=== PATIENT | female | born 1940 | race African-American/Black ===

== ENCOUNTER 2016-04-24 06:14 | Emergency (ER) | payer MEDICARE ==
[2016-04-24 07:17] LABS: Hematocrit 39 % (35-47); Hemoglobin 12.7 g/dl (12.0-16.0); Mean Corpuscular HGB Conc 33 g/dl (31-36); Mean Corpuscular Hemoglobin 27 pg (27-31); Mean Corpuscular Volume 81 fL (80-97); Mean Platelet Volume 8 um3 (7.4-10.4); Red Blood Count 4.79 10^6/ul (4.0-5.4); Red Cell Distribution Width 15 % (10.5-15); White Blood Count 9.5 10^3/ul (3.5-10.8)
[2016-04-24] MEDS ORDERED: NS 0.9% 1000 ML* 1,000 ML IV ONE (07:20)
[2016-04-24] MEDS ORDERED: Ondansetron ODT TAB* 4 MG PO ONE (07:20)
[2016-04-24 07:26] LABS: Albumin 3.5 g/dL (3.2-5.2); BUN/Creatinine Ratio 19.5 (8-20); C Reactive Protein 5.04 mg/L (< 5.00); Calcium 8.9 mg/dL (8.6-10.3); EGFR African American 81.9 (>60); EGFR Non-African American 63.6 (>60); Globulin 3.7 g/dL (2-4); Potassium 3.9 mmol/L (3.5-5.0); Total Bilirubin 0.7 mg/dL (0.2-1.0); Total Protein 7.2 g/dL (6.4-8.9)
--- NOTE | 2016-04-24 07:27 | ED ---
Abdominal Pain/Female - HPI Summary HPI Summary: Patient presents with LUQ and LLQ pain since 0100 when she was awoken with abdominal cramping. She went to the bathroom and had severe diarrhea. She took some Pepto-Bismal and went back to bed. She was able to get back to sleep but awoke several hours later, having had diarrhea in bed with continued abdominal pain. She noticed that her tongue was black, so with the combination of the pain and her tongue, she decided to come in for evaluation. Yesterday she felt perfectly normal and consumed her normal diet. She denies fever, chills, back pain, vomiting or having eaten any new or raw foods. - History of Current Complaint Chief Complaint: EDAbdPain Stated Complaint: ABD PAIN Time Seen by Provider: 04/24/16 06:56 Hx Obtained From: Patient ?: No Onset/Duration: Sudden Onset Timing: Constant Severity Initially: Severe Severity Currently: Severe Pain Intensity: 9 Location: Discrete At: LUQ, Discrete At: LLQ Radiates: No Character: Sharp, Cramping Aggravating Factor(s): Nothing Alleviating Factor(s): Nothing Associated Signs and Symptoms: Positive: Nausea, Diarrhea Allergies/Adverse Reactions: Allergies Allergy/AdvReac Type Severity Reaction Status Date / Time Codeine Allergy Intermediate Vomiting Verified 12/01/15 08:07 Morphine Allergy Intermediate Vomiting Verified 12/01/15 08:07 Tramadol Allergy Intermediate Vomiting Verified 12/01/15 08:07 Penicillins [PCN] Allergy Unknown Unknown Verified 12/01/15 08:07 Reaction Details Sulfa Drugs Allergy Unknown Unknown Verified 12/01/15 08:07 Reaction Details PMH/Surg Hx/FS Hx/Imm Hx Cardiovascular History: Reports: Hx Hypertension Respiratory History: Reports: Hx Asthma, Hx Chronic Bronchitis GI History: Reports: Hx Gall Bladder Disease - Cholecystectomy, Hx Hiatal Hernia - repaired, Hx Ulcer, Other GI Disorders - pancreatitis History: Reports: Hx Kidney Stones Musculoskeletal History: Reports: Hx Arthritis - knee, Hx Orthopedic Injury Sensory History: Reports: Hx Contacts or Glasses, Hx Eye Injury, Hx Vision Problem Opthamlomology History: Reports: Hx Contacts or Glasses, Hx Eye Injury, Hx Vision Problem Neurological History: 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) Psychiatric History: Reports: Hx Anxiety - Surgical History Surgery Procedure, Year, and Place: Hysterectomy, Tubal ligation, Cholecystectomy, RIGHT LEG REPAIR, left knee arthroscopy, tonsillectomy and adenoidectomy Hx Anesthesia Reactions: No - Immunization History Date of Tetanus Vaccine: Unknown Date of Influenza Vaccine: Unknown Infectious Disease History: No Infectious Disease History: Reports: Hx Shingles Denies: Traveled Outside the [place] in Last 30 Days - Family History Known Family History: Positive: Unknown - Social History Occupation: Unemployed Lives: Alone Alcohol Use: Rare Hx Substance Use: No Substance Use Type: Reports: None Hx Tobacco Use: No Smoking Status (MU): Never Smoked Tobacco Review of Systems Negative: Fever, Chills Negative: Chest Pain Negative: Shortness Of Breath Positive: Abdominal Pain, Diarrhea, Nausea. Negative: Vomiting Positive: no symptoms reported Negative: Headache All Other Systems Reviewed And Are Negative: Yes Physical Exam Triage Information Reviewed: Yes Vital Signs On Initial Exam: Initial Vitals Temp Pulse Resp BP Pulse Ox 98.0 F 98 22 107/64 98 04/24/16 06:16 04/24/16 06:16 04/24/16 06:16 04/24/16 06:16 04/24/16 06:16 Vital Signs Reviewed: Yes Appearance: Positive: Well-Appearing, Well-Nourished, Pain Distress Skin: Positive: Warm, Skin Color Reflects Adequate Perfusion, Dry, Soft Head/Face: Positive: Normal Head/Face Inspection Eyes: Positive: EOMI, TREY, Conjunctiva Clear ENT: Positive: Hearing grossly normal, Pharynx normal, Other - tongue has black film Neck: Positive: Supple, Nontender, No Lymphadenopathy Respiratory/Lung Sounds: Positive: Clear to Auscultation, Breath Sounds Present Cardiovascular: Positive: RRR Abdomen Description: Positive: Soft, Distended. Negative: Nontender - TTP LUQ, LLQ, periumbilical, CVA Tenderness (R), CVA Tenderness (L), McBurney's Point Tenderness, Pulsatile Mass Bowel Sounds: Positive: Present Musculoskeletal: Negative: Edema Left, Edema Right Neurological: Positive: Sensory/Motor Intact, Alert, Oriented to Person Place, Time Psychiatric: Positive: Affect/Mood Appropriate AVPU Assessment: Alert Diagnostics - Vital Signs Vital Signs Temp Pulse Resp BP Pulse Ox 04/24/16 06:30 98 27 104/51 99 04/24/16 06:25 102 30 123/87 99 04/24/16 06:16 98.0 F 98 22 107/64 98 - Laboratory Lab Results: Lab Results 04/24/16 Range/Units 06:30 WBC 9.5 (3.5-10.8) 10^3/ul RBC 4.79 (4.0-5.4) 10^6/ul Hgb 12.7 (12.0-16.0) g/dl Hct 39 (35-47) % MCV 81 (80-97) fL MCH 27 (27-31) pg MCHC 33 (31-36) g/dl RDW 15 (10.5-15) % Plt Count 175 (150-450) 10^3/ul MPV 8 (7.4-10.4) um3 Neut % (Auto) 61.7 (38-83) % Lymph % (Auto) 29.5 (25-47) % [place] % (Auto) 6.3 (1-9) % Eos % (Auto) 2.1 (0-6) % Baso % (Auto) 0.4 (0-2) % Absolute Neuts (auto) 5.9 (1.5-7.7) 10^3/ul Absolute Lymphs (auto) 2.8 (1.0-4.8) 10^3/ul Absolute Monos (auto) 0.6 (0-0.8) 10^3/ul Absolute Eos (auto) 0.2 (0-0.6) 10^3/ul Absolute Basos (auto) 0 (0-0.2) 10^3/ul Absolute Nucleated RBC 0.01 10^3/ul Nucleated RBC % 0.1 Result Diagrams: 04/24/16 06:30 04/24/16 06:30 Lab Statement: Any lab studies that have been ordered have been reviewed, and results considered in the medical decision making process. - Radiology No standard instances Xray Interpretation: Positive (See Comments) Radiology Interpretation Completed By: Radiologist - Air fluid levels - CT No standard instances CT Interpretation: Positive (See Comments) CT Interpretation Completed By: Radiologist - Diverticulosis Re-Evaluation - Re-Evaluation First Eval Re-Evaluation Time: 09:30 Change: Worse - pain increasing Second Eval Re-Evaluation Time: 11:00 Change: Improved - pain improved with morphine Third Eval Re-Evaluation Time: 11:50 Change: Worse - pain returned Fourth Eval Re-Evaluation Time: 12:35 Change: Improved - Pain is reduced Abdominal Pain Fem Course/Dx - Diagnoses Differential Diagnosis: Positive: Abdominal Aortic Aneurysm, ACS, Bowel Obstruction, Constipation, Pneumonia, Renal Colic Provider Diagnoses: Diverticulosis Discharge - Discharge Plan Condition: Stable Disposition: HOME Prescriptions: Ciprofloxacin TAB* [Cipro Tab*] 500 mg PO BID #20 tab Metronidazole [Flagyl 500 MG TAB] 500 mg PO TID #30 tab Patient Education Materials: Diverticulosis (ED), Diverticulosis Diet (ED) Referrals: Matti Romero MD [Primary Care Provider] - Additional Instructions: Please follow-up with your primary care provider in 1-2 days. Take the medication provided as prescribed and follow the divertoculosis diet to decrease your discomfort. Return to the emergency department if your symptoms worsen.
--- NOTE | 2016-04-24 08:09 | RAD ---
INDICATION: Diarrhea COMPARISON: None TECHNIQUE: 2 views the abdomen were obtained. FINDINGS: There are no acute bony or soft tissue abnormalities. Scattered air-fluid levels are noted in the jose ascending and transverse colon. Otherwise the bowel gas pattern is normal. There is a moderate amount of stool overlying the renal shadows. There are no obvious coarse calcifications overlying the expected location of the bilateral collecting systems or ureters. IMPRESSION: SCATTERED AIR-FLUID LEVELS IN THE COLON IN THIS OTHERWISE NORMAL KUB.
[2016-04-24] MEDS ORDERED: Morphine INJ* 4 MG/ML 1 ML CARPUJECT IV ONE ×3 (08:22→11:47)
[2016-04-24] MEDS ORDERED: Ondansetron INJ* 2 MG/ML VIAL IV ONE (08:31)
[2016-04-24] MEDS ORDERED: Iohexol 300* (CONTRAST) 10 ML SDV IV ONE (09:08)
[2016-04-24 09:27] LABS: Urine Bilirubin Negative (Negative); Urine Glucose Negative (Negative); Urine Nitrite Negative (Negative)
--- NOTE | 2016-04-24 11:55 | RAD ---
INDICATION: Abdominal pain and nausea. Diarrhea which is chronic. Spitting up black stuff. Post hysterectomy, cholecystectomy. COMPARISON: October 06, 2015 CT. TECHNIQUE: Multidetector CT images were obtained from the lung bases to the ischial tuberosities with 103 mm Omnipaque 300 IV and oral contrast. Multiplanar reformation. REPORT: Mild bibasilar subsegmental atelectasis. Minimal intra and extrahepatic biliary dilatation without visualized obstructing lesion or stone is mildly increased over the prior exam. Low suspicion 5 mm hypodense lesion at the caudal margin of the RIGHT posterior hepatic segment is unchanged. No suspicious hepatic lesions evident. Minimal prominence of the pancreatic duct is increased over the prior exam. No focal pancreatic lesion or peripancreatic inflammatory change evident. Unremarkable spleen. Negative for CT abnormality of the upper GI, small bowel, or appendix visualized overlying the RIGHT pelvic sidewall. Moderate colonic diverticulosis without findings of acute diverticulitis. Trace free pelvic fluid. Negative for free air. Negative for significant hernias. Normal adrenal glands. Unremarkable kidneys with symmetric nephrograms and pyelograms. Unremarkable ureters and urinary bladder. Post hysterectomy. Unremarkable adnexal regions. 1.4 cm transverse by 2.9 cm length soft tissue density conglomerate of lymph nodes at the LEFT external iliac level is compared with the recent prior exam and a CT from September 22, 2011 without concern. Normal size range bilateral inguinal lymph nodes without change. No new adenopathy evident. Atherosclerotic plaque of normal diameter abdominal aorta and common iliac arteries. Physiologic distention of the IVC. Negative for suspicious osseous lesions. Polyarticular degenerative arthropathy. IMPRESSION: 1. New very mild biliary and pancreatic duct dilatation without definitive obstructing lesion or visualized distal common bile duct stone. While this may be physiologic given previous cholecystectomy does appear increased over the recent prior exam. Correlate with clinical data and consider ultrasound or MRCP for further assessment. 2. Normal appendix documented. 3. Moderate colonic diverticulosis without findings of acute diverticulitis. 4. Trace free pelvic fluid is new compared with the prior exam.
[2016-04-24 12:34] VITALS: BP 89/54
[2016-04-24] MEDS ORDERED: metroNIDAZOLE IV 500 MG/100ML* 500 MG/100 ML BAG IVPB ONE (13:08)
[2016-04-24] MEDS ORDERED: Clindamycin 600 MG IVPREMIX(* 600 MG/50 ML SDV IV ONE (13:08)
== END 2016-04-24 15:34 | disposition home or self-care (01) ==
LOC: ED 06:14
DX: K57.90 Diverticulosis of intestine, part unspecified, without perforation or abscess without bleeding (principal); R10.84 Generalized abdominal pain; R19.7 Diarrhea, unspecified; R11.0 Nausea
CPT/HCPCS: 36415; 74000; 74177; 80053; 81003; 83690; 85025; 85610; 85730; 86140; 96374; 96375; 99283; A9270-GY; J2270; J2405; J3490; Q9967

== ENCOUNTER 2016-04-25 07:51 | Emergency (ER) | payer MEDICARE ==
[2016-04-25] MEDS ORDERED: NS 0.9% 1000 ML* 1,000 ML IV ONE (08:39)
[2016-04-25] MEDS ORDERED: Ondansetron INJ* 2 MG/ML VIAL IV ONE (08:39)
[2016-04-25] MEDS ORDERED: HYDROmorphone INJ* 1 MG/ML CARPUJECT SYRINGE IV ONE (08:39)
[2016-04-25 09:31] LABS: Hematocrit 36 % (35-47); Hemoglobin 12.2 g/dl (12.0-16.0); Mean Corpuscular HGB Conc 34 g/dl (31-36); Mean Corpuscular Hemoglobin 27 pg (27-31); Mean Corpuscular Volume 78 fL (80-97); Mean Platelet Volume 8 um3 (7.4-10.4); Red Blood Count 4.58 10^6/ul (4.0-5.4); Red Cell Distribution Width 15 % (10.5-15); White Blood Count 7.2 10^3/ul (3.5-10.8)
[2016-04-25 09:43] LABS: Albumin 3.5 g/dL (3.2-5.2); BUN/Creatinine Ratio 16.7 (8-20); C Reactive Protein 27.99 mg/L (< 5.00); Calcium 8.6 mg/dL (8.6-10.3); EGFR African American 73.1 (>60); EGFR Non-African American 56.8 (>60); Globulin 3.9 g/dL (2-4); Potassium 3.5 mmol/L (3.5-5.0); Total Bilirubin 1.1 mg/dL (0.2-1.0); Total Protein 7.4 g/dL (6.4-8.9)
--- NOTE | 2016-04-25 09:58 | RAD ---
INDICATION: ] Right upper quadrant pain COMPARISON: CT April 24, 2016 TECHNIQUE: Longitudinal and transverse scans of the right upper quadrant were obtained. Doppler interrogation of the hepatic and portal venous system was performed. FINDINGS: Liver: The liver is normal in size without focal mass. There is mild heterogeneity in echotexture suggesting mild hepatic parenchymal disease. The liver measures 15 cm in cephalocaudal dimension. Vessels: There is normal hepatic and portal venous flow. Bile ducts: There is no evidence of intrahepatic or extrahepatic ductal dilatation. The common duct measures 0.[address], however, suggested mild intra and extra hepatic ductal dilatation which can be seen with postcholecystectomy state. Gallbladder: Cholecystectomy. Pancreas: The visualized pancreas appears normal Right kidney: The right kidney is normal in size and echogenicity. There are no masses or calculi. There is no evidence of hydronephrosis. The right kidney measures 9.9 x 4.3 x 4.3 cm. IVC and aorta: The aorta and superior vena cava appear normal. Fluid: There is no ascites. Other: None. IMPRESSION: MILDLY HETEROGENEOUS LIVER. SUGGEST CORRELATION WITH LIVER ENZYMES. CHOLECYSTECTOMY. NO ADDITIONAL SIGNIFICANT SONOGRAPHIC FINDINGS
[2016-04-25 11:12] LABS: Urine Bacteria Absent (Absent); Urine Bilirubin Negative (Negative); Urine Glucose Negative (Negative); Urine Nitrite Negative (Negative)
[2016-04-25] MEDS ORDERED: LORazepam INJ* 2 MG/ML 1 ML VIAL IV ONE ×2 (14:11→15:31)
--- NOTE | 2016-04-25 14:20 | ED ---
Alexis Mcwilliams Adam, scribed for Alexei Olivera MD on 04/25/16 at 0831 . Abdominal Pain/Female - HPI Summary HPI Summary: Pt is a 75 year old female presenting with upper abdominal pain that set on suddenly yesterday. The pain resolved after she came to the ED yesterday and she was able to sleep well last night. When she woke up this morning, though, the pain had returned so she came back to the ED. She also reports dizziness, nausea, and 1 episode of vomiting this morning, none of which occurred yesterday. She urinated this morning and reports some burning sensation. PMHx of pancreatitis, hiatal hernia, cholecystectomy, and HTN. - History of Current Complaint Chief Complaint: EDAbdPain Stated Complaint: ABD PAIN Time Seen by Provider: 04/25/16 08:28 Hx Obtained From: Patient Onset/Duration: Sudden Onset, Lasting Days, Still Present Timing: Intermittent Episode Lasting - Resolved yesterday, returned this morning Severity Initially: Moderate Severity Currently: Moderate Pain Intensity: 10 Pain Scale Used: 0-10 Numeric Location: Discrete At: RUQ, Discrete At: LUQ, Epigastric Aggravating Factor(s): Deep Breaths Alleviating Factor(s): Nothing Associated Signs and Symptoms: Positive: Dizzy, Urinary Symptoms - Burning, Nausea, Vomiting Allergies/Adverse Reactions: Allergies Allergy/AdvReac Type Severity Reaction Status Date / Time Codeine Allergy Intermediate Vomiting Verified 12/01/15 08:07 Morphine Allergy Intermediate Vomiting Verified 12/01/15 08:07 Tramadol Allergy Intermediate Vomiting Verified 12/01/15 08:07 Penicillins [PCN] Allergy Unknown Unknown Verified 12/01/15 08:07 Reaction Details Sulfa Drugs Allergy Unknown Unknown Verified 12/01/15 08:07 Reaction Details PMH/Surg Hx/FS Hx/Imm Hx Cardiovascular History: Reports: Hx Hypertension Respiratory History: Reports: Hx Asthma, Hx Chronic Bronchitis GI History: Reports: Hx Gall Bladder Disease - Cholecystectomy, Hx Hiatal Hernia - repaired, Hx Ulcer, Other GI Disorders - pancreatitis History: Reports: Hx Kidney Stones Musculoskeletal History: Reports: Hx Arthritis - knee, Hx Orthopedic Injury Sensory History: Reports: Hx Contacts or Glasses, Hx Eye Injury, Hx Vision Problem Opthamlomology History: Reports: Hx Contacts or Glasses, Hx Eye Injury, Hx Vision Problem Neurological History: 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) Psychiatric History: Reports: Hx Anxiety - Surgical History Surgery Procedure, Year, and Place: Hysterectomy, Tubal ligation, Cholecystectomy, RIGHT LEG REPAIR, left knee arthroscopy, tonsillectomy and adenoidectomy Hx Anesthesia Reactions: No - Immunization History Date of Tetanus Vaccine: Unknown Date of Influenza Vaccine: Unknown Infectious Disease History: No Infectious Disease History: Reports: Hx Shingles Denies: Traveled Outside the [place] in Last 30 Days - Family History Known Family History: Positive: Unknown - Social History Occupation: Disabled Lives: Alone Alcohol Use: Rare Hx Substance Use: No Substance Use Type: Reports: None Hx Tobacco Use: No Smoking Status (MU): Never Smoked Tobacco Review of Systems Constitutional: Negative Negative: Fever Positive: Abdominal Pain, Vomiting, Nausea Positive: burning Neurological: Other - Dizziness All Other Systems Reviewed And Are Negative: Yes Physical Exam Triage Information Reviewed: Yes Vital Signs On Initial Exam: Initial Vitals Temp Pulse Resp BP Pulse Ox 98.4 F 85 26 116/89 92 04/25/16 08:02 04/25/16 08:02 04/25/16 08:02 04/25/16 08:02 04/25/16 08:02 Vital Signs Reviewed: Yes Appearance: Positive: Pain Distress - Moderate Skin: Positive: Warm, Skin Color Reflects Adequate Perfusion, Dry Head/Face: Positive: Normal Head/Face Inspection Eyes: Positive: Normal ENT: Positive: Normal ENT inspection Neck: Positive: Supple, Nontender Respiratory/Lung Sounds: Positive: Clear to Auscultation, Breath Sounds Present Cardiovascular: Positive: RRR Abdomen Description: Positive: Soft, Other: - Tenderness in the epigastrium and both upper quadrants Bowel Sounds: Positive: Present Musculoskeletal: Positive: Normal Neurological: Positive: Normal Psychiatric: Positive: Normal, Affect/Mood Appropriate Diagnostics - Vital Signs Vital Signs Temp Pulse Resp BP Pulse Ox 04/25/16 08:02 98.4 F 85 26 116/89 92 - Laboratory Lab Results: Lab Results 04/25/16 04/25/16 04/25/16 Range/Units 09:15 09:15 09:15 WBC 7.2 (3.5-10.8) 10^3/ul RBC 4.58 (4.0-5.4) 10^6/ul Hgb 12.2 (12.0-16.0) g/dl Hct 36 (35-47) % MCV 78 L (80-97) fL MCH 27 (27-31) pg MCHC 34 (31-36) g/dl RDW 15 (10.5-15) % Plt Count 203 (150-450) 10^3/ul MPV 8 (7.4-10.4) um3 Neut % (Auto) 71.0 (38-83) % Lymph % (Auto) 22.0 L (25-47) % [place] % (Auto) 5.6 (1-9) % Eos % (Auto) 0.9 (0-6) % Baso % (Auto) 0.5 (0-2) % Absolute Neuts (auto) 5.1 (1.5-7.7) 10^3/ul Absolute Lymphs (auto) 1.6 (1.0-4.8) 10^3/ul Absolute Monos (auto) 0.4 (0-0.8) 10^3/ul Absolute Eos (auto) 0.1 (0-0.6) 10^3/ul Absolute Basos (auto) 0 (0-0.2) 10^3/ul Absolute Nucleated RBC 0 10^3/ul Nucleated RBC % 0 Sodium 136 (133-145) mmol/L Potassium 3.5 (3.5-5.0) mmol/L Chloride 103 (101-111) mmol/L Carbon Dioxide 25 (22-32) mmol/L Anion Gap 8 (2-11) mmol/L BUN 16 (6-24) mg/dL Creatinine 0.96 H (0.51-0.95) mg/dL Est GFR ( Amer) 73.1 (>60) Est GFR (Non-Af Amer) 56.8 (>60) BUN/Creatinine Ratio 16.7 (8-20) Glucose 106 H (70-100) mg/dL Lactic Acid 1.6 (0.5-2.0) mmol/L Calcium 8.6 (8.6-10.3) mg/dL Total Bilirubin 1.10 H (0.2-1.0) mg/dL AST 56 H (13-39) U/L ALT 73 H (7-52) U/L Alkaline Phosphatase 84 (34-104) U/L C-Reactive Protein 27.99 H (< 5.00) mg/L Total Protein 7.4 (6.4-8.9) g/dL Albumin 3.5 (3.2-5.2) g/dL Globulin 3.9 (2-4) g/dL Albumin/Globulin Ratio 0.9 L (1-3) Lipase 124 H (11.0-82.0) U/L Urine Color Urine Appearance Urine pH (5-9) Ur Specific [place] (1.010-1.030) Urine Protein (Negative) Urine Ketones (Negative) Urine Blood (Negative) Urine Nitrate (Negative) Urine Bilirubin (Negative) Urine Urobilinogen (Negative) Ur Leukocyte Esterase (Negative) Urine WBC (Auto) (Absent) Urine RBC (Auto) (Absent) Ur Squamous Epith Cells (Absent) Urine Bacteria (Absent) Urine Glucose (Negative) 04/25/16 Range/Units 10:48 WBC (3.5-10.8) 10^3/ul RBC (4.0-5.4) 10^6/ul Hgb (12.0-16.0) g/dl Hct (35-47) % MCV (80-97) fL MCH (27-31) pg MCHC (31-36) g/dl RDW (10.5-15) % Plt Count (150-450) 10^3/ul MPV (7.4-10.4) um3 Neut % (Auto) (38-83) % Lymph % (Auto) (25-47) % [place] % (Auto) (1-9) % Eos % (Auto) (0-6) % Baso % (Auto) (0-2) % Absolute Neuts (auto) (1.5-7.7) 10^3/ul Absolute Lymphs (auto) (1.0-4.8) 10^3/ul Absolute Monos (auto) (0-0.8) 10^3/ul Absolute Eos (auto) (0-0.6) 10^3/ul Absolute Basos (auto) (0-0.2) 10^3/ul Absolute Nucleated RBC 10^3/ul Nucleated RBC % Sodium (133-145) mmol/L Potassium (3.5-5.0) mmol/L Chloride (101-111) mmol/L Carbon Dioxide (22-32) mmol/L Anion Gap (2-11) mmol/L BUN (6-24) mg/dL Creatinine (0.51-0.95) mg/dL Est GFR ( Amer) (>60) Est GFR (Non-Af Amer) (>60) BUN/Creatinine Ratio (8-20) Glucose (70-100) mg/dL Lactic Acid (0.5-2.0) mmol/L Calcium (8.6-10.3) mg/dL Total Bilirubin (0.2-1.0) mg/dL AST (13-39) U/L ALT (7-52) U/L Alkaline Phosphatase (34-104) U/L C-Reactive Protein (< 5.00) mg/L Total Protein (6.4-8.9) g/dL Albumin (3.2-5.2) g/dL Globulin (2-4) g/dL Albumin/Globulin Ratio (1-3) Lipase (11.0-82.0) U/L Urine Color Yellow Urine Appearance Clear Urine pH 7.0 (5-9) Ur Specific [place] 1.014 (1.010-1.030) Urine Protein Negative (Negative) Urine Ketones 1+ H (Negative) Urine Blood Negative (Negative) Urine Nitrate Negative (Negative) Urine Bilirubin Negative (Negative) Urine Urobilinogen Negative (Negative) Ur Leukocyte Esterase Trace H (Negative) Urine WBC (Auto) Trace(0-5/hpf) (Absent) Urine RBC (Auto) Trace(0-2/hpf) (Absent) Ur Squamous Epith Cells Present H (Absent) Urine Bacteria Absent (Absent) Urine Glucose Negative (Negative) Result Diagrams: 04/25/16 09:15 04/25/16 09:15 Lab Statement: Any lab studies that have been ordered have been reviewed, and results considered in the medical decision making process. - EKG 08:20 Cardiac Rate: NL - 78 BPM EKG Rhythm: Sinus Rhythm EKG Interpretation: Prolonged QT interval - Additional Comments Diagnostic Additional Comments: Abdomen Ultrasound - IMPRESSION: MILDLY HETEROGENEOUS LIVER. SUGGEST CORRELATION WITH LIVER ENZYMES. CHOLECYSTECTOMY. NO ADDITIONAL SIGNIFICANT SONOGRAPHIC FINDINGS Abdominal Pain Fem Course/Dx - Course Course Of Treatment: Ms. Koch has presented twice in as many days with upper abdominal pain that came on while she was eating. Her transaminases, lipase and bilirubin are all a little elevated today compared to yesterday. U/S is neg today and CT was yesterday so I have ordered an MRCP. - Diagnoses Provider Diagnoses: Abdominal pain - Provider Notifications Discussed Care Of Patient With: Dr. Hill Time Discussed With Above Provider: 15:00 - Change of shift Discharge - Discharge Plan Condition: Stable Disposition: ADMITTED TO [facility] The documentation as recorded by the Alexis begum Adam accurately reflects the service I personally performed and the decisions made by me, Alexei Olivera MD.
--- NOTE | 2016-04-25 16:57 | RAD ---
Indication: Epigastric pain and transaminase elevations. Nausea and vomiting. Post cholecystectomy. Comparison: April 24, 2016 CT and April 25, 2016 RIGHT upper quadrant ultrasound. Technique: I AND [employer] 1.5 [place] [id number] with GEM suite. Noncontrast magnetic resonance cholangiopancreatography. Report: Post cholecystectomy. Top normal diameter of the common bile duct. Minimal intrahepatic biliary dilatation. Top normal pancreatic duct diameter. No filling defects evident in the common bile duct to indicate stones. No intrinsic or extrinsic lesion at the ampulla evident. IMPRESSION: No choledocholithiasis or obstructing lesion evident. Top normal common bile duct and minimal intrahepatic biliary dilatation which may be normal post cholecystectomy.
[2016-04-25 18:18] VITALS: BP 127/76
--- NOTE | 2016-04-25 19:36 | CONS ---
GASTROENTEROLOGY CONSULT: DATE: 04/25/16 REASON FOR CONSULTATION: Abdominal pain with elevated LFTs. CONSULTING PHYSICIAN: Matti Rowe HISTORY: This 75-year-old woman who had a cholecystectomy in 2005 or 2006 in [facility] comes in with abdominal pain. She was seen yesterday with pain and workup including labs and a CT scan was largely unremarkable, although she had slight dilation of the bile ducts noted on the CT scan. Her LFTs were normal; however, and she became comfortable and was sent home. She was given a prescription for antibiotics, but did not fill them. At home, she said she was still drowsy from the pain medicine in the ER and went to sleep without eating. She slept well through the night. This morning, there was some further pain and she came back to the emergency room. She appeared well in no overt distress and her vitals were normal. Temperature 98.4 , pulse 85, and blood pressure 116/89. Her labs; however, this time showed a mild elevation in liver functions with bilirubin 1.1, ALT 73 (compared to 28), and lipase now 124. Her CRP was up at 28. Ultrasound was done at 8:40 a.m. and it showed a mildly heterogenous liver and a common duct of 7 mm, which is felt to be consistent with a postcholecystectomy state. She did not appear in distress per report. I was contacted and suggested MRCP. It was noted that she had been hospitalized in November 2014 with upper abdominal pain and at that time, her ALT had reached a height of 171. Her lipase had also been up around The MRCP was delayed initially due to a question about a metal hip appliance. PAST MEDICAL HISTORY: 1. Right femoral fracture, status post surgery. 2. Cholecystectomy - estimated 2005. 3. Hysterectomy - details unclear. 4. Hypertension. 5. Asthma - frequent emergency room visits. 6. History of TIA - history cloudy. MEDICATIONS: At home, all listed as questionable per the medication reconciliation, potentially including Aspirin 81, Baclofen, Amlodipine 10, Oxycodone. Allergies to PENICILLIN, SULFA, TRAMADOL, MORPHINE and CODEINE -all opiate reactions stated to be vomiting. SOCIAL HISTORY: She lived in [facility] until she was influenced by family members to move up here. Initially, it was a nephew at the start. She now lives near her daughter and her son lives in [facility]. She lists her location as [facility] near the hospital. REVIEW OF SYSTEMS: It is notable that her medical encounters with the hospital have been exclusively in the ER or via admissions aside from visits to Dr Joaquin Diez regarding right knee pain resulting in 2 visits out of approximately 30 her listed primary, Dr Romero. There is no history of syncope, palpitations, MS, cardiac stents, TB, hemoptysis , hepatitis, or rectal bleeding. She has had loose stools ever since her cholecystectomy. EXAM: She is a moderately overweight older black female in no overt distress and indeed, as I enter the room, she says "They want me to have a test, but I'm feeling fine and I want to go home. I'm hungry and I want to go home." She is anicteric. She does appear in no distress. She has no adenopathy. Her lungs are clear and heart sounds are normal. Breasts and Pelvic Exams: Deferred. The abdomen is symmetric with no tenderness elicited. Extremities show no edema. Neurologic is nonfocal with normal cranial nerves and mentation. She moves all 4 extremities clearly. Gait was not tested. IMPRESSION: This 75-year-old woman who had a cholecystectomy 9 or 10 years ago , now presents with upper abdominal pain and a second episode where transaminases and lipase went off in a low-grade fashion. Most likely, she is passing biliary sludge. An MRCP would be helpful. It is still being awaited. If MRCP is negative, she can be discharged to follow up with Dr Romero. This relationship should be fostered as opposed to ER primary care. [id number]/[facility] #: [id number] [facility]
--- NOTE | 2016-07-10 00:57 | ED ---
Karissa Mcwilliams Erika, scribed for Aki Hill MD on 04/25/16 at 1729 . Progress - Progress Note Progress Note: Patient signed out from Dr. Olivera. MRI CHOLANGIOGRAM read by radiologist - IMPRESSION: No choledocholithiasis or obstructing lesion evident. Top normal common bile duct and minimal intrahepatic biliary dilatation which may be normal post cholecystectomy. Discussed patient care with Dr. Boggs (GI) at 17:50 - discussed MRCP results Course/Dx - Diagnoses Provider Diagnoses: Abdominal pain The documentation as recorded by the Karissa begum Erika accurately reflects the service I personally performed and the decisions made by , Aki Hill MD.
== END 2016-04-25 18:17 | disposition home or self-care (01) ==
LOC: ED 07:51
DX: R10.9 Unspecified abdominal pain (principal)
CPT/HCPCS: 36415; 74181; 76376; 76705; 80053; 81003; 81015; 83605; 83690; 85025; 86140; 87086; 93005; 96374; 96375; 99283; J1170; J2060; J2405

== ENCOUNTER 2016-05-15 09:53 | Emergency (ER) | payer MEDICARE ==
[2016-05-15] MEDS ORDERED: Ketorolac INJ* 60 MG/2 ML VIAL IM ONE (12:48)
[2016-05-15] MEDS ORDERED: Cyclobenzaprine TAB* 10 MG PO ONE (12:48)
--- NOTE | 2016-05-15 12:54 | ED ---
Neck Pain - HPI Summary HPI Summary: Pt here w/ acute onset Rt sided neck pain. Started last night w/o known cause. Denies recent injury or over activity but states she's always active. Pain is worse w/ head and some arm movements. Denies GRANADOS, numbness, tingling, weakness. Hurts to touch. Tried heat and ice as well as excederin w/o relief. Lt sided frozen shoulder yesterday. No skin changes. - History of Current Complaint Chief Complaint: EDNeckComplaint Stated Complaint: BACK PAIN Time Seen by Provider: 05/15/16 12:28 Hx Obtained From: Patient Pain Intensity: 10 - Allergies/Home Medications Allergies/Adverse Reactions: Allergies Allergy/AdvReac Type Severity Reaction Status Date / Time Codeine Allergy Intermediate Vomiting Verified 05/15/16 09:58 Morphine Allergy Intermediate Vomiting Verified 05/15/16 09:58 Tramadol Allergy Intermediate Vomiting Verified 05/15/16 09:58 Penicillins [PCN] Allergy Unknown Unknown Verified 05/15/16 09:58 Reaction Details Sulfa Drugs Allergy Unknown Unknown Verified 05/15/16 09:58 Reaction Details PMH/Surg Hx/FS Hx/Imm Hx Previously Healthy: Yes Endocrine/Hematology History: Denies: Hx Anticoagulant Therapy, Hx Blood Disorders Cardiovascular History: Reports: Hx Hypertension Denies: Hx Pacemaker/ICD Respiratory History: Reports: Hx Asthma, Hx Chronic Bronchitis GI History: Reports: Hx Gall Bladder Disease - Cholecystectomy, Hx Hiatal Hernia - repaired, Hx Ulcer, Other GI Disorders - pancreatitis History: Reports: Hx Kidney Stones Musculoskeletal History: Reports: Hx Arthritis - knee, Hx Orthopedic Injury, Other Musculoskeletal History - "frozen shoulder" Lt side Sensory History: Reports: Hx Contacts or Glasses, Hx Eye Injury, Hx Vision Problem Denies: Hx Hearing Aid Opthamlomology History: Reports: Hx Contacts or Glasses, Hx Eye Injury, Hx Vision Problem Neurological History: 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) Psychiatric History: Reports: Hx Anxiety Denies: Hx Panic Disorder - Surgical History Surgery Procedure, Year, and Place: Hysterectomy, Tubal ligation, Cholecystectomy, RIGHT LEG ORIF, left knee arthroscopy, tonsillectomy and adenoidectomy Hx Anesthesia Reactions: No - Immunization History Date of Tetanus Vaccine: Unknown Date of Influenza Vaccine: Unknown Infectious Disease History: Yes Infectious Disease History: Reports: Hx Shingles Denies: Traveled Outside the [place] in Last 30 Days - Family History Known Family History: Positive: Unknown - Social History Occupation: Retired Alcohol Use: Rare Hx Substance Use: No Substance Use Type: Reports: None Hx Tobacco Use: No Smoking Status (MU): Never Smoked Tobacco Review of Systems Negative: Fever, Chills Eyes: Negative ENT: Negative Negative: Chest Pain Negative: Shortness Of Breath Gastrointestinal: Negative Positive: no symptoms reported Musculoskeletal: Other - see HPI Negative: Rash, Bruising Neurological: Negative Positive: Anxious All Other Systems Reviewed And Are Negative: Yes Physical Exam Triage Information Reviewed: Yes Vital Signs On Initial Exam: Initial Vitals Temp Pulse Resp BP Pulse Ox 99.4 F 102 20 105/70 100 05/15/16 09:58 05/15/16 09:58 05/15/16 09:58 05/15/16 09:58 05/15/16 09:58 Vital Signs Reviewed: Yes Appearance: Positive: Well-Appearing, Well-Nourished, Pain Distress Skin: Positive: Warm, Dry - no erythema, no lesoins over affected area of Rt side of neck Head/Face: Positive: Normal Head/Face Inspection - NTTP Eyes: Positive: Normal, EOMI, Conjunctiva Clear ENT: Positive: Hearing grossly normal, Pharynx normal. Negative: Nasal congestion, Nasal drainage Neck: Positive: Tenderness @ - Rt side trap m from cervical spine to shoulder visibly hypertonic - chord-like, TTP Respiratory/Lung Sounds: Positive: Clear to Auscultation, Breath Sounds Present Cardiovascular: Positive: Normal, Pulses are Symmetrical in both Upper and Lower Extremities Abdomen Description: Positive: Nontender, Soft Musculoskeletal: Positive: Limited @ - cervical spine w/ limited ROM d/t pain; can pull w/ UE full strength; hurts neck to push w/ Rt UE, Pain @ - Rt side of neck is TTP; shoulder, humerus, elbow, wrist and hand are NTTP Neurological: Positive: Normal, Sensory/Motor Intact, Alert, Oriented to Person Place, Time, CN Intact II-III Psychiatric: Positive: Anxious Diagnostics - Vital Signs Vital Signs Temp Pulse Resp BP Pulse Ox 05/15/16 10:48 99.3 F 94 20 116/80 05/15/16 09:58 99.4 F 102 20 105/70 100 - Laboratory Lab Statement: Any lab studies that have been ordered have been reviewed, and results considered in the medical decision making process. Re-Evaluation - Re-Evaluation First Eval Change: Improved Neck Course/Dx - Diagnoses Provider Diagnoses: Trapezius strain Discharge - Discharge Plan Condition: Stable Disposition: HOME Patient Education Materials: Cervical Strain (ED), Arthritis (ED) Referrals: Matti Romero MD [Primary Care Provider] - Additional Instructions: You appear to have an acute cervical strain. This may be treated with alternating ibuprofen 400-600mg (take with food) and acetaminophen 650mg. You may also continue heat and ice with gentle stretches. Follow-up with PCP next week. Call today to schedule an appointment.
--- NOTE | 2016-05-15 13:42 | RAD ---
Indication: Right-sided neck pain. 5 views of the cervical spine demonstrates disc space narrowing at C3-C4, C4-C5 and C5-C6. Dorsal and ventral osteophyte formation is noted. The intervertebral foramen appear patent. IMPRESSION: Degenerative disc disease at C3-C4, C4-C5 and C5-C6.
[2016-05-15 14:54] VITALS: BP 111/72
== END 2016-05-15 14:51 | disposition home or self-care (01) ==
LOC: ED 09:53
DX: S46.812A Strain of other muscles, fascia and tendons at shoulder and upper arm level, left arm, initial encounter (principal); M54.2 Cervicalgia; F41.9 Anxiety disorder, unspecified; X58.XXXA Exposure to other specified factors, initial encounter
CPT/HCPCS: 72050; 96372; 99281; A9270-GY; J1885

== ENCOUNTER 2016-07-26 04:53 | Emergency (ER) | payer MEDICARE ==
--- NOTE | 2016-07-26 05:50 | ED ---
Eric Mcwilliams Aidan, scribed for Garrison Curry MD on 07/26/16 at 0526 . Throat Pain/Nasal Congestion - HPI Summary HPI Summary: 76 y/o female presents to the ED via EMS with a complaint of an acute, constant , moderate sore throat that is aggravated by swallowing, talking, and turning her head. No other associated symptoms or factors. - History of Current Complaint Chief Complaint: EDThroatPain Time Seen by Provider: 07/26/16 05:00 Hx Obtained From: Patient Onset/Duration: Sudden Onset, Lasting Hours, Still Present Severity: Moderate Associated Signs And Symptoms: Positive: Negative Cough: None - Allergies/Home Medications Allergies/Adverse Reactions: Allergies Allergy/AdvReac Type Severity Reaction Status Date / Time Codeine Allergy Intermediate Vomiting Verified 07/26/16 04:59 Morphine Allergy Intermediate Vomiting Verified 07/26/16 04:59 Tramadol Allergy Intermediate Vomiting Verified 07/26/16 04:59 Penicillins [PCN] Allergy Unknown Unknown Verified 07/26/16 04:59 Reaction Details Sulfa Drugs Allergy Unknown Unknown Verified 07/26/16 04:59 Reaction Details PMH/Surg Hx/FS Hx/Imm Hx Endocrine/Hematology History: Denies: Hx Anticoagulant Therapy, Hx Blood Disorders Cardiovascular History: Reports: Hx Hypertension Denies: Hx Pacemaker/ICD Respiratory History: Reports: Hx Asthma, Hx Chronic Bronchitis GI History: Reports: Hx Gall Bladder Disease - Cholecystectomy, Hx Hiatal Hernia - repaired, Hx Ulcer, Other GI Disorders - pancreatitis History: Reports: Hx Kidney Stones Musculoskeletal History: Reports: Hx Arthritis - knee, Hx Orthopedic Injury, Other Musculoskeletal History - "frozen shoulder" Lt side Sensory History: Reports: Hx Contacts or Glasses, Hx Eye Injury, Hx Vision Problem Denies: Hx Hearing Aid Opthamlomology History: Reports: Hx Contacts or Glasses, Hx Eye Injury, Hx Vision Problem Neurological History: 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) Psychiatric History: Reports: Hx Anxiety Denies: Hx Panic Disorder - Surgical History Surgery Procedure, Year, and Place: Hysterectomy, Tubal ligation, Cholecystectomy, RIGHT LEG ORIF, left knee arthroscopy, tonsillectomy and adenoidectomy Hx Anesthesia Reactions: No - Immunization History Date of Tetanus Vaccine: Unknown Date of Influenza Vaccine: Unknown Infectious Disease History: No Infectious Disease History: Reports: Hx Shingles Denies: Traveled Outside the [place] in Last 30 Days - Family History Known Family History: Positive: Hypertension - Social History Occupation: Disabled Lives: Alone Alcohol Use: Rare Hx Substance Use: No Substance Use Type: Reports: None Hx Tobacco Use: No Smoking Status (MU): Never Smoked Tobacco Review of Systems Constitutional: Negative Eyes: Negative Positive: Sore Throat. Negative: Epistaxis, Dental Pain, Ear Ache, Nasal Discharge Cardiovascular: Negative Respiratory: Negative Gastrointestinal: Negative Genitourinary: Negative Musculoskeletal: Negative Skin: Negative Neurological: Negative Psychological: Normal All Other Systems Reviewed And Are Negative: Yes Physical Exam Triage Information Reviewed: Yes Vital Signs On Initial Exam: Initial Vitals Temp Pulse Resp BP Pulse Ox 99.0 F 102 17 152/135 98 07/26/16 04:54 07/26/16 04:54 07/26/16 04:54 07/26/16 04:54 07/26/16 04:54 Vital Signs Reviewed: Yes Appearance: Positive: Well-Appearing, No Pain Distress Skin: Positive: Warm Head/Face: Positive: Normal Head/Face Inspection Eyes: Positive: TREY ENT: Positive: Pharyngeal erythema. Negative: Tonsillar swelling, Tonsillar exudate Neck: Positive: Supple, Nontender, No Lymphadenopathy Respiratory/Lung Sounds: Positive: Breath Sounds Present Cardiovascular: Positive: RRR Abdomen Description: Positive: Nontender, Soft Bowel Sounds: Positive: Present Musculoskeletal: Positive: Strength/ROM Intact Neurological: Positive: Alert, Oriented to Person Place, Time Psychiatric: Positive: Affect/Mood Appropriate - Shailesh Coma Scale Coma Scale Total: 15 Diagnostics - Vital Signs Vital Signs Temp Pulse Resp BP Pulse Ox 07/26/16 04:55 98.1 F 100 18 108/67 100 07/26/16 04:54 99.0 F 102 17 152/135 98 - Laboratory Lab Results: Lab Results 07/26/16 Range/Units 05:26 Group A Strep Rapid Negative (Negative) Lab Statement: Any lab studies that have been ordered have been reviewed, and results considered in the medical decision making process. EENT Course/Dx - Course Course Of Treatment: 76 y/o female presents to the ED via EMS with a complaint of an acute, constant, moderate sore throat that is aggravated by swallowing, talking, and turning her head. Lab results indicate URI. - Diagnoses Provider Diagnoses: URI (upper respiratory infection) Discharge - Discharge Plan Condition: Stable Disposition: HOME Discharge Disposition Comment: Please follow up with your primary care physician within 2 days. Patient Education Materials: Upper Respiratory Infection (ED) Referrals: Matti Romero MD [Primary Care Provider] - The documentation as recorded by the Eric begum Aidan accurately reflects the service I personally performed and the decisions made by me, Garrison Curry MD.
[2016-07-26 06:22] VITALS: BP 114/73
== END 2016-07-26 06:21 | disposition home or self-care (01) ==
LOC: ED 04:53
DX: J06.9 Acute upper respiratory infection, unspecified (principal); J02.9 Acute pharyngitis, unspecified
CPT/HCPCS: 87651; 99282

== ENCOUNTER 2016-08-05 11:53 | Emergency (ER) | payer MEDICARE ==
[2016-08-05 12:12] VITALS: BP 112/79
== END 2016-08-05 14:21 | disposition left against medical advice (07) ==
LOC: ED 11:53
DX: F41.9 Anxiety disorder, unspecified (principal); Z53.21 Procedure and treatment not carried out due to patient leaving prior to being seen by health care provider
CPT/HCPCS: 93005; 99281

== ENCOUNTER 2016-11-02 06:07 | Emergency (ER) | payer MEDICARE ==
[2016-11-02] MEDS ORDERED: ALPRAZolam TAB* 0.5 MG PO ONE (07:24)
[2016-11-02 08:30] VITALS: BP 158/92
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
== END 2016-11-02 08:20 | disposition home or self-care (01) ==
LOC: ED 06:07
DX: F41.9 Anxiety disorder, unspecified (principal); I10 Essential (primary) hypertension; J42 Unspecified chronic bronchitis; J45.909 Unspecified asthma, uncomplicated; Z86.73 Personal history of transient ischemic attack (TIA), and cerebral infarction without residual deficits; Z88.5 Allergy status to narcotic agent; Z88.0 Allergy status to penicillin; Z88.2 Allergy status to sulfonamides
CPT/HCPCS: 99282; A9270-GY

== ENCOUNTER → 2016-11-06 04:21 | Emergency (ER) | payer MEDICARE ==
[~2016-11-06 04:21] MED LIST: LORazepam TAB(*) 1 MG PO ONE; NS 0.9% 1000 ML* 1,000 ML IV ONE
[2016-11-06 04:29] VITALS: BP 99/71
[2016-11-06 05:13] LABS: Hematocrit 37 % (35-47); Hemoglobin 12.5 g/dl (12.0-16.0); Mean Corpuscular HGB Conc 34 g/dl (31-36); Mean Corpuscular Hemoglobin 27 pg (27-31); Mean Corpuscular Volume 80 fL (80-97); Mean Platelet Volume 8 um3 (7.4-10.4); Red Blood Count 4.68 10^6/ul (4.0-5.4); Red Cell Distribution Width 15 % (10.5-15); White Blood Count 4.9 10^3/ul (3.5-10.8)
[2016-11-06 05:24] LABS: Albumin 3.8 g/dL (3.2-5.2); C Reactive Protein 1.45 mg/L (< 5.00); Calcium 9.3 mg/dL (8.6-10.3); EGFR African American 69.5 (>60); EGFR Non-African American 54.1 (>60); Globulin 4.1 g/dL (2-4); Potassium 3.8 mmol/L (3.5-5.0); Total Bilirubin 0.7 mg/dL (0.2-1.0); Total Protein 7.9 g/dL (6.4-8.9)
--- NOTE | 2016-11-06 06:38 | ED ---
Gabino Mcwilliams Alok, scribed for Jan Hernández MD on 11/06/16 at 0558 . Shortness of Breath - HPI Summary HPI Summary: 76F presents to the ED with a sudden onset of SOB waking her up at 0330 this evening. Pt also notes a non-productive cough and CP related to cough. Pt denies fever, chills, or edema. PMHx includes asthma, bronchitis, HTN, and anxiety. Pt drinks ETOH rarely. - History of Current Complaint Chief Complaint: EDChestPainROMI Time Seen by Provider: 11/06/16 04:39 Hx Obtained From: Patient Onset/Duration: Sudden Onset, Lasting Hours, Still Present Timing: Constant Current Severity: Moderate Dyspnea At: Rest Aggrevating Factors: Nothing Alleviating Factors: Nothing Associated Signs & Symptoms: Cough (Nonproductive), Chest Pain w/Cough - Allergy/Home Medications Allergies/Adverse Reactions: Allergies Allergy/AdvReac Type Severity Reaction Status Date / Time Codeine Allergy Intermediate Vomiting Verified 07/26/16 04:59 Morphine Allergy Intermediate Vomiting Verified 07/26/16 04:59 Tramadol Allergy Intermediate Vomiting Verified 07/26/16 04:59 Penicillins [PCN] Allergy Unknown Unknown Verified 07/26/16 04:59 Reaction Details Sulfa Drugs Allergy Unknown Unknown Verified 07/26/16 04:59 Reaction Details PMH/Surg Hx/FS Hx/Imm Hx Endocrine/Hematology History: Denies: Hx Anticoagulant Therapy, Hx Blood Disorders Cardiovascular History: Reports: Hx Hypertension Denies: Hx Pacemaker/ICD Respiratory History: Reports: Hx Asthma, Hx Chronic Bronchitis GI History: Reports: Hx Gall Bladder Disease - Cholecystectomy, Hx Hiatal Hernia - repaired, Hx Ulcer, Other GI Disorders - pancreatitis History: Reports: Hx Kidney Stones Musculoskeletal History: Reports: Hx Arthritis - knee, Hx Orthopedic Injury, Other Musculoskeletal History - "frozen shoulder" Lt side Sensory History: Reports: Hx Contacts or Glasses, Hx Eye Injury, Hx Vision Problem Denies: Hx Hearing Aid Opthamlomology History: Reports: Hx Contacts or Glasses, Hx Eye Injury, Hx Vision Problem Neurological History: 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) Psychiatric History: Reports: Hx Anxiety Denies: Hx Panic Disorder - Surgical History Surgery Procedure, Year, and Place: Hysterectomy, Tubal ligation, Cholecystectomy, RIGHT LEG ORIF, left knee arthroscopy, tonsillectomy and adenoidectomy Hx Anesthesia Reactions: No - Immunization History Date of Tetanus Vaccine: Unknown Date of Influenza Vaccine: Unknown Infectious Disease History: No Infectious Disease History: Reports: Hx Shingles Denies: Traveled Outside the [place] in Last 30 Days - Family History Known Family History: Positive: Hypertension - Social History Occupation: Disabled Alcohol Use: Rare Hx Substance Use: No Substance Use Type: Reports: None Hx Tobacco Use: No Smoking Status (MU): Never Smoked Tobacco Review of Systems Negative: Fever, Chills Positive: Shortness Of Breath, Cough Negative: Edema All Other Systems Reviewed And Are Negative: Yes Physical Exam - Summary Physical Exam Summary: The patient is well-nourished in no acute distress and in no acute pain. The skin is warm and dry and skin color reflects adequate perfusion. No cyanosis. HEENT: The head is normocephalic and atraumatic. The pupils are equal and reactive. The conjunctivae are clear and without drainage. Nares are patent and without drainage. Mouth reveals moist mucous membranes and the throat is without erythema and exudate. The external ears are intact. The ear canals are patent and without drainage. The tympanic membranes are intact. Neck is supple with full range of motion and non-tender. There are no carotid bruits. There is no neck vein distension. Respiratory: Chest is non-tender. Lungs are clear to auscultation and breath sounds are symmetrical and equal. No rales, rhonchi, or wheezes. Cardiovascular: Heart is regular rate and rhythm. There is no murmur or rub auscultated. There is no peripheral edema and pulses are symmetrical and equal. Abdomen: The abdomen is soft and non-tender. There are normal bowel sounds heard in all four quadrants and there is no organomegaly palpated. Musculoskeletal: There is no back pain noted. Extremities are non-tender with full range of motion. There is a 2 second capillary refill. There is no peripheral edema or calf tenderness elicited. Neurological: Patient is alert and oriented to person, place and time. The patient has symmetrical motor strength in all four extremities. Cranial nerves are grossly intact. Deep tendon reflexes are symmetrical and equal in all four extremities. Psychiatric: The patient has an appropriate affect and does not exhibit any anxiety or depression. Triage Information Reviewed: Yes Vital Signs On Initial Exam: Initial Vitals Temp Pulse Resp BP Pulse Ox 97.9 F 62 17 99/71 97 07/27/17 04:23 11/06/16 04:23 11/06/16 04:23 11/06/16 04:23 11/06/16 04:23 Vital Signs Reviewed: Yes Diagnostics - Vital Signs Vital Signs Temp Pulse Resp BP Pulse Ox 11/06/16 04:58 16 11/06/16 04:23 97.9 F 62 17 99/71 97 - Laboratory Lab Results: Lab Results 11/06/16 11/06/16 11/06/16 Range/Units 05:00 05:00 05:00 WBC 4.9 (3.5-10.8) 10^3/ul RBC 4.68 (4.0-5.4) 10^6/ul Hgb 12.5 (12.0-16.0) g/dl Hct 37 (35-47) % MCV 80 (80-97) fL MCH 27 (27-31) pg MCHC 34 (31-36) g/dl RDW 15 (10.5-15) % Plt Count 223 (150-450) 10^3/ul MPV 8 (7.4-10.4) um3 Neut % (Auto) 31.9 L (38-83) % Lymph % (Auto) 56.7 H (25-47) % [place] % (Auto) 6.9 (1-9) % Eos % (Auto) 3.7 (0-6) % Baso % (Auto) 0.8 (0-2) % Absolute Neuts (auto) 1.6 (1.5-7.7) 10^3/ul Absolute Lymphs (auto) 2.8 (1.0-4.8) 10^3/ul Absolute Monos (auto) 0.3 (0-0.8) 10^3/ul Absolute Eos (auto) 0.2 (0-0.6) 10^3/ul Absolute Basos (auto) 0 (0-0.2) 10^3/ul Absolute Nucleated RBC 0.01 10^3/ul Nucleated RBC % 0.2 Sodium 135 (133-145) mmol/L Potassium 3.8 (3.5-5.0) mmol/L Chloride 108 (101-111) mmol/L Carbon Dioxide 19 L (22-32) mmol/L Anion Gap 8 (2-11) mmol/L BUN 20 (6-24) mg/dL Creatinine 1.00 H (0.51-0.95) mg/dL Est GFR ( Amer) 69.5 (>60) Est GFR (Non-Af Amer) 54.1 (>60) BUN/Creatinine Ratio 20.0 (8-20) Glucose 104 H (70-100) mg/dL Lactic Acid 1.0 (0.5-2.0) mmol/L Calcium 9.3 (8.6-10.3) mg/dL Total Bilirubin 0.70 (0.2-1.0) mg/dL AST 18 (13-39) U/L ALT 9 (7-52) U/L Alkaline Phosphatase 60 (34-104) U/L Troponin I 0.00 (<0.04) ng/mL C-Reactive Protein 1.45 (< 5.00) mg/L B-Natriuretic Peptide ( - 100) pg/mL Total Protein 7.9 (6.4-8.9) g/dL Albumin 3.8 (3.2-5.2) g/dL Globulin 4.1 H (2-4) g/dL Albumin/Globulin Ratio 0.9 L (1-3) 11/06/16 Range/Units 05:00 WBC (3.5-10.8) 10^3/ul RBC (4.0-5.4) 10^6/ul Hgb (12.0-16.0) g/dl Hct (35-47) % MCV (80-97) fL MCH (27-31) pg MCHC (31-36) g/dl RDW (10.5-15) % Plt Count (150-450) 10^3/ul MPV (7.4-10.4) um3 Neut % (Auto) (38-83) % Lymph % (Auto) (25-47) % [place] % (Auto) (1-9) % Eos % (Auto) (0-6) % Baso % (Auto) (0-2) % Absolute Neuts (auto) (1.5-7.7) 10^3/ul Absolute Lymphs (auto) (1.0-4.8) 10^3/ul Absolute Monos (auto) (0-0.8) 10^3/ul Absolute Eos (auto) (0-0.6) 10^3/ul Absolute Basos (auto) (0-0.2) 10^3/ul Absolute Nucleated RBC 10^3/ul Nucleated RBC % Sodium (133-145) mmol/L Potassium (3.5-5.0) mmol/L Chloride (101-111) mmol/L Carbon Dioxide (22-32) mmol/L Anion Gap (2-11) mmol/L BUN (6-24) mg/dL Creatinine (0.51-0.95) mg/dL Est GFR ( Amer) (>60) Est GFR (Non-Af Amer) (>60) BUN/Creatinine Ratio (8-20) Glucose (70-100) mg/dL Lactic Acid (0.5-2.0) mmol/L Calcium (8.6-10.3) mg/dL Total Bilirubin (0.2-1.0) mg/dL AST (13-39) U/L ALT (7-52) U/L Alkaline Phosphatase (34-104) U/L Troponin I (<0.04) ng/mL C-Reactive Protein (< 5.00) mg/L B-Natriuretic Peptide 17 ( - 100) pg/mL Total Protein (6.4-8.9) g/dL Albumin (3.2-5.2) g/dL Globulin (2-4) g/dL Albumin/Globulin Ratio (1-3) Result Diagrams: 11/06/16 05:00 11/06/16 05:00 Lab Statement: Any lab studies that have been ordered have been reviewed, and results considered in the medical decision making process. - Radiology CXR Xray Interpretation: No Acute Changes Radiology Interpretation Completed By: ED Physician - Dr. Hernández - EKG 0430 Cardiac Rate: NL - 60 bpm EKG Rhythm: Sinus Rhythm EKG Interpretation: Normal [place]. No ST elevations. Re-Evaluation - Re-Evaluation First Eval Re-Evaluation Time: 06:36 Change: Improved Comment: Patient SOB has improved Course/Dx - Course Course Of Treatment: 76 y/o female presents with sudden onset of SOB. IV fluids and blood work ordered. Administered ativan for anxiety as well as oxygen therapy. CXR and EKG done, both normal. Will discharge home with instructions to FU with PCP. - Diagnoses Provider Diagnoses: SOB (shortness of breath), Anxiety Discharge - Discharge Plan Condition: Stable Disposition: HOME Patient Education Materials: Dyspnea (ED) Referrals: Matti Romero MD [Primary Care Provider] - Additional Instructions: Please follow up with your primary care provider The documentation as recorded by the Gabino begum Alok accurately reflects the service I personally performed and the decisions made by me, Jan Hernández MD.
--- NOTE | 2016-11-06 07:56 | RAD ---
HISTORY: Shortness of breath, cough COMPARISONS: May 13, 2015 VIEWS: 4: Frontal dual-energy and lateral views of the chest. FINDINGS: CARDIOMEDIASTINAL SILHOUETTE: The aorta is tortuous. The cardiomediastinal silhouette is otherwise unremarkable. LIBERTAD: The libertad are normal. PLEURA: The costophrenic angles are sharp. No pleural abnormalities are noted. LUNG PARENCHYMA: There is hyperinflation with flattening of the diaphragm and expansion of the AP diameter of the chest. ABDOMEN: The upper abdomen is clear. There is no subphrenic gas. BONES AND SOFT TISSUES: Degenerative changes are noted along the spine. OTHER: None. IMPRESSION: HYPERINFLATION, CONSISTENT WITH COPD. NO ACTIVE CARDIOPULMONARY DISEASE.
== END | disposition home or self-care (01) ==
LOC: ED 04:21
DX: R06.02 Shortness of breath (principal); F41.9 Anxiety disorder, unspecified; R07.9 Chest pain, unspecified; R05 Cough
CPT/HCPCS: 36415; 71020; 80053; 83605; 83880; 84484; 85025; 86140; 93005; 99282; A9270-GY

== ENCOUNTER 2016-11-11 20:24 | Emergency (ER) | payer MEDICARE ==
[2016-11-11] MEDS ORDERED: LORazepam INJ* 2 MG/ML 1 ML VIAL IV ONE (20:45)
[2016-11-11] MEDS ORDERED: LORazepam INJ* 2 MG/ML 1 ML VIAL IM ONE (21:28)
[2016-11-11 21:37] LABS: Hematocrit 37 % (35-47); Hemoglobin 12.4 g/dl (12.0-16.0); Mean Corpuscular HGB Conc 34 g/dl (31-36); Mean Corpuscular Hemoglobin 27 pg (27-31); Mean Corpuscular Volume 79 fL (80-97); Mean Platelet Volume 8 um3 (7.4-10.4); Red Cell Distribution Width 16 % (10.5-15); White Blood Count 6.4 10^3/ul (3.5-10.8)
[2016-11-11 21:51] LABS: ALT 7 U/L (7-52); Albumin 3.9 g/dL (3.2-5.2); Alkaline Phosphatase 63 U/L (34-104); BUN/Creatinine Ratio 23.9 (8-20); Blood Urea Nitrogen 26 mg/dL (6-24); CO2 Carbon Dioxide 26 mmol/L (22-32); Calcium 9.2 mg/dL (8.6-10.3); Chloride 102 mmol/L (101-111); EGFR African American 62.9 (>60); EGFR Non-African American 48.9 (>60); Globulin 3.9 g/dL (2-4); Glucose 96 mg/dL (70-100); Sodium 135 mmol/L (133-145); Total Protein 7.8 g/dL (6.4-8.9)
[2016-11-11 21:57] LABS: Anion Gap 7 mmol/L (2-11)
[2016-11-11 23:14] VITALS: BP 100/45
--- NOTE | 2016-11-13 14:58 | ED ---
I, Johnny,Sogregoria, scribed for Alexei Olivera MD on 11/11/16 at 2048 . Shortness of Breath - HPI Summary HPI Summary: This 76 y/o female presents to ED for acute on chronic SOB since 1830 PM today. PMHx includes chronic bronchitis, seasonal allergies, and asthma that is controlled with inhaler. Pt was previously seen 4 days ago for similar complaint. Upright position makes her feel better. Oxygen improves SOB. Pt does not have any oxygen at home. - History of Current Complaint Chief Complaint: EDShortnessOfBreath Time Seen by Provider: 11/11/16 20:37 Hx Obtained From: Patient, Medical Records Dyspnea At: Rest Associated Signs & Symptoms: Negative - Allergy/Home Medications Allergies/Adverse Reactions: Allergies Allergy/AdvReac Type Severity Reaction Status Date / Time Codeine Allergy Intermediate Vomiting Verified 07/26/16 04:59 Morphine Allergy Intermediate Vomiting Verified 07/26/16 04:59 Tramadol Allergy Intermediate Vomiting Verified 07/26/16 04:59 Penicillins [PCN] Allergy Unknown Unknown Verified 07/26/16 04:59 Reaction Details Sulfa Drugs Allergy Unknown Unknown Verified 07/26/16 04:59 Reaction Details PMH/Surg Hx/FS Hx/Imm Hx Endocrine/Hematology History: Denies: Hx Anticoagulant Therapy, Hx Blood Disorders Cardiovascular History: Reports: Hx Hypertension Denies: Hx Pacemaker/ICD Respiratory History: Reports: Hx Asthma, Hx Chronic Bronchitis GI History: Reports: Hx Gall Bladder Disease - Cholecystectomy, Hx Hiatal Hernia - repaired, Hx Ulcer, Other GI Disorders - pancreatitis History: Reports: Hx Kidney Stones Musculoskeletal History: Reports: Hx Arthritis - knee, Hx Orthopedic Injury, Other Musculoskeletal History - "frozen shoulder" Lt side Sensory History: Reports: Hx Contacts or Glasses, Hx Eye Injury, Hx Vision Problem Denies: Hx Hearing Aid Opthamlomology History: Reports: Hx Contacts or Glasses, Hx Eye Injury, Hx Vision Problem Neurological History: 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) Psychiatric History: Reports: Hx Anxiety Denies: Hx Panic Disorder - Surgical History Surgery Procedure, Year, and Place: Hysterectomy, Tubal ligation, Cholecystectomy, RIGHT LEG ORIF, left knee arthroscopy, tonsillectomy and adenoidectomy Hx Anesthesia Reactions: No - Immunization History Date of Tetanus Vaccine: Unknown Date of Influenza Vaccine: Unknown Infectious Disease History: No Infectious Disease History: Reports: Hx Shingles Denies: Traveled Outside the [place] in Last 30 Days - Family History Known Family History: Positive: Hypertension - Social History Alcohol Use: Rare Hx Substance Use: No Substance Use Type: Reports: None Hx Tobacco Use: No Smoking Status (MU): Never Smoked Tobacco Review of Systems Negative: Fever Negative: Chest Pain Positive: Shortness Of Breath All Other Systems Reviewed And Are Negative: Yes Physical Exam Triage Information Reviewed: Yes Vital Signs On Initial Exam: Initial Vitals Temp Pulse Resp BP Pulse Ox 97.4 F 74 19 109/65 96 11/11/16 20:31 11/11/16 20:31 11/11/16 20:31 11/11/16 20:31 11/11/16 20:31 Vital Signs Reviewed: Yes Appearance: Positive: Well-Appearing, No Pain Distress Skin: Positive: Warm, Skin Color Reflects Adequate Perfusion, Dry Head/Face: Positive: Normal Head/Face Inspection Eyes: Positive: Normal ENT: Positive: Normal ENT inspection Neck: Positive: Supple, Nontender Respiratory/Lung Sounds: Positive: Clear to Auscultation, Breath Sounds Present Cardiovascular: Positive: RRR, Pulses are Symmetrical in both Upper and Lower Extremities Abdomen Description: Positive: Nontender, Soft Musculoskeletal: Positive: Normal Neurological: Positive: Normal Psychiatric: Positive: Anxious AVPU Assessment: Alert - Shailesh Coma Scale Coma Scale Total: 15 Diagnostics - Vital Signs Vital Signs Temp Pulse Resp BP Pulse Ox 11/11/16 20:32 139 30 109/65 95 11/11/16 20:31 97.4 F 114 21 109/65 93 - Laboratory Lab Results: Lab Results 11/11/16 11/11/16 11/11/16 Range/Units 21:24 21:24 21:24 WBC 6.4 (3.5-10.8) 10^3/ul RBC 4.60 (4.0-5.4) 10^6/ul Hgb 12.4 (12.0-16.0) g/dl Hct 37 (35-47) % MCV 79 L (80-97) fL MCH 27 (27-31) pg MCHC 34 (31-36) g/dl RDW 16 H (10.5-15) % Plt Count 195 (150-450) 10^3/ul MPV 8 (7.4-10.4) um3 Neut % (Auto) 34.0 L (38-83) % Lymph % (Auto) 53.3 H (25-47) % [place] % (Auto) 8.4 (1-9) % Eos % (Auto) 2.7 (0-6) % Baso % (Auto) 1.6 (0-2) % Absolute Neuts (auto) 2.2 (1.5-7.7) 10^3/ul Absolute Lymphs (auto) 3.4 (1.0-4.8) 10^3/ul Absolute Monos (auto) 0.5 (0-0.8) 10^3/ul Absolute Eos (auto) 0.2 (0-0.6) 10^3/ul Absolute Basos (auto) 0.1 (0-0.2) 10^3/ul Absolute Nucleated RBC 0.01 10^3/ul Nucleated RBC % 0.2 D-Dimer, Quantitative 474 H (Less Than 230) ng/mL Sodium 135 (133-145) mmol/L Potassium TNP Chloride 102 (101-111) mmol/L Carbon Dioxide 26 (22-32) mmol/L Anion Gap 7 (2-11) mmol/L BUN 26 H (6-24) mg/dL Creatinine 1.09 H (0.51-0.95) mg/dL Est GFR ( Amer) 62.9 (>60) Est GFR (Non-Af Amer) 48.9 (>60) BUN/Creatinine Ratio 23.9 H (8-20) Glucose 96 (70-100) mg/dL Calcium 9.2 (8.6-10.3) mg/dL Total Bilirubin 0.50 (0.2-1.0) mg/dL AST TNP ALT 7 (7-52) U/L Alkaline Phosphatase 63 (34-104) U/L Total Protein 7.8 (6.4-8.9) g/dL Albumin 3.9 (3.2-5.2) g/dL Globulin 3.9 (2-4) g/dL Albumin/Globulin Ratio 1.0 (1-3) Result Diagrams: 11/11/16 21:24 11/11/16 21:24 Lab Statement: Any lab studies that have been ordered have been reviewed, and results considered in the medical decision making process. - EKG 2040 Cardiac Rate: NL - 66 bpm EKG Rhythm: Sinus Rhythm Course/Dx - Course Course Of Treatment: Ms. Koch presented feeling SOB. She looked comfortable and her lungs were clear. She was given some IM Ativan and felt completely improved and requested D/C. - Diagnoses Provider Diagnoses: Anxiety about health Discharge - Discharge Plan Condition: Stable Disposition: HOME Patient Education Materials: Dyspnea (ED), Anxiety (ED) Referrals: Matti Romero MD [Primary Care Provider] - 2 Days The documentation as recorded by the Johnny begum Soohyun accurately reflects the service I personally performed and the decisions made by me, Alexei Olivera MD.
== END 2016-11-11 23:14 | disposition home or self-care (01) ==
LOC: ED 20:24
DX: F41.9 Anxiety disorder, unspecified (principal); R06.02 Shortness of breath
CPT/HCPCS: 36415; 80053; 85025; 85379; 93005; 96372; 96374; 99282; J2060

== ENCOUNTER 2016-12-30 22:07 | Emergency (ER) | payer MEDICARE ==
[2016-12-30 23:21] LABS: Hematocrit 37 % (35-47); Hemoglobin 12.5 g/dl (12.0-16.0); Mean Corpuscular HGB Conc 34 g/dl (31-36); Mean Corpuscular Hemoglobin 27 pg (27-31); Mean Corpuscular Volume 78 fL (80-97); Mean Platelet Volume 8 um3 (7.4-10.4); Red Blood Count 4.68 10^6/ul (4.0-5.4); Red Cell Distribution Width 16 % (10.5-15); White Blood Count 7.4 10^3/ul (3.5-10.8)
[2016-12-30 23:45] LABS: CO2 Carbon Dioxide 23 mmol/L (22-32); Chloride 106 mmol/L (101-111); EGFR African American 58.6 (>60); EGFR Non-African American 45.5 (>60); Sodium 139 mmol/L (133-145); Total Protein 7.9 g/dL (6.4-8.9)
[2016-12-30 23:52] LABS: Anion Gap 10 mmol/L (2-11); TSH (Thyroid Stimulating Horm) 2.67 mcIU/mL (0.34-5.60)
[2016-12-31 00:06] LABS: ALT 11 U/L (7-52); BUN/Creatinine Ratio 21.6 (8-20); Blood Urea Nitrogen 25 mg/dL (6-24); Calcium 9.7 mg/dL (8.6-10.3)
[2016-12-31 00:49] LABS: Albumin 3.9 g/dL (3.2-5.2); Alkaline Phosphatase 70 U/L (34-104); Glucose 108 mg/dL (70-100); Magnesium 1.7 mg/dL (1.9-2.7)
[2016-12-31] MEDS ORDERED: Acetaminophen TAB* 325 MG PO ONE (01:52)
[2016-12-31 02:12] VITALS: BP 112/72
--- NOTE | 2016-12-31 02:13 | ED ---
Eamon Mcwilliams Nikita, scribed for Aki Hill MD on 12/30/16 at 2354 . Headache - HPI Summary HPI Summary: This patient is a 76 year old F BIBA to ED with a chief complaint of GRANADOS since 4 days ago. The CC is described as sudden and constant GRANADOS since neighbors moved in. The patient rates the pain 10/10 in severity. Symptoms aggravated by noise from neighbor. Symptoms alleviated by nothing. 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 Patient denies weakness, numbness, and palpitations. Pt denies being on blood thinners. PMHx of GRANADOS. - History Of Current Complaint Chief Complaint: EDSyncope Stated Complaint: HEADACHE Time Seen by Provider: 12/30/16 23:41 Hx Obtained From: Patient Onset/Duration: Sudden Onset - since noisy neighbors moved in, Started days ago - 4 days ago, Still Present Initially Headache Was: "Worst Headache Ever", Initial Pain Scale(0-10)= - 10/10 , Severe Currently Pain Is: Current Pain Scale(0-10)= - 10/10, Severe Timing: Constant Location of Headache: Other: - top of head Aggravating Factor: Other - noise from neighbors Allevating Factors: Nothing Associated Signs And Symptoms: Other (Noted In Comments) - Patient reports fever , dehydration, 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 Patient denies weakness, numbness, and palpitations. - Allergies/Home Medications Allergies/Adverse Reactions: Allergies Allergy/AdvReac Type Severity Reaction Status Date / Time Codeine Allergy Intermediate Vomiting Verified 07/26/16 04:59 Morphine Allergy Intermediate Vomiting Verified 07/26/16 04:59 Tramadol Allergy Intermediate Vomiting Verified 07/26/16 04:59 Penicillins [PCN] Allergy Unknown Unknown Verified 07/26/16 04:59 Reaction Details Sulfa Drugs Allergy Unknown Unknown Verified 07/26/16 04:59 Reaction Details PMH/Surg Hx/FS Hx/Imm Hx Endocrine/Hematology History: Denies: Hx Anticoagulant Therapy, Hx Blood Disorders Cardiovascular History: Reports: Hx Hypertension Denies: Hx Pacemaker/ICD Respiratory History: Reports: Hx Asthma, Hx Chronic Bronchitis GI History: Reports: Hx Gall Bladder Disease - Cholecystectomy, Hx Hiatal Hernia - repaired, Hx Ulcer, Other GI Disorders - pancreatitis History: Reports: Hx Kidney Stones Musculoskeletal History: Reports: Hx Arthritis - knee, Hx Orthopedic Injury, Other Musculoskeletal History - "frozen shoulder" Lt side Sensory History: Reports: Hx Contacts or Glasses, Hx Eye Injury, Hx Vision Problem Denies: Hx Hearing Aid Opthamlomology History: Reports: Hx Contacts or Glasses, Hx Eye Injury, Hx Vision Problem Neurological History: 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) Psychiatric History: Reports: Hx Anxiety Denies: Hx Panic Disorder - Surgical History Surgery Procedure, Year, and Place: Hysterectomy, Tubal ligation, Cholecystectomy, RIGHT LEG ORIF, left knee arthroscopy, tonsillectomy and adenoidectomy Hx Anesthesia Reactions: No - Immunization History Date of Tetanus Vaccine: Unknown Date of Influenza Vaccine: Unknown Infectious Disease History: No Infectious Disease History: Reports: Hx Shingles Denies: Traveled Outside the [place] in Last 30 Days - Family History Known Family History: Positive: Hypertension - Social History Alcohol Use: Rare Hx Substance Use: No Substance Use Type: Reports: None Hx Tobacco Use: No Smoking Status (MU): Never Smoked Tobacco Review of Systems Positive: Fever Positive: Other - dehydration Negative: Palpitations Neurological: Other - 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; Negative: weakness, numbness Positive: Headache - top of head Positive: Other - anxiety attack All Other Systems Reviewed And Are Negative: Yes Physical Exam Triage Information Reviewed: Yes Vital Signs On Initial Exam: Initial Vitals Temp Pulse Resp BP Pulse Ox 98 F 88 20 110/86 100 12/30/16 22:11 12/30/16 22:11 12/30/16 22:11 12/30/16 22:11 12/30/16 22:11 Vital Signs Reviewed: Yes Appearance: Positive: Well-Appearing, Pain Distress - mild Skin: Positive: Warm, Skin Color Reflects Adequate Perfusion, Dry Head/Face: Positive: Normal Head/Face Inspection Eyes: Positive: EOMI, TREY ENT: Positive: Normal ENT inspection Neck: Positive: Supple, Nontender Respiratory/Lung Sounds: Positive: Clear to Auscultation, Breath Sounds Present Cardiovascular: Positive: RRR Abdomen Description: Positive: Nontender, Soft Bowel Sounds: Positive: Present Musculoskeletal: Positive: Normal, Strength/ROM Intact Neurological: Positive: Normal, Sensory/Motor Intact, Alert, Oriented to Person Place, Time Psychiatric: Positive: Affect/Mood Appropriate - [place] Coma Scale Gl[place]ow Coma Scale Comments: 15 Diagnostics - Vital Signs Vital Signs Temp Pulse Resp BP Pulse Ox 12/30/16 22:11 98 F 88 20 110/86 100 - Laboratory Lab Results: Lab Results 12/30/16 12/30/16 12/30/16 Range/Units 23:09 23:09 23:09 WBC 7.4 (3.5-10.8) 10^3/ul RBC 4.68 (4.0-5.4) 10^6/ul Hgb 12.5 (12.0-16.0) g/dl Hct 37 (35-47) % MCV 78 L (80-97) fL MCH 27 (27-31) pg MCHC 34 (31-36) g/dl RDW 16 H (10.5-15) % Plt Count 208 (150-450) 10^3/ul MPV 8 (7.4-10.4) um3 Neut % (Auto) 54.0 (38-83) % Lymph % (Auto) 37.4 (25-47) % [place] % (Auto) 5.5 (1-9) % Eos % (Auto) 2.3 (0-6) % Baso % (Auto) 0.8 (0-2) % Absolute Neuts (auto) 4.0 (1.5-7.7) 10^3/ul Absolute Lymphs (auto) 2.8 (1.0-4.8) 10^3/ul Absolute Monos (auto) 0.4 (0-0.8) 10^3/ul Absolute Eos (auto) 0.2 (0-0.6) 10^3/ul Absolute Basos (auto) 0.1 (0-0.2) 10^3/ul Absolute Nucleated RBC 0 10^3/ul Nucleated RBC % 0 Sodium 139 (133-145) mmol/L Potassium Pending Chloride 106 (101-111) mmol/L Carbon Dioxide 23 (22-32) mmol/L Anion Gap Pending BUN Pending Creatinine 1.16 H (0.51-0.95) mg/dL Est GFR ( Amer) 58.6 (>60) Est GFR (Non-Af Amer) 45.5 (>60) BUN/Creatinine Ratio Pending Glucose Pending Lactic Acid 1.4 (0.5-2.0) mmol/L Calcium Pending Magnesium Pending Total Bilirubin 0.60 (0.2-1.0) mg/dL AST Pending ALT Pending Alkaline Phosphatase Pending Troponin I 0.00 (<0.04) ng/mL Total Protein 7.9 (6.4-8.9) g/dL Albumin Pending Globulin Pending Albumin/Globulin Ratio Pending TSH Pending Result Diagrams: 12/30/16 23:09 12/31/16 00:05 Lab Statement: Any lab studies that have been ordered have been reviewed, and results considered in the medical decision making process. - CT Brain CT Interpretation Completed By: Radiologist - No acute intracranial hemorrhage mass effect or midline shift. The ventricles sulci and basilar cisterns are mildly prominent consistent with mild central volume loss. Mild nonspecific periventricular predominant low density throughout the deep white matter is most likely due to mild small vessel ischemic white matter disease. Calcified arteriosclerosis of the vacernous carotids noted. Ear wax in the external auditory canals. ED physician has reviewed this radiology report and agrees. - EKG 2246 Cardiac Rate: NL - 82 bpm EKG Rhythm: Sinus Rhythm ST Segment: Normal Ectopy: None EKG Interpretation: Borderline T abnormalities, inferior leads Headache Course/Dx - Course Assessment/Plan: This patient is a 76 year old F BIBA to ED with a chief complaint of GRANADOS since 4 days ago. The CC is described as sudden and constant GRANADOS since neighbors moved in. The patient rates the pain 10/10 in severity. Symptoms aggravated by noise from neighbor. Symptoms alleviated by nothing. 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 Patient denies weakness, numbness, and palpitations. CT Brain reveals no acute intracranial hemorrhage mass effect or midline shift. The ventricles sulci and basilar cisterns are mildly prominent consistent with mild central volume loss. Mild nonspecific periventricular predominant low density throughout the deep white matter is most likely due to mild small vessel ischemic white matter disease. Calcified arteriosclerosis of the vacernous carotids noted. Ear wax in the external auditory canals. ED physician has reviewed this radiology report and agrees. EKG reveals NSR, Normal ST, No ectopy, and borderline T abnormalities, inferior leads. Medications reviewed. Pt will be discharged. Pt is agreeable with this plan. DISCUSSED RESULTS WITH PATIENT. SHE REPORTS GRANADOS IMPROVED IN ED AND WISHES TO GO HOME. DECLINES CXR OR FURTHER EVALUATION. NO NEUROLOGIC DEFICIT. NO CRITICAL CARE TIME. - Diagnoses Provider Diagnoses: Headache, Syncope Discharge - Discharge Plan Condition: Stable Disposition: HOME Patient Education Materials: Acute Headache (ED), Syncope (ED) Referrals: Matti Romero MD [Primary Care Provider] - Additional Instructions: FOLLOW UP WITH YOUR DOCTOR. RETURN TO THE EMERGENCY DEPARTMENT FOR ANY WORSENING OF YOUR CONDITION; PAIN, WEAKNESS, NUMBNESS, YOU FEEL LIKE PASSING OUT, CHEST PAIN, SHORTNESS OF BREATH OR QUESTIONS OR CONCERNS. The documentation as recorded by the Eamon begum Nikita accurately reflects the service I personally performed and the decisions made by me, Aki Hill MD.
--- NOTE | 2016-12-31 07:52 | RAD ---
INDICATION: Headaches COMPARISON: CT brain November 06, 2012 TECHNIQUE: Noncontrast axial source images were acquired from the skull base to the vertex. FINDINGS: Ventricles/sulci: There is cortical atrophy with compensatory dilatation of the CSF spaces. Brain parenchyma: There is periventricular and subcortical white matter change compatible with chronic ischemia. Intracranial hemorrhage:None. Extra-axial spaces: There are no abnormal extra axial fluid collections or evidence of extra-axial mass. Calvarium: There is no calvarial fracture or other calvarial abnormality. Scalp: There is no evidence of scalp or extracalvarial soft tissue abnormality. Paranasal sinuses/mastoid: The paranasal sinuses and mastoid air cells are clear. Other: None. IMPRESSION: CORTICAL ATROPHY WITH CHRONIC MICROVASCULAR ISCHEMIC CHANGES. NO ACUTE FINDINGS.
== END 2016-12-31 02:14 | disposition home or self-care (01) ==
LOC: ED 22:07
DX: R55 Syncope and collapse (principal); R51 Headache; R50.9 Fever, unspecified; E86.0 Dehydration
CPT/HCPCS: 36415; 70450; 80053; 83605; 83735; 84443; 84484; 85025; 93005; 99282; A9270-GY

== ENCOUNTER 2017-03-19 00:44 | Emergency (ER) | payer MEDICARE ==
[2017-03-19] MEDS ORDERED: NS 0.9% 1000 ML* 2,000 ML IV ONE (01:41)
[2017-03-19] MEDS ORDERED: Ondansetron INJ* 2 MG/ML VIAL IV ONE (01:42)
[2017-03-19 04:06] LABS: Hematocrit 34 % (35-47); Hemoglobin 11.6 g/dl (12.0-16.0); Mean Corpuscular HGB Conc 34 g/dl (31-36); Mean Corpuscular Hemoglobin 26 pg (27-31); Mean Corpuscular Volume 78 fL (80-97); Red Cell Distribution Width 15 % (10.5-15); White Blood Count 10.8 10^3/ul (3.5-10.8)
[2017-03-19 04:17] LABS: Add Diff/Slide Review? Slide Review Added; Comments Flag Yes
[2017-03-19 04:25] LABS: ALT 10 U/L (7-52); Albumin 3.8 g/dL (3.2-5.2); Alkaline Phosphatase 81 U/L (34-104); Blood Urea Nitrogen 10 mg/dL (6-24); C Reactive Protein 7.22 mg/L (< 5.00); CO2 Carbon Dioxide 24 mmol/L (22-32); Calcium 8.8 mg/dL (8.6-10.3); Chloride 108 mmol/L (101-111); EGFR African American 86.2 (>60); Globulin 3.9 g/dL (2-4); Glucose 101 mg/dL (70-100); Lipase 61 U/L (11.0-82.0); Sodium 139 mmol/L (133-145); Total Protein 7.7 g/dL (6.4-8.9)
[2017-03-19 04:26] LABS: Anion Gap 7 mmol/L (2-11)
[2017-03-19 04:42] LABS: Mean Platelet Volume 8 um3 (7.4-10.4)
[2017-03-19 05:28] LABS: Magnesium 1.4 mg/dL (1.9-2.7)
[2017-03-19 05:35] VITALS: BP 118/69
--- NOTE | 2017-03-19 08:55 | RAD ---
INDICATION: Diarrhea for one day. Post cholecystectomy and hysterectomy. Unequal radial pulses noted. COMPARISON: November 06, 2016 chest radiograph and April 24, 2016 CT abdomen pelvis. TECHNIQUE: Multidetector CT images were obtained from the lung apices to the ischial tuberosities without contrast. Assessment of the viscera limited without contrast. CHEST REPORT: Minimal basilar atelectasis. Negative for pleural effusions. Negative for thoracic lymphadenopathy, cardiomegaly, or cardiomegaly effusion. Normal diameter thoracic aorta with only minimal calcific plaque. No mediastinal hematoma evident. No thoracic fractures or suspicious focal thoracic osseous lesions evident. Diffuse thoracic degenerative spondylosis. CHEST IMPRESSION: 1. Minimal basilar atelectasis. 2. Negative for aneurysm of the thoracic aorta. Absence of IV contrast essentially precludes assessment for aortic dissection. No mediastinal hematoma evident. ABDOMEN PELVIS REPORT: 0.5 cm hypodense lesion at the caudal aspect of the RIGHT hepatic lobe without gross change compared with the prior exam is low suspicion most likely representing a benign cyst. Post cholecystectomy. Negative for biliary dilatation. Unremarkable pancreas and spleen. Negative for CT abnormality of the upper GI, small bowel, or appendix visualized along the RIGHT pelvic sidewall. Severe colonic diverticulosis primarily at the sigmoid colon without findings of acute diverticulitis. Negative for ascites, free air, or significant hernias. Normal adrenal glands. Negative for nephrolithiasis or hydronephrosis. No focal renal lesions evident. Unremarkable nondilated ureters and urinary bladder. Post hysterectomy. Unremarkable adnexal regions. Negative for lymphadenopathy. Moderate calcific plaque of normal diameter abdominal aorta and iliac arteries. Physiologic partial distention of the IVC. Negative for retroperitoneal hematoma. Mild anterior compression deformity of the L2 vertebral body is chronic. Diffuse degenerative spondylosis and facet joint osteoarthritis. No suspicious focal osseous lesions evident. ABDOMEN PELVIS IMPRESSION: 1. Post cholecystectomy. Negative for biliary dilatation. 2. Colonic diverticulosis without findings of acute diverticulitis. 3. Normal appendix documented. 4. Negative for obstructive uropathy. 5. Negative for lymphadenopathy. 6. Negative for aortic aneurysm.
--- NOTE | 2017-03-25 17:22 | ED ---
Kushal Mcwilliams Alfonso, scribed for Olman Caputo MD on 03/19/17 at 0148 . Abdominal Pain/Female - HPI Summary HPI Summary: This patient is a 76 year old F BIBA to [facility] with a chief complaint of diffuse abdominal pain since s/p a cholecystectomy years ago, worse since 1999 yesterday. The patient rates the pain 10/10 in severity. Symptoms aggravated by eating food. Symptoms alleviated by nothing. Patient reports diarrhea (runny) , sore throat, and mild intermittent left hand numbness. Patient denies fever, cough, blood in the stool, and urinary symptoms. Patient denies recent sick contacts or change in diet. - History of Current Complaint Chief Complaint: EDAbdPain Stated Complaint: ABD PAIN Hx Obtained From: Patient Onset/Duration: Gradual Onset, Still Present, Worse Since - 1999 yesterday, Other - Since years ago Timing: Constant Severity Currently: Severe Pain Intensity: 10 Pain Scale Used: 0-10 Numeric Location: Diffuse Aggravating Factor(s): Food Alleviating Factor(s): Nothing Associated Signs and Symptoms: Positive: Other: - diarrhea (runny), sore throat, and mild intermittent left hand numbness. Patient denies fever, cough, blood in the stool, and urinary symptoms. Allergies/Adverse Reactions: Allergies Allergy/AdvReac Type Severity Reaction Status Date / Time Codeine Allergy Intermediate Vomiting Verified 07/26/16 04:59 Morphine Allergy Intermediate Vomiting Verified 07/26/16 04:59 Tramadol Allergy Intermediate Vomiting Verified 07/26/16 04:59 Penicillins [PCN] Allergy Unknown Unknown Verified 07/26/16 04:59 Reaction Details Sulfa Drugs Allergy Unknown Unknown Verified 07/26/16 04:59 Reaction Details PMH/Surg Hx/FS Hx/Imm Hx Endocrine/Hematology History: Denies: Hx Anticoagulant Therapy, Hx Blood Disorders Cardiovascular History: Reports: Hx Hypertension Denies: Hx Pacemaker/ICD Respiratory History: Reports: Hx Asthma, Hx Chronic Bronchitis GI History: Reports: Hx Gall Bladder Disease - Cholecystectomy, Hx Hiatal Hernia - repaired, Hx Ulcer, Other GI Disorders - pancreatitis History: Reports: Hx Kidney Stones Musculoskeletal History: Reports: Hx Arthritis - knee, Hx Orthopedic Injury, Other Musculoskeletal History - "frozen shoulder" Lt side Sensory History: Reports: Hx Contacts or Glasses, Hx Eye Injury, Hx Vision Problem Denies: Hx Hearing Aid Opthamlomology History: Reports: Hx Contacts or Glasses, Hx Eye Injury, Hx Vision Problem EENT History: Denies: Hx Deafness Neurological History: 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) Psychiatric History: Reports: Hx Anxiety Denies: Hx Panic Disorder - Surgical History Surgery Procedure, Year, and Place: Hysterectomy, Tubal ligation, Cholecystectomy, RIGHT LEG ORIF, left knee arthroscopy, tonsillectomy and adenoidectomy Hx Anesthesia Reactions: No - Immunization History Date of Tetanus Vaccine: Unknown Date of Influenza Vaccine: Unknown Infectious Disease History: Yes Infectious Disease History: Reports: Hx Shingles Denies: Traveled Outside the [place] in Last 30 Days - Family History Known Family History: Positive: Hypertension - Social History Alcohol Use: Rare Hx Substance Use: No Substance Use Type: Reports: None Hx Tobacco Use: No Smoking Status (MU): Never Smoked Tobacco Review of Systems Negative: Fever Positive: Sore Throat Negative: Cough Positive: Abdominal Pain, Diarrhea, Other - Negative blood in the stool Positive: no symptoms reported Neurological: Other - mild intermittent left hand numbness All Other Systems Reviewed And Are Negative: Yes Physical Exam - Summary Physical Exam Summary: Appearance: Well-appearing, Well-nourished Skin: Warm Eyes: Normal ENT: Normal Neck: Supple, nontender Respiratory: Clear to auscultation Cardiovascular: Normal Abdomen: Soft, nontender, Large RUQ scar, consistent with cholecystectomy history Bowel: Present, Normal Musculoskeletal: Normal, Strength/ROM Intact Neurological: Normal, A&Ox3 Psychiatric: Normal Triage Information Reviewed: Yes Vital Signs On Initial Exam: Initial Vitals Temp Pulse Resp BP Pulse Ox 98.1 F 93 16 100/75 98 03/19/17 01:03 03/19/17 01:03 03/19/17 01:03 03/19/17 01:03 03/19/17 01:03 Vital Signs Reviewed: Yes - [place] Coma Scale Coma Scale Total: 15 Diagnostics - Vital Signs Vital Signs Temp Pulse Resp BP Pulse Ox 03/19/17 01:03 98.1 F 93 16 100/75 98 - Laboratory Lab Results: Lab Results 03/19/17 03/19/17 03/19/17 Range/Units 03:15 03:15 04:55 WBC 10.8 (3.5-10.8) 10^3/ul RBC 4.40 (4.0-5.4) 10^6/ul Hgb 11.6 L (12.0-16.0) g/dl Hct 34 L (35-47) % MCV 78 L (80-97) fL MCH 26 L (27-31) pg MCHC 34 (31-36) g/dl RDW 15 (10.5-15) % Plt Count 236 (150-450) 10^3/ul MPV 8 (7.4-10.4) um3 Neut % (Auto) 64.6 (38-83) % Lymph % (Auto) 28.9 (25-47) % [place] % (Auto) 3.5 (1-9) % Eos % (Auto) 2.1 (0-6) % Baso % (Auto) 0.9 (0-2) % Absolute Neuts (auto) 7.0 (1.5-7.7) 10^3/ul Absolute Lymphs (auto) 3.1 (1.0-4.8) 10^3/ul Absolute Monos (auto) 0.4 (0-0.8) 10^3/ul Absolute Eos (auto) 0.2 (0-0.6) 10^3/ul Absolute Basos (auto) 0.1 (0-0.2) 10^3/ul Absolute Nucleated RBC 0.01 10^3/ul Nucleated RBC % 0.1 Sodium 139 (133-145) mmol/L Potassium TNP 3.3 L Chloride 108 (101-111) mmol/L Carbon Dioxide 24 (22-32) mmol/L Anion Gap 7 (2-11) mmol/L BUN 10 (6-24) mg/dL Creatinine 0.83 (0.51-0.95) mg/dL Est GFR ( Amer) 86.2 (>60) Est GFR (Non-Af Amer) 67.0 (>60) BUN/Creatinine Ratio 12.0 (8-20) Glucose 101 H (70-100) mg/dL Calcium 8.8 (8.6-10.3) mg/dL Magnesium Cancelled 1.4 L Total Bilirubin 0.40 (0.2-1.0) mg/dL AST TNP 13 ALT 10 (7-52) U/L Alkaline Phosphatase 81 (34-104) U/L C-Reactive Protein 7.22 H (< 5.00) mg/L Total Protein 7.7 (6.4-8.9) g/dL Albumin 3.8 (3.2-5.2) g/dL Globulin 3.9 (2-4) g/dL Albumin/Globulin Ratio 1.0 (1-3) Lipase 61 (11.0-82.0) U/L Result Diagrams: 03/19/17 03:15 03/19/17 04:55 Lab Statement: Any lab studies that have been ordered have been reviewed, and results considered in the medical decision making process. - CT CTA Chest/Abd/Pel CT Interpretation Completed By: Radiologist - no localizing signs for acute pathology in the chest, abdomen or pelvic. ED physician has reviewed this radiology report and agrees. Abdominal Pain Fem Course/Dx - Diagnoses Provider Diagnoses: Abdominal pain - Provider Notifications Discussed Care Of Patient With: Wilner Meneses Instructed by Provider To: Other - Consulted Dr. Meneses (hospitalist) who recommends discharge. Discharge - Discharge Plan Condition: Improved Disposition: HOME Prescriptions: Ondansetron ODT TAB* [Zofran 4 MG Odt TAB*] 4 mg PO Q6H PRN #6 tab.odt PRN Reason: Nausea/Vomiting Patient Education Materials: Acute Diarrhea (ED) Referrals: Matti Romero MD [Primary Care Provider] - Additional Instructions: PLEASE RETURN TO THE EMERGENCY ROOM IF YOU HAVE ANY WORSENING OR CONCERNING SYMPTOMS PLEASE MAKE AN APPOINTMENT FIRST THING IN THE MORNING TO BE SEEN BY YOUR PRIMARY CARE DOCTOR WITHIN 1 WEEK The documentation as recorded by the Kushal begum Alfonso accurately reflects the service I personally performed and the decisions made by me, Olman Caputo MD.
== END 2017-03-19 05:58 | disposition home or self-care (01) ==
LOC: ED 00:44
DX: R10.9 Unspecified abdominal pain (principal); R19.7 Diarrhea, unspecified; J02.9 Acute pharyngitis, unspecified
CPT/HCPCS: 36415; 71250; 74176; 80053; 83690; 83735; 85025; 86140; 96374; 96375; 99282; J2405

== ENCOUNTER 2017-03-25 18:01 | Observation (INO) | payer MEDICARE ==
[2017-03-25] MEDS ORDERED: Ketorolac INJ* 30 MG/ML 1 ML VIAL IV PUSH ONE (18:54)
[2017-03-25] MEDS ORDERED: Albuterol/Ipratropium NEB.SOL* Albuterol 2.5 MG/Ipratropium 0.5 MG 3 ML INH ONE ×3 (18:54→22:17)
[2017-03-25] MEDS ORDERED: methylPREDNISolone 125 MG* 2 ML VIAL IV ONE (18:54)
[2017-03-25] MEDS ORDERED: HYDROcodone/ACETAMIN 5-325 MG* 1 TAB PO ONE (18:57)
[2017-03-25] MEDS ORDERED: predniSONE TAB* 20 MG PO ONE (18:57)
[2017-03-25] MEDS ORDERED: DOXYcycline CAP(*) 100 MG PO ONE (18:59)
[2017-03-25 19:03] LABS: Hematocrit 36 % (35-47); Hemoglobin 12.4 g/dl (12.0-16.0); Mean Corpuscular HGB Conc 34 g/dl (31-36); Mean Corpuscular Hemoglobin 26 pg (27-31); Mean Corpuscular Volume 78 fL (80-97); Mean Platelet Volume 8 um3 (7.4-10.4); Red Blood Count 4.69 10^6/ul (4.0-5.4); Red Cell Distribution Width 15 % (10.5-15); White Blood Count 8.4 10^3/ul (3.5-10.8)
[2017-03-25 19:18] LABS: Albumin 3.9 g/dL (3.2-5.2); BUN/Creatinine Ratio 16.8 (8-20); EGFR African American 60.4 (>60); EGFR Non-African American 46.9 (>60); Globulin 4.3 g/dL (2-4); Potassium 2.8 mmol/L (3.5-5.0); Total Bilirubin 0.5 mg/dL (0.2-1.0); Total Protein 8.2 g/dL (6.4-8.9)
--- NOTE | 2017-03-25 19:28 | RAD ---
HISTORY: Chest pain COMPARISONS: November 06, 2016 VIEWS: 1: frontal portable view of the chest at 6:55 PM FINDINGS: LINES AND TUBES: None. CARDIOMEDIASTINAL SILHOUETTE: The cardiomediastinal silhouette is stable. PLEURA: The costophrenic angles are sharp. No pleural abnormalities are noted. LUNG PARENCHYMA: The lungs are clear. ABDOMEN: The upper abdomen is clear. There is no subphrenic gas. BONES AND SOFT TISSUES: No bone or soft tissue abnormalities are noted. IMPRESSION: NO ACTIVE CARDIOPULMONARY DISEASE.
[2017-03-25] MEDS ORDERED: Potassium Chloride LIQUID* 20 MEQ PACKET PO ONE (20:56)
[2017-03-25] MEDS ORDERED: Sodium Chloride(INHALANT)0.9%* 5 ML NEB.SOLN INH ONE (20:56)
[2017-03-25] MEDS ORDERED: Al Hydrox/Mg Hydrox/Simet LIQ* 30 ML UDC PO PRN (23:01)
[2017-03-25] MEDS ORDERED: Acetaminophen TAB* 325 MG PO PRN (23:01)
[2017-03-25] MEDS ORDERED: Magnesium Hydroxide LIQ* 30 ML UDC PO PRN (23:01)
[2017-03-25] MEDS ORDERED: oxyCODONE/Acetamin 5/325 MG* TAB PO PRN (23:04)
[2017-03-25] MEDS ORDERED: Albuterol/Ipratropium NEB.SOL* Albuterol 2.5 MG/Ipratropium 0.5 MG 3 ML INH PRN (23:05)
[2017-03-25] MEDS ORDERED: Potassium Chlor TAB* 20 MEQ TAB.ER PO ONE (23:08)
[2017-03-25] MEDS ORDERED: NS 0.9% 1000 ML* 1,000 ML IV SCH (23:15)
[2017-03-26] MEDS: methylPREDNISolone SOD 40 MG* 1 ML VIAL IV SCH ×2 (00:32→06:00)
[2017-03-26] MEDS ORDERED: Albuterol HFA INHALER* 8 gm MDI INH PRN (00:52)
--- NOTE | 2017-03-26 03:17 | HP ---
CC: Dr. Romero * HISTORY AND PHYSICAL: DATE OF ADMISSION: 03/25/17 PRIMARY CARE PROVIDER: Dr. Romero. CHIEF COMPLAINT: Shortness of breath and dizziness. HISTORY OF PRESENT ILLNESS: Mrs. Koch is a 76-year-old female with history of asthma, who complains of "asthma acting up again." The patient stated that for the past 5 days, she has been having wheezing and coughing and she has problems with "coughing up." The patient is a very poor historian and I am not really sure how reliable historian she is. Apparently at patient's admission to the emergency department, the patient stated that she had nausea, vomiting and diarrhea which right now she denies. She also complained of some chest pain to one of the nurses, but today during my evaluation she stated that that was not true and she does not have chest pain. She walked to the bathroom to evaluate ambulation and she was noted to be very dyspneic and "dizzy." When I asked the patient if her appetite had been good, she stated yes, but then when I asked if she could be dehydrated, she also told me yes because her appetite was poor. Nevertheless, the patient appears to be in mild asthma exacerbation. She is going to be placed on overnight observation with a diagnosis of asthma exacerbation and dehydration. PAST MEDICAL HISTORY: 1. Hypertension. 2. Anxiety. 3. Asthma. 4. History of TIA. 5. History of ORIF of the right femur. 6. Status post cholecystectomy. 7. History of hysterectomy. MEDICATIONS AT HOME: Include: 1. Aspirin 81 mg daily. 2. Albuterol inhaler on a p.r.n. basis. 3. Amlodipine 10 mg daily. 4. Singulair 10 mg daily. 5. Advair 250/50 one inhalation b.i.d. 6. Oxycodone/acetaminophen 5/325 mg 1 tablet every 6 hours p.r.n. ALLERGIES: Multiple and include CODEINE, MORPHINE and TRAMADOL causes vomiting. PENICILLINS and SULFA causes unknown reaction. The patient also noted that the patient had been allergic to CODEINE. She has no problems tolerating oxycodone that she had been on at home. FAMILY HISTORY: Positive for mother with CHF and father with lung cancer. SOCIAL HISTORY: The patient's surrogate decision maker is her daughter, Lea. She stated that she never really smoked tobacco and she quit when her father told her to when she was 17 years old. She denies any alcohol or drug use. She lives alone and she is a . She uses a walker to ambulate. REVIEW OF SYSTEMS: Please see history of present illness. In addition to the above mentioned, all the remaining 12 systems were reviewed with the patient and were otherwise negative. Please also note that the patient is not a reliable historian and had been giving contradicting information during my interview. PHYSICAL EXAMINATION GENERAL: The patient is a pleasant 76-year-old female who is in no acute distress. The patient is alert, awake and oriented x3. VITAL SIGNS: Blood pressure of 128/81, heart rate of 94 and regular, respiratory rate 21, oxygen saturation 96% on room air, temperature of 97.9. HEENT: Head: Atraumatic, normocephalic. Eyes: Pupils are equal, reactive to light and accommodation. Oropharynx clear. Mucosa moist. NECK: Supple. No JVD. No bruits bilaterally. RESPIRATORY: Scant wheezes at bilateral bases, otherwise clear. CARDIOVASCULAR: Regular rate and rhythm. No murmur. ABDOMEN: Soft, nontender. Bowel sounds present in all 4 quadrants. EXTREMITIES: There is no edema. Pulses +2 bilaterally. No clubbing or cyanosis. NEURO EVALUATION: Speech clear. Cranial nerves II through XII grossly intact. Motor strength is 5/5 bilaterally. DIAGNOSTIC STUDIES/LAB DATA: Showed white blood cell count of 8.4, hemoglobin 12.4, hematocrit of 36, and platelets of 219. Sodium is 137, potassium 2.8, chloride 103, carbon dioxide 23, BUN 19, creatinine 1.13. Liver function tests were unremarkable and troponin of 0. The patient's portable chest x-ray was read by the radiologist as "no active cardiopulmonary disease." The patient's EKG showed normal sinus rhythm with heart rate of 82 beats per minute with left axis deviation. ASSESSMENT AND PLAN: 1. The patient appears to be in mild asthma exacerbation. She is going to be placed on parenteral steroids, doxycycline that was started already in the emergency department as antibiotics due to the patient's multiple allergies. Nebulizers are going to be ordered as needed. Advair is going to be substituted with Dulera, which is on the hospital's formulary. 2. The patient appears mildly dehydrated and she is also hypokalemic. Her potassium was already replaced partially in the emergency department and the patient is going to be ordered another dose of potassium chloride orally. I will obtain basic metabolic panel in the morning. I will also place the patient on gentle intravenous hydration for a total of 1 L. 3. The patient's mildly elevated creatinine may be due to mild dehydration, although also the patient has had mildly elevated creatinine in the past and maybe her baseline. We check basic metabolic panel in the morning. 4. For hypertension, her amlodipine is going to be continued. 5. The patient's code status is full. 6. For DVT prophylaxis, the patient is going to be placed on heparin subcutaneously. TIME SPENT: Approximately 60 minutes was spent on admission of this patient. More than half of that time was spent [id number] with the patient during the interview and physical exam. [id number]/[facility] #: [id number] DIMITRI
[2017-03-26] MEDS ORDERED: Heparin VIAL(*) 5000 UNITS/ML VIAL (FIVE THOUSAND) SUBCUT SCH (06:00)
[2017-03-26 07:34] LABS: BUN/Creatinine Ratio 19.8 (8-20); EGFR African American 72.9 (>60); EGFR Non-African American 56.7 (>60); Potassium 4.1 mmol/L (3.5-5.0)
[2017-03-26 08:09] VITALS: BP 116/71
[2017-03-26] MEDS ORDERED: Montelukast Sodium TAB* 10 MG PO SCH (09:00)
[2017-03-26] MEDS ORDERED: Mometasone/Formoter 200/5 MDI INH SCH (09:00)
[2017-03-26] MEDS ORDERED: Aspirin EC Low Dose* 81 MG TAB.EC PO SCH (09:00)
[2017-03-26] MEDS ORDERED: amLODIPine TAB* 5 MG PO SCH (09:00)
[2017-03-26] MEDS ORDERED: Docusate CAP* 100 MG PO SCH (09:00)
[2017-03-26] MEDS ORDERED: DOXYcycline CAP(*) 100 MG PO SCH (09:00)
--- NOTE | 2017-03-26 11:12 | DS ---
CC: Dr. Romero * DATE OF ADMISSION: 03/25/2017. DATE OF DISCHARGE: 03/26/2017. HISTORY OF PRESENT ILLNESS: This 76-year-old woman presented with shortness of breath and dizziness. Her history was a little vague and changed according to who she spoke to. She was started on Doxycycline and Methylprednisolone in the hospital for an asthma attack. There were scant wheezes at the bases when Dr. Ernst examined her, but there may have been more wheezing before she was treated in the emergency room. The patient said she cannot afford the co-pays on her medications. She said she has no medications at all at home and cannot get any until she gets her check on April 15. According to the records, the only medications she has picked up over the last three months are Amlodipine and Alprazolam. She said she does not have any type of inhaler at home. She does not have an Advair or Albuterol inhaler. She does not take Singulair. She said she took her stress pill and her heart pill which I believe corresponds to the Alprazolam and the Amlodipine. She received Methylprednisolone and Doxycycline in the hospital. She did very well. Her lungs were completely clear. She was breathing easily and was certainly at her baseline state. The director of social work will try to help her with her home medications. As the patient states she has not had Advair for at least a year or Singulair, I have discontinued those from her list. She will get a six day taper of Prednisone, tapering from 60 mg to 0 over six days and a five day course of Doxycycline 10 mg b.i.d. I phone in prescriptions for Amlodipine. The patient said she had no refills, but I will leave that up to Dr. Romero to control her Alprazolam prescription. FINAL DIAGNOSES: 1. Asthma exacerbation. 2. Anxiety. 3. Hypertension. DISCHARGE MEDICATIONS: 1. Doxycycline 100 mg b.i.d. for 5 days. 2. Prednisone 10 mg taper from 6 to 0 over 6 days. 3. Aspirin 81 mg daily. 4. Albuterol 2 puffs every 4 hours prn. 5. Oxycodone/acetaminophen 5/325 one every 6 hours prn. 6. Amlodipine 10 mg daily. Prescriptions were transmitted for Doxycycline, Prednisone, and Amlodipine only. [id number]/[facility] #: [id number] [facility]
[2017-03-28] MEDS ORDERED: predniSONE TAB* 20 MG PO SCH (09:00)
== END 2017-03-26 13:40 | disposition home or self-care (01) ==
LOC: ED 18:01 → MED 23:01
PROVIDERS: ADMIT Internal Medicine; ATTEND Internal Medicine
DX: J45.901 Unspecified asthma with (acute) exacerbation (principal); F41.9 Anxiety disorder, unspecified; I10 Essential (primary) hypertension; Z79.82 Long term (current) use of aspirin; Z79.51 Long term (current) use of inhaled steroids; Z79.899 Other long term (current) drug therapy; Z88.1 Allergy status to other antibiotic agents; Z88.5 Allergy status to narcotic agent; Z88.0 Allergy status to penicillin; Z88.2 Allergy status to sulfonamides; Z91.09 Other allergy status, other than to drugs and biological substances
CPT/HCPCS: 36415; 71010; 80048; 80053; 83880; 84484; 85025; 87040; 93005; 94640; 96361; 96374; 96375; 99285; A9270-GY; G0378; J1644; J2920; J7512

== ENCOUNTER 2017-04-22 15:44 | Emergency (ER) | payer MEDICARE ==
[2017-04-22 16:15] VITALS: BP 103/76
[2017-04-22] MEDS ORDERED: Albuterol HFA INHALER* 8 gm MDI INH ONE (16:29)
--- NOTE | 2017-04-22 20:51 | ED ---
Psychiatric Complaint - HPI Summary HPI Summary: Patient states she had an anxiety attack. Pt states her granddaughter and great granddaughter are both living with her and "driving me up the wall". She has been seen before for her anxiety. She takes a benzo at bedtime and only as needed during the day. She states ever since her family began to live with her she does not feel appreciated which makes her have anxiety symptoms, and sometimes an "attack" which she describes as hyperventilating, crying and becoming SOB which lasts 3-5 minutes. She remains tearful on exam, but states she is no longer currently anxious, just saddened by her family situation. Denies fevers, sweats or chills. She denies SI/HI. Denies self harm. Denies any previous attempts at suicide. She states she would like a refill on her albuterol as this helps when she has an anxiety attack. She is otherwise feeling well, states she would not like to be admitted and is requesting to go home. - History Of Current Complaint Chief Complaint: EDPsychosocial Time Seen by Provider: 04/22/17 15:48 Hx Obtained From: Patient ?: No Onset/Duration: Sudden Onset Timing: Constant Severity Initially: Moderate Severity Currently: Moderate Character: Anxious Aggravating Factor(s): Recent Stress Associated Signs And Symptoms: Positive: Negative Related History: Positive For: Prior Psychiatric Issues - Risk Factor(s) Completed Suicide Risk Factors: Negative - Allergies/Home Medications Allergies/Adverse Reactions: Allergies Allergy/AdvReac Type Severity Reaction Status Date / Time Codeine Allergy Intermediate Vomiting Verified 07/26/16 04:59 Morphine Allergy Intermediate Vomiting Verified 07/26/16 04:59 Tramadol Allergy Intermediate Vomiting Verified 07/26/16 04:59 Penicillins [PCN] Allergy Unknown Unknown Verified 07/26/16 04:59 Reaction Details Sulfa Drugs Allergy Unknown Unknown Verified 07/26/16 04:59 Reaction Details PMH/Surg Hx/FS Hx/Imm Hx Previously Healthy: Yes Endocrine/Hematology History: Denies: Hx Anticoagulant Therapy, Hx Blood Disorders Cardiovascular History: Reports: Hx Hypertension Denies: Hx Pacemaker/ICD Respiratory History: Reports: Hx Asthma, Hx Chronic Bronchitis Denies: Hx Chronic Obstructive Pulmonary Disease (COPD) GI History: Reports: Hx Gall Bladder Disease - Cholecystectomy, Hx Hiatal Hernia - repaired, Hx Ulcer, Other GI Disorders - pancreatitis History: Reports: Hx Kidney Stones Musculoskeletal History: Reports: Hx Arthritis - knee, Hx Orthopedic Injury, Other Musculoskeletal History - "frozen shoulder" Lt side Sensory History: Reports: Hx Contacts or Glasses, Hx Eye Injury, Hx Vision Problem Denies: Hx Deafness, Hx Hearing Aid Opthamlomology History: Reports: Hx Contacts or Glasses, Hx Eye Injury, Hx Vision Problem Neurological History: 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) Psychiatric History: Reports: Hx Anxiety Denies: Hx Panic Disorder - Surgical History Surgery Procedure, Year, and Place: Hysterectomy, Tubal ligation, Cholecystectomy, RIGHT LEG ORIF, left knee arthroscopy, tonsillectomy and adenoidectomy Hx Anesthesia Reactions: No - Immunization History Date of Tetanus Vaccine: Unknown Date of Influenza Vaccine: Unknown Hx Pertussis Vaccination: No Immunizations Up to Date: Unable to Obtain/Confirm Infectious Disease History: No Infectious Disease History: Reports: Hx Shingles Denies: Traveled Outside the [place] in Last 30 Days - Family History Known Family History: Positive: Unknown, Hypertension - Social History Occupation: Unemployed Lives: With Family Alcohol Use: None Hx Substance Use: No Substance Use Type: Reports: None Hx Tobacco Use: No Smoking Status (MU): Never Smoked Tobacco Review of Systems Constitutional: Negative Negative: Fever, Chills, Fatigue Eyes: Negative Cardiovascular: Negative Gastrointestinal: Negative Genitourinary: Negative Positive: no symptoms reported, see HPI Musculoskeletal: Negative Skin: Negative Positive: Anxious All Other Systems Reviewed And Are Negative: Yes Physical Exam Triage Information Reviewed: Yes Vital Signs On Initial Exam: Initial Vitals Temp Pulse Resp BP Pulse Ox 98.9 F 96 30 105/79 98 04/22/17 15:51 04/22/17 15:51 04/22/17 15:51 04/22/17 15:51 04/22/17 15:51 Vital Signs Reviewed: Yes Appearance: Positive: Well-Appearing, Well-Nourished Skin: Positive: Warm, Skin Color Reflects Adequate Perfusion Head/Face: Positive: Normal Head/Face Inspection Eyes: Positive: EOMI, RTEY, Conjunctiva Clear Neck: Positive: Supple, Nontender, No Lymphadenopathy Respiratory/Lung Sounds: Positive: Clear to Auscultation, Breath Sounds Present Musculoskeletal: Positive: Normal, Strength/ROM Intact Neurological: Positive: Speech Normal Psychiatric: Positive: Anxious - tearful on exam AVPU Assessment: Alert - Shailesh Coma Scale Best Eye Response: 4 - Spontaneous Best Motor Response: 6 - Obeys Commands Best Verbal Response: 5 - Oriented Diagnostics - Vital Signs Vital Signs Temp Pulse Resp BP Pulse Ox 04/22/17 16:00 101 33 103/76 97 04/22/17 15:54 96 31 105/79 98 04/22/17 15:53 93 28 95 04/22/17 15:51 98.9 F 96 30 105/79 98 - Laboratory Lab Statement: Any lab studies that have been ordered have been reviewed, and results considered in the medical decision making process. Course/Dx - Course Course Of Treatment: During the course of treatment, patient is given albuterol inhaler. She is requesting discharge. She has her anxiety medications at home. - Differential Dx/Clinical Impression Differential Diagnosis/HQI/PQRI: Positive: Anxiety Provider Diagnosis: Anxiety Discharge - Discharge Plan Condition: Stable Disposition: HOME Patient Education Materials: Anxiety (ED) Referrals: Matti Romero MD [Primary Care Provider] - Additional Instructions: Please follow up with your PCP I advise you work on your social situation at home to avoid anxiety attacks Continue with your medications as prescribed Albuterol inhaler only as needed for cough and shortness of breath
== END 2017-04-22 16:41 | disposition home or self-care (01) ==
LOC: ED 15:44
DX: F41.9 Anxiety disorder, unspecified (principal)
CPT/HCPCS: 99282; A9270-GY

== ENCOUNTER 2017-05-30 08:32 | Emergency (ER) | payer MEDICARE ==
[2017-05-30] MEDS ORDERED: Ketorolac INJ* 15 MG/ML 1 ML VIAL IV ONE (10:14)
[2017-05-30] MEDS ORDERED: Ondansetron INJ* 2 MG/ML VIAL IV ONE ×2 (10:14→13:56)
[2017-05-30] MEDS ORDERED: NS 0.9% 1000 ML* 1,000 ML IV ONE (10:14)
[2017-05-30 10:42] LABS: ABS Basophils 0.1 10^3/ul (0-0.2); ABS Eosinophils 0.1 10^3/ul (0-0.6); ABS Lymphocytes 2.3 10^3/ul (1.0-4.8); ABS Monocytes 0.5 10^3/ul (0-0.8); ABS Nucleated RBC 0 10^3/ul; Eosinophil % 1.7 % (0-6); Hematocrit 37 % (35-47); Hemoglobin 12.8 g/dl (12.0-16.0); Lymphocyte % 32.7 % (25-47); Mean Corpuscular HGB Conc 34 g/dl (31-36); Mean Corpuscular Hemoglobin 26 pg (27-31); Mean Corpuscular Volume 77 fL (80-97); Mean Platelet Volume 8 um3 (7.4-10.4); Nucleated Red Blood Cells % 0.2; Platelet Count 231 10^3/ul (150-450); Red Blood Count 4.88 10^6/ul (4.0-5.4); Red Cell Distribution Width 15 % (10.5-15)
--- NOTE | 2017-05-30 10:42 | RAD ---
HISTORY: Abdominal pain COMPARISONS: March 25, 2017, CT of the chest dated March 19, 2017 VIEWS: 1: frontal portable view of the chest at 10:30 AM FINDINGS: LINES AND TUBES: None. CARDIOMEDIASTINAL SILHOUETTE: The aorta is tortuous. The cardiomediastinal silhouette is stable from previous examinations.. PLEURA: The costophrenic angles are sharp. No pleural abnormalities are noted. LUNG PARENCHYMA: The lungs are clear. ABDOMEN: The upper abdomen is clear. There is no subphrenic gas. BONES AND SOFT TISSUES: No bone or soft tissue abnormalities are noted. IMPRESSION: NO ACTIVE CARDIOPULMONARY DISEASE.
[2017-05-30 10:53] LABS: INR 1.01 (0.77-1.02)
[2017-05-30 11:01] LABS: EGFR Non-African American 44.2 (>60)
[2017-05-30 11:41] LABS: Urine Appearance Cloudy; Urine Blood Negative (Negative); Urine Color Yellow; Urine Ketones Negative (Negative); Urine Protein Negative (Negative); Urine Specific Gravity 1.018 (1.010-1.030); Urine Urobilinogen Negative (Negative)
[2017-05-30] MEDS ORDERED: Meperidine SYRINGE* 50 MG/ML IV ONE (13:55)
--- NOTE | 2017-05-30 14:17 | RAD ---
CLINICAL HISTORY: Right flank pain, history of kidney stones COMPARISON: March 19, 2017 TECHNIQUE: Multiple contiguous axial CT scans were obtained of the abdomen and pelvis, without intravenous contrast enhancement. Coronal and sagittal multiplanar reformations are submitted for review. Oral contrast was not administered. FINDINGS: The study is limited by the lack of intravenous contrast. This limits evaluation of the solid organs and vasculature. LUNG BASES: The lung bases are clear. LIVER: The liver is normal in shape, size, contour, and attenuation. BILE DUCTS: There is no intrahepatic or extrahepatic biliary dilatation. GALLBLADDER: The gallbladder is not visualized. Surgical clips are noted in the gallbladder fossa. PANCREAS: The pancreas is normal, without mass or ductal dilatation. SPLEEN: Normal in size and appearance. UPPER GI TRACT: Evaluation of the gastrointestinal tract is limited by incomplete gastric distention. The upper GI tract is unremarkable. SMALL BOWEL AND MESENTERY: The small bowel is normal in contour, course, and caliber. There is no obstruction or dilatation. COLON: There are multiple diverticula of the sigmoid colon. There is no pericolonic inflammatory change. ADRENALS: Normal bilaterally. KIDNEYS: The kidneys are normal in shape, size, contour, and axis. There is no hydronephrosis or nephrolithiasis. BLADDER: The bladder is smooth in contour. PELVIC ORGANS: The prostate gland is normal. The seminal vesicles are symmetric. AORTA: There is calcific atherosclerotic disease of the abdominal aorta and its branches, without aneurysmal dilatation IVC: Unremarkable LYMPH NODES: There are bilateral inguinal lymph nodes measuring up to 1 cm short axis. ABDOMINAL WALL: There is no evidence for abdominal wall hernia. BONES AND SOFT TISSUES: Mild degenerative changes are noted OTHER: None IMPRESSION: 1. NO HYDRONEPHROSIS OR NEPHROLITHIASIS. 2. DIVERTICULOSIS. 3. BORDERLINE ENLARGED INGUINAL LYMPH NODES. 4. ATHEROSCLEROSIS
[2017-05-30] MEDS ORDERED: Magnesium Sulfate 1 GM IV* 1 GM/100 ML BAG IV ONE (16:51)
[2017-05-30 18:07] VITALS: BP 110/61
--- NOTE | 2017-05-31 20:35 | ED ---
Pérez Mcwilliams Natalie, scribed for Paty Espinoza MD on 05/30/17 at 1238 . Abdominal Pain/Female - HPI Summary HPI Summary: The patient is a 76 y/o F presenting to the ED c/o right flank pain, back pain, and black tongue starting suddenly last night, possible kidney stones. The pain starts in her back and moves to side. The pain is rated 9/10. She is nauseous and has had yellow, pure water diarrhea without blood. She is currently hungry. She has mild CP and hematuria. She denies a fever and SOB. She has hx of asthma and bronchitis. She had her gallbladder removed. FHx grandson with kidney stones. Dr. Romero is her PCP. - History of Current Complaint Chief Complaint: EDAbdPain Stated Complaint: ABD PAIN Time Seen by Provider: 05/30/17 09:30 Hx Obtained From: Patient Onset/Duration: Sudden Onset, Lasting Hours - starting last night Timing: Constant Severity Initially: Severe Severity Currently: Severe Pain Intensity: 9 Pain Scale Used: 0-10 Numeric Location: Flank - right Radiates: Yes Radiates to: Back Aggravating Factor(s): Nothing Alleviating Factor(s): Nothing Associated Signs and Symptoms: Positive: Chest Pain, Back Pain, Urinary Symptoms - hematuria, Nausea, Diarrhea. Negative: Fever, Decreased Appetite, Other: - SOB Allergies/Adverse Reactions: Allergies Allergy/AdvReac Type Severity Reaction Status Date / Time codeine Allergy Nausea And Verified 05/30/17 08:57 Vomiting morphine Allergy Nausea And Verified 05/30/17 08:57 Vomiting Penicillins Allergy Nausea Verified 05/30/17 08:57 Sulfa (Sulfonamide Allergy Nausea Verified 05/30/17 08:57 Antibiotics) tramadol Allergy Nausea And Verified 05/30/17 08:57 Vomiting PMH/Surg Hx/FS Hx/Imm Hx Previously Healthy: No Endocrine/Hematology History: Denies: Hx Anticoagulant Therapy, Hx Blood Disorders Cardiovascular History: Reports: Hx Hypertension Denies: Hx Pacemaker/ICD Respiratory History: Reports: Hx Asthma, Hx Chronic Bronchitis Denies: Hx Chronic Obstructive Pulmonary Disease (COPD) GI History: Reports: Hx Gall Bladder Disease - Cholecystectomy, Hx Hiatal Hernia - repaired, Hx Ulcer, Other GI Disorders - pancreatitis History: Reports: Hx Kidney Stones Musculoskeletal History: Reports: Hx Arthritis - knee, Hx Orthopedic Injury, Other Musculoskeletal History - "frozen shoulder" Lt side Sensory History: Reports: Hx Contacts or Glasses, Hx Eye Injury, Hx Vision Problem Denies: Hx Deafness, Hx Hearing Aid Opthamlomology History: Reports: Hx Contacts or Glasses, Hx Eye Injury, Hx Vision Problem Neurological History: 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) Psychiatric History: Reports: Hx Anxiety Denies: Hx Panic Disorder - Surgical History Surgery Procedure, Year, and Place: Hysterectomy, Tubal ligation, Cholecystectomy, RIGHT LEG ORIF, left knee arthroscopy, tonsillectomy and adenoidectomy Hx Anesthesia Reactions: No - Immunization History Date of Tetanus Vaccine: Unknown Date of Influenza Vaccine: Unknown Infectious Disease History: No Infectious Disease History: Reports: Hx Shingles Denies: Traveled Outside the [place] in Last 30 Days - Family History Known Family History: Positive: Hypertension, Other - kidney stones (grandson) - Social History Alcohol Use: None Hx Substance Use: No Substance Use Type: Reports: None Hx Tobacco Use: No Smoking Status (MU): Never Smoked Tobacco Review of Systems Negative: Fever Positive: Other - black tongue Positive: Chest Pain Negative: Shortness Of Breath Positive: Abdominal Pain, Diarrhea, Nausea Positive: hematuria All Other Systems Reviewed And Are Negative: Yes Physical Exam Triage Information Reviewed: Yes Vital Signs On Initial Exam: Initial Vitals Temp Pulse Resp BP Pulse Ox 98.8 F 88 22 106/60 98 05/30/17 08:37 05/30/17 08:37 05/30/17 08:37 05/30/17 08:37 05/30/17 08:37 Vital Signs Reviewed: Yes Appearance: Positive: Well-Nourished, Ill-Appearing, Pain Distress Skin: Positive: Warm, Skin Color Reflects Adequate Perfusion Head/Face: Positive: Normal Head/Face Inspection Eyes: Positive: Conjunctiva Clear ENT: Positive: Normal ENT inspection Neck: Positive: Supple Respiratory/Lung Sounds: Positive: Other - Lungs clear, Normal breath sounds, no respiratory distress Cardiovascular: Positive: Other - RRR, No murmur, pulses normal, brisk capillary refill Abdomen Description: Positive: Soft, Other: - Tenderness in right flank Diagnostics - Vital Signs Vital Signs Temp Pulse Resp BP Pulse Ox 05/30/17 12:00 72 97/59 97 05/30/17 11:30 74 106/83 98 05/30/17 11:23 115/74 05/30/17 11:00 71 99 05/30/17 10:00 81 106/41 99 05/30/17 09:56 90 97 05/30/17 09:30 83 98 05/30/17 09:00 89 99/65 98 05/30/17 08:55 91 97 05/30/17 08:54 100/63 05/30/17 08:37 98.8 F 88 22 106/60 98 - Laboratory Lab Results: Lab Results 05/30/17 05/30/17 05/30/17 Range/Units 10:30 10:30 10:30 WBC 7.0 (3.5-10.8) 10^3/ul RBC 4.88 (4.0-5.4) 10^6/ul Hgb 12.8 (12.0-16.0) g/dl Hct 37 (35-47) % MCV 77 L (80-97) fL MCH 26 L (27-31) pg MCHC 34 (31-36) g/dl RDW 15 (10.5-15) % Plt Count 231 (150-450) 10^3/ul MPV 8 (7.4-10.4) um3 Neut % (Auto) 57.3 (38-83) % Lymph % (Auto) 32.7 (25-47) % [place] % (Auto) 7.2 (1-9) % Eos % (Auto) 1.7 (0-6) % Baso % (Auto) 1.1 (0-2) % Absolute Neuts (auto) 4.0 (1.5-7.7) 10^3/ul Absolute Lymphs (auto) 2.3 (1.0-4.8) 10^3/ul Absolute Monos (auto) 0.5 (0-0.8) 10^3/ul Absolute Eos (auto) 0.1 (0-0.6) 10^3/ul Absolute Basos (auto) 0.1 (0-0.2) 10^3/ul Absolute Nucleated RBC 0 10^3/ul Nucleated RBC % 0.2 INR (Anticoag Therapy) 1.01 (0.77-1.02) Sodium 137 (133-145) mmol/L Potassium 3.7 (3.5-5.0) mmol/L Chloride 103 (101-111) mmol/L Carbon Dioxide 27 (22-32) mmol/L Anion Gap 7 (2-11) mmol/L BUN 18 (6-24) mg/dL Creatinine 1.19 H (0.51-0.95) mg/dL Est GFR ( Amer) 56.9 (>60) Est GFR (Non-Af Amer) 44.2 (>60) BUN/Creatinine Ratio 15.1 (8-20) Glucose 95 (70-100) mg/dL Lactic Acid (0.5-2.0) mmol/L Calcium 9.3 (8.6-10.3) mg/dL Magnesium 1.5 L (1.9-2.7) mg/dL Total Bilirubin 0.60 (0.2-1.0) mg/dL AST 14 (13-39) U/L ALT 11 (7-52) U/L Alkaline Phosphatase 80 (34-104) U/L Total Creatine Kinase 83 (10-223) U/L Troponin I 0.00 (<0.04) ng/mL C-Reactive Protein 7.61 H (< 5.00) mg/L Total Protein 7.9 (6.4-8.9) g/dL Albumin 3.8 (3.2-5.2) g/dL Globulin 4.1 H (2-4) g/dL Albumin/Globulin Ratio 0.9 L (1-3) Amylase 87 (29-103) U/L Lipase 31 (11.0-82.0) U/L Urine Color Urine Appearance Urine pH (5-9) Ur Specific [place] (1.010-1.030) Urine Protein (Negative) Urine Ketones (Negative) Urine Blood (Negative) Urine Nitrate (Negative) Urine Bilirubin (Negative) Urine Urobilinogen (Negative) Ur Leukocyte Esterase (Negative) Urine WBC (Auto) (Absent) Urine RBC (Auto) (Absent) Ur Squamous Epith Cells (Absent) Urine Bacteria (Absent) Urine Glucose (Negative) 05/30/17 05/30/17 Range/Units 10:30 11:10 WBC (3.5-10.8) 10^3/ul RBC (4.0-5.4) 10^6/ul Hgb (12.0-16.0) g/dl Hct (35-47) % MCV (80-97) fL MCH (27-31) pg MCHC (31-36) g/dl RDW (10.5-15) % Plt Count (150-450) 10^3/ul MPV (7.4-10.4) um3 Neut % (Auto) (38-83) % Lymph % (Auto) (25-47) % [place] % (Auto) (1-9) % Eos % (Auto) (0-6) % Baso % (Auto) (0-2) % Absolute Neuts (auto) (1.5-7.7) 10^3/ul Absolute Lymphs (auto) (1.0-4.8) 10^3/ul Absolute Monos (auto) (0-0.8) 10^3/ul Absolute Eos (auto) (0-0.6) 10^3/ul Absolute Basos (auto) (0-0.2) 10^3/ul Absolute Nucleated RBC 10^3/ul Nucleated RBC % INR (Anticoag Therapy) (0.77-1.02) Sodium (133-145) mmol/L Potassium (3.5-5.0) mmol/L Chloride (101-111) mmol/L Carbon Dioxide (22-32) mmol/L Anion Gap (2-11) mmol/L BUN (6-24) mg/dL Creatinine (0.51-0.95) mg/dL Est GFR ( Amer) (>60) Est GFR (Non-Af Amer) (>60) BUN/Creatinine Ratio (8-20) Glucose (70-100) mg/dL Lactic Acid 1.7 (0.5-2.0) mmol/L Calcium (8.6-10.3) mg/dL Magnesium (1.9-2.7) mg/dL Total Bilirubin (0.2-1.0) mg/dL AST (13-39) U/L ALT (7-52) U/L Alkaline Phosphatase (34-104) U/L Total Creatine Kinase (10-223) U/L Troponin I (<0.04) ng/mL C-Reactive Protein (< 5.00) mg/L Total Protein (6.4-8.9) g/dL Albumin (3.2-5.2) g/dL Globulin (2-4) g/dL Albumin/Globulin Ratio (1-3) Amylase (29-103) U/L Lipase (11.0-82.0) U/L Urine Color Yellow Urine Appearance Cloudy Urine pH 5.0 (5-9) Ur Specific [place] 1.018 (1.010-1.030) Urine Protein Negative (Negative) Urine Ketones Negative (Negative) Urine Blood Negative (Negative) Urine Nitrate Negative (Negative) Urine Bilirubin Negative (Negative) Urine Urobilinogen Negative (Negative) Ur Leukocyte Esterase Trace H (Negative) Urine WBC (Auto) Trace(0-5/hpf) (Absent) Urine RBC (Auto) 1+(3-5/hpf) H (Absent) Ur Squamous Epith Cells Present H (Absent) Urine Bacteria 1+ H (Absent) Urine Glucose Negative (Negative) Result Diagrams: 05/30/17 10:30 05/30/17 10:30 Lab Statement: Any lab studies that have been ordered have been reviewed, and results considered in the medical decision making process. - Radiology CXR Xray Interpretation: No Acute Changes - No active cardiopulmonary disease. ED physician has reviewed this report. Radiology Interpretation Completed By: Radiologist - CT Abd/Pel CT Interpretation: Positive (See Comments) - 1. No hydronephrosis or nephrolithiasis. 2. Diverticulosis. 3. Borderline enlarged inguinal lymph nodes. 4. Atherosclerosis. ED physician has reviewed this report. CT Interpretation Completed By: Radiologist - EKG 10:38 Cardiac Rate: Bradycardia EKG Rhythm: Sinus Bradycardia ST Segment: Non-Specific Ectopy: None EKG Interpretation: Nml AVIVCT. Nml QTc. Negative axis -1. EKG Comparison: No Significant Change - slower rate than EKG from 03/29/17 Re-Evaluation - Re-Evaluation First Eval Re-Evaluation Time: 17:32 - The patient's pain is 0/10. She will be discharged home. The patient is agreeable. Change: Improved Abdominal Pain Fem Course/Dx - Course Course Of Treatment: Allergies noted. Pt medications reviewed during this visit. She was evaluated for possible kidney stones with CT, CXR, and labs, which showed nothing remarkable. The patient was treated with Toradol 15mg IV, Demeral 75 mg, and 1g magnesium IV to treat her pain. She is diagnosed with abdominal pain and hypomagnesemia.The patient will be discharged home. She is agreeable with this plan. - Diagnoses Provider Diagnoses: Abdominal pain, Hypomagnesemia Discharge - Discharge Plan Condition: Stable Disposition: HOME Patient Education Materials: Abdominal Pain (ED), Hypomagnesemia (ED) Referrals: Matti Romero MD [Primary Care Provider] - 2 Days The documentation as recorded by the Pérez begum Natalie accurately reflects the service I personally performed and the decisions made by me, Paty Espinoza MD.
== END 2017-05-30 18:06 | disposition home or self-care (01) ==
LOC: ED 08:32
DX: R10.9 Unspecified abdominal pain (principal); E83.42 Hypomagnesemia; Z88.5 Allergy status to narcotic agent; Z88.0 Allergy status to penicillin; Z88.2 Allergy status to sulfonamides; Z88.8 Allergy status to other drugs, medicaments and biological substances
CPT/HCPCS: 36415; 71045; 74176; 80053; 81003; 81015; 82150; 82550; 83605; 83690; 83735; 84484; 85025; 85610; 86140; 87086; 93005; 96374; 96375; 99283; J1885; J2175; J2405; J3475

== ENCOUNTER 2017-06-24 14:38 | Emergency (ER) | payer MEDICARE ==
[2017-06-24] MEDS ORDERED: NS 0.9% 1000 ML* 1,000 ML IV ONE (14:39)
--- NOTE | 2017-06-24 15:01 | RAD ---
Indication: Neurologic changes, left-sided weakness. CT of the brain was performed without IV contrast. Ventricular structures are midline. No midline shift is noted. The extra-axial spaces are unremarkable. There is no evidence of intracranial mass or hemorrhage. No other high or low density lesions are identified. Mastoid air cells and paranasal sinuses are unremarkable. IMPRESSION: No intracranial mass or hemorrhage is noted.
[2017-06-24] MEDS ORDERED: ALPRAZolam TAB* 0.25 MG PO ONE (15:02)
[2017-06-24] MEDS ORDERED: Aspirin TAB* 325 MG PO ONE (15:02)
--- NOTE | 2017-06-24 16:17 | RAD ---
INDICATION: Code cantu COMPARISON: Chest x-ray May 30, 2017; CT chest March 19, 2017 TECHNIQUE: An AP portable view obtained at 1544 hours is submitted. FINDINGS: Bones/Soft Tissues: There are no acute bony findings. Cardiomediastinal: The cardiomediastinal silhouette is unchanged with uncoiling and ectasia of the thoracic aorta. Lungs: There are no infiltrates. Pleura: There are no pleural effusions. Other: None IMPRESSION: NO ACTIVE DISEASE
[2017-06-24 16:28] LABS: ABS Basophils 0.1 10^3/ul (0-0.2); ABS Eosinophils 0.1 10^3/ul (0-0.6); ABS Lymphocytes 2.6 10^3/ul (1.0-4.8); ABS Monocytes 0.7 10^3/ul (0-0.8); ABS Neutrophils 2.7 10^3/ul (1.5-7.7); ABS Nucleated RBC 0 10^3/ul; Eosinophil % 1.8 % (0-6); Hematocrit 36 % (35-47); Hemoglobin 12.2 g/dl (12.0-16.0); Lymphocyte % 41.8 % (25-47); Mean Corpuscular HGB Conc 34 g/dl (31-36); Mean Corpuscular Hemoglobin 26 pg (27-31); Mean Corpuscular Volume 77 fL (80-97); Mean Platelet Volume 8 um3 (7.4-10.4); Nucleated Red Blood Cells % 0.1; Platelet Count 188 10^3/ul (150-450); Red Blood Count 4.65 10^6/ul (4.0-5.4); Red Cell Distribution Width 16 % (10.5-15); White Blood Count 6.1 10^3/ul (3.5-10.8)
[2017-06-24 16:47] LABS: EGFR Non-African American 47.8 (>60)
[2017-06-24 17:20] VITALS: BP 116/81
--- NOTE | 2017-06-24 20:48 | CONS ---
NEUROLOGY CONSULTATION: DATE OF CONSULT: 06/24/17 LOCATION: She is in the emergency room. REFERRING PHYSICIAN: Dr. Hill. PRIMARY CARE PROVIDER: Dr. Romero. CHIEF COMPLAINT: Left-sided numbness and weakness. HISTORY OF PRESENT ILLNESS: Brandi Koch is a 77-year-old right-handed woman who was brought in to the emergency room by ambulance shortly ago because of left-sided numbness and weakness. She was with her family member according to her and EMT who brought her in. She developed weakness and numbness of the left arm. She was able to walk without difficulty to a gurney and was brought into the emergency room. In the emergency room, she is crying and very anxious. She states that her left hand feels funny. She denies any numbness of her face or legs. She does not have any headache. She is not on any anticoagulants. There is no prior history of stroke. She has been under a lot of stress she states because of one of her daughters is losing her home and apparently she has to take care of a grandchild. She has a history of hypertension for which she takes some medication but do not the name of it as of yet, but she was on amlodipine, aspirin, Singulair, oxycodone when she was last here with shortness of breath and dizziness in March. PAST MEDICAL HISTORY: Notable for anxiety, hypertension, right femur fracture, cholecystectomy. MEDICATIONS: As listed above. ALLERGIES: She is allergic to MORPHINE, and TRAMADOL which caused vomiting. REVIEW OF SYSTEMS: Notable for occasional headaches. No nausea or vomiting today. No recent falls or injuries. PHYSICAL EXAMINATION: She is well nourished and well hydrated. Blood pressure is 140/80 on the monitor, heart rate 90 and seems regular, respirations about 22. Heart is in a regular rhythm without murmurs. Neurologic Exam: Pupils are equal. Eye movements are full and visual mcfarland are full to confrontation. Facial musculature is symmetric and speech is clear. She reports decreased light touch and also vibration on the left side of the face with splitting of vibration on the forehead and also on the sternum. She reports absent light touch in the left leg and left arm and normal on the right. She has normal strength in the right arm and right leg. When asked to raise the left leg up, she states "I can't" and does not move it. When I attempt to lift it passively, her leg is stiff and rigid and she exhibits excellent strength and contraction of the leg. The left arm she moves randomly at times, but when asked to move it formally, she states "I can't." She has normal reflexes in biceps and she has plantar extensor signs in her feet. Language is fluent. She is alert and able to give a good history with intact memory and fluent language. IMAGING: CT of the brain was reviewed and it showed some evidence of hypodensity in the deep white matter consistent with chronic ischemic changes, but no hemorrhages or evidence of acute infarction. LABORATORY DATA: Her laboratory studies are otherwise pending. IMPRESSION AND PLAN: Impression is that of psychogenic hemiparesis. She is able to contract the muscles of the leg quite well and use her left arm quite well except when asked to formally generate movement. Plantar response is flexor on the left and she has splitting of vibration in the sternum and forehead all consistent with psychogenic sensory or motor deficits. I do not recommend tPA at this point in time. I am recommending giving her a small dose of benzodiazepine and wait for a laboratory studies to come back. I think that her weakness and numbness will resolve and that she asked it could be from anxiety and I replied that it could be. I will continue to follow her until resolution of her symptoms. [id number]/[facility] #: [id number] Addendum: In follow up in the ED she had completely recovered and was steady on her feet. DIMITRI
--- NOTE | 2017-06-24 23:15 | ED ---
Bruce Mcwilliams Gabriel, scribed for Aki Hill MD on 06/24/17 at 1443 . Neurological HPI - HPI Summary HPI Summary: This patient is a 77 year old F BIBA to [facility] accompanied by her family with a possible CVA at 1415, she was watching TV on onset. Patient reports GRANADOS, slight facial numbness, increased stress, and LUE weakness. Patient denies LE numbness. EMS reports that the patient could ambulate on their arrival, had no slurred speech, or facial drop. Pt states she has had similar symptoms in the past that resolved spontaneously. - History of Current Complaint Stated Complaint: STROKE LIKE ACTIVITY Time Seen by Provider: 06/24/17 14:39 Hx Obtained From: Patient Onset/Duration: Still Present Timing: Constant Onset Severity: Mild Current Severity: Mild Neurological Deficit Location: LUE Pain Intensity: 0 Pain Scale Used: 0-10 Numeric Syncope Context: Loss of Consciousness: No Associated Signs and Symptoms: Positive: Headache - Additional Pertinent History Primary Care Physician: DIO - Allergy/Home Medications Allergies/Adverse Reactions: Allergies Allergy/AdvReac Type Severity Reaction Status Date / Time codeine Allergy Nausea And Verified 05/30/17 08:57 Vomiting morphine Allergy Nausea And Verified 05/30/17 08:57 Vomiting Penicillins Allergy Nausea Verified 05/30/17 08:57 Sulfa (Sulfonamide Allergy Nausea Verified 05/30/17 08:57 Antibiotics) tramadol Allergy Nausea And Verified 05/30/17 08:57 Vomiting Home Medications: Home Medications ALPRAZolam TAB* [Xanax TAB*] 1 mg PO BID 06/24/17 [History Confirmed 06/24/17] Albuterol 2.5MG/3ML (0.083%)* [Ventolin 2.5 MG/3 ML NEB.JERMAN*] 2.5 mg INH QID PRN 06/24/17 [History Confirmed 06/24/17] Albuterol inh POWDER (NF) [Proair Respiclick] 2 puff INH Q4HR PRN 06/24/17 [ History Confirmed 06/24/17] Fluticasone-Salmeterol 250-50* [Advair Diskus 250-50*] 1 puff INH BID 06/24/17 [ History Confirmed 06/24/17] Hydrochlorothiazide TAB* [Hydrodiuril TAB*] 12.5 mg PO DAILY 06/24/17 [History Confirmed 06/24/17] Ibuprofen TAB* [Motrin TAB* 600 MG] 600 mg PO TID WITH MEALS 06/24/17 [History Confirmed 06/24/17] Menthol/Camphor [Icy Hot Advanced Relief 16-11 %] 1 cre TOPICAL BID PRN [History Confirmed 06/24/17] Montelukast Sodium TAB* [Singulair TAB*] 10 mg PO DAILY 06/24/17 [History Confirmed 06/24/17] Ondansetron TAB* [Zofran 4 MG Tab*] 4 - 8 mg PO Q6H PRN 06/24/17 [History Confirmed 06/24/17] PMH/Surg Hx/FS Hx/Imm Hx Endocrine/Hematology History: Denies: Hx Anticoagulant Therapy, Hx Blood Disorders Cardiovascular History: Reports: Hx Hypertension Denies: Hx Pacemaker/ICD Respiratory History: Reports: Hx Asthma, Hx Chronic Bronchitis Denies: Hx Chronic Obstructive Pulmonary Disease (COPD) GI History: Reports: Hx Gall Bladder Disease - Cholecystectomy, Hx Hiatal Hernia - repaired, Hx Ulcer, Other GI Disorders - pancreatitis History: Reports: Hx Kidney Stones Musculoskeletal History: Reports: Hx Arthritis - knee, Hx Orthopedic Injury, Other Musculoskeletal History - "frozen shoulder" Lt side Sensory History: Reports: Hx Contacts or Glasses, Hx Eye Injury, Hx Vision Problem Denies: Hx Deafness, Hx Hearing Aid Opthamlomology History: Reports: Hx Contacts or Glasses, Hx Eye Injury, Hx Vision Problem Neurological History: 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) Psychiatric History: Reports: Hx Anxiety Denies: Hx Panic Disorder - Surgical History Surgery Procedure, Year, and Place: Hysterectomy, Tubal ligation, Cholecystectomy, RIGHT LEG ORIF, left knee arthroscopy, tonsillectomy and adenoidectomy Hx Anesthesia Reactions: No - Immunization History Date of Tetanus Vaccine: Unknown Date of Influenza Vaccine: Unknown Infectious Disease History: Reports: Hx Shingles - Family History Known Family History: Positive: Hypertension, Other - kidney stones (grandson) - Social History Alcohol Use: None Hx Substance Use: No Substance Use Type: Reports: None Hx Tobacco Use: No Smoking Status (MU): Never Smoked Tobacco Review of Systems Positive: Other - increased stress Positive: Other - facial numbness Genitourinary: Negative Neurological: Negative - LE numbness Positive: Headache, Weakness - LUE, Numbness - LUE. Negative: Slurred Speech All Other Systems Reviewed And Are Negative: Yes Physical Exam - Summary Physical Exam Summary: General: well-appearing, no pain distress Skin: warm, color reflects adequate perfusion, dry Head: normal Eyes: EOMI, TREY ENT: normal Neck: supple, nontender Respiratory: CTA, breath sounds present Cardiovascular: RRR Abdomen: soft, nontender Bowel: present Musculoskeletal: normal, strength/ROM intact Psychological: affect/mood appropriate GCS:15 Triage Information Reviewed: Yes Vital Signs On Initial Exam: Initial Vitals Temp Pulse Resp BP Pulse Ox 97.5 F 87 22 145/101 97 06/24/17 14:49 06/24/17 14:49 06/24/17 14:49 06/24/17 14:49 06/24/17 14:49 Vital Signs Reviewed: Yes Diagnostics - Vital Signs Vital Signs Temp Pulse Resp BP Pulse Ox 06/24/17 17:19 98.3 F 70 18 116/81 99 06/24/17 14:49 97.5 F 87 22 145/101 97 - Laboratory Lab Results: Lab Results 06/24/17 06/24/17 06/24/17 Range/Units 16:17 16:17 16:17 WBC 6.1 (3.5-10.8) 10^3/ul RBC 4.65 (4.0-5.4) 10^6/ul Hgb 12.2 (12.0-16.0) g/dl Hct 36 (35-47) % MCV 77 L (80-97) fL MCH 26 L (27-31) pg MCHC 34 (31-36) g/dl RDW 16 H (10.5-15) % Plt Count 188 (150-450) 10^3/ul MPV 8 (7.4-10.4) um3 Neut % (Auto) 44.7 (38-83) % Lymph % (Auto) 41.8 (25-47) % [place] % (Auto) 10.6 H (0-7) % Eos % (Auto) 1.8 (0-6) % Baso % (Auto) 1.1 (0-2) % Absolute Neuts (auto) 2.7 (1.5-7.7) 10^3/ul Absolute Lymphs (auto) 2.6 (1.0-4.8) 10^3/ul Absolute Monos (auto) 0.7 (0-0.8) 10^3/ul Absolute Eos (auto) 0.1 (0-0.6) 10^3/ul Absolute Basos (auto) 0.1 (0-0.2) 10^3/ul Absolute Nucleated RBC 0 10^3/ul Nucleated RBC % 0.1 Sodium 137 (133-145) mmol/L Potassium 3.4 L (3.5-5.0) mmol/L Chloride 104 (101-111) mmol/L Carbon Dioxide 23 (22-32) mmol/L Anion Gap 10 (2-11) mmol/L BUN 21 (6-24) mg/dL Creatinine 1.11 H (0.51-0.95) mg/dL Est GFR ( Amer) 61.5 (>60) Est GFR (Non-Af Amer) 47.8 (>60) BUN/Creatinine Ratio 18.9 (8-20) Glucose 96 (70-100) mg/dL Lactic Acid 1.4 (0.5-2.0) mmol/L Calcium 9.0 (8.6-10.3) mg/dL Total Bilirubin 0.60 (0.2-1.0) mg/dL AST 15 (13-39) U/L ALT 8 (7-52) U/L Alkaline Phosphatase 62 (34-104) U/L Troponin I 0.00 (<0.04) ng/mL Total Protein 7.5 (6.4-8.9) g/dL Albumin 3.7 (3.2-5.2) g/dL Globulin 3.8 (2-4) g/dL Albumin/Globulin Ratio 1.0 (1-3) Triglycerides 141 mg/dL Cholesterol 162 mg/dL LDL Cholesterol 91 mg/dL HDL Cholesterol 43.3 mg/dL Blood Type Antibody Screen 06/24/17 Range/Units 16:17 WBC (3.5-10.8) 10^3/ul RBC (4.0-5.4) 10^6/ul Hgb (12.0-16.0) g/dl Hct (35-47) % MCV (80-97) fL MCH (27-31) pg MCHC (31-36) g/dl RDW (10.5-15) % Plt Count (150-450) 10^3/ul MPV (7.4-10.4) um3 Neut % (Auto) (38-83) % Lymph % (Auto) (25-47) % [place] % (Auto) (0-7) % Eos % (Auto) (0-6) % Baso % (Auto) (0-2) % Absolute Neuts (auto) (1.5-7.7) 10^3/ul Absolute Lymphs (auto) (1.0-4.8) 10^3/ul Absolute Monos (auto) (0-0.8) 10^3/ul Absolute Eos (auto) (0-0.6) 10^3/ul Absolute Basos (auto) (0-0.2) 10^3/ul Absolute Nucleated RBC 10^3/ul Nucleated RBC % Sodium (133-145) mmol/L Potassium (3.5-5.0) mmol/L Chloride (101-111) mmol/L Carbon Dioxide (22-32) mmol/L Anion Gap (2-11) mmol/L BUN (6-24) mg/dL Creatinine (0.51-0.95) mg/dL Est GFR ( Amer) (>60) Est GFR (Non-Af Amer) (>60) BUN/Creatinine Ratio (8-20) Glucose (70-100) mg/dL Lactic Acid (0.5-2.0) mmol/L Calcium (8.6-10.3) mg/dL Total Bilirubin (0.2-1.0) mg/dL AST (13-39) U/L ALT (7-52) U/L Alkaline Phosphatase (34-104) U/L Troponin I (<0.04) ng/mL Total Protein (6.4-8.9) g/dL Albumin (3.2-5.2) g/dL Globulin (2-4) g/dL Albumin/Globulin Ratio (1-3) Triglycerides mg/dL Cholesterol mg/dL LDL Cholesterol mg/dL HDL Cholesterol mg/dL Blood Type B Positive Antibody Screen Negative Result Diagrams: 06/24/17 16:17 06/24/17 16:17 Lab Statement: Any lab studies that have been ordered have been reviewed, and results considered in the medical decision making process. - Radiology CXR Xray Interpretation: No Acute Changes Radiology Interpretation Completed By: Radiologist - ED PHYSICIAN REVIEWS AND AGREES - CT CT Brain CT Interpretation Completed By: Radiologist - No intracranial mass or hemorrhage is noted. ED physician has reviewed this radiology report. - EKG 1 EKG Interpretation: 14:58 - SR @ [address] No ectopy NIH Scale - NIH Scale Level of Consciousness: Alert/Keenly Responsive Ask Patient the Month and His/Her Age: Both Correct Ask Pt to Open/Close Eyes and Fitness Management Director/Release Non-Paretic Hand: Both Correctly Best Gaze (Only Horizontal Eye Movement): Normal Visual Field Testing: No Visual Loss Facial Paresis-Pt to Smile & Close Eyes or Grimace Symmetry: Normal/Symmetrical Motor Function - Right Arm: No Drift-Holds 10 Seconds Motor Function - Left Arm: Effort Against [place] Motor Function - Right Leg: No Drift-Holds 10 Seconds Motor Function - Left Leg: No Drift-Holds 10 Seconds Limb Ataxia-Must be out of Proportion to Weakness Present: Absent Sensory (Use Pinprick to Test Arms/Legs/Trunk/Face): Normal Best Language (Describe Picture, Name Items): No Aphasia Dysarthria (Read Several Words): Normal Extinction and Inattention: No Abnormality Total Score: 2 Re-Evaluation - Re-Evaluation 17:10 Re-Evaluation Time: 17:10 Comment: Discuss test results, dispo Course/Dx - Course Course Of Treatment: DR STARKS, NEUROLOGY, SAW PATIENT IN ED. DISCUSSED RESULTS WITH PATIENT AND FAMILY. PATIENT FELLS IMPROVED IN ED, WISHES TO GO HOME. F/U PMD, RETURN IF WORSE. - Diagnoses Provider Diagnoses: Anxiety - Physician Notifications Discussed Care Of Patient With: Brody Starks Time Discussed With Above Provider: 14:49 Instructed by Provider To: Other - Dr. Starks came and consulted on the patient. Discharge - Discharge Plan Condition: Stable Disposition: HOME Patient Education Materials: Anxiety (ED) Referrals: Matti Romero MD [Primary Care Provider] - Additional Instructions: FOLLOW UP WITH YOUR DOCTOR. RETURN TO THE EMERGENCY DEPARTMENT FOR ANY WORSENING OF YOUR CONDITION OR QUESTIONS OR CONCERNS. YOUR BLOOD PRESSURE WAS ELEVATED TODAY; FOLLOW UP WITH YOUR PRIMARY CARE DOCTOR WITHIN ONE WEEK. The documentation as recorded by the Bruce begum Gabriel accurately reflects the service I personally performed and the decisions made by me, Aki Hill MD.
== END 2017-06-24 17:19 | disposition home or self-care (01) ==
LOC: ED 14:38
DX: F41.9 Anxiety disorder, unspecified (principal); R51 Headache; R53.1 Weakness
CPT/HCPCS: 36415; 70450; 71045; 80053; 80061; 83605; 84484; 85025; 86850; 86900; 86901; 93005; 99282

== ENCOUNTER 2017-09-26 07:01 | Emergency (ER) | payer MEDICARE ==
[2017-09-26] MEDS ORDERED: LORazepam INJ* 2 MG/ML 1 ML VIAL IV PUSH ONE (07:17)
[2017-09-26] MEDS ORDERED: NS 0.9% 1000 ML* 1,000 ML IV ONE (07:17)
[2017-09-26] MEDS ORDERED: LORazepam TAB(*) 1 MG PO ONE (09:43)
[2017-09-26] MEDS ORDERED: LORazepam INJ* 2 MG/ML 1 ML VIAL IM ONE (09:53)
[2017-09-26 10:04] LABS: Urine Appearance Clear; Urine Blood Negative (Negative); Urine Color Yellow; Urine Ketones Negative (Negative); Urine Protein Negative (Negative); Urine Specific Gravity 1.009 (1.010-1.030); Urine Urobilinogen Negative (Negative)
[2017-09-26 10:15] LABS: ABS Basophils 0.1 10^3/ul (0-0.2); ABS Eosinophils 0.1 10^3/ul (0-0.6); ABS Lymphocytes 2.6 10^3/ul (1.0-4.8); ABS Monocytes 0.5 10^3/ul (0-0.8); ABS Nucleated RBC 0 10^3/ul; Eosinophil % 1.3 % (0-6); Hematocrit 33 % (35-47); Hemoglobin 11.4 g/dl (12.0-16.0); Lymphocyte % 41.8 % (25-47); Mean Corpuscular HGB Conc 35 g/dl (31-36); Mean Corpuscular Hemoglobin 26 pg (27-31); Mean Corpuscular Volume 76 fL (80-97); Mean Platelet Volume 7.8 um3 (7.4-10.4); Nucleated Red Blood Cells % 0.1; Platelet Count 191 10^3/ul (150-450); Red Blood Count 4.33 10^6/ul (4.00-5.40); Red Cell Distribution Width 15 % (10.5-15); White Blood Count 6.3 10^3/ul (3.5-10.8)
[2017-09-26 11:02] VITALS: BP 103/64
--- NOTE | 2017-09-26 18:22 | ED ---
Radha Mcwilliams Jade, scribed for Prem Hankins MD on 09/26/17 at 0726 . Complex/Multi-Sys Presentation - HPI Summary HPI Summary: Pt is a 77 y/o female who presents to the ED c/o generalized weakness since last night. She states that she feels weak, is shaking, and has chills and dizziness. Pt has a mild cough as well due to asthma. When asked about any urinary symptoms, she states she has increased urinary frequency and dysuria lately. Pt is a frequent visitor of the ED. She has been eating and drinking normally. She denies any abdominal pain, sore throat, fever, or N/V. She has a PMHx of anxiety, but denies diabetes or cardiac disease. Pt denies smoking, drugs, or alcohol. - History Of Current Complaint Chief Complaint: EDGeneral Time Seen by Provider: 09/26/17 07:02 Hx Obtained From: Patient Onset/Duration: Gradual Onset, Resolved Timing: Days - Yesterday Character: Unable To Describe - Generalized weakness and shakiness Associated Signs And Symptoms: Positive: Dizziness, Weakness. Negative: Nausea , Vomiting Related History: Other - Frequent visits to ED - Allergies/Home Medications Allergies/Adverse Reactions: Allergies Allergy/AdvReac Type Severity Reaction Status Date / Time codeine Allergy Nausea And Verified 05/30/17 08:57 Vomiting morphine Allergy Nausea And Verified 05/30/17 08:57 Vomiting Penicillins Allergy Nausea Verified 05/30/17 08:57 Sulfa (Sulfonamide Allergy Nausea Verified 05/30/17 08:57 Antibiotics) tramadol Allergy Nausea And Verified 05/30/17 08:57 Vomiting PMH/Surg Hx/FS Hx/Imm Hx Endocrine/Hematology History: Denies: Hx Anticoagulant Therapy, Hx Blood Disorders Cardiovascular History: Reports: Hx Hypertension Denies: Hx Pacemaker/ICD Respiratory History: Reports: Hx Asthma, Hx Chronic Bronchitis Denies: Hx Chronic Obstructive Pulmonary Disease (COPD) GI History: Reports: Hx Gall Bladder Disease - Cholecystectomy, Hx Hiatal Hernia - repaired, Hx Ulcer, Other GI Disorders - pancreatitis History: Reports: Hx Kidney Stones Musculoskeletal History: Reports: Hx Arthritis - knee, Hx Orthopedic Injury, Other Musculoskeletal History - "frozen shoulder" Lt side Sensory History: Reports: Hx Contacts or Glasses, Hx Eye Injury, Hx Vision Problem Denies: Hx Deafness, Hx Hearing Aid Opthamlomology History: Reports: Hx Contacts or Glasses, Hx Eye Injury, Hx Vision Problem Neurological History: 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) Psychiatric History: Reports: Hx Anxiety Denies: Hx Panic Disorder - Surgical History Surgery Procedure, Year, and Place: Hysterectomy, Tubal ligation, Cholecystectomy, RIGHT LEG ORIF, left knee arthroscopy, tonsillectomy and adenoidectomy Hx Anesthesia Reactions: No - Immunization History Date of Tetanus Vaccine: Unknown Date of Influenza Vaccine: Unknown Infectious Disease History: No Infectious Disease History: Reports: Hx Shingles Denies: Traveled Outside the [place] in Last 30 Days - Family History Known Family History: Positive: Hypertension, Other - kidney stones (grandson) - Social History Alcohol Use: None Hx Substance Use: No Substance Use Type: Reports: None Hx Tobacco Use: No Smoking Status (MU): Never Smoked Tobacco Review of Systems Positive: Chills. Negative: Fever Negative: Sore Throat Positive: Cough - Mild Negative: Abdominal Pain, Vomiting, Nausea Positive: dysuria, frequency Neurological: Other - Weakness, shaking, dizziness Positive: Anxious All Other Systems Reviewed And Are Negative: Yes Physical Exam - Summary Physical Exam Summary: Appearance: Well appearing, no pain distress Skin: warm, dry, reflects adequate perfusion Head/face: normal Eyes: EOMI, TREY ENT: normal Neck: supple, non-tender Respiratory: CTA, breath sounds present Cardiovascular: RRR, pulses symmetrical. No lower extremity edema. Abdomen: Abdomen non-tender, soft. Mild right CVA tenderness. Bowel Sounds: present Musculoskeletal: normal, strength/ROM intact Neuro: normal, sensory motor intact, A&Ox3. No focal deficit or weakness. Psych: Anxious Triage Information Reviewed: Yes Vital Signs On Initial Exam: Initial Vitals Temp Pulse Resp BP Pulse Ox 98.1 F 79 22 135/111 97 09/26/17 07:04 09/26/17 07:04 09/26/17 07:04 09/26/17 07:04 09/26/17 07:04 Vital Signs Reviewed: Yes Procedures - Procedure Summary Procedure Summary: 9:45: Left femoral venous blood draw under US guidance. Jan 15 cc of blood. Chloraprep skin clean. Diagnostics - Vital Signs Vital Signs Temp Pulse Resp BP Pulse Ox 09/26/17 07:04 98.1 F 79 22 135/111 97 - Laboratory Lab Results: Lab Results 09/26/17 09/26/17 09/26/17 Range/Units 09:38 09:55 09:55 WBC 6.3 (3.5-10.8) 10^3/ul RBC 4.33 (4.00-5.40) 10^6/ul Hgb 11.4 L (12.0-16.0) g/dl Hct 33 L (35-47) % MCV 76 L (80-97) fL MCH 26 L (27-31) pg MCHC 35 (31-36) g/dl RDW 15 (10.5-15) % Plt Count 191 (150-450) 10^3/ul MPV 7.8 (7.4-10.4) um3 Neut % (Auto) 48.2 (38-83) % Lymph % (Auto) 41.8 (25-47) % [place] % (Auto) 7.8 H (0-7) % Eos % (Auto) 1.3 (0-6) % Baso % (Auto) 0.9 (0-2) % Absolute Neuts (auto) 3.0 (1.5-7.7) 10^3/ul Absolute Lymphs (auto) 2.6 (1.0-4.8) 10^3/ul Absolute Monos (auto) 0.5 (0-0.8) 10^3/ul Absolute Eos (auto) 0.1 (0-0.6) 10^3/ul Absolute Basos (auto) 0.1 (0-0.2) 10^3/ul Absolute Nucleated RBC 0 10^3/ul Nucleated RBC % 0.1 Sodium 139 (135-145) mmol/L Potassium 3.5 (3.5-5.0) mmol/L Chloride 104 (101-111) mmol/L Carbon Dioxide 26 (22-32) mmol/L Anion Gap 9 (2-11) mmol/L BUN 16 (6-24) mg/dL Creatinine 1.17 H (0.51-0.95) mg/dL Est GFR ( Amer) 57.8 (>60) Est GFR (Non-Af Amer) 45.0 (>60) BUN/Creatinine Ratio 13.7 (8-20) Glucose 99 (70-100) mg/dL Calcium 8.9 (8.6-10.3) mg/dL Troponin I 0.00 (<0.04) ng/mL Urine Color Yellow Urine Appearance Clear Urine pH 7.0 (5-9) Ur Specific [place] 1.009 L (1.010-1.030) Urine Protein Negative (Negative) Urine Ketones Negative (Negative) Urine Blood Negative (Negative) Urine Nitrate Negative (Negative) Urine Bilirubin Negative (Negative) Urine Urobilinogen Negative (Negative) Ur Leukocyte Esterase Trace A (Negative) Urine WBC (Auto) Trace(0-5/hpf) (Absent) Urine RBC (Auto) Absent (Absent) Ur Squamous Epith Cells Present A (Absent) Urine Bacteria Absent (Absent) Urine Glucose Negative (Negative) Result Diagrams: 09/26/17 09:55 09/26/17 09:55 Lab Statement: Any lab studies that have been ordered have been reviewed, and results considered in the medical decision making process. - EKG 7:18 Cardiac Rate: NL - 66 bpm EKG Rhythm: Sinus Rhythm ST Segment: Non-Specific EKG Interpretation: Normal axis. Normal intervals. Re-Evaluation - Re-Evaluation First Eval Re-Evaluation Time: 09:45 Change: Unchanged Comment: Nurses unable to establish IV access or get blood. Pt admits her symptoms are caused by anxiety. Complex Multi-Symp Course/Dx Course Of Treatment: Patient with a history of anxiety that has been out of control lately. Tremulous today. Improved with Ativan orally and intramuscular. We were unable to get IV to hydrate her. Laboratories including urinalysis are negative. EKG normal. - Diagnoses Differential Diagnoses/HQI/PQRI: Cardiac Ischemia, Metabolic Abnormality, Sepsis , Urinary Tract Infection Provider Diagnoses: Anxiety Discharge - Sign-Out/Discharge Documenting (check all that apply): Discharge/Admit/Transfer - Discharge - Discharge Plan Condition: Improved Disposition: HOME Prescriptions: hydrOXYzine pamoate [Vistaril] 50 mg PO TID PRN #30 capsule PRN Reason: Anxiety Patient Education Materials: Generalized Anxiety Disorder (ED) Referrals: Matti Romero MD [Primary Care Provider] - Additional Instructions: Call your doctor first thing on Thursday. Prescribe medication will help with her anxiety until your Xanax dose can be reevaluated by your doctor. Return if worse, new symptoms or other concerns as discussed. - Billing Disposition and Condition Condition: IMPROVED Disposition: Home The documentation as recorded by the Radha begum Jade accurately reflects the service I personally performed and the decisions made by me, Prem Hankins MD.
== END 2017-09-26 11:00 | disposition home or self-care (01) ==
LOC: ED 07:01
DX: F41.9 Anxiety disorder, unspecified (principal); R53.1 Weakness; R42 Dizziness and giddiness; R05 Cough; R30.0 Dysuria; Z86.79 Personal history of other diseases of the circulatory system; Z88.0 Allergy status to penicillin; E86.0 Dehydration; R51 Headache; I10 Essential (primary) hypertension
CPT/HCPCS: 36415; 80048; 81003; 81015; 84484; 85025; 87086; 93005; 96372; 96374; 99283; A9270-GY; J2060

== ENCOUNTER 2017-09-26 13:45 | Emergency (ER) | payer MEDICARE ==
[2017-09-26] MEDS ORDERED: NS 0.9% 1000 ML* 1,000 ML IV ONE (15:23)
--- NOTE | 2017-09-26 16:10 | RAD ---
HISTORY: weak COMPARISONS: June 24, 2017 VIEWS: 2: Frontal and lateral views of the chest. FINDINGS: CARDIOMEDIASTINAL SILHOUETTE: The aorta is tortuous. The cardiomediastinal silhouette is otherwise unremarkable. LIBERTAD: The libertad are normal. PLEURA: The costophrenic angles are sharp. No pleural abnormalities are noted. LUNG PARENCHYMA: There is hyperinflation with flattening of the diaphragm and expansion of the AP diameter of the chest. ABDOMEN: The upper abdomen is clear. There is no subphrenic gas. BONES AND SOFT TISSUES: Degenerative changes are noted along the spine. OTHER: None. IMPRESSION: HYPERINFLATION, CONSISTENT WITH COPD. NO ACTIVE CARDIOPULMONARY DISEASE.
[2017-09-26] MEDS ORDERED: LORazepam INJ* 2 MG/ML 1 ML VIAL IV PUSH ONE (17:04)
--- NOTE | 2017-09-26 18:01 | ED ---
Radha Mcwilliams Jade, scribed for Prem Hankins MD on 09/26/17 at 1519 . Complex/Multi-Sys Presentation - HPI Summary HPI Summary: Pt is a 77 y/o female who presents to the ED c/o generalized weakness. She was here earlier today for similar anxiety-related symptoms, including weakness, shakiness, and chills. She now complains of generalized pain and headache as well. Pt denies any illness, fever, sinus congestion, or sinus pain. Pt frequently visits the ED. - History Of Current Complaint Chief Complaint: EDDiabeticProb Time Seen by Provider: 09/26/17 14:58 Hx Obtained From: Patient Onset/Duration: Gradual Onset, Still Present Timing: Constant Associated Signs And Symptoms: Positive: Dizziness, Weakness, Headache - Allergies/Home Medications Allergies/Adverse Reactions: Allergies Allergy/AdvReac Type Severity Reaction Status Date / Time codeine Allergy Nausea And Verified 05/30/17 08:57 Vomiting morphine Allergy Nausea And Verified 05/30/17 08:57 Vomiting Penicillins Allergy Nausea Verified 05/30/17 08:57 Sulfa (Sulfonamide Allergy Nausea Verified 05/30/17 08:57 Antibiotics) tramadol Allergy Nausea And Verified 05/30/17 08:57 Vomiting PMH/Surg Hx/FS Hx/Imm Hx Endocrine/Hematology History: Denies: Hx Anticoagulant Therapy, Hx Blood Disorders Cardiovascular History: Reports: Hx Hypertension Denies: Hx Pacemaker/ICD Respiratory History: Reports: Hx Asthma, Hx Chronic Bronchitis Denies: Hx Chronic Obstructive Pulmonary Disease (COPD) GI History: Reports: Hx Gall Bladder Disease - Cholecystectomy, Hx Hiatal Hernia - repaired, Hx Ulcer, Other GI Disorders - pancreatitis History: Reports: Hx Kidney Stones Musculoskeletal History: Reports: Hx Arthritis - knee, Hx Orthopedic Injury, Other Musculoskeletal History - "frozen shoulder" Lt side Sensory History: Reports: Hx Contacts or Glasses, Hx Eye Injury, Hx Vision Problem Denies: Hx Deafness, Hx Hearing Aid Opthamlomology History: Reports: Hx Contacts or Glasses, Hx Eye Injury, Hx Vision Problem Neurological History: 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) Psychiatric History: Reports: Hx Anxiety Denies: Hx Panic Disorder - Surgical History Surgery Procedure, Year, and Place: Hysterectomy, Tubal ligation, Cholecystectomy, RIGHT LEG ORIF, left knee arthroscopy, tonsillectomy and adenoidectomy Hx Anesthesia Reactions: No - Immunization History Date of Tetanus Vaccine: Unknown Date of Influenza Vaccine: Unknown Infectious Disease History: No Infectious Disease History: Reports: Hx Shingles Denies: Traveled Outside the [place] in Last 30 Days - Family History Known Family History: Positive: Hypertension, Other - kidney stones (grandson) - Social History Alcohol Use: None Hx Substance Use: No Substance Use Type: Reports: None Hx Tobacco Use: No Smoking Status (MU): Never Smoked Tobacco Review of Systems Positive: Chills. Negative: Fever ENT: Negative - Sinus congestion and sinus pain Negative: Nasal Discharge Neurological: Other - Shakiness Positive: Weakness All Other Systems Reviewed And Are Negative: Yes Physical Exam - Summary Physical Exam Summary: Appearance: Well appearing, no pain distress Skin: warm, dry, reflects adequate perfusion Head/face: normal Eyes: EOMI, TREY ENT: normal Neck: supple, non-tender Respiratory: CTA, breath sounds present Cardiovascular: RRR, pulses symmetrical Abdomen: non-tender, soft Bowel Sounds: present Musculoskeletal: normal, strength/ROM intact Neuro: normal, sensory motor intact, A&Ox3 Triage Information Reviewed: Yes Vital Signs On Initial Exam: Initial Vitals Temp Pulse Resp BP Pulse Ox 98.2 F 102 20 113/68 99 09/26/17 13:52 09/26/17 13:52 09/26/17 13:52 09/26/17 13:52 09/26/17 13:52 Vital Signs Reviewed: Yes Diagnostics - Vital Signs Vital Signs Temp Pulse Resp BP Pulse Ox 09/26/17 13:52 98.2 F 102 20 113/68 99 - Laboratory Lab Results: Lab Results 09/26/17 Range/Units 15:30 POC Glucose (mg/dL) 98 (70-100) mg/dL Lab Statement: Any lab studies that have been ordered have been reviewed, and results considered in the medical decision making process. - Radiology CXR Radiology Interpretation Completed By: Radiologist - HYPERINFLATION, CONSISTENT WITH COPD. NO ACTIVE CARDIOPULMONARY DISEASE. ED physician reviewed radiology report. Re-Evaluation - Re-Evaluation First Eval Re-Evaluation Time: 16:18 Change: Improved Comment: Pt feels much better. Second Eval Re-Evaluation Time: 16:55 Change: Improved Comment: Pt asked for anxiety medication. Complex Multi-Symp Course/Dx Course Of Treatment: Patient evaluated earlier in the day for her anxiety. All her laboratories including a UA was negative. She returned today after we are unable to get a IV placed earlier in the day. She still felt off and was given IV fluids. She felt much better with this and requested additional IV Ativan. She was discharged improved and in good condition. Will follow up with her primary care physician. - Diagnoses Differential Diagnoses/HQI/PQRI: Other - Had been worked up for UTI, metabolic abnormality, palpitations/arrhythmia earlier. Provider Diagnoses: Anxiety, Dehydration Discharge - Sign-Out/Discharge Documenting (check all that apply): Discharge/Admit/Transfer - Discharge - Discharge Plan Condition: Improved Disposition: HOME Patient Education Materials: Dehydration (ED), Anxiety (ED) Referrals: Matti Romero MD [Primary Care Provider] - Additional Instructions: Call your doctor first thing on Thursday morning to follow-up. Medications as prescribed earlier. Return if worse, new symptoms or other concerns as discussed. Stay well-hydrated. - Billing Disposition and Condition Condition: IMPROVED Disposition: Home The documentation as recorded by the Radha begum Jade accurately reflects the service I personally performed and the decisions made by me, Prem Hankins MD.
[2017-09-26 18:18] VITALS: BP 145/84
== END 2017-09-26 18:17 | disposition home or self-care (01) ==
LOC: ED 13:45
DX: E86.0 Dehydration (principal); F41.9 Anxiety disorder, unspecified; R42 Dizziness and giddiness; R53.1 Weakness; R51 Headache; I10 Essential (primary) hypertension
CPT/HCPCS: 71046; 96374; 99282; J2060

== ENCOUNTER 2017-10-25 08:43 | Emergency (ER) | payer MEDICARE ==
[2017-10-25] MEDS ORDERED: Albuterol 2.5 MG/3 ML NEB.SOL* (0.083%) INH ONE (09:00)
[2017-10-25] MEDS ORDERED: ALPRAZOLAM 1 MG PO ONE (09:01)
--- NOTE | 2017-10-25 09:23 | RAD ---
INDICATION: Shortness of breath COMPARISON: Chest x-ray September 26, 2017 TECHNIQUE: Single AP portable view of the chest was obtained. FINDINGS: Image quality is compromised due to the relative inferiority of a portable chest x-ray. The heart and mediastinum exhibit normal size and contour. The lungs are grossly clear. There is no evidence of a large pleural effusion. Visualized bones are normal for the patient's age. IMPRESSION: No radiographic evidence for acute cardiopulmonary abnormality on this portable chest x-ray.
[2017-10-25] MEDS ORDERED: ALPRAZolam TAB* 0.5 MG PO ONE (09:39)
--- NOTE | 2017-10-25 10:18 | ED ---
Respiratory - HPI Summary HPI Summary: Pt .is a 77 y.o female who presents to the ER with complaints of asthma exacerbation and increased anxiety. Pt. denies chest pain, recent illness, cough , abd. pain, N/V/D. Pt. states she took her inhaler today with no improvement of SOB. Pt. takes xanax HS. Pt. is frequently seen in the ER for similar symptoms. Symptoms are moderate in severity. No current modifying factors. - History of Current Complaint Chief Complaint: EDAsthma Stated Complaint: SOB Time Seen by Provider: 10/25/17 08:53 Hx Obtained From: Patient Pain Intensity: 10 Sputum Amount: None - Allergy/Home Medications Allergies/Adverse Reactions: Allergies Allergy/AdvReac Type Severity Reaction Status Date / Time codeine Allergy Nausea And Verified 10/25/17 15:12 Vomiting morphine Allergy Nausea And Verified 10/25/17 15:12 Vomiting Penicillins Allergy Nausea Verified 10/25/17 15:12 Sulfa (Sulfonamide Allergy Nausea Verified 10/25/17 15:12 Antibiotics) tramadol Allergy Nausea And Verified 10/25/17 15:12 Vomiting PMH/Surg Hx/FS Hx/Imm Hx Previously Healthy: Yes Endocrine/Hematology History: Denies: Hx Anticoagulant Therapy, Hx Blood Disorders Cardiovascular History: Reports: Hx Hypertension Denies: Hx Pacemaker/ICD Respiratory History: Reports: Hx Asthma, Hx Chronic Bronchitis Denies: Hx Chronic Obstructive Pulmonary Disease (COPD) GI History: Reports: Hx Gall Bladder Disease - Cholecystectomy, Hx Hiatal Hernia - repaired, Hx Ulcer, Other GI Disorders - pancreatitis History: Reports: Hx Kidney Stones Musculoskeletal History: Reports: Hx Arthritis - knee, Hx Orthopedic Injury, Other Musculoskeletal History - "frozen shoulder" Lt side Sensory History: Reports: Hx Contacts or Glasses, Hx Eye Injury, Hx Vision Problem Denies: Hx Deafness, Hx Hearing Aid Opthamlomology History: Reports: Hx Contacts or Glasses, Hx Eye Injury, Hx Vision Problem Neurological History: 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) Psychiatric History: Reports: Hx Anxiety Denies: Hx Panic Disorder - Surgical History Surgery Procedure, Year, and Place: Hysterectomy, Tubal ligation, Cholecystectomy, RIGHT LEG ORIF, left knee arthroscopy, tonsillectomy and adenoidectomy Hx Anesthesia Reactions: No - Immunization History Date of Tetanus Vaccine: Unknown Date of Influenza Vaccine: Unknown Infectious Disease History: No Infectious Disease History: Reports: Hx Shingles Denies: Traveled Outside the [place] in Last 30 Days - Family History Known Family History: Positive: Unknown, Hypertension, Other - kidney stones ( grandson) - Social History Alcohol Use: None Hx Substance Use: No Substance Use Type: Reports: None Hx Tobacco Use: No Smoking Status (MU): Never Smoked Tobacco Review of Systems Constitutional: Negative Eyes: Negative ENT: Negative Cardiovascular: Negative Positive: Shortness Of Breath Gastrointestinal: Negative Genitourinary: Negative Musculoskeletal: Negative Neurological: Negative Positive: Anxious All Other Systems Reviewed And Are Negative: Yes Physical Exam Triage Information Reviewed: Yes Vital Signs On Initial Exam: Initial Vitals Temp Pulse Resp BP Pulse Ox 97.8 F 100 26 120/66 98 10/25/17 08:45 10/25/17 08:45 10/25/17 08:45 10/25/17 08:45 10/25/17 08:45 Vital Signs Reviewed: Yes Appearance: Positive: Well-Appearing - Pt. sitting up in bed in NAD> Breathing easily on RA. Skin: Positive: Warm, Dry Head/Face: Positive: Normal Head/Face Inspection Eyes: Positive: Normal Neck: Positive: Supple Respiratory/Lung Sounds: Positive: Other - Mild deminished breath sounds in bases otherwise clear throughout Cardiovascular: Positive: Normal, RRR Neurological: Positive: Normal, CN Intact II-III Psychiatric: Positive: Affect/Mood Appropriate Diagnostics - Vital Signs Vital Signs Temp Pulse Resp BP Pulse Ox 10/25/17 09:51 19 10/25/17 09:10 78 20 98 10/25/17 09:08 100 10/25/17 09:00 83 27 100 10/25/17 08:53 78 32 124/94 100 10/25/17 08:45 97.8 F 100 26 120/66 98 - Laboratory Lab Statement: Any lab studies that have been ordered have been reviewed, and results considered in the medical decision making process. Disposition - Course Course Of Treatment: Pt. presenting with c/o asthma exacerbation and increased anxiety. She is afebrile with stable vital signs. O2 saturation is 98% on RA which is normal. No signs of respiratory distress. Will give breathing treatment and xanax. Caridac workup ordered. ECG done at 1450 shows a sinus rhtyhm of 86bpm, normal axix, no ST elevation or depression, similar to prior tracing. CXR is negative for acute findings, reading per radiology. Be[facility] End Supervisor was unable to obtain labs, pt. is refusing any addition attempts unless she gets a femoral stick. Case reviewed with Dr. Lala. After medications pt. is feeling better. Will hold off on blood work today. 1015: Re- eval. pt. is sleeping comfortably. Will dc home stable. Will f.u with PCP or return to ER if sxs change or worsen. Pt. ambulatory in hallways, talking to staff prior to dc. - Differential Dx - Cardiopulmonary Differential Diagnoses - Cardiopulmonary: Acute Coronary, Asthma, CAD, CHF, Panic Disorder, Pulmonary Edema, Pulmonary Embolism - Diagnoses Provider Diagnoses: Asthma exacerbation, Anxiety Discharge - Sign-Out/Discharge Documenting (check all that apply): Patient Departure - Discharge Plan Condition: Good Disposition: HOME Patient Education Materials: Asthma (ED), Anxiety (ED) Referrals: Matti Romero MD [Primary Care Provider] - Additional Instructions: Call PCP tomorrow to schedule an appointment Continue medications as directed Return to ER if symptoms change or worsen - Billing Disposition and Condition Condition: GOOD Disposition: Home
[2017-10-25 10:50] VITALS: BP 125/79
== END 2017-10-25 10:50 | disposition home or self-care (01) ==
LOC: ED 08:43
DX: J45.901 Unspecified asthma with (acute) exacerbation (principal); F41.9 Anxiety disorder, unspecified; Z86.73 Personal history of transient ischemic attack (TIA), and cerebral infarction without residual deficits; R07.89 Other chest pain; I10 Essential (primary) hypertension; Z88.5 Allergy status to narcotic agent; Z88.0 Allergy status to penicillin; Z88.2 Allergy status to sulfonamides; Z82.49 Family history of ischemic heart disease and other diseases of the circulatory system; Z84.1 Family history of disorders of kidney and ureter
CPT/HCPCS: 71045; 93005; 99283; A9270-GY

== ENCOUNTER 2017-10-25 14:28 | Emergency (ER) | payer MEDICARE ==
[2017-10-25] MEDS ORDERED: predniSONE TAB* 20 MG PO ONE (14:35)
[2017-10-25] MEDS ORDERED: Famotidine TAB* 20 MG PO ONE (14:35)
[2017-10-25] MEDS ORDERED: Albuterol/Ipratropium NEB.SOL* Albuterol 2.5 MG/Ipratropium 0.5 MG 3 ML INH ONE (14:36)
[2017-10-25] MEDS ORDERED: Al Hydrox/Mg Hydrox/Simet LIQ* 30 ML UDC PO ONE (14:36)
--- NOTE | 2017-10-25 14:39 | ED ---
Respiratory - HPI Summary HPI Summary: This patient is [facility] 77 [facility]. Pt was discharged from the ED about 4 hours ago after receiving a breathing treatment and Xanax. She states she went to sleep when she got home and woke up with SOB, cough, and CP. The patient rates the pain 6/10 in severity. Hx asthma and anxiety This is Kwaku begum documenting for attending Dr. Nhi GOMEZ. - History of Current Complaint Stated Complaint: ASTHMA Time Seen by Provider: 10/25/17 14:31 Hx Obtained From: Patient Onset/Duration: Lasting Hours, Still Present Timing: Constant Initial Severity: Moderate Current Severity: Moderate Pain Intensity: 6 Associated Signs and Symptoms: SOB, Chest Pain - Allergy/Home Medications Allergies/Adverse Reactions: Allergies Allergy/AdvReac Type Severity Reaction Status Date / Time codeine Allergy Nausea And Verified 10/25/17 15:12 Vomiting morphine Allergy Nausea And Verified 10/25/17 15:12 Vomiting Penicillins Allergy Nausea Verified 10/25/17 15:12 Sulfa (Sulfonamide Allergy Nausea Verified 10/25/17 15:12 Antibiotics) tramadol Allergy Nausea And Verified 10/25/17 15:12 Vomiting PMH/Surg Hx/FS Hx/Imm Hx Endocrine/Hematology History: Denies: Hx Anticoagulant Therapy, Hx Blood Disorders Cardiovascular History: Reports: Hx Hypertension Denies: Hx Pacemaker/ICD Respiratory History: Reports: Hx Asthma, Hx Chronic Bronchitis Denies: Hx Chronic Obstructive Pulmonary Disease (COPD) GI History: Reports: Hx Gall Bladder Disease - Cholecystectomy, Hx Hiatal Hernia - repaired, Hx Ulcer, Other GI Disorders - pancreatitis History: Reports: Hx Kidney Stones Musculoskeletal History: Reports: Hx Arthritis - knee, Hx Orthopedic Injury, Other Musculoskeletal History - "frozen shoulder" Lt side Sensory History: Reports: Hx Contacts or Glasses, Hx Eye Injury, Hx Vision Problem Denies: Hx Deafness, Hx Hearing Aid Opthamlomology History: Reports: Hx Contacts or Glasses, Hx Eye Injury, Hx Vision Problem Neurological History: 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) Psychiatric History: Reports: Hx Anxiety Denies: Hx Panic Disorder - Surgical History Surgery Procedure, Year, and Place: Hysterectomy, Tubal ligation, Cholecystectomy, RIGHT LEG ORIF, left knee arthroscopy, tonsillectomy and adenoidectomy Hx Anesthesia Reactions: No - Immunization History Date of Tetanus Vaccine: Unknown Date of Influenza Vaccine: Unknown Infectious Disease History: No Infectious Disease History: Reports: Hx Shingles Denies: Traveled Outside the [place] in Last 30 Days - Family History Known Family History: Positive: Hypertension, Other - kidney stones (grandson) - Social History Alcohol Use: None Hx Substance Use: No Substance Use Type: Reports: None Hx Tobacco Use: No Smoking Status (MU): Never Smoked Tobacco Review of Systems Positive: Chest Pain Positive: Shortness Of Breath, Cough Negative: Edema All Other Systems Reviewed And Are Negative: Yes Physical Exam - Summary Physical Exam Summary: Appearance: Well appearing, no pain distress Skin: warm, dry, reflects adequate perfusion Head/face: normal Eyes: EOMI, TREY ENT: normal Neck: supple, non-tender Respiratory: mildly diminished breath sounds, no crackles, no wheezes, no rales Cardiovascular: RRR, pulses symmetrical Abdomen: non-tender, soft Bowel Sounds: present Musculoskeletal: no LE edema, Neuro: normal, sensory motor intact, A&Ox3 Triage Information Reviewed: Yes Vital Signs On Initial Exam: Initial Vitals Temp Pulse Resp BP Pulse Ox 97.9 F 87 20 133/83 99 10/25/17 14:33 10/25/17 14:33 10/25/17 14:33 10/25/17 14:33 10/25/17 14:33 Vital Signs Reviewed: Yes Diagnostics - Vital Signs Vital Signs Temp Pulse Resp BP Pulse Ox 10/25/17 14:33 97.9 F 87 20 133/83 99 - Laboratory Lab Statement: Any lab studies that have been ordered have been reviewed, and results considered in the medical decision making process. - EKG 1450 Cardiac Rate: NL EKG Rhythm: Sinus Rhythm - at [address] Segment: Normal EKG Interpretation: nml axis, nml intervals, borderline prolonged QT interval Re-Evaluation - Re-Evaluation First Eval Re-Evaluation Time: 15:38 Change: Unchanged Comment: The pt is requesting to stay in the hospital. Second Eval Re-Evaluation Time: 16:42 Change: Improved Comment: Pt reports she is feeling better. Disposition - Course Course Of Treatment: Miss Koch is well-known to me. She has a history of asthma is exacerbated in summer months. She was seen here earlier today and felt to have mostly anxiety. She was treated with breathing treatments, steroids and a lidocaine nebulizer with some improvement. Her lungs are clear, she sats well and her chest x-ray/EKG are normal. She will follow-up with her doctor in the morning and should request home nebulizer. Discharged in good condition. - Differential Dx - Cardiopulmonary Differential Diagnoses - Cardiopulmonary: Other - Pneumonia, COPD/asthma exacerbation, GI discomfort, cardiac chest pain - Diagnoses Provider Diagnoses: Asthma exacerbation, Atypical chest pain Discharge - Sign-Out/Discharge Documenting (check all that apply): Patient Departure - Discharge Plan Condition: Improved Disposition: HOME Prescriptions: Albuterol HFA INHALER* [Ventolin HFA Inhaler*] 1 - 2 puff INH Q4H PRN #1 mdi PRN Reason: short of breath predniSONE TAB* [Deltasone TAB*] 50 mg PO DAILY #4 tab Promethazine/Dextromethorphan [Promethazine-Dm Syrup] 5 ml PO Q6H PRN #180 ml PRN Reason: cough, congestion Patient Education Materials: COPD (Chronic Obstructive Pulmonary Disease) (ED) , How to Use a Nebulizer (ED) Referrals: Matti Romero MD [Primary Care Provider] - Additional Instructions: Call your doctor first thing in the morning for recheck and follow-up. Ask your doctor about obtaining a nebulizer machine. Return with fever, worsening, new symptoms or other concerns as discussed. - Billing Disposition and Condition Condition: IMPROVED Disposition: Home
[2017-10-25] MEDS ORDERED: Lidocaine 2% (CARDIAC)* 20 MG/ML 5 ML SYRINGE (100 MG) ONE (15:38)
[2017-10-25] MEDS ORDERED: oxyCODONE/Acetamin 5/325 MG* TAB PO ONE (16:41)
[2017-10-25 17:04] VITALS: BP 154/90
== END 2017-10-25 17:03 | disposition home or self-care (01) ==
LOC: ED 14:28
DX: J45.901 Unspecified asthma with (acute) exacerbation (principal); R07.89 Other chest pain; I10 Essential (primary) hypertension; Z86.73 Personal history of transient ischemic attack (TIA), and cerebral infarction without residual deficits; F41.9 Anxiety disorder, unspecified; Z88.5 Allergy status to narcotic agent; Z88.0 Allergy status to penicillin; Z88.2 Allergy status to sulfonamides; Z82.49 Family history of ischemic heart disease and other diseases of the circulatory system; Z84.1 Family history of disorders of kidney and ureter
CPT/HCPCS: 93005; 99283; A9270-GY; J7512

== ENCOUNTER 2017-11-08 07:26 | Emergency (ER) | payer MEDICARE ==
[2017-11-08] MEDS ORDERED: Ketorolac INJ* 30 MG/ML 1 ML VIAL IV PUSH ONE (07:55)
[2017-11-08] MEDS ORDERED: NS 0.9% 1000 ML* 1,000 ML IV ONE (07:56)
--- NOTE | 2017-11-08 07:59 | ED ---
GI/ HPI - HPI Summary HPI Summary: 77-year-old female presents with right-sided flank pain for the past couple hours. She states it feels like her history of kidney stones. She denies any hematuria. She admits to dysuria, urgency, frequency. She denies any fevers. No nausea no vomiting. No diarrhea no constipation. She is past medical history of asthma and anxiety. She also has history asthma. She denies any chest pain or shortness of breath. She has not tried anything for her pain. Pain radiates to right lower quadrant. - History of Current Complaint Chief Complaint: EDFlankPain Time Seen by Provider: 11/08/17 07:48 Stated Complaint: RT SIDE PAIN Pain Intensity: 9 - Additional Pertinent History Primary Care Physician: DIO - Allergy/Home Medications Allergies/Adverse Reactions: Allergies Allergy/AdvReac Type Severity Reaction Status Date / Time codeine Allergy Nausea And Verified 11/08/17 07:34 Vomiting morphine Allergy Nausea And Verified 11/08/17 07:34 Vomiting Penicillins Allergy Nausea Verified 11/08/17 07:34 Sulfa (Sulfonamide Allergy Nausea Verified 11/08/17 07:34 Antibiotics) tramadol Allergy Nausea And Verified 11/08/17 07:34 Vomiting PMH/Surg Hx/FS Hx/Imm Hx Endocrine/Hematology History: Denies: Hx Anticoagulant Therapy, Hx Blood Disorders Cardiovascular History: Reports: Hx Hypertension Denies: Hx Pacemaker/ICD Respiratory History: Reports: Hx Asthma, Hx Chronic Bronchitis Denies: Hx Chronic Obstructive Pulmonary Disease (COPD) GI History: Reports: Hx Gall Bladder Disease - Cholecystectomy, Hx Hiatal Hernia - repaired, Hx Ulcer, Other GI Disorders - pancreatitis History: Reports: Hx Kidney Stones Musculoskeletal History: Reports: Hx Arthritis - knee, Hx Orthopedic Injury, Other Musculoskeletal History - "frozen shoulder" Lt side Sensory History: Reports: Hx Contacts or Glasses, Hx Eye Injury, Hx Vision Problem Denies: Hx Deafness, Hx Hearing Aid Opthamlomology History: Reports: Hx Contacts or Glasses, Hx Eye Injury, Hx Vision Problem Neurological History: 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) Psychiatric History: Reports: Hx Anxiety Denies: Hx Panic Disorder - Surgical History Surgery Procedure, Year, and Place: Hysterectomy, Tubal ligation, Cholecystectomy, RIGHT LEG ORIF, left knee arthroscopy, tonsillectomy and adenoidectomy Hx Anesthesia Reactions: No - Immunization History Date of Tetanus Vaccine: Unknown Date of Influenza Vaccine: Unknown Infectious Disease History: No Infectious Disease History: Reports: Hx Shingles Denies: Traveled Outside the [place] in Last 30 Days - Family History Known Family History: Positive: Unknown, Hypertension, Other - kidney stones ( grandson) - Social History Alcohol Use: None Hx Substance Use: No Substance Use Type: Reports: Prescribed Hx Tobacco Use: No Smoking Status (MU): Never Smoked Tobacco Review of Systems Negative: Fever Negative: Chest Pain Negative: Shortness Of Breath Positive: Abdominal Pain. Negative: Vomiting, Diarrhea, Nausea Positive: flank pain All Other Systems Reviewed And Are Negative: Yes Physical Exam Triage Information Reviewed: Yes Vital Signs On Initial Exam: Initial Vitals Temp Pulse Resp BP Pulse Ox 97.0 F 82 17 114/81 95 11/08/17 07:29 11/08/17 07:29 11/08/17 07:29 11/08/17 07:29 11/08/17 07:29 Vital Signs Reviewed: Yes Appearance: Positive: Well-Appearing Skin: Positive: Warm, Dry Head/Face: Positive: Normal Head/Face Inspection Eyes: Positive: Normal, Conjunctiva Clear ENT: Positive: Pharynx normal Respiratory/Lung Sounds: Positive: Clear to Auscultation, Breath Sounds Present Cardiovascular: Positive: Normal, RRR Abdomen Description: Positive: Soft, CVA Tenderness (R), Other: - tenderness RLQ Bowel Sounds: Positive: Present Musculoskeletal: Positive: Normal Neurological: Positive: Normal Psychiatric: Positive: Normal Diagnostics - Vital Signs Vital Signs Temp Pulse Resp BP Pulse Ox 11/08/17 07:29 97.0 F 82 17 114/81 95 - Laboratory Result Diagrams: 11/08/17 08:28 11/08/17 08:28 Lab Statement: Any lab studies that have been ordered have been reviewed, and results considered in the medical decision making process. - CT abd CT Interpretation: No Acute Changes CT Interpretation Completed By: Radiologist Re-Evaluation - Re-Evaluation First Eval Re-Evaluation Time: 09:22 Change: Worse Comment: asthma is now acting up per patient. some wheezing noted. GIGU Course/Dx - Course Course Of Treatment: 77-year-old female presents with right-sided flank pain for the past couple hours. She states it feels like her history of kidney stones. She denies any hematuria. She admits to dysuria, urgency, frequency. She denies any fevers. No nausea no vomiting. No diarrhea no constipation. She is past medical history of asthma and anxiety. She also has history asthma. She denies any chest pain or shortness of breath. She has not tried anything for her pain. Pain radiates to right lower quadrant. On exam of tenderness in the right lower quadrant and right flank. CT normal. wbc normal. kidney function elevated appears dehyrated. gave fluids. urine shows uti. will treat with cipro for 7 days with flank pain for potential pyelo. patient understand and agrees with plan. - Diagnoses Differential Diagnoses - Female: Pyelonephritis, Urinary Tract Infection, Ureteral Calculi Provider Diagnoses: UTI (urinary tract infection) Discharge - Sign-Out/Discharge Documenting (check all that apply): Patient Departure - Discharge Plan Condition: Good Disposition: HOME Prescriptions: Ciprofloxacin TAB* [Cipro 500 MG TAB*] 500 mg PO BID #13 tab Phenazopyridine 200 mg (NF) [Pyridium 200 MG tab *] 200 mg PO TID #5 tab Patient Education Materials: Urinary Tract Infection in Women (ED) Referrals: Matti Romero MD [Primary Care Provider] - Additional Instructions: Take cipro twice a day for 7 days, first dose given in ED Take pyridium two tablets three times a day with food for 2 days, first dose given in ED Follow up with primary in 7 days Return to ED if develop fever, severe abdominal pain, vomiting or any new or worsening symptoms - Billing Disposition and Condition Condition: GOOD Disposition: Home
[2017-11-08 08:35] LABS: Hematocrit 35 % (35-47); Mean Corpuscular HGB Conc 35 g/dl (31-36); Mean Corpuscular Hemoglobin 27 pg (27-31); Mean Corpuscular Volume 77 fL (80-97); Mean Platelet Volume 7.3 um3 (7.4-10.4); Platelet Count 234 10^3/ul (150-450); Red Blood Count 4.51 10^6/ul (4.00-5.40); Red Cell Distribution Width 15 % (10.5-15)
--- NOTE | 2017-11-08 08:51 | RAD ---
INDICATION: Right lower quadrant pain. Right flank pain COMPARISON: May 30, 2017 TECHNIQUE: Noncontrast axial source images were acquired from the level hemidiaphragms to the symphysis pubis as part of CT imaging for renal stone. Lung bases: The lung bases are clear of acute infiltrates. There are mild chronic interstitial changes. Liver: The liver is normal in size. Noncontrast imaging shows no evidence of a hepatic mass or ductal dilatation. Gallbladder: Cholecystectomy. Spleen: The spleen is normal in size. The noncontrast CT appearance is normal. Pancreas: Noncontrast imaging shows no pancreatic mass or ductal dilitation. Adrenal glands: No masses are identified. Kidneys/Bladder: There is no evidence of nephrolithiasis or CT evidence of hydronephrosis. Noncontrast imaging shows no evidence of a renal mass. The bladder is unremarkable.. Adenopathy: There is no evidence of intraperitoneal or retroperitoneal adenopathy. Evaluation is limited without oral contrast. Fluid collections: There are no free or localized fluid collections. Vessels: There are atherosclerotic changes of the aorta and iliac vessels. There is no focal aneurysm but there is diffuse ectasia of the infrarenal abdominal aorta and iliac vessels. The IVC appears normal Pelvic organs: There is hysterectomy. There is no adnexal mass GI tract: Evaluation of the bowel is limited without oral contrast. The upper GI tract is unremarkable. The cecum and ileocecal valve appear normal. The appendix is normal. There are scattered diverticula throughout the colon but there is no CT evidence of acute diverticulitis Soft tissues: No soft tissue abnormalities of the extraperitoneal abdomen or pelvis are identified. Osseous structures: There are no acute osseous findings. IMPRESSION: 1. No CT evidence of urolithiasis. 2. Normal appendix. 3. Diverticulosis without CT evidence of acute diverticulitis 4. No acute CT findings. No mass or inflammatory changes.
[2017-11-08 08:53] LABS: ABS Basophils 0.1 10^3/ul (0-0.2); ABS Eosinophils 0.1 10^3/ul (0-0.6); ABS Monocytes 0.4 10^3/ul (0-0.8); ABS Neutrophils 2.4 10^3/ul (1.5-7.7); ABS Nucleated RBC 0 10^3/ul; Eosinophil % 1.9 % (0-6); Lymphocyte % 50.4 % (25-47); Nucleated Red Blood Cells % 0.1
[2017-11-08 08:58] LABS: EGFR Non-African American 40.9 (>60)
[2017-11-08] MEDS ORDERED: Albuterol/Ipratropium NEB.SOL* Albuterol 2.5 MG/Ipratropium 0.5 MG 3 ML INH ONE (09:22)
[2017-11-08 10:13] LABS: Urine Appearance Cloudy; Urine Blood Negative (Negative); Urine Color Yellow; Urine Ketones Negative (Negative); Urine Protein Negative (Negative); Urine Red Blood Cell Absent (Absent); Urine Specific Gravity 1.014 (1.010-1.030); Urine Urobilinogen Negative (Negative); Urine White Blood Cell Trace(0-5/hpf) (Absent)
[2017-11-08] MEDS ORDERED: Ciprofloxacin TAB* 500 MG PO ONE (10:18)
[2017-11-08] MEDS ORDERED: Phenazopyridine TAB* 100 MG PO ONE (10:28)
[2017-11-08 10:49] VITALS: BP 109/76
== END 2017-11-08 10:48 | disposition home or self-care (01) ==
LOC: ED 07:26
DX: N39.0 Urinary tract infection, site not specified (principal); R10.84 Generalized abdominal pain; Z88.0 Allergy status to penicillin
CPT/HCPCS: 36415; 74176; 80053; 81003; 81015; 83605; 83690; 85025; 86140; 87086; 96374; 96375; 99283; A9270-GY; J1885

== ENCOUNTER 2018-02-01 07:48 | Emergency (ER) | payer MEDICARE ==
[2018-02-01] MEDS ORDERED: LORazepam TAB(*) 1 MG PO ONE (08:35)
--- NOTE | 2018-02-01 08:35 | ED ---
Complex/Multi-Sys Presentation - HPI Summary HPI Summary: Patient is a 77 y/o F w/ c/o anxiety and muscle spasms. She states that she came to [facility] four days ago for similar issues. She was prescribed alprazolam, 1 mg BID PO but states that she did not receive enough and is currently out. Dr. Romero is PCP. Patient reports recent stress in her life, noting that some family members who live with her and help her around her house are moving away. She denies chest pain, SOB, dysuria, hematuria, blood in stool, ear aches, sore throat, diarrhea, vomiting, rashes, bruises, swelling, GRANADOS, blurred vision, SI, HI. Patient also denies smoking, every alcohol usage. FMHx of mother with stroke , grandfather with [place], and father with cancer. On triage, pain was denied, not having her medication is noted to aggravate Sx. Home medications and allergies are reviewed. - History Of Current Complaint Chief Complaint: EDGeneral Hx Obtained From: Patient Onset/Duration: Still Present Timing: Constant Severity Currently: None - pain is denied Aggravating Factor(s): not having medications Alleviating Factor(s): nothing Associated Signs And Symptoms: Positive: Other - POSITIVE: anxious, muscle spasms NEGATIVE: hematuria, blood in stool, ear aches, sore throat, diarrhea, vomiting, rashes, bruises, swelling, GRANADOS, blurred vision.. Negative: Headache, SOB, Chest Pain, Edema, Vomiting, Diarrhea, Dysuria - Allergies/Home Medications Allergies/Adverse Reactions: Allergies Allergy/AdvReac Type Severity Reaction Status Date / Time codeine Allergy Nausea And Verified 02/01/18 08:06 Vomiting morphine Allergy Nausea And Verified 02/01/18 08:06 Vomiting Penicillins Allergy Nausea Verified 02/01/18 08:06 Sulfa (Sulfonamide Allergy Nausea Verified 02/01/18 08:06 Antibiotics) tramadol Allergy Nausea And Verified 02/01/18 08:06 Vomiting PMH/Surg Hx/FS Hx/Imm Hx Endocrine/Hematology History: Denies: Hx Anticoagulant Therapy, Hx Blood Disorders Cardiovascular History: Reports: Hx Hypertension Denies: Hx Pacemaker/ICD Respiratory History: Reports: Hx Asthma, Hx Chronic Bronchitis Denies: Hx Chronic Obstructive Pulmonary Disease (COPD) GI History: Reports: Hx Gall Bladder Disease - Cholecystectomy, Hx Hiatal Hernia - repaired, Hx Ulcer, Other GI Disorders - pancreatitis History: Reports: Hx Kidney Stones Musculoskeletal History: Reports: Hx Arthritis - knee, Hx Orthopedic Injury, Other Musculoskeletal History - "frozen shoulder" Lt side Sensory History: Reports: Hx Contacts or Glasses, Hx Eye Injury, Hx Vision Problem Denies: Hx Deafness, Hx Hearing Aid Opthamlomology History: Reports: Hx Contacts or Glasses, Hx Eye Injury, Hx Vision Problem Neurological History: 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) Psychiatric History: Reports: Hx Anxiety Denies: Hx Panic Disorder - Surgical History Surgery Procedure, Year, and Place: Hysterectomy, Tubal ligation, Cholecystectomy, RIGHT LEG ORIF, left knee arthroscopy, tonsillectomy and adenoidectomy Hx Anesthesia Reactions: No - Immunization History Date of Tetanus Vaccine: Unknown Date of Influenza Vaccine: Unknown Immunizations Up to Date: Yes Infectious Disease History: No Infectious Disease History: Reports: Hx Shingles Denies: Traveled Outside the [place] in Last 30 Days - Family History Known Family History: Positive: Cardiac Disease - [place] in grandfather , Hypertension, Other - kidney stones (grandson), [place] in father, stroke in mother - Social History Alcohol Use: None Hx Substance Use: No Substance Use Type: Reports: Prescribed Hx Tobacco Use: No Smoking Status (MU): Never Smoked Tobacco Review of Systems Positive: Other - muscle spasms . Negative: Fever - on vtials, temp is 97.7 F Positive: Other - NEGATIVE: double vision . Negative: Blurred Vision Negative: Sore Throat, Ear Ache Negative: Chest Pain Negative: Shortness Of Breath Negative: Vomiting, Diarrhea Positive: other - NEGATIVE: blood in stool . Negative: dysuria, hematuria Negative: Edema Negative: Rash, Bruising Negative: Headache Positive: Anxious, Other - NEGATIVE: SI, HI All Other Systems Reviewed And Are Negative: No Physical Exam - Summary Physical Exam Summary: Appearance: Alert, conversive, nontoxic appearing; jittery and shaking in room Skin: Warm, dry, no mottling, no rashes, no contusions HEENT: EOMI, PERRL, moist mucous membranes Neck: No masses on the neck, supple Respiratory: Clear to auscultation, breath sounds present, no rales, no rhonchi , no wheezes Cardiovascular: RRR, pulses are symmetrical in both lower and upper extremities Abdomen: Soft, non-tender Bowel Sounds: Present Musculoskeletal: No CVA tenderness, no obvious deformity, moving all extremities in a grossly normal manner Neurological: A&Ox3, CN II-XII Intact, moving all extremities symmetrically Psychiatric: Anxious Triage Information Reviewed: Yes Vital Signs On Initial Exam: Initial Vitals Temp Pulse Resp BP Pulse Ox 97.7 F 86 18 100/75 97 02/01/18 07:55 02/01/18 07:55 02/01/18 07:55 02/01/18 07:55 02/01/18 07:55 Vital Signs Reviewed: Yes Diagnostics - Vital Signs Vital Signs Temp Pulse Resp BP Pulse Ox 02/01/18 08:01 90 96 02/01/18 07:59 89 100/75 97 02/01/18 07:55 97.7 F 86 18 100/75 97 - Laboratory Lab Statement: Any lab studies that have been ordered have been reviewed, and results considered in the medical decision making process. Re-Evaluation - Re-Evaluation First Eval Re-Evaluation Time: 09:24 Change: Improved Comment: Patient reports feeling better in the room and wants to go home. She will be discharged to home. Complex Multi-Symp Course/Dx Course Of Treatment: Patient is a 77 y/o F w/ c/o anxiety and muscle spasms. She states that she came to [facility] four days ago for similar issues. She was prescribed alprazolam, 1 mg BID PO but states that she did not receive enough and is currently out. She denies chest pain, SOB, dysuria, hematuria, blood in stool, ear aches, sore throat, diarrhea, vomiting, rashes, bruises, swelling, GRANADOS , blurred vision, SI, HI. On physical exam, patient is noted to be anxious, jittery, and shaking. During ED course, patient was given Ativan Tab 2 mg PO ONCE. 0924 - Patient reports feeling better in the room and wants to go home. She will be discharged to home. Dx of anxiety. - Diagnoses Provider Diagnoses: Anxiety Discharge - Sign-Out/Discharge Documenting (check all that apply): Patient Departure - discharge - Discharge Plan Condition: Stable Disposition: HOME Prescriptions: ALPRAZolam TAB* [Xanax TAB*] 1 mg PO TID PRN #20 tab MDD 6 PRN Reason: Anxiety ALPRAZolam TAB* [Xanax TAB*] 1 mg PO BID #20 tab MDD 4 Patient Education Materials: Anxiety (ED) Referrals: Matti Romero MD [Primary Care Provider] - Additional Instructions: Please follow up with your primary care physician. return if worse or any new symptoms. Take the medication as instructed. - Billing Disposition and Condition Condition: STABLE Disposition: Home - Attestation Statements Document Initiated by Scribe: Yes Documenting Scribe: Cornelius Contreras Provider For Whom Tonyibe is Documenting (Include Credential): Pat Arellano MD Scribe Attestation: Cornelius Mcwilliams , scribed for Pat Arellano MD on 02/01/18 at 1157. Scribe Documentation Reviewed: Yes Provider Attestation: The documentation as recorded by the Cornelius begum accurately reflects the service I personally performed and the decisions made by me, Pat Arellano MD
[2018-02-01 10:11] VITALS: BP 136/91
== END 2018-02-01 10:08 | disposition home or self-care (01) ==
LOC: ED 07:48
DX: F41.9 Anxiety disorder, unspecified (principal); I10 Essential (primary) hypertension; Z88.0 Allergy status to penicillin; Z88.5 Allergy status to narcotic agent; Z82.49 Family history of ischemic heart disease and other diseases of the circulatory system
CPT/HCPCS: 99283; A9270-GY

== ENCOUNTER 2018-02-11 14:06 | Observation (INO) | payer MEDICARE ==
--- NOTE | 2018-02-11 14:28 | ED ---
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 Per son and [id number], they were in the car with the pt, when they looked at her and saw that she had passed out. Pt is shaking at bedside, she states due to being anxious. Associated sx: SOB. Pt took her BP and heart medications today. Per son, the pt's daughter is typically the one to handle her medical care. Pt is having back pain per baseline. No PMHx: sz. At 1637: Vital signs while in room: HR 84bpm, BP 116/77, pulse ox: 100%. Home Medications Medication Instructions Recorded Confirmed Type RX: Aspirin EC TAB* [Ecotrin EC 81 mg PO DAILY 04/03/14 02/11/18 History Low Dose 81 MG*] RX: Albuterol 2.5MG/3ML (0.083%)* 2.5 mg INH QID PRN 06/24/17 02/11/18 History [Ventolin 2.5 MG/3 ML NEB.JERMAN*] RX: Albuterol inh POWDER (NF) 2 puff INH Q4HR PRN 06/24/17 02/11/18 History [Proair Respiclick] RX: Fluticasone-Salmeterol 250-50* 1 puff INH BID 06/24/17 02/11/18 History [Advair Diskus 250-50*] RX: Hydrochlorothiazide TAB* 12.5 mg PO DAILY 06/24/17 02/11/18 History [Hydrodiuril TAB*] RX: Ibuprofen TAB* [Motrin TAB* 600 mg PO TID WITH MEALS PRN 06/24/17 02/11/18 History 600 MG] RX: Menthol/Camphor [Icy Hot 1 cre TOPICAL BID PRN 06/24/17 02/11/18 History Advanced Relief Cream] RX: Montelukast Sodium TAB* 10 mg PO DAILY 06/24/17 02/11/18 History [Singulair 10 MG TAB*] Promethazine/Dextromethorphan 5 ml PO Q6H PRN #180 ml 10/25/17 02/11/18 Rx [Promethazine-Dm Syrup] RX: Albuterol HFA INHALER* 1 - 2 puff INH Q4H PRN #1 mdi 10/25/17 02/11/18 Rx [Ventolin HFA Inhaler*] RX: ALPRAZolam TAB* [Xanax TAB*] 1 mg PO TID PRN #20 tab MDD 6 02/01/18 Rx - History of Current Complaint Chief Complaint: EDShortnessOfBreath Time Seen by Provider: 02/11/18 14:22 Hx Obtained From: Patient, Family/Pull Worker - son, [id number] Onset/Duration: Sudden Onset, Lasting Minutes, Resolved Timing: Constant Current Severity: Moderate Dyspnea At: Rest Aggrevating Factors: Nothing Alleviating Factors: Nothing Associated Signs & Symptoms: Negative - Allergy/Home Medications Allergies/Adverse Reactions: Allergies Allergy/AdvReac Type Severity Reaction Status Date / Time codeine Allergy Nausea And Verified 02/11/18 14:51 Vomiting morphine Allergy Nausea And Verified 02/11/18 14:51 Vomiting Penicillins Allergy Nausea Verified 02/11/18 14:51 Sulfa (Sulfonamide Allergy Nausea Verified 02/11/18 14:51 Antibiotics) tramadol Allergy Nausea And Verified 02/11/18 14:51 Vomiting PMH/Surg Hx/FS Hx/Imm Hx Previously Healthy: No Endocrine/Hematology History: Denies: Hx Anticoagulant Therapy, Hx Blood Disorders Cardiovascular History: Reports: Hx Hypertension Denies: Hx Pacemaker/ICD Respiratory History: Reports: Hx Asthma, Hx Chronic Bronchitis Denies: Hx Chronic Obstructive Pulmonary Disease (COPD) GI History: Reports: Hx Gall Bladder Disease - Cholecystectomy, Hx Hiatal Hernia - repaired, Hx Ulcer, Other GI Disorders - pancreatitis History: Reports: Hx Kidney Stones Musculoskeletal History: Reports: Hx Arthritis - knee, Hx Orthopedic Injury, Other Musculoskeletal History - "frozen shoulder" Lt side Sensory History: Reports: Hx Contacts or Glasses, Hx Eye Injury, Hx Vision Problem Denies: Hx Deafness, Hx Hearing Aid Opthamlomology History: Reports: Hx Contacts or Glasses, Hx Eye Injury, Hx Vision Problem Neurological History: 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) Psychiatric History: Reports: Hx Anxiety Denies: Hx Panic Disorder - Surgical History Surgery Procedure, Year, and Place: Hysterectomy, Tubal ligation, Cholecystectomy, RIGHT LEG ORIF, left knee arthroscopy, tonsillectomy and adenoidectomy Hx Anesthesia Reactions: No - Immunization History Date of Tetanus Vaccine: Unknown Date of Influenza Vaccine: Unknown Infectious Disease History: Yes Infectious Disease History: Reports: Hx Shingles Denies: Traveled Outside the [place] in Last 30 Days - Family History Known Family History: Positive: Cardiac Disease - [place] in grandfather , Hypertension, Other - kidney stones (grandson), [place] in father, stroke in mother - Social History Occupation: Retired Lives: Alone Alcohol Use: None Hx Substance Use: No Substance Use Type: Reports: None Hx Tobacco Use: No Smoking Status (MU): Never Smoked Tobacco Review of Systems Positive: Other - syncope in car, resolved upon presentation to ED Eyes: Negative Cardiovascular: Negative Positive: Shortness Of Breath Musculoskeletal: Negative Skin: Negative Positive: Syncope Positive: Anxious - "shaking" All Other Systems Reviewed And Are Negative: Yes Physical Exam - Summary Physical Exam Summary: Appearance: Ill-appearing, moderate pain distress, well-nourished. Skin: Warm, color reflects adequate perfusion, dry Head: Normal Head/Face inspection, atraumatic Eyes: Conjunctiva clear ENT: Normal inspection Neck: Supple, no nodes, no JVD Respiratory: Lungs clear, normal breath sounds, no respiratory distress Cardio: RRR, No murmur, pulses normal, brisk capillary refill Abdomen: Soft, nontender Bowel sounds: Present Musculoskeletal: Strength Intact/ROM intact, no calf tenderness, no edema. Myoclonic jerks. Psychological: She states she is anxious. Tearful. Neuro: Alert, muscle tone normal, no focal deficit Triage Information Reviewed: Yes Vital Signs On Initial Exam: Initial Vitals Temp Pulse Resp BP Pulse Ox 96.8 F 108 24 117/67 98 02/11/18 14:08 02/11/18 14:08 02/11/18 14:08 02/11/18 14:08 02/11/18 14:08 Vital Signs Reviewed: Yes Diagnostics - Vital Signs Vital Signs Temp Pulse Resp BP Pulse Ox 02/11/18 14:08 96.8 F 108 24 117/67 98 - Laboratory Result Diagrams: 02/12/18 07:08 02/12/18 07:08 Lab Statement: Any lab studies that have been ordered have been reviewed, and results considered in the medical decision making process. - Radiology CXR Radiology Interpretation Completed By: Radiologist Summary of Radiographic Findings: IMPRESSION: #. Stigmata of obstructive lung disease. No acute pulmonary or cardiac process evident. ED provider has reviewed this report. - CT BRAIN CT Interpretation Completed By: Radiologist Summary of CT Findings: IMPRESSION: 1. CT findings are consistent with stable chronic microvascular disease and involutional changes that appear similar to the June 24, 2017 CT of the brain. 2. There is a large amount of cerumen in the bilateral external auditory canals. Please correlate to physical examination. ED provider has reviewed this report. - EKG 1413 Cardiac Rate: NL - 94 bpm EKG Rhythm: Sinus Rhythm ST Segment: Non-Specific Ectopy: None EKG Comparison: No Significant Change - from 10/25/17. Summary of EKG Findings: An EKG at [address], nml QTc, and nml axis. Re-Evaluation - Re-Evaluation 1 Re-Evaluation Time: 16:33 Change: Worse Comment: Pt states not feeling better. She is having GRANADOS currently, tired, shaking and mild CP secondary to cough and laughing. Family is requesting list of pt's medications and allergies. Vitals at bedside: HR 84 bpm. Puls ox: 94%. BP: 116/77. 2 Re-Evaluation Time: 18:02 Change: Unchanged Comment: Signing health proxy form for family. 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 Pt had been seated in backseat of car at onset. Pt is shaking at bedside due to being anxious. Associated sx: SOB. Lab work shows: glucose: 135, lactic acid 3.1, BUN/Creatinine: 23.7. EKG is NSR and unchanged from previous. Brain CT shows 1. CT findings are consistent with stable chronic microvascular disease and involutional changes that appear similar to the June 24, 2017 CT of the brain. 2. There is a large amount of cerumen in the bilateral external auditory canals. Please correlate to physical examination.. And CXR shows Stigmata of obstructive lung disease. No acute pulmonary or cardiac process evident.. Consulted with Dr. Crowder, hospitalist , who will admit pt. Allergies noted. Pt medications reviewed this visit. - Diagnoses Differential Diagnosis/HQI/PQRI: Positive: Bronchitis, CHF, COPD Exacerbation, [place], Pneumonia, Pulmonary Embolism, Other - CVA Provider Diagnoses: Myoclonic jerking, Syncope, Chronic renal disease, stage III, Elevated lactic acid level - Physician Notifications Discussed Care of Patient With: Kerry Crowder - hospitalist Time Discussed With Above Provider: 16:52 Instructed by Provider To: Admit As Inpatient Discharge - Sign-Out/Discharge Documenting (check all that apply): Patient Departure - ADM - Discharge Plan Condition: Stable Disposition: ADMITTED TO [facility] - Billing Disposition and Condition Condition: STABLE Disposition: Admitted to [facility] - Attestation Statements Document Initiated by Scribe: Yes Documenting Scribe: Liane Rothman Provider For Whom Tonyibopal is Documenting (Include Credential): Dr. Paty Espinoza MD Scribe Attestation: Liane Mcwilliams, scribed for Dr. Paty Espinoza MD on 02/17/18 at 0056. Scribe Documentation Reviewed: Yes Provider Attestation: The documentation as recorded by the Liane begum accurately reflects the service I personally performed and the decisions made by me, Dr. Paty Espinoza MD
[2018-02-11 15:00] LABS: ABS Basophils 0.1 10^3/ul (0-0.2); ABS Eosinophils 0.1 10^3/ul (0-0.6); ABS Lymphocytes 2.1 10^3/ul (1.0-4.8); ABS Monocytes 0.4 10^3/ul (0-0.8); ABS Neutrophils 3.8 10^3/ul (1.5-7.7); ABS Nucleated RBC 0 10^3/ul; Eosinophil % 0.9 % (0-6); Hematocrit 36 % (35-47); Hemoglobin 12.2 g/dl (12.0-16.0); Mean Corpuscular HGB Conc 34 g/dl (31-36); Mean Corpuscular Hemoglobin 26 pg (27-31); Mean Corpuscular Volume 77 fL (80-97); Mean Platelet Volume 8.1 um3 (7.4-10.4); Nucleated Red Blood Cells % 0.1; Platelet Count 253 10^3/ul (150-450); Red Blood Count 4.67 10^6/ul (4.00-5.40); Red Cell Distribution Width 15 % (10.5-15); White Blood Count 6.5 10^3/ul (3.5-10.8)
--- NOTE | 2018-02-11 15:10 | RAD ---
Indication: Chest pain, shortness of breath. Syncopal episode. Comparison: November 08, [address] October 25, 2017 chest radiograph. Technique: Upright AP 1450 hours Report: Elevated lung volumes and both diffuse mild prominence of the interstitial markings and patchy rarefaction of the mid to upper lung zone interstitial markings. No focal pulmonary lesion, compelling alveolar consolidation, pleural effusion, pneumothorax. Negative for cardiomegaly. Unremarkable central pulmonary vasculature. Mildly tortuous descending thoracic aorta without change. IMPRESSION: #. Stigmata of obstructive lung disease. No acute pulmonary or cardiac process evident.
[2018-02-11 15:17] LABS: EGFR Non-African American 25.1 (>60)
--- NOTE | 2018-02-11 16:30 | RAD ---
INDICATION: Weakness COMPARISON: Similar CT of the brain dated June 24, 2017 TECHNIQUE: Contiguous axial sections of the brain were obtained from the skull base to the vertex without contrast. FINDINGS: The ventricles, cisterns and sulci symmetrical involutional changes. There is moderate periventricular and subcortical white matter hypoattenuation most consistent with chronic microvascular disease that has not changed significantly since the most recent previous CT of the brain. The cantu-white matter differentiation is adequately maintained and there is no sulcal effacement. No significant focal abnormality or mass effect is present. There is no evidence for intracranial hemorrhage. No significant focal osseous abnormality is present. The visualized portion of the paranasal sinuses appear clear. The mastoid air cells are well aerated bilaterally. Incidentally noted is a large amount of cerumen in the bilateral external auditory canals. IMPRESSION: 1. CT findings are consistent with stable chronic microvascular disease and involutional changes that appear similar to the June 24, 2017 CT of the brain. 2. There is a large amount of cerumen in the bilateral external auditory canals. Please correlate to physical examination.
[2018-02-11] MEDS ORDERED: ALPRAZolam TAB* 0.5 MG PO ONE (16:38)
[2018-02-11] MEDS ORDERED: Albuterol 2.5 MG/3 ML NEB.SOL* (0.083%) INH PRN (18:19)
[2018-02-11] MEDS ORDERED: ALPRAZolam TAB* 0.5 MG PO PRN (18:19)
[2018-02-11] MEDS ORDERED: Acetaminophen TAB* 325 MG PO PRN (20:23)
[2018-02-11] MEDS: NS 0.9% 1000 ML* 1,000 ML IV SCH (20:28)
[2018-02-11] MEDS ORDERED: Acetaminophen TAB* 325 MG ONE (20:53)
--- NOTE | 2018-02-12 03:26 | HP ---
HISTORY AND PHYSICAL: DATE OF ADMISSION: 02/11/18 ADMITTING PROVIDER: Dean Ford MD PRIMARY CARE PROVIDER: Dr. Romero. CHIEF COMPLAINT: Shortness of breath, chest pain, back pain x1 week, and "falling out" while driving a car. HISTORY OF PRESENT ILLNESS: Brandi Koch is a 77-year-old female with past medical history of hypertension, asthma, anxiety, TIA, who started to develop shortness of breath and feeling like she could not breathe, felt like she had an asthma attack and then an anxiety attack resulting and asked to be driven to the hospital. On the way there, she had been talking to her son and daughter-in -law and when they noted she had stopped talking, it seemed like she had passed out in the back of the car. She does not seem to have lost consciousness, but is a poor historian. She says the chest pain is worse when she coughs, rather sharp and substernal. The back pain has been going on for 1 week and she describes it as 10/10 in her mid lumbar region. She attests feeling cold over the last month, but no fevers or chills. She has no abdominal pain. She has " a little" dysuria and increased frequency. In [facility], she had mostly notably an elevation in her creatinine to 1.94 from previous baseline between 1.1 and 1.27 and given the potential syncope and JAME, she was referred to hospitalist service for admission. She has had a CT of the brain, which showed stable chronic microvascular disease and involutional changes unchanged from 06/24/17. Chest x-ray was demonstrating stigmata of obstructive pulmonary disease. She had a negative troponin. Lactic acid was 3.1 and her EKG demonstrated normal sinus rhythm, Q wave in aVF, and left axis deviation. PAST MEDICAL HISTORY: Hypertension, anxiety, TIA, asthma, ORIF of right femur, status post cholecystectomy, status post hysterectomy, suspicion by Dr. Marie of psychogenic hemiparesis on evaluation in June 2017. MEDICATIONS: Of note, this is per ER reconciliation, which she attests to being accurately performed (is a poor historian for her actual medications). 1. Promethazine/dextromethorphan 5 mg p.o. q.6 hours p.r.n. 2. Singulair 10 mg p.o. daily. 3. Ibuprofen 600 mg p.o. t.i.d. p.r.n. 4. Hydrochlorothiazide 12.5 mg p.o. daily. 5. Advair Diskus 1 puff inhaled b.i.d. 6. Aspirin 81 mg daily. 7. ProAir 2 puffs inhaled q.4 hours p.r.n. 8. Ventolin HFA 1 to 2 puffs inhaled q.4 hours p.r.n. 9. Xanax 1 mg p.o. t.i.d. p.r.n. ALLERGIES: CODEINE, MORPHINE, PENICILLIN, SULFA, TRAMADOL; all causing nausea, vomiting. FAMILY HISTORY: Mother had CHF. Father had lung cancer. SOCIAL HISTORY: The patient is a never smoker except for at age of 17. Denied alcohol or drug use. She lives alone, uses a cane to walk. She is accompanied by her medical proxies, Raymon, her [id number]-ed-ooe and Aki, her son. She desires to be a DNR/DNI. REVIEW OF SYSTEMS: A complete 14-point review of systems negative except as per HPI. PHYSICAL EXAMINATION GENERAL APPEARANCE: No acute distress. VITAL SIGNS: Temperature 96.8; heart rate 87; respiratory rate 19 to 41; satting 92% to 98% on room air; blood pressure currently 106/73, as low as 87/ 64. HEENT: Normocephalic, atraumatic. Pupils are equal, round, and reactive to light. Extraocular motions intact. No scleral icterus. 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 No oropharynx lesions. LUNGS: Clear to auscultation bilaterally with no wheezing or rhonchi, except for slight rales at the base of the right lung. CARDIOVASCULAR: Regular rate and rhythm. No murmurs, rubs, or gallops. ABDOMEN: Soft, nontender, nondistended. EXTREMITIES: Warm, well perfused. No peripheral edema. MUSCULOSKELETAL: Back: Tender to palpation in the lower thoracic and lumbar regions with some paraspinal tenderness and guarding. NEURO: Cranial nerves II through XII intact. Referred pain to her back limits her right biceps testing, but in all other extremities she has preserved strength and sensation. SKIN: No lesions or rashes. DIAGNOSTIC STUDIES/LAB DATA: White count 6.5, hemoglobin 12.2, hematocrit 36, platelets 253. Sodium 135, potassium 4.1, chloride 103, carbon dioxide 19, BUN 46, creatinine 1.94, glucose 135. Lactic acid 3.1, on repeat 1.3. Calcium 9.5. AST 18, ALT 10, alk phos 76. Ammonia 27. Troponin 0.01 and 0.01 on repeat. Albumin 4.1. Imaging: As per HPI. EKG: Normal sinus rhythm, left axis deviation, Q wave in aVF. No ST elevations or depressions. She had left axis deviation, but not really Q wave in aVF in October of 2017. ASSESSMENT AND PLAN: Brandi Koch is a 77-year-old female with past medical history of anxiety, hypertension, asthma, presenting with shortness of breath, anxiety and question of loss of consciousness, though not clear history of that at all, very poor historian. She had an elevated lactic acid of 3.1 and acute kidney injury with creatinine 1.94 from 1 to 1.2 at baseline. She is probably being admitted for acute kidney injury with secondary concerns for this back pain, question of some slight dysuria and feeling cold recently along with potential dehydration, or syncope workup. She is getting urine electrolytes. IV fluids. She is prerenal per BUN to creatinine ratio. I will trend troponins. Put her on heparin for DVT prophylaxis. Get physical therapy to work with her. Consider back imaging, but no warning signs, so may defer. She is DNR/DNI. She can eat a heart- healthy diet. She is being admitted to observation status. [id number]/[facility] #: [id number] DIMITRI
[2018-02-12 05:05] LABS: Urine Appearance Clear; Urine Blood Negative (Negative); Urine Color Yellow; Urine Ketones Negative (Negative); Urine Protein Negative (Negative); Urine Red Blood Cell Trace(0-2/hpf) (Absent); Urine Specific Gravity 1.016 (1.010-1.030); Urine Urobilinogen Negative (Negative); Urine White Blood Cell 2+(11-20/hpf) (Absent)
[2018-02-12] MEDS: NS 0.9% 1000 ML* 1,000 ML IV SCH (05:18)
[2018-02-12] MEDS ORDERED: Heparin VIAL(*) 5000 UNITS/ML VIAL (FIVE THOUSAND) SUBCUT SCH (06:00)
[2018-02-12] MEDS: Fluticasone-Salmeterol 250-50* DISKUS INH SCH ×2 (06:54→07:33)
[2018-02-12 07:37] LABS: ABS Basophils 0.1 10^3/ul (0-0.2); ABS Eosinophils 0.1 10^3/ul (0-0.6); ABS Lymphocytes 1.9 10^3/ul (1.0-4.8); ABS Monocytes 0.4 10^3/ul (0-0.8); ABS Neutrophils 1.5 10^3/ul (1.5-7.7); ABS Nucleated RBC 0 10^3/ul; Eosinophil % 2.4 % (0-6); Hematocrit 32 % (35-47); Hemoglobin 10.8 g/dl (12.0-16.0); Lymphocyte % 46.9 % (25-47); Mean Corpuscular HGB Conc 34 g/dl (31-36); Mean Corpuscular Hemoglobin 26 pg (27-31); Mean Corpuscular Volume 78 fL (80-97); Mean Platelet Volume 7.8 um3 (7.4-10.4); Nucleated Red Blood Cells % 0.3; Platelet Count 193 10^3/ul (150-450); Red Blood Count 4.15 10^6/ul (4.00-5.40); Red Cell Distribution Width 15 % (10.5-15); White Blood Count 3.9 10^3/ul (3.5-10.8)
[2018-02-12 08:00] LABS: EGFR Non-African American 33.5 (>60)
[2018-02-12] MEDS ORDERED: Aspirin EC TAB* 81 MG TAB.EC PO SCH (09:00)
[2018-02-12] MEDS ORDERED: Montelukast Sodium TAB* 10 MG PO SCH (09:00)
[2018-02-12 13:04] VITALS: BP 96/65
--- NOTE | 2018-02-13 08:18 | DS ---
DISCHARGE SUMMARY: DATE OF ADMISSION: 02/11/18 DATE OF DISCHARGE: 02/12/18 ADMITTING AND ATTENDING PHYSICIAN: Dean Ford MD PRIMARY CARE PHYSICIAN: Dr. Romero. CHIEF COMPLAINT: Shortness of breath, chest pain, back pain x1 week and "falling out" while driving a car. PRINCIPAL DIAGNOSES: 1. Acute kidney injury. 2. Asthma attack. 3. Anxiety attack. HISTORY OF PRESENT ILLNESS AND HOSPITAL COURSE: Brandi Koch is a 77-year-old female with past medical history of hypertension, asthma, anxiety, TIA, suspected psychogenic hemiparesis per neurology evaluation, who presented with feelings of shortness of breath and anxiety, feeling that she could not breathe. She asked her son and [id number]-[id number]-uli to take her to the emergency room and while she was talking to them in the car, they noticed that she had perhaps lost consciousness or at least stopped talking. The history surrounding these events is still rather sketchy, it is not clear that she ever really lost consciousness. She did attest that she is having back pain for about 1 week in the mid lumbar region, feeling cold, but no fevers or chills. Upon initial evaluation in the emergency room, she was found to have a lactic acidosis of 3.1 and acute kidney injury with increase in her baseline creatinine from 1.3 four months ago to 1.94. She was referred to the hospitalist service for admission for these various complaints, found to be prerenal per urine lytes and BUN to creatinine ratios, hydrated, and the creatinine function improved to 1.5 on the day of discharge, hospital day #2. Her back pain, cough, shortness of breath, and anxiety had all resolved by then. Additional studies included a CT of brain noncontrast, which showed consistent with stable chronic microvascular disease and involutional changes similar to the 06/24/17 study. She had a chest x-ray demonstrating stigmata of chronic obstructive lung disease. She had no leukocytosis or fevers and she had a negative procalcitonin. She worked with physical therapy, who deemed her to be without acute physical therapy needs at this time and she declined any home physical therapy assessment. She had orthostatic vital signs that were negative. DISCHARGE MEDICATIONS: Included (no changes to home meds): 1. Albuterol 2.5 mg inhaled 4 times a day p.r.n. 2. Xanax 1 mg p.o. t.i.d. 3. Aspirin 81 mg daily. 4. Advair 1 puff inhaled b.i.d. 5. Singulair 10 mg p.o. daily. 6. Promethazine/dextromethorphan 5 mL p.o. q.6 hours p.r.n. 7. Tylenol 650 mg p.o. q.4 hours p.r.n. DIET: Heart healthy. ACTIVITY LEVEL: No restrictions. FOLLOWUP: Please follow up with Dr. Matti Romero, PCP within 1 week. TIME SPENT: Time spent on discharge minutes. [id number]/[facility] #: [id number] DIMITRI
== END 2018-02-12 13:30 | disposition home or self-care (01) ==
LOC: ED 14:06 → MED 18:19
PROVIDERS: ADMIT Internal Medicine; ATTEND Internal Medicine
DX: N17.9 Acute kidney failure, unspecified (principal); J45.901 Unspecified asthma with (acute) exacerbation; R06.02 Shortness of breath; R07.9 Chest pain, unspecified; M54.9 Dorsalgia, unspecified; F41.9 Anxiety disorder, unspecified; Z79.82 Long term (current) use of aspirin; I10 Essential (primary) hypertension; Z90.49 Acquired absence of other specified parts of digestive tract; Z90.710 Acquired absence of both cervix and uterus; Z86.73 Personal history of transient ischemic attack (TIA), and cerebral infarction without residual deficits
CPT/HCPCS: 36415; 70450; 71045; 80048; 80053; 81003; 81015; 82140; 82570; 83605; 84145; 84300; 84484; 85025; 87086; 93005; 94640; 96360; 96361; 99284; A9270-GY; G0378; G8978-GP-CH; G8979-GP-CH; G8980-GP-CH; J1644

== ENCOUNTER 2018-04-03 04:00 | Emergency (ER) | payer MEDICARE ==
[2018-04-03] MEDS ORDERED: NS 0.9% 1000 ML* 1,000 ML IV ONE (04:19)
[2018-04-03] MEDS ORDERED: Ondansetron INJ* 2 MG/ML VIAL IV ONE (04:19)
[2018-04-03] MEDS ORDERED: Morphine VIAL* 4 MG/ML VIAL (1 ml vial) IV ONE ×2 (04:22→06:45)
--- NOTE | 2018-04-03 04:26 | ED ---
Throat Pain/Nasal Congestion - HPI Summary HPI Summary: A 77 y/o female brought in by [facility] ambulance presents to [facility] with a chief complaint of left eye pain since the morning of 04/03/18. She rates her pain as 10/10. The patient reports that on 04/02/18 she had right eye pain that has since resolved. 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 She also c/o abd pain and N/V. She denies any CP, smoking or EtOH use. She reports a Hx of asthma. - History of Current Complaint Chief Complaint: EDGeneral Time Seen by Provider: 04/03/18 04:16 Hx Obtained From: Patient, EMS Onset/Duration: Sudden Onset, Lasting Hours, Still Present Severity: Severe Associated Signs And Symptoms: Positive: Negative - CP - Allergies/Home Medications Allergies/Adverse Reactions: Allergies Allergy/AdvReac Type Severity Reaction Status Date / Time codeine Allergy Nausea And Verified 04/03/18 04:11 Vomiting morphine Allergy Nausea And Verified 04/03/18 04:11 Vomiting Penicillins Allergy Nausea Verified 04/03/18 04:11 Sulfa (Sulfonamide Allergy Nausea Verified 04/03/18 04:11 Antibiotics) tramadol Allergy Nausea And Verified 04/03/18 04:11 Vomiting PMH/Surg Hx/FS Hx/Imm Hx Endocrine/Hematology History: Denies: Hx Anticoagulant Therapy, Hx Blood Disorders Cardiovascular History: Reports: Hx Hypertension Denies: Hx Pacemaker/ICD Respiratory History: Reports: Hx Asthma, Hx Chronic Bronchitis Denies: Hx Chronic Obstructive Pulmonary Disease (COPD) GI History: Reports: Hx Gall Bladder Disease - Cholecystectomy, Hx Hiatal Hernia - repaired, Hx Ulcer, Other GI Disorders - pancreatitis History: Reports: Hx Kidney Stones Musculoskeletal History: Reports: Hx Arthritis - knee, Hx Orthopedic Injury, Other Musculoskeletal History - "frozen shoulder" Lt side Sensory History: Reports: Hx Contacts or Glasses, Hx Eye Injury, Hx Vision Problem Denies: Hx Deafness, Hx Hearing Aid Opthamlomology History: Reports: Hx Contacts or Glasses, Hx Eye Injury, Hx Vision Problem Neurological History: 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) Psychiatric History: Reports: Hx Anxiety Denies: Hx Panic Disorder - Surgical History Surgery Procedure, Year, and Place: Hysterectomy, Tubal ligation, Cholecystectomy, RIGHT LEG ORIF, left knee arthroscopy, tonsillectomy and adenoidectomy Hx Anesthesia Reactions: No - Immunization History Date of Tetanus Vaccine: Unknown Date of Influenza Vaccine: Unknown Infectious Disease History: No Infectious Disease History: Reports: Hx Shingles Denies: Traveled Outside the [place] in Last 30 Days - Family History Known Family History: Positive: Cardiac Disease - MS in grandfather , Hypertension, Other - kidney stones (grandson), CA in father, stroke in mother - Social History Alcohol Use: None Hx Substance Use: No Substance Use Type: Reports: None Hx Tobacco Use: No Smoking Status (MU): Never Smoked Tobacco Review of Systems Negative: Fever Eyes: Other - positive: left eye pain Negative: Chest Pain Positive: Abdominal Pain, Vomiting, Nausea All Other Systems Reviewed And Are Negative: Yes Physical Exam - Summary Physical Exam Summary: Appearance: Well appearing, no pain distress Skin: warm, dry, reflects adequate perfusion Head/face: normal Eyes:rt eye pupils reacting to light,lf no reaction to light ENT: normal Neck: supple, non-tender Respiratory: CTA, breath sounds present Cardiovascular: RRR, pulses symmetrical Abdomen: Diffuse abdominal tenderness. Musculoskeletal: normal, strength/ROM intact Neuro: normal, sensory motor intact, A&Ox3 GCS: 15 Triage Information Reviewed: Yes Vital Signs On Initial Exam: Initial Vitals Temp Pulse Resp BP Pulse Ox 97.8 F 75 18 145/108 97 04/03/18 04:05 04/03/18 04:05 04/03/18 04:05 04/03/18 04:05 04/03/18 04:05 Vital Signs Reviewed: Yes Diagnostics - Vital Signs Vital Signs Temp Pulse Resp BP Pulse Ox 04/03/18 04:05 97.8 F 75 18 145/108 97 - Laboratory Result Diagrams: 04/03/18 04:40 04/03/18 04:40 Lab Statement: Any lab studies that have been ordered have been reviewed, and results considered in the medical decision making process. - CT Brain CT Interpretation Completed By: Radiologist Summary of CT Findings: 1. No acute intracranial abnormality. 2. No significant interval change in the appearance of brain since prior study. ED physician has reviewed this imaging report. Abdomen/pelvis CT Interpretation Completed By: Radiologist Summary of CT Findings: 1. Colonic diverticulosis. Subtle pericolonic fat stranding in the descending. and sigmoid colon which may be due to early acute diverticulitis. 2. A small hiatal hernia. 3. Stable subcentimeter right hepatic cyst. ED physician has reviewed this imaging report. - EKG 06:12 Cardiac Rate: NL - 77 bpm EKG Rhythm: Sinus Rhythm Summary of EKG Findings: NSR at 77 bpm with no acute changes Re-Evaluation - Re-Evaluation First Eval Re-Evaluation Time: 06:45 Change: Unchanged Comment: Patient still reports pain. EENT Course/Dx - Course Course Of Treatment: A 77 y/o female brought in by [facility] ambulance presents to [facility] with a chief complaint of left eye pain since the morning of 04/03/18. She rates her pain as 10/10. The patient reports that on 04/02/18 she had right eye pain that has since resolved. 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 She also c/o abd pain and N/V. She denies any CP, smoking or EtOH use. She reports a Hx of asthma. In the ED course the patient was given iodixanol, sodium chloride, morphine and zofran IV. Lab results were obtained. Her EKG showed NSR at 77 bpm with no acute changes. Brain CT impression: 1. No acute intracranial abnormality. 2. No significant interval change in the appearance of brain since prior study. Abdomen/pelvis CT impression: 1. Colonic diverticulosis. Subtle pericolonic fat stranding in the descending. and sigmoid colon which may be due to early acute diverticulitis. 2. A small hiatal hernia. 3. Stable subcentimeter right hepatic cyst. After discussing the case with Dr. Ernst, hospitalist, she will accept the patient for admission. Dx: acute diverticulitis. - Differential Diagnoses Differential Diagnoses: Other - diverticulitis/abd pain/renal colic - Diagnoses Provider Diagnoses: Acute diverticulitis - Provider Notifications Discussed Care Of Patient With: Leslee Ernst Time Discussed With Above Provider: 06:45 Instructed by Provider To: Admit As Inpatient Discharge - Sign-Out/Discharge Documenting (check all that apply): Patient Departure - admit - Discharge Plan Condition: Fair Disposition: [facility] Referrals: Matti Romero MD [Primary Care Provider] - - Billing Disposition and Condition Condition: FAIR Disposition: Admitted to [facility] - Attestation Statements Document Initiated by Tonyibopal: Yes Documenting Scribe: Bryan Ramos Provider For Whom Dari is Documenting (Include Credential): Sesar Arnold MD Scribe Attestation: Bryan Mcwilliams, scribed for Sesar Arnold MD on 04/03/18 at 0652. Scribe Documentation Reviewed: Yes Provider Attestation: The documentation as recorded by the Bryan begum accurately reflects the service I personally performed and the decisions made by , Sesar Arnold MD Status of Scribe Document: Viewed
[2018-04-03 04:53] LABS: ABS Basophils 0.1 10^3/ul (0-0.2); ABS Eosinophils 0.2 10^3/ul (0-0.6); ABS Lymphocytes 2.5 10^3/ul (1.0-4.8); ABS Monocytes 0.3 10^3/ul (0-0.8); ABS Neutrophils 2.8 10^3/ul (1.5-7.7); ABS Nucleated RBC 0 10^3/ul; Eosinophil % 2.6 %; Hematocrit 36 % (35-47); Hemoglobin 12.3 g/dl (12.0-16.0); Lymphocyte % 42.6 %; Mean Corpuscular HGB Conc 34 g/dl (31-36); Mean Corpuscular Hemoglobin 26 pg (27-31); Mean Corpuscular Volume 78 fL (80-97); Mean Platelet Volume 7.9 fL (7.4-10.4); Nucleated Red Blood Cells % 0.3; Platelet Count 259 10^3/ul (150-450); Red Blood Count 4.66 10^6/ul (4.00-5.40); Red Cell Distribution Width 16 % (10.5-15); White Blood Count 5.9 10^3/ul (3.5-10.8)
[2018-04-03 05:07] LABS: BUN/Creatinine Ratio 12.3 (8-20); Calcium 9.4 mg/dL (8.6-10.3); EGFR Non-African American 46.3 (>60); Globulin 4.1 g/dL (2-4); Total Bilirubin 0.8 mg/dL (0.2-1.0); Total Protein 8.1 g/dL (6.4-8.9)
[2018-04-03 05:14] LABS: Potassium 3.8 mmol/L (3.5-5.0)
[2018-04-03 05:19] LABS: Activated Partial Thrombo Time 28.6 seconds (26.0-36.3); INR 0.99 (0.77-1.02)
[2018-04-03] MEDS ORDERED: Iodixanol* (CONTRAST) 320 MG/ML 100 ML SDV IV ONE (05:24)
[2018-04-03 06:35] LABS: Urine Appearance Clear; Urine Bacteria 1+ (Absent); Urine Bilirubin Negative (Negative); Urine Blood Negative (Negative); Urine Color Straw; Urine Glucose Negative (Negative); Urine Ketones Trace (Negative); Urine Nitrite Negative (Negative); Urine Protein Negative (Negative); Urine Red Blood Cell Absent (Absent); Urine Specific Gravity 1.024 (1.010-1.030); Urine Urobilinogen Negative (Negative); Urine White Blood Cell Trace(0-5/hpf) (Absent)
[2018-04-03] MEDS ORDERED: metroNIDAZOLE IV 500 MG/100ML* 500 MG/100 ML BAG IVPB ONE (06:43)
[2018-04-03] MEDS ORDERED: Levofloxacin 500 MG IVPREMIX(* 500 MG/100 ML BAG IVPB ONE (06:43)
[2018-04-03] MEDS ORDERED: Ondansetron ODT TAB* 4 MG PO ONE (08:16)
--- NOTE | 2018-04-03 08:19 | ED ---
Progress - Progress Note Progress Note: Patient was seen and evaluated by Dr. Kaye, who will discharge her on oral antibiotics. She was assisted in obtaining medications and for a ride home (lives across street). Course/Dx - Course Course Of Treatment: A 77 y/o female brought in by [facility] ambulance presents to [facility] with a chief complaint of left eye pain since the morning of 04/03/18. She rates her pain as 10/10. The patient reports that on 04/02/18 she had right eye pain that has since resolved. 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 She also c/o abd pain and N/V. She denies any CP, smoking or EtOH use. She reports a Hx of asthma. In the ED course the patient was given iodixanol, sodium chloride, morphine and zofran IV. Lab results were obtained. Her EKG showed NSR at 77 bpm with no acute changes. Brain CT impression: 1. No acute intracranial abnormality. 2. No significant interval change in the appearance of brain since prior study. Abdomen/pelvis CT impression: 1. Colonic diverticulosis. Subtle pericolonic fat stranding in the descending. and sigmoid colon which may be due to early acute diverticulitis. 2. A small hiatal hernia. 3. Stable subcentimeter right hepatic cyst. After discussing the case with Dr. Ernst, hospitalist, she will accept the patient for admission. Dx: acute diverticulitis. - Diagnoses Provider Diagnoses: Acute diverticulitis - Provider Notifications Time Discussed With Above Provider: 06:45 Instructed by Provider To: Admit As Inpatient Discharge - Sign-Out/Discharge Documenting (check all that apply): Patient Departure - Discharge Plan Condition: Fair Disposition: HOME Prescriptions: HYDROcodone/ACETAMIN 5-325 MG* [[place] 5-325 TAB*] 1 tab PO Q6H PRN #8 tab MDD 4tab PRN Reason: Pain Levofloxacin TAB* [Levaquin TAB*] 500 mg PO DAILY #9 tab metroNIDAZOLE [Flagyl] 500 mg PO BID #19 tablet Patient Education Materials: Diverticulitis (DC) Referrals: [facility] [Outside] (You can call for an appointment and I will leave a message to try to get you in for a follow up after [place]. ) Matti Romero MD [Primary Care Provider] - Additional Instructions: 1. Activity as tolerated. 2. Return to the ER for fever, bloody diarrhea or any other concerning issues. - Billing Disposition and Condition Condition: FAIR Disposition: Home - Attestation Statements Document Initiated by Dari: Yes Documenting Scribe: Luís Dougherty Provider For Whom Tonyibe is Documenting (Include Credential): Prem Hankins MD Scribe Attestation: Luís Mcwilliams, scribed for Prem Hankins MD on 04/03/18 at 0833. Scribe Documentation Reviewed: Yes Provider Attestation: The documentation as recorded by the Luís begum accurately reflects the service I personally performed and the decisions made by Prem pisano MD Status of Scribe Document: Viewed
[2018-04-03 10:07] VITALS: BP 101/72
--- NOTE | 2018-04-03 17:16 | CONS ---
CC: Dr. Romero * CONSULTATION REPORT: DATE OF CONSULT: 04/03/18 - EMERGENCY DEP PRIMARY CARE PROVIDER: Dr. Romero. CHIEF COMPLAINT: Eye pain and abdominal pain. HISTORY OF PRESENT ILLNESS: Ms. Koch is a 77-year-old female who was seen frequently in the emergency room for any number of complaints. She reportedly woke up on the morning of consultation with complaints of left eye pressure. She presented to the emergency room for this. While in the ER, she began to complain of abdominal pain. The patient was evaluated with labs that revealed a normal white blood cell count and hemoglobin and hematocrit as well as basic metabolic panel that was essentially at baseline. The patient also underwent CT of the abdomen and pelvis, which revealed colonic diverticulosis with subtle pericolonic fat stranding in the descending and sigmoid colon, which may be due to early acute diverticulitis. A small hiatal hernia was noted as is a stable subcentimeter right hepatic cyst. Because of these findings and the patient now wanting to go home, the hospitalist service was called to see the patient for potential admission. In speaking with the patient, she states that every morning she wakes up with some sort of complaint. She does not understand why this is happening to her. She denies this being anxiety related, but does state that she has a history of anxiety for which she uses p.r.n. benzodiazepine. PAST MEDICAL HISTORY: 1. Hypertension. 2. Anxiety. 3. History of past TIA. 4. Asthma. 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 PAST SURGICAL HISTORY: 1. ORIF right femur. 2. Cholecystectomy. 3. Hysterectomy. MEDICATIONS: 1. Promethazine DM syrup 5 mL p.o. q.6 hours p.r.n. cough. 2. Icy Hot apply topically twice daily p.r.n. pain. 3. Advair 250/50 one puff inhaled twice daily. 4. Aspirin 81 mg p.o. daily. 5. Albuterol 2 puffs inhaled q.4 hours p.r.n. shortness of breath. 6. Albuterol 1 neb inhaled 4 times daily p.r.n. shortness of breath. 7. Tylenol 650 mg p.o. q.4 hours p.r.n. pain. 8. Xanax 1 mg p.o. t.i.d. p.r.n. anxiety. ALLERGIES: CODEINE, MORPHINE, PENICILLIN, SULFA, and TRAMADOL, all caused nausea and vomiting. FAMILY HISTORY: Mom had a history of CHF. Dad had a history of lung cancer. SOCIAL HISTORY: The patient is essentially a lifelong nonsmoker except when she was 17 years old. She denies alcohol use. She lives alone in the apartment complex across from the hospital. REVIEW OF SYSTEMS: A complete 11-system review of systems is obtained. Pertinent positives and negatives are as per HPI and otherwise negative. PHYSICAL EXAM: Blood pressure 136/77, pulse 89, respirations 18, temp 97.8, O2 sat 97% on room air. General: The patient is a well-developed, elderly female seen sleeping in the stretcher, easily awakened to voice, in no acute distress. HEENT: Pupils are equal and round. Extraocular muscles are intact. Oropharynx is clear. Oral mucosa is moist. There is no submandibular, cervical , or supraclavicular adenopathy. Thyroid is not enlarged. No thyroid nodules are noted. Cardiac: Normal S1 and S2. Regular rate and rhythm. I do not appreciate any murmurs. There is no lower extremity edema. Pulmonary: Lungs are clear to auscultation bilaterally. Abdomen: Bowel sounds are present. Abdomen is soft, nontender, nondistended. Musculoskeletal: There is no cyanosis or clubbing of the digits. There is full active range of motion of all 4 extremities. Skin is warm and dry. There are no rashes. Neuro: Cranial nerves II through XII are grossly intact. Sensation is intact to light touch throughout. Strength is 5/5 and symmetric both upper and lower extremities bilaterally. Psych: The patient is alert. She is oriented x3. Affect appears appropriate. DIAGNOSTIC STUDIES/LAB DATA: WBC 5.9, hemoglobin 12.3, hematocrit 36, platelets 259. INR 0.99. Sodium 139, potassium 3.8, chloride 104, CO2 24. BUN 14, creatinine 1.14. Glucose 112. Calcium 9.4. Bilirubin 0.8. AST 16, ALT 8, alk phos 76. Troponin 0. Albumin 4. Lipase 27. Urinalysis reveals clear urine with specific gravity of 1.024, trace ketones, trace leukocyte esterase, 1+ bacteria. EKG reveals normal sinus rhythm without any acute ST-T wave abnormalities. CT brain reveals no acute intracranial abnormality. There is no significant interval change in the appearance of the brain since the prior study. CT abdomen and pelvis reveals colonic diverticulosis with subtle pericolonic fat stranding in the descending and sigmoid colon, which may be due to early acute diverticulitis. ASSESSMENT AND PLAN: Ms. Koch is a 77-year-old female who presents frequently to the emergency room with any number of complaints, who presents today with initially complaint of eye pressure, subsequently then complaints of abdominal pain and is seen by myself for possible admission for diverticulitis. 1. Early mild diverticulitis. At this point, this is suggested on the CAT scan ; however, the patient's symptoms do not seem to correlate. She has no pain on exam. She is not having any diarrhea. At this point, the patient does not have a leukocytosis or fever. I believe she can be treated with oral antibiotics as an outpatient. I worked with the employee pharmacy to have the patient be able to receive her Levaquin and Flagyl prior to discharge home. She has these leave in the emergency room and does not need them to be picked up. Additionally 2 days of pain medication has been sent since the patient can have medication for pain control. The patient will need to monitor her symptoms and has been instructed to return to the emergency room if she develops a fever, bloody diarrhea, or any other concerning symptoms. 2. Eye pressure. The etiology behind this is unclear. She only states that it is a pressure surrounding her left eye. CT brain was negative. This can be followed up as an outpatient. 3. Hypertension. The patient is not on any antihypertensives and her blood pressure is under generally fair control. This can be monitored as an outpatient. 4. Anxiety. Continue p.r.n. Xanax. 5. The patient states that she has a hard time getting to her primary care provider downtown. I have provided the patient with the information for the [facility] and left a message for the hospitalist coordinator to contact the patient for a followup appointment following [place] next week. 6. The patient is being discharged from the emergency room. TIME SPENT: 60 minutes was spent on this consultation. [id number]/[facility] #: [id number] DIMITRI
== END 2018-04-03 10:13 | disposition home or self-care (01) ==
LOC: ED 04:00
DX: K57.92 Diverticulitis of intestine, part unspecified, without perforation or abscess without bleeding (principal); K44.9 Diaphragmatic hernia without obstruction or gangrene; K76.89 Other specified diseases of liver; K57.30 Diverticulosis of large intestine without perforation or abscess without bleeding; I10 Essential (primary) hypertension; J45.909 Unspecified asthma, uncomplicated; Z86.73 Personal history of transient ischemic attack (TIA), and cerebral infarction without residual deficits; F41.9 Anxiety disorder, unspecified; Z79.82 Long term (current) use of aspirin
CPT/HCPCS: 36415; 70450; 74177; 80053; 81003; 81015; 83690; 84484; 85025; 85610; 85730; 87086; 93005; 96361; 96374; 96375; 96376; 99284; A9270-GY; J1956; J2270; J2405; J3490; Q9967

== ENCOUNTER 2018-04-07 05:42 | Emergency (ER) | payer MEDICARE ==
[2018-04-07] MEDS ORDERED: Ondansetron ODT TAB* 4 MG PO ONE (05:49)
[2018-04-07] MEDS ORDERED: Ondansetron ODT TAB* 4 MG ONE (05:51)
[2018-04-07] MEDS ORDERED: NS 0.9% 1000 ML* 1,000 ML IV ONE (05:54)
--- NOTE | 2018-04-07 06:06 | ED ---
Abdominal Pain/Female - HPI Summary HPI Summary: Patient presents with nausea and vomiting this morning as well as abdominal pain. She was diagnosed 4 days ago diverticulitis and discharged with Levaquin and Flagyl. She reports her nausea and pain have been under control and sleeping until this morning. She's been consuming liquids however she did eat baked ziti yesterday 3 x throughout the day as she was "hungry". She has not had anything for nausea prior to arrival. She's been taking [place] for pain. Also reports left eye pain 10 out of 10. Patient had complained of this the other day as well. No associated sx. - History of Current Complaint Chief Complaint: EDNauseaVomitDiarrh Stated Complaint: ABD PAIN Time Seen by Provider: 04/07/18 05:44 Hx Obtained From: Patient Pain Intensity: 10 Allergies/Adverse Reactions: Allergies Allergy/AdvReac Type Severity Reaction Status Date / Time codeine Allergy Nausea And Verified 04/07/18 05:53 Vomiting Penicillins Allergy Nausea Verified 04/07/18 05:53 Sulfa (Sulfonamide Allergy Nausea Verified 04/07/18 05:53 Antibiotics) tramadol Allergy Nausea And Verified 04/07/18 05:53 Vomiting PMH/Surg Hx/FS Hx/Imm Hx Previously Healthy: Yes Endocrine/Hematology History: Denies: Hx Anticoagulant Therapy, Hx Blood Disorders Cardiovascular History: Reports: Hx Hypertension Denies: Hx Pacemaker/ICD Respiratory History: Reports: Hx Asthma, Hx Chronic Bronchitis Denies: Hx Chronic Obstructive Pulmonary Disease (COPD) GI History: Reports: Hx Diverticulosis, Hx Gall Bladder Disease - Cholecystectomy, Hx Hiatal Hernia - repaired, Hx Ulcer, Other GI Disorders - pancreatitis History: Reports: Hx Kidney Stones Musculoskeletal History: Reports: Hx Arthritis - knee, Hx Orthopedic Injury, Other Musculoskeletal History - "frozen shoulder" Lt side Sensory History: Reports: Hx Contacts or Glasses, Hx Eye Injury, Hx Vision Problem Denies: Hx Deafness, Hx Hearing Aid Opthamlomology History: Reports: Hx Contacts or Glasses, Hx Eye Injury, Hx Vision Problem Neurological History: 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) Psychiatric History: Reports: Hx Anxiety Denies: Hx Panic Disorder - Surgical History Surgery Procedure, Year, and Place: Hysterectomy, Tubal ligation, Cholecystectomy, RIGHT LEG ORIF, left knee arthroscopy, tonsillectomy and adenoidectomy Hx Anesthesia Reactions: No - Immunization History Date of Tetanus Vaccine: Unknown Date of Influenza Vaccine: Unknown Infectious Disease History: No Infectious Disease History: Reports: Hx Shingles Denies: Traveled Outside the [place] in Last 30 Days - Family History Known Family History: Positive: Cardiac Disease - CA in grandfather , Hypertension, Other - kidney stones (grandson), CA in father, stroke in mother - Social History Alcohol Use: None Hx Substance Use: No Substance Use Type: Reports: None Hx Tobacco Use: No Smoking Status (MU): Never Smoked Tobacco Review of Systems Constitutional: Negative Negative: Fever, Chills, Fatigue Eyes: Other - Lt eye pain Cardiovascular: Negative Respiratory: Negative Positive: Abdominal Pain, Vomiting, Nausea. Negative: Diarrhea Positive: no symptoms reported Musculoskeletal: Negative Skin: Negative Neurological: Negative Positive: Anxious All Other Systems Reviewed And Are Negative: Yes Physical Exam Triage Information Reviewed: Yes Vital Signs On Initial Exam: Initial Vitals Temp Pulse Resp BP Pulse Ox 97.5 F 82 22 139/71 100 04/07/18 05:45 04/07/18 05:45 04/07/18 05:45 04/07/18 05:45 04/07/18 05:45 Vital Signs Reviewed: Yes Appearance: Positive: Well-Appearing, Well-Nourished, Pain Distress - dry heaving upon arrival Skin: Positive: Warm, Skin Color Reflects Adequate Perfusion, Dry Head/Face: Positive: Normal Head/Face Inspection Eyes: Positive: Normal, EOMI, TREY, Conjunctiva Clear - anicteric sclera ENT: Positive: Normal ENT inspection, Hearing grossly normal, Pharynx normal Dental: Positive: Other - edentulous Neck: Positive: Supple Respiratory/Lung Sounds: Positive: Breath Sounds Present Cardiovascular: Positive: Normal Abdomen Description: Positive: No Organomegaly, Soft, Other: - mildTTP. Negative: Distended, Guarding Bowel Sounds: Positive: Present Musculoskeletal: Positive: Normal, Strength/ROM Intact Neurological: Positive: Normal, Sensory/Motor Intact, Alert, Oriented to Person Place, Time, CN Intact II-III Psychiatric: Positive: Anxious Diagnostics - Vital Signs Vital Signs Temp Pulse Resp BP Pulse Ox 04/07/18 05:45 97.5 F 82 22 139/71 100 - Laboratory Result Diagrams: 04/07/18 06:08 04/07/18 06:08 Lab Statement: Any lab studies that have been ordered have been reviewed, and results considered in the medical decision making process. Re-Evaluation - Re-Evaluation First Eval Change: Unchanged - pt vomited blue/green liquid after taking zofran Second Eval Change: Improved - pain in eye and ab improved - nausea resolved and tolerating PO liquids well - wants to go home Abdominal Pain Fem Course/Dx - Course Course Of Treatment: Pt here w/ N/V s/p eating baked ziti 3 x yesterdat fresh off of a diverticulitis dx. SUspect this was too much solid food too soon. Controlled pain, nausea nad vomiting here today. Eye pain resolved as well ( posisble from dehydration GRANADOS? Pt has ocular issues at baseline and pain here seems to be a sign of stress in her body). No neuro deficits appreciated today. Labs reveal dehydration - magnesium replaced but advised f/u to ensure improvement and r/o other potential causes. AB XR does not reveal obstruction. Provided reglan to aid in BM although pt's first solids were yesterday so probably does not have much in her bowels to move - still passing gas. Advise returning to clears and completing antibiotics and close f/u w/ PCP. If worse, return to ED - Diagnoses Provider Diagnoses: Diverticulitis, Hypomagnesemia Discharge - Sign-Out/Discharge Documenting (check all that apply): Patient Departure - Discharge Plan Condition: Stable Disposition: HOME Prescriptions: Magnesium Oxide TAB* [MagOx 400 TAB*] 400 mg PO DAILY #2 tab Patient Education Materials: Diverticulitis (ED), Acute Nausea and Vomiting (ED ), Hypomagnesemia (ED) Referrals: Matti Romero MD [Primary Care Provider] - [facility] [Outside] Additional Instructions: Continue antibiotics as directed Return to clear liquid diet until seen by PCP - call today to schedule an appoinment for this Thursday (2 days from now) It is advised that you have a repeat of your magnesium level at that time - you have been provided with 2 days of replacement in the meantime You have also been prescribed a nausea medication that may also help you move your bowels Stay hydrated *If you feel worse, develop a fever, etc, return to the ED - Billing Disposition and Condition Condition: STABLE Disposition: Home
[2018-04-07 06:18] LABS: ABS Basophils 0.1 10^3/ul (0-0.2); ABS Eosinophils 0.1 10^3/ul (0-0.6); ABS Lymphocytes 2.2 10^3/ul (1.0-4.8); ABS Monocytes 0.4 10^3/ul (0-0.8); ABS Neutrophils 1.9 10^3/ul (1.5-7.7); ABS Nucleated RBC 0 10^3/ul; Eosinophil % 2.8 %; Hematocrit 36 % (35-47); Lymphocyte % 47.1 %; Mean Corpuscular HGB Conc 33 g/dl (31-36); Mean Corpuscular Hemoglobin 26 pg (27-31); Mean Corpuscular Volume 78 fL (80-97); Mean Platelet Volume 7.5 fL (7.4-10.4); Nucleated Red Blood Cells % 0.2; Platelet Count 225 10^3/ul (150-450); Red Blood Count 4.63 10^6/ul (4.00-5.40); Red Cell Distribution Width 16 % (10.5-15); White Blood Count 4.7 10^3/ul (3.5-10.8)
[2018-04-07 06:40] LABS: Albumin 3.9 g/dL (3.2-5.2); Albumin/Globulin Ratio 1.1 (1-3); C Reactive Protein 2.95 mg/L (<8.01); Calcium 9.5 mg/dL (8.6-10.3); EGFR Non-African American 39.5 (>60); Globulin 3.7 g/dL (2-4); Magnesium 1.5 mg/dL (1.9-2.7); Potassium 3.3 mmol/L (3.5-5.0); Total Bilirubin 0.6 mg/dL (0.2-1.0); Total Protein 7.6 g/dL (6.4-8.9)
[2018-04-07] MEDS ORDERED: Magnesium Sulfate 2 GM IV* 2 GM/50 ML BAG IVPB ONE (06:52)
[2018-04-07 07:50] LABS: Urine Appearance Clear; Urine Bacteria Absent (Absent); Urine Bilirubin Negative (Negative); Urine Blood Negative (Negative); Urine Color Yellow; Urine Glucose Negative (Negative); Urine Ketones 1+ (Negative); Urine Nitrite Negative (Negative); Urine Protein Negative (Negative); Urine Red Blood Cell Absent (Absent); Urine Specific Gravity 1.016 (1.010-1.030); Urine Urobilinogen Negative (Negative); Urine White Blood Cell Trace(0-5/hpf) (Absent)
[2018-04-07] MEDS ORDERED: Metoclopramide IV* 5 MG/ML 2 ML VIAL IV ONE (08:12)
[2018-04-07 08:52] LABS: Activated Partial Thrombo Time 25.9 seconds (26.0-36.3); INR 1.17 (0.77-1.02)
[2018-04-07 10:53] VITALS: BP 130/70
--- NOTE | 2018-04-12 07:53 | PN ---
Hospitalist Progress Note Date of Service: 04/12/18 HOSPITALIST ADDENDUM Received called from [facility] to contact patient, although she has not been admitted or seen at [facility]. She was diagnosed with diverticulitis and is being treated with Levofloxacin and Flagyl. C/o nausea and constipation. Advised to contact her PCP today and return to Emergency Department if her symptoms are concerning. Provided general education about diverticulitis and answered her questions.
== END 2018-04-07 10:53 | disposition home or self-care (01) ==
LOC: ED 05:42
DX: K57.92 Diverticulitis of intestine, part unspecified, without perforation or abscess without bleeding (principal)
CPT/HCPCS: 36415; 74019; 80053; 81003; 81015; 83605; 83690; 83735; 85025; 85610; 85730; 86140; 87086; 96361; 96374; 96375; 99282; A9270-GY; J2765; J3475

== ENCOUNTER 2018-05-12 11:10 | Emergency (ER) | payer MEDICARE ==
[2018-05-12] MEDS ORDERED: Acetaminophen TAB* 325 MG PO ONE (11:44)
[2018-05-12 13:51] VITALS: BP 158/100
--- NOTE | 2018-05-12 17:47 | ED ---
Neck Pain - HPI Summary HPI Summary: Patient is a 77-year-old female who presents emergency department for neck pain and yesterday. Patient states she woke up yesterday morning with pain to her neck. She denies headache, fevers, radicular pain to arms, numbness, tingling, weakness. She denies falls or injuries. She denies chest pain or shortness of breath. Symptoms are mild in severity. Movement makes symptoms worse. Rest makes symptoms better. - History of Current Complaint Chief Complaint: EDNeckComplaint Stated Complaint: NECK PAIN Time Seen by Provider: 05/12/18 11:20 Hx Obtained From: Patient Pain Intensity: 0 - Allergies/Home Medications Allergies/Adverse Reactions: Allergies Allergy/AdvReac Type Severity Reaction Status Date / Time codeine Allergy Nausea And Verified 04/07/18 05:53 Vomiting Penicillins Allergy Nausea Verified 04/07/18 05:53 Sulfa (Sulfonamide Allergy Nausea Verified 04/07/18 05:53 Antibiotics) tramadol Allergy Nausea And Verified 04/07/18 05:53 Vomiting PMH/Surg Hx/FS Hx/Imm Hx Previously Healthy: Yes Endocrine/Hematology History: Denies: Hx Anticoagulant Therapy, Hx Blood Disorders Cardiovascular History: Reports: Hx Hypertension Denies: Hx Pacemaker/ICD Respiratory History: Reports: Hx Asthma, Hx Chronic Bronchitis Denies: Hx Chronic Obstructive Pulmonary Disease (COPD) GI History: Reports: Hx Diverticulosis, Hx Gall Bladder Disease - Cholecystectomy, Hx Hiatal Hernia - repaired, Hx Ulcer, Other GI Disorders - pancreatitis History: Reports: Hx Kidney Stones Musculoskeletal History: Reports: Hx Arthritis - knee, Hx Orthopedic Injury, Other Musculoskeletal History - "frozen shoulder" Lt side Sensory History: Reports: Hx Contacts or Glasses, Hx Eye Injury, Hx Vision Problem Denies: Hx Deafness, Hx Hearing Aid Opthamlomology History: Reports: Hx Contacts or Glasses, Hx Eye Injury, Hx Vision Problem Neurological History: 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) Psychiatric History: Reports: Hx Anxiety Denies: Hx Panic Disorder - Surgical History Surgery Procedure, Year, and Place: Hysterectomy, Tubal ligation, Cholecystectomy, RIGHT LEG ORIF, left knee arthroscopy, tonsillectomy and adenoidectomy Hx Anesthesia Reactions: No - Immunization History Date of Tetanus Vaccine: Unknown Date of Influenza Vaccine: Unknown Infectious Disease History: No Infectious Disease History: Reports: Hx Shingles Denies: Traveled Outside the [place] in Last 30 Days - Family History Known Family History: Positive: Cardiac Disease - [place] in grandfather , Hypertension, Other - kidney stones (grandson), [place] in father, stroke in mother - Social History Occupation: Retired Lives: Alone Alcohol Use: None Hx Substance Use: No Substance Use Type: Reports: None Hx Tobacco Use: No Smoking Status (MU): Never Smoked Tobacco Review of Systems Constitutional: Negative Negative: Fever, Chills Eyes: Negative ENT: Negative Cardiovascular: Negative Respiratory: Negative Positive: Other - neck pain Neurological: Negative Negative: Headache, Weakness, Paresthesia, Numbness, Syncope All Other Systems Reviewed And Are Negative: Yes Physical Exam Triage Information Reviewed: Yes Vital Signs On Initial Exam: Initial Vitals Temp Pulse Resp BP Pulse Ox 98.7 F 103 20 155/104 97 05/12/18 11:18 05/12/18 11:18 05/12/18 11:18 05/12/18 11:18 05/12/18 11:18 Vital Signs Reviewed: Yes Appearance: Positive: Well-Appearing - Pt. sitting up in bed in NAD. Skin: Positive: Warm, Dry Head/Face: Positive: Normal Head/Face Inspection Eyes: Positive: Normal, EOMI Neck: Positive: Supple, Other: - Pain on palpation to posterior neck. Pain and limitation with rotation.. Negative: Nuchal Rigidity Respiratory/Lung Sounds: Positive: Clear to Auscultation, Breath Sounds Present Cardiovascular: Positive: Normal, RRR Musculoskeletal: Positive: Normal, Strength/ROM Intact Neurological: Positive: Normal, Alert, Oriented to Person Place, Time, CN Intact II-III Psychiatric: Positive: Affect/Mood Appropriate Diagnostics - Vital Signs Vital Signs Temp Pulse Resp BP Pulse Ox 05/12/18 13:50 97.7 F 94 16 158/100 97 05/12/18 11:18 98.7 F 103 20 155/104 97 - Laboratory Lab Statement: Any lab studies that have been ordered have been reviewed, and results considered in the medical decision making process. Neck Course/Dx - Course Course Of Treatment: Patient presenting with neck pain after she woke up yesterday from sleep. She is afebrile. Blood pressure initially elevated which improved. Patient's exam is unremarkable. Suspect muscle spasm, strain, torticollis. Did check this and x-ray which showed degenerative changes without acute findings, reading per radiology. Patient was given a dose of Tylenol for pain. On reexamination patient states her pain has improved and she is requesting to be discharged in the emergency department. She also requested a tuna sandwich stating she is hungry. Advised to apply warm compresses to neck. Gentle stretching. Tylenol for pain as directed. To call morning family doctor today for close follow-up appointment and return to the ER if symptoms change or worsen. Patient understands and agrees with plan. - Diagnoses Differential Dx/HQI/PQRI: Positive: Arthritis, Cervical Fracture, Sprain, Strain , Torticollis, Trauma Provider Diagnoses: Muscle spasm, Neck pain Discharge - Sign-Out/Discharge Documenting (check all that apply): Patient Departure Patient Received Moderate/Deep Sedation with Procedure: No - Discharge Plan Condition: Improved Disposition: HOME Patient Education Materials: Spasmodic Torticollis (ED) Referrals: Matti Romero MD [Primary Care Provider] - Additional Instructions: Call PCP today for a close follow up appointment Apply warm compresses to neck Gentle stretching Tylenol for pain as directed Return to ER if symptoms change or worsen - Billing Disposition and Condition Condition: IMPROVED Disposition: Home
== END 2018-05-12 13:50 | disposition home or self-care (01) ==
LOC: ED 11:10
DX: M54.2 Cervicalgia (principal); M62.838 Other muscle spasm; I10 Essential (primary) hypertension; F41.9 Anxiety disorder, unspecified; J45.909 Unspecified asthma, uncomplicated; Z87.442 Personal history of urinary calculi; Z88.5 Allergy status to narcotic agent; Z88.0 Allergy status to penicillin
CPT/HCPCS: 72040; 99282; A9270-GY

== ENCOUNTER 2018-05-13 06:53 | Emergency (ER) | payer MEDICARE ==
--- NOTE | 2018-05-13 08:01 | ED ---
Neck Pain - HPI Summary HPI Summary: This patient is a 77 y/o female who was brought in by [facility] ambulance presenting to the ED with a chief complaint of neck spasms since 05:00 . She rates her pain as a 10/10 in severity. She reports that her pain radiates to her head and her shoulders. She reports that she had similar pain the morning of 05/13/18 and came to the ED. After her pain was relieved in the ED she was discharged and was instructed to come back to the ED if she had this pain again. She experienced the pain this morning, claiming that she woke up and couldn't turn her head. She denies taking any pain medication. - History of Current Complaint Chief Complaint: EDNeckComplaint Stated Complaint: MUSCLE SPAS Time Seen by Provider: 05/13/18 07:20 Hx Obtained From: Patient Onset/Duration Of Injury/Symptoms: Hours Timing: Lasting Hours Onset/Duration: Started hours ago Severity Initially: Severe Severity Currently: Severe Pain Intensity: 10 Pain Scale Used: 0-10 Numeric Location: Radiates To: - head and shoulders Character: Spasmotic Aggravating Factors: Nothing Alleviating Factors: Nothing Associated Signs & Symptoms: Negative: Fever - Allergies/Home Medications Allergies/Adverse Reactions: Allergies Allergy/AdvReac Type Severity Reaction Status Date / Time codeine Allergy Nausea And Verified 04/07/18 05:53 Vomiting Penicillins Allergy Nausea Verified 04/07/18 05:53 Sulfa (Sulfonamide Allergy Nausea Verified 04/07/18 05:53 Antibiotics) tramadol Allergy Nausea And Verified 04/07/18 05:53 Vomiting PMH/Surg Hx/FS Hx/Imm Hx Endocrine/Hematology History: Denies: Hx Anticoagulant Therapy, Hx Blood Disorders Cardiovascular History: Reports: Hx Hypertension Denies: Hx Pacemaker/ICD Respiratory History: Reports: Hx Asthma, Hx Chronic Bronchitis Denies: Hx Chronic Obstructive Pulmonary Disease (COPD) GI History: Reports: Hx Diverticulosis, Hx Gall Bladder Disease - Cholecystectomy, Hx Hiatal Hernia - repaired, Hx Ulcer, Other GI Disorders - pancreatitis History: Reports: Hx Kidney Stones Musculoskeletal History: Reports: Hx Arthritis - knee, Hx Orthopedic Injury, Other Musculoskeletal History - "frozen shoulder" Lt side Sensory History: Reports: Hx Contacts or Glasses, Hx Eye Injury, Hx Vision Problem Denies: Hx Deafness, Hx Hearing Aid Opthamlomology History: Reports: Hx Contacts or Glasses, Hx Eye Injury, Hx Vision Problem Neurological History: 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) Psychiatric History: Reports: Hx Anxiety Denies: Hx Panic Disorder - Surgical History Surgery Procedure, Year, and Place: Hysterectomy, Tubal ligation, Cholecystectomy, RIGHT LEG ORIF, left knee arthroscopy, tonsillectomy and adenoidectomy Hx Anesthesia Reactions: No - Immunization History Date of Tetanus Vaccine: Unknown Date of Influenza Vaccine: Unknown Infectious Disease History: No Infectious Disease History: Reports: Hx Shingles Denies: Traveled Outside the [place] in Last 30 Days - Family History Known Family History: Positive: Cardiac Disease - [place] in grandfather , Hypertension, Other - kidney stones (grandson), [place] in father, stroke in mother - Social History Alcohol Use: None Hx Substance Use: No Substance Use Type: Reports: None Hx Tobacco Use: No Smoking Status (MU): Never Smoked Tobacco Review of Systems Negative: Fever ENT: Other - positive: neck pain radiating to head and shoulders All Other Systems Reviewed And Are Negative: Yes Physical Exam - Summary Physical Exam Summary: Appearance: The patient is well-nourished in no acute distress and in no acute pain. Skin: The skin is warm and dry and skin color reflects adequate perfusion. HEENT: The head is normocephalic and atraumatic. The pupils are equal and reactive. The conjunctivae are clear and without drainage. Nares are patent and without drainage. Mouth reveals moist mucous membranes and the throat is without erythema and exudate. The external ears are intact. The ear canals are patent and without drainage. The tympanic membranes are intact. Neck: Tender paracervical area. No meningeal signs. There are no carotid bruits. There is no neck vein distension. Respiratory: Chest is non-tender. Lungs are clear to auscultation and breath sounds are symmetrical and equal. Cardiovascular: Heart is regular rate and rhythm. There is no murmur or rub auscultated. There is no peripheral edema and pulses are symmetrical and equal. Abdomen: The abdomen is soft and non-tender. There are normal bowel sounds heard in all four quadrants and there is no organomegaly palpated. Musculoskeletal: There is no back tenderness noted. Extremities are non-tender with full range of motion. There is good capillary refill. There is no peripheral edema or calf tenderness elicited. Neurological: Patient is alert and oriented to person, place and time. The patient has symmetrical motor strength in all four extremities. Cranial nerves are grossly intact. Deep tendon reflexes are symmetrical and equal in all four extremities. Psychiatric: The patient has an appropriate affect and does not exhibit any anxiety or depression. Triage Information Reviewed: Yes Vital Signs On Initial Exam: Initial Vitals Temp Pulse Resp BP Pulse Ox 96.2 F 103 20 125/90 98 05/13/18 06:54 05/13/18 06:54 05/13/18 06:54 05/13/18 06:54 05/13/18 06:54 Vital Signs Reviewed: Yes Diagnostics - Vital Signs Vital Signs Temp Pulse Resp BP Pulse Ox 05/13/18 07:56 18 114/85 97 05/13/18 06:54 96.2 F 103 20 125/90 98 - Laboratory Lab Statement: Any lab studies that have been ordered have been reviewed, and results considered in the medical decision making process. - CT cervical spine CT Interpretation Completed By: Radiologist Summary of CT Findings: Multilevel degenerative disc disease. No fracture is identified. ED physician has reviewed this imaging report. Re-Evaluation - Re-Evaluation First Eval Re-Evaluation Time: 09:30 Change: Unchanged Comment: Patient still reports pain, claiming that the medicine is not helping. Neck Course/Dx - Course Course Of Treatment: Ms. Koch was seen here in the emergency department yesterday after having awakened with neck spasms. She improved here in the department with ibuprofen apparently and was discharged with symptomatic treatment. She did feel better at home on then the same thing occurred this morning when she woke up at 5 AM. She comes in complaining of spasm of her neck. She is nontoxic in appearance with stable vital signs. She's tender paracervically without meningeal signs. CT scan showed only degenerative disc disease and she improved here with pain medications again. I recommended a short course of pain medication and follow-up with PCP. - Diagnoses Provider Diagnoses: Cervical strain Discharge - Sign-Out/Discharge Documenting (check all that apply): Patient Departure - DC Patient Received Moderate/Deep Sedation with Procedure: No - Discharge Plan Condition: Stable Disposition: HOME Prescriptions: HYDROcodone/ACETAMIN 5-325 MG* [[place] 5-325 TAB*] 1 tab PO Q6H PRN #20 tab MDD 4 PRN Reason: Pain Referrals: Matti Romero MD [Primary Care Provider] - (2-3 days) Additional Instructions: Return to the ED if you experience any new or worsening symptoms. - Billing Disposition and Condition Condition: STABLE Disposition: Home - Attestation Statements Document Initiated by Dari: Yes Documenting Scribe: Bryan Ramos Provider For Whom Dari is Documenting (Include Credential): Alexei Olivera MD Scribe Attestation: I, Bryan Ramos, scribed for Alexei Olivera MD on 05/13/18 at 1732. Scribe Documentation Reviewed: Yes Provider Attestation: The documentation as recorded by the Bryan begum accurately reflects the service I personally performed and the decisions made by me, Alexei Olivera MD Status of Scribe Document: Viewed
[2018-05-13] MEDS ORDERED: LORazepam TAB(*) 1 MG PO ONE (08:04)
[2018-05-13] MEDS ORDERED: HYDROcodone/ACETAMIN 5-325 MG* 1 TAB PO ONE (09:31)
[2018-05-13] MEDS ORDERED: Ondansetron ODT TAB* 4 MG ONE (10:59)
[2018-05-13] MEDS ORDERED: Ondansetron ODT TAB* 4 MG PO ONE (11:00)
[2018-05-13 11:19] VITALS: BP 121/78
== END 2018-05-13 11:18 | disposition home or self-care (01) ==
LOC: ED 06:53
DX: S16.1XXA Strain of muscle, fascia and tendon at neck level, initial encounter (principal); X58.XXXA Exposure to other specified factors, initial encounter; Y92.9 Unspecified place or not applicable; M50.323 Other cervical disc degeneration at C6-C7 level; Z88.5 Allergy status to narcotic agent; Z88.0 Allergy status to penicillin; Z88.2 Allergy status to sulfonamides
CPT/HCPCS: 72125; 99283; A9270-GY

== ENCOUNTER 2018-05-14 04:02 | Emergency (ER) | payer MEDICARE ==
--- NOTE | 2018-05-14 04:27 | ED ---
Neck Pain - HPI Summary HPI Summary: This patient is a 77 year old female presenting to the emergency department with a chief complaint of neck pain that has been ongoing for three days. She was seen in the ED for this 2 other times and received a CT scan yesterday. She rates the pain 10/10 in severity. She states she cannot buy her medication and she keeps returning to the ED for medication. She refused bloodwork and cardiac work up. - History of Current Complaint Chief Complaint: EDNeckComplaint Stated Complaint: GENERAL Hx Obtained From: Patient Timing: Constant Onset/Duration: Still Present Severity Initially: Severe Severity Currently: Severe Pain Intensity: 10 Pain Scale Used: 0-10 Numeric - Allergies/Home Medications Allergies/Adverse Reactions: Allergies Allergy/AdvReac Type Severity Reaction Status Date / Time codeine Allergy Nausea And Verified 04/07/18 05:53 Vomiting Penicillins Allergy Nausea Verified 04/07/18 05:53 Sulfa (Sulfonamide Allergy Nausea Verified 04/07/18 05:53 Antibiotics) tramadol Allergy Nausea And Verified 04/07/18 05:53 Vomiting PMH/Surg Hx/FS Hx/Imm Hx Endocrine/Hematology History: Denies: Hx Anticoagulant Therapy, Hx Blood Disorders Cardiovascular History: Reports: Hx Hypertension Denies: Hx Pacemaker/ICD Respiratory History: Reports: Hx Asthma, Hx Chronic Bronchitis Denies: Hx Chronic Obstructive Pulmonary Disease (COPD) GI History: Reports: Hx Diverticulosis, Hx Gall Bladder Disease - Cholecystectomy, Hx Hiatal Hernia - repaired, Hx Ulcer, Other GI Disorders - pancreatitis History: Reports: Hx Kidney Stones Musculoskeletal History: Reports: Hx Arthritis - knee, Hx Orthopedic Injury, Other Musculoskeletal History - "frozen shoulder" Lt side Sensory History: Reports: Hx Contacts or Glasses, Hx Eye Injury, Hx Vision Problem Denies: Hx Deafness, Hx Hearing Aid Opthamlomology History: Reports: Hx Contacts or Glasses, Hx Eye Injury, Hx Vision Problem Neurological History: 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) Psychiatric History: Reports: Hx Anxiety Denies: Hx Panic Disorder - Surgical History Surgery Procedure, Year, and Place: Hysterectomy, Tubal ligation, Cholecystectomy, RIGHT LEG ORIF, left knee arthroscopy, tonsillectomy and adenoidectomy Hx Anesthesia Reactions: No - Immunization History Date of Tetanus Vaccine: Unknown Date of Influenza Vaccine: Unknown Infectious Disease History: No Infectious Disease History: Reports: Hx Shingles Denies: Traveled Outside the [place] in Last 30 Days - Family History Known Family History: Positive: Cardiac Disease - [place] in grandfather , Hypertension, Other - kidney stones (grandson), [place] in father, stroke in mother - Social History Alcohol Use: None Hx Substance Use: No Substance Use Type: Reports: None Hx Tobacco Use: No Smoking Status (MU): Never Smoked Tobacco Review of Systems Negative: Fever Positive: Other - neck pain All Other Systems Reviewed And Are Negative: Yes Physical Exam - Summary Physical Exam Summary: Appearance: Well appearing, no pain distress Skin: warm, dry, reflects adequate perfusion Head/face: normal Eyes: EOMI, TREY ENT: normal Neck: , spasm on the left. collar neck Respiratory: CTA, breath sounds present Cardiovascular: RRR, pulses symmetrical Abdomen: non-tender, soft Musculoskeletal: normal, strength/ROM intact Neuro: normal, sensory motor intact, A&Ox3 Triage Information Reviewed: Yes Vital Signs On Initial Exam: Initial Vitals Temp Pulse Resp BP Pulse Ox 97.9 F 95 18 116/73 98 05/14/18 04:08 05/14/18 04:08 05/14/18 04:08 05/14/18 04:08 05/14/18 04:08 Vital Signs Reviewed: Yes Diagnostics - Vital Signs Vital Signs Temp Pulse Resp BP Pulse Ox 05/14/18 04:08 97.9 F 95 18 116/73 98 - Laboratory Lab Statement: Any lab studies that have been ordered have been reviewed, and results considered in the medical decision making process. Neck Course/Dx - Course Assessment/Plan: This patient is a 77 year old female presenting to the emergency department with a chief complaint of neck pain that has been ongoing for three days. She was seen in the ED for this 2 other times and received a CT scan yesterday. She rates the pain 10/10 in severity. She states she cannot buy her medication and she keeps returning to the ED for medication. The patient is refusing bloodwork and work up. She is only here for pain relief. She claims she has a plan to go to the pharmacy today to retrieve her medications that she was discharged with from previous visits. She will be d/c and f/u with PCP - Diagnoses Differential Dx/HQI/PQRI: Positive: Sprain, Strain Provider Diagnoses: Neck sprain Discharge - Sign-Out/Discharge Documenting (check all that apply): Patient Departure Patient Received Moderate/Deep Sedation with Procedure: No - Discharge Plan Condition: Stable Disposition: HOME Patient Education Materials: Muscle Spasm (ED) Referrals: Matti Romero MD [Primary Care Provider] - Additional Instructions: Follow up with your primary care physician in 1-3 days. RETURN TO THE EMERGENCY DEPARTMENT FOR CHANGING OR WORSENING SYMPTOMS. - Billing Disposition and Condition Condition: STABLE Disposition: Home - Attestation Statements Document Initiated by Scribe: Yes Documenting Scribe: Kwaku Barrera Provider For Whom Dari is Documenting (Include Credential): Sesar Arnold MD Scribe Attestation: Kwaku Mcwilliams , scribed for Sesar Arnold MD on 05/14/18 at 0450. Scribe Documentation Reviewed: Yes Provider Attestation: The documentation as recorded by the Kwaku begum accurately reflects the service I personally performed and the decisions made by Sesar pisano MD Status of Scribe Document: Viewed
[2018-05-14] MEDS ORDERED: oxyCODONE/Acetamin 5/325 MG* TAB PO ONE (04:33)
[2018-05-14 05:16] VITALS: BP 108/78
== END 2018-05-14 05:21 | disposition home or self-care (01) ==
LOC: ED 04:02
DX: S13.9XXA Sprain of joints and ligaments of unspecified parts of neck, initial encounter (principal); M54.2 Cervicalgia; Z88.0 Allergy status to penicillin; Z88.2 Allergy status to sulfonamides; I10 Essential (primary) hypertension; Z86.73 Personal history of transient ischemic attack (TIA), and cerebral infarction without residual deficits; X58.XXXA Exposure to other specified factors, initial encounter; Y92.9 Unspecified place or not applicable
CPT/HCPCS: 99282; A9270-GY

== ENCOUNTER 2018-06-30 21:53 | Emergency (ER) | payer MEDICARE ==
[2018-06-30] MEDS ORDERED: Albuterol/Ipratropium NEB.SOL* Albuterol 2.5 MG/Ipratropium 0.5 MG 3 ML INH ONE (22:17)
[2018-06-30] MEDS ORDERED: Albuterol 2.5 MG/3 ML NEB.SOL* (0.083%) INH ONE (22:17)
--- NOTE | 2018-06-30 22:18 | ED ---
Respiratory - HPI Summary HPI Summary: This patient is a 78 year old F presenting to ED with a chief complaint of SOB and cough since 1 week ago. She says she has phlegm in my chest that sticks in my throat, and I cant get it out. The patient rates the pain 7/10 in severity. Symptoms aggravated by deep breaths. Symptoms alleviated by nothing ( used her inhaler but to no relief). Patient reports CP secondary to cough and difficulty swallowing. PMHx of asthma. - History of Current Complaint Chief Complaint: EDShortnessOfBreath Stated Complaint: SOB PER EMS Time Seen by Provider: 06/30/18 22:09 Hx Obtained From: Patient Onset/Duration: Sudden Onset, Lasting Weeks - since 1 week ago, Still Present Timing: Constant Aggravating Factor(s): Deep Breaths Alleviating Factor(s): Nothing - used inhaler to no relief Associated Signs and Symptoms: SOB, Chest Pain with Cough - Allergy/Home Medications Allergies/Adverse Reactions: Allergies Allergy/AdvReac Type Severity Reaction Status Date / Time codeine Allergy Nausea And Verified 06/24/18 09:55 Vomiting Penicillins Allergy Nausea Verified 06/24/18 09:55 Sulfa (Sulfonamide Allergy Nausea Verified 06/24/18 09:55 Antibiotics) tramadol Allergy Nausea And Verified 06/24/18 09:55 Vomiting PMH/Surg Hx/FS Hx/Imm Hx Endocrine/Hematology History: Denies: Hx Anticoagulant Therapy, Hx Blood Disorders, Hx Diabetes, Hx Thyroid Disease Cardiovascular History: Reports: Hx Hypertension Denies: Hx Pacemaker/ICD, Hx Peripheral Vascular Disease Respiratory History: Reports: Hx Asthma, Hx Chronic Bronchitis Denies: Hx Chronic Obstructive Pulmonary Disease (COPD) GI History: Reports: Hx Diverticulosis, Hx Gall Bladder Disease - Cholecystectomy, Hx Hiatal Hernia - repaired, Hx Ulcer, Other GI Disorders - pancreatitis History: Reports: Hx Kidney Stones Musculoskeletal History: Reports: Hx Arthritis - knee, Hx Orthopedic Injury, Other Musculoskeletal History - "frozen shoulder" Lt side Denies: Hx Osteoporosis Sensory History: Reports: Hx Contacts or Glasses, Hx Eye Injury, Hx Vision Problem Denies: Hx Cataracts, Hx Glaucoma, Hx Deafness, Hx Hearing Aid Opthamlomology History: Reports: Hx Contacts or Glasses, Hx Eye Injury, Hx Vision Problem Denies: Hx Cataracts, Hx Glaucoma Neurological History: Reports: Hx Headaches, Hx Transient Ischemic Attacks (TIA) Denies: Hx Seizures Psychiatric History: Reports: Hx Anxiety Denies: Hx Depression, Hx Panic Disorder - Surgical History Surgery Procedure, Year, and Place: Hysterectomy, Tubal ligation, Cholecystectomy, RIGHT LEG ORIF, left knee arthroscopy, tonsillectomy and adenoidectomy Hx Anesthesia Reactions: No - Immunization History Date of Tetanus Vaccine: Unknown Date of Influenza Vaccine: Unknown Infectious Disease History: Reports: Hx Shingles - Family History Known Family History: Positive: Cardiac Disease - [place] in grandfather , Hypertension, Other - kidney stones (grandson), [place] in father, stroke in mother - Social History Alcohol Use: None Hx Substance Use: No Substance Use Type: Reports: None Hx Tobacco Use: No Smoking Status (MU): Never Smoked Tobacco Review of Systems Positive: Other - difficulty swallowing Positive: Chest Pain - secondary to cough Positive: Shortness Of Breath, Cough All Other Systems Reviewed And Are Negative: Yes Physical Exam - Summary Physical Exam Summary: VITAL SIGNS: Reviewed. GENERAL: Patient is a well-developed and nourished FEMALE who is lying comfortable in the stretcher. Patient is not in any acute respiratory distress. HEAD AND FACE: No signs of trauma. No ecchymosis, hematomas or skull depressions. No sinus tenderness. EYES: PERRLA, EOMI x 2, No injected conjunctiva, no nystagmus. EARS: Hearing grossly intact. Ear canals and tympanic membranes are within normal limits. MOUTH: Oropharynx within normal limits. NECK: Supple, trachea is midline, no adenopathy, no JVD, no carotid bruit, no c- spine tenderness, neck with full ROM. CHEST: Symmetric, no tenderness at palpation LUNGS: Clear to auscultation bilaterally. No wheezing or crackles. Decreased breath sounds bilaterally. CVS: Regular rate and rhythm, S1 and S2 present, no murmurs or gallops appreciated. ABDOMEN: Soft, non-tender. No signs of distention. No rebound no guarding, and no masses palpated. Bowel sounds are normal. EXTREMITIES: FROM in all major joints, no edema, no cyanosis or clubbing. NEURO: Alert and oriented x 3. No acute neurological deficits. Speech is normal and follows commands. SKIN: Dry and warm Triage Information Reviewed: Yes Vital Signs On Initial Exam: Initial Vitals BP 109/82 06/30/18 22:09 Vital Signs Reviewed: Yes Diagnostics - Laboratory Lab Statement: Any lab studies that have been ordered have been reviewed, and results considered in the medical decision making process. - Radiology CXR Radiology Interpretation Completed By: ED Physician Summary of Radiographic Findings: No acute processes. Pending radiologist official report. Re-Evaluation - Re-Evaluation First Eval Re-Evaluation Time: 23:49 Comment: Discussed results with the patient. Patient feels better in the ED and wants to go home. Discussed plan for discharge. Patient understands and agrees with this plan. Disposition - Course Assessment/Plan: This patient is a 78 year old F presenting to ED with a chief complaint of cough since 1 week ago. In the ED course, the patient was given Ventolin, duoneb, Xanax, and Deltasone. CXR, per ED physician, reveals no acute processes. The patient feels better in the ED and wants to go home. Patient will be discharged with dx of anxiety and asthma. Patient understands and agrees with this plan. - Differential Dx - Cardiopulmonary Differential Diagnoses - Cardiopulmonary: Asthma, Other - anxiety - Diagnoses Provider Diagnoses: Asthma, Anxiety Discharge - Sign-Out/Discharge Documenting (check all that apply): Patient Departure - discharge Patient Received Moderate/Deep Sedation with Procedure: No - Discharge Plan Condition: Stable Disposition: HOME Prescriptions: predniSONE TAB* [Deltasone TAB*] 50 mg PO DAILY #5 tab Patient Education Materials: Asthma (ED), Anxiety (ED) Referrals: Matti Romero MD [Primary Care Provider] - (Follow up in 1-2 days.) Additional Instructions: PLEASE RETURN TO THE ED TO IMMEDIATELY FOR WORSENING OR CONCERNING SYMPTOMS. - Attestation Statements Document Initiated by Scribe: Yes Documenting Scribe: Jony Knutson Provider For Whom Dari is Documenting (Include Credential): Devi Coates MD Scribe Attestation: Jony Mcwilliams, scribed for Devi Coates MD on 06/30/18 at 2350. Status of Scribe Document: Ready
[2018-06-30] MEDS ORDERED: ALPRAZolam TAB* 0.5 MG PO ONE (22:19)
[2018-06-30] MEDS ORDERED: predniSONE TAB* 50 MG PO ONE (23:02)
[2018-06-30 23:53] VITALS: BP 116/78
[2018-07-01] MEDS ORDERED: predniSONE TAB* 50 MG PO SCH (09:00)
== END 2018-07-01 00:06 | disposition home or self-care (01) ==
LOC: ED 21:53
DX: J45.909 Unspecified asthma, uncomplicated (principal); F41.9 Anxiety disorder, unspecified; R06.02 Shortness of breath; R07.9 Chest pain, unspecified; R05 Cough; Z88.6 Allergy status to analgesic agent; Z88.0 Allergy status to penicillin; Z88.2 Allergy status to sulfonamides; I10 Essential (primary) hypertension
CPT/HCPCS: 71045; 99282; A9270-GY; J7512

== ENCOUNTER 2018-07-01 07:37 | Emergency (ER) | payer MEDICARE ==
[2018-07-01] MEDS ORDERED: GuaiFENesin DM* 5 ML UDC PO ONE (07:55)
--- NOTE | 2018-07-01 07:59 | ED ---
Asthma - HPI Summary HPI Summary: A 78 y/o female brought in by [facility] ambulance presents to [facility] with a chief complaint of SOB due to asthma since 04:00 today. At triage she rated her pain as a 0/10 in severity. She was in the ED last night where she reports being treated with two inhalers and prednisone. At 04:00 she reports that she was coughing and was unable to cough out what she feels like is stuck in her chest. She also reports that her chest is sore from coughing. She tried her nebulizer at home but it hasnt alleviated her pain. Vital signs while in room HR: 100bpm , O2 Sat: 99, BP:126/73. - History of Current Complaint Chief Complaint: EDAsthma Stated Complaint: SOB/ASTHMA PER EMS Time Seen by Provider: 07/01/18 07:46 Hx Obtained From: Patient Onset/Duration: Sudden Onset, Lasting Hours, Still Present Timing: Hours Initial Severity: Mild Current Severity: Mild Pain Intensity: 0 Pain Scale Used: 0-10 Numeric Location/Character: Cough (Nonproductive) Aggravating Symptoms: Nothing Alleviating Symptoms: Nothing Associated Signs and Symptoms: Positive: Shortness of Breath, Other - cough, chest soreness - Allergy/Home Medications Allergies/Adverse Reactions: Allergies Allergy/AdvReac Type Severity Reaction Status Date / Time codeine Allergy Nausea And Verified 06/24/18 09:55 Vomiting Penicillins Allergy Nausea Verified 06/24/18 09:55 Sulfa (Sulfonamide Allergy Nausea Verified 06/24/18 09:55 Antibiotics) tramadol Allergy Nausea And Verified 06/24/18 09:55 Vomiting PMH/Surg Hx/FS Hx/Imm Hx Endocrine/Hematology History: Denies: Hx Anticoagulant Therapy, Hx Blood Disorders, Hx Diabetes, Hx Thyroid Disease Cardiovascular History: Reports: Hx Hypertension Denies: Hx Pacemaker/ICD, Hx Peripheral Vascular Disease Respiratory History: Reports: Hx Asthma, Hx Chronic Bronchitis Denies: Hx Chronic Obstructive Pulmonary Disease (COPD) GI History: Reports: Hx Diverticulosis, Hx Gall Bladder Disease - Cholecystectomy, Hx Hiatal Hernia - repaired, Hx Ulcer, Other GI Disorders - pancreatitis History: Reports: Hx Kidney Stones Musculoskeletal History: Reports: Hx Arthritis - knee, Hx Orthopedic Injury, Other Musculoskeletal History - "frozen shoulder" Lt side Denies: Hx Osteoporosis Sensory History: Reports: Hx Contacts or Glasses, Hx Eye Injury, Hx Vision Problem Denies: Hx Cataracts, Hx Glaucoma, Hx Deafness, Hx Hearing Aid Opthamlomology History: Reports: Hx Contacts or Glasses, Hx Eye Injury, Hx Vision Problem Denies: Hx Cataracts, Hx Glaucoma Neurological History: Reports: Hx Headaches, Hx Transient Ischemic Attacks (TIA) Denies: Hx Seizures Psychiatric History: Reports: Hx Anxiety Denies: Hx Depression, Hx Panic Disorder - Surgical History Surgery Procedure, Year, and Place: Hysterectomy, Tubal ligation, Cholecystectomy, RIGHT LEG ORIF, left knee arthroscopy, tonsillectomy and adenoidectomy Hx Anesthesia Reactions: No - Immunization History Date of Tetanus Vaccine: Unknown Date of Influenza Vaccine: Unknown Infectious Disease History: No Infectious Disease History: Reports: Hx Shingles Denies: Traveled Outside the [place] in Last 30 Days - Family History Known Family History: Positive: Cardiac Disease - [place] in grandfather , Hypertension, Other - kidney stones (grandson), [place] in father, stroke in mother - Social History Alcohol Use: None Hx Substance Use: No Substance Use Type: Reports: None Hx Tobacco Use: No Smoking Status (MU): Never Smoked Tobacco Review of Systems Negative: Fever Positive: Other - positive: chest soreness from cough Positive: Shortness Of Breath, Cough All Other Systems Reviewed And Are Negative: Yes Physical Exam - Summary Physical Exam Summary: Appearance: The patient is well-nourished in no acute distress and in no acute pain. Skin: The skin is warm and dry and skin color reflects adequate perfusion. HEENT: The head is normocephalic and atraumatic. The pupils are equal and reactive. The conjunctivae are clear and without drainage. Nares are patent and without drainage. Mouth reveals moist mucous membranes and the throat is without erythema and exudate. The external ears are intact. The ear canals are patent and without drainage. The tympanic membranes are intact. Neck: The neck is supple with full range of motion and non-tender. There are no carotid bruits. There is no neck vein distension. Respiratory: Chest is non-tender. Lungs are clear to auscultation and patient is mildly tachypnic.. Cardiovascular: Heart is regular rate and rhythm. There is no murmur or rub auscultated. There is no peripheral edema and pulses are symmetrical and equal. Abdomen: The abdomen is soft and non-tender. There are normal bowel sounds heard in all four quadrants and there is no organomegaly palpated. Musculoskeletal: There is no back tenderness noted. Extremities are non-tender with full range of motion. There is good capillary refill. There is no peripheral edema or calf tenderness elicited. Neurological: Patient is alert and oriented to person, place and time. The patient has symmetrical motor strength in all four extremities. Cranial nerves are grossly intact. Deep tendon reflexes are symmetrical and equal in all four extremities. Psychiatric: The patient has an appropriate affect and does not exhibit any anxiety or depression. Triage Information Reviewed: Yes Vital Signs On Initial Exam: Initial Vitals Temp Pulse Resp BP Pulse Ox 97.8 F 101 22 126/73 100 07/01/18 07:41 07/01/18 07:41 07/01/18 07:41 07/01/18 07:41 07/01/18 07:41 Vital Signs Reviewed: Yes Diagnostics - Vital Signs Vital Signs Temp Pulse Resp BP Pulse Ox 07/01/18 07:42 92 126/73 98 07/01/18 07:41 97.8 F 101 22 126/73 100 - Laboratory Lab Statement: Any lab studies that have been ordered have been reviewed, and results considered in the medical decision making process. Re-Evaluation - Re-Evaluation First Eval Re-Evaluation Time: 09:27 Change: Unchanged Comment: says cough still isn't coming up, requesting pain medication Asthma Course/Dx - Course Course Of Treatment: Ms. Koch presented C/O coughing that awakened her about 0400. It hurts her chest when she coughs and she is askiing for a cough medicine. She improved here with guaifenesin with dextromethoraphan and ketorolac. - Diagnoses Provider Diagnoses: Cough, Asthma Discharge - Sign-Out/Discharge Documenting (check all that apply): Patient Departure - DC Patient Received Moderate/Deep Sedation with Procedure: No - Discharge Plan Condition: Stable Disposition: HOME Patient Education Materials: Asthma (DC) Referrals: Matti Romero MD [Primary Care Provider] - (2-3 days) Additional Instructions: Follow up with your PCP. Return to the ED if you experience any new or worsening symptoms. - Billing Disposition and Condition Condition: STABLE Disposition: Home - Attestation Statements Document Initiated by Scribe: Yes Documenting Scribe: Bryan Ramos Provider For Whom Scribe is Documenting (Include Credential): Alexei Olivera MD Scribe Attestation: I, Bryan Ramos, scribed for Alexei Olivera MD on 07/01/18 at 1047. Scribe Documentation Reviewed: Yes Provider Attestation: The documentation as recorded by the scribe, Bryan Ramos accurately reflects the service I personally performed and the decisions made by me, Alexei Olivera MD Status of Scribe Document: Viewed
[2018-07-01] MEDS ORDERED: Ketorolac INJ* 30 MG/ML 1 ML VIAL IM ONE (09:40)
[2018-07-01] MEDS ORDERED: GuaiFENesin DM* 5 ML UDC PO PRN (10:15)
[2018-07-01 10:27] VITALS: BP 110/64
== END 2018-07-01 10:27 | disposition home or self-care (01) ==
LOC: ED 07:37
DX: J45.909 Unspecified asthma, uncomplicated (principal); R05 Cough; Z88.5 Allergy status to narcotic agent; Z88.0 Allergy status to penicillin; Z88.2 Allergy status to sulfonamides; I10 Essential (primary) hypertension
CPT/HCPCS: 96372; 99282; A9270-GY; J1885

== ENCOUNTER 2018-07-01 15:19 | Emergency (ER) | payer MEDICARE ==
[2018-07-01] MEDS ORDERED: Ondansetron INJ* 2 MG/ML VIAL IV ONE (15:30)
[2018-07-01] MEDS ORDERED: NS 0.9% 1000 ML** 1,000 ML IV ONE (15:30)
[2018-07-01] MEDS ORDERED: Albuterol/Ipratropium NEB.SOL* Albuterol 2.5 MG/Ipratropium 0.5 MG 3 ML INH ONE (15:30)
[2018-07-01] MEDS ORDERED: LORazepam INJ* 2 MG/ML 1 ML VIAL IV PUSH ONE (15:31)
--- NOTE | 2018-07-01 15:39 | ED ---
Shortness of Breath - HPI Summary HPI Summary: Patient is a 78 y/o female brought in by EMS who presents to the ED c/o SOB. She was here both last night and earlier today for asthma exacerbation and anxiety. Patient is back because her SOB is persistent and she does not feel comfortable at home. She now c/o anxiety, nausea, mild wet cough, SOB, and CP secondary to coughing. Patient denies any fever. As per medical records she has had these symptoms for the past week and her inhaler has not helped. She rates her current pain as a 10/10 in severity. PMHx asthma, HTN, chronic bronchitis, anxiety. She denies any smoking. - History of Current Complaint Time Seen by Provider: 07/01/18 15:24 Hx Obtained From: Patient, EMS, Medical Records Onset/Duration: Gradual Onset, Lasting Weeks - 1, Still Present Timing: Constant Dyspnea At: Rest Aggrevating Factors: Nothing Alleviating Factors: Nothing Associated Signs & Symptoms: Cough (Productive), Chest Pain w/Cough Related History: Similar Episode - here earlier today and yesterday - Allergy/Home Medications Allergies/Adverse Reactions: Allergies Allergy/AdvReac Type Severity Reaction Status Date / Time codeine Allergy Nausea And Verified 07/01/18 15:50 Vomiting Penicillins Allergy Nausea Verified 07/01/18 15:50 Sulfa (Sulfonamide Allergy Nausea Verified 07/01/18 15:50 Antibiotics) tramadol Allergy Nausea And Verified 07/01/18 15:50 Vomiting PMH/Surg Hx/FS Hx/Imm Hx Endocrine/Hematology History: Denies: Hx Anticoagulant Therapy, Hx Blood Disorders, Hx Diabetes, Hx Thyroid Disease Cardiovascular History: Reports: Hx Hypertension Denies: Hx Pacemaker/ICD, Hx Peripheral Vascular Disease Respiratory History: Reports: Hx Asthma, Hx Chronic Bronchitis Denies: Hx Chronic Obstructive Pulmonary Disease (COPD) GI History: Reports: Hx Diverticulosis, Hx Gall Bladder Disease - Cholecystectomy, Hx Hiatal Hernia - repaired, Hx Ulcer, Other GI Disorders - pancreatitis History: Reports: Hx Kidney Stones Musculoskeletal History: Reports: Hx Arthritis - knee, Hx Orthopedic Injury, Other Musculoskeletal History - "frozen shoulder" Lt side Denies: Hx Osteoporosis Sensory History: Reports: Hx Contacts or Glasses, Hx Eye Injury, Hx Vision Problem Denies: Hx Cataracts, Hx Glaucoma, Hx Deafness, Hx Hearing Aid Opthamlomology History: Reports: Hx Contacts or Glasses, Hx Eye Injury, Hx Vision Problem Denies: Hx Cataracts, Hx Glaucoma Neurological History: Reports: Hx Headaches, Hx Transient Ischemic Attacks (TIA) Denies: Hx Seizures Psychiatric History: Reports: Hx Anxiety Denies: Hx Depression, Hx Panic Disorder - Surgical History Surgery Procedure, Year, and Place: Hysterectomy, Tubal ligation, Cholecystectomy, RIGHT LEG ORIF, left knee arthroscopy, tonsillectomy and adenoidectomy Hx Anesthesia Reactions: No - Immunization History Date of Tetanus Vaccine: Unknown Date of Influenza Vaccine: Unknown Infectious Disease History: No Infectious Disease History: Reports: Hx Shingles Denies: Traveled Outside the [place] in Last 30 Days - Family History Known Family History: Positive: Cardiac Disease - [place] in grandfather , Hypertension, Other - kidney stones (grandson), [place] in father, stroke in mother - Social History Alcohol Use: None Hx Substance Use: No Substance Use Type: Reports: None Hx Tobacco Use: No Smoking Status (MU): Never Smoked Tobacco Review of Systems Negative: Fever Positive: Chest Pain - from cough Positive: Shortness Of Breath, Cough - wet Positive: Nausea Positive: Anxious All Other Systems Reviewed And Are Negative: Yes Physical Exam - Summary Physical Exam Summary: Appearance: Well appearing, no pain distress, dry heaving Skin: warm, dry, reflects adequate perfusion Head/face: normal Eyes: EOMI, TREY ENT: mucous membranes moist, no nasal discharge Neck: supple, non-tender Respiratory: CTA, breath sounds diminished in bases Cardiovascular: RRR, pulses symmetrical Abdomen: non-tender, soft Bowel Sounds: present Musculoskeletal: normal, strength/ROM intact Neuro: normal, sensory motor intact, A&Ox3 Triage Information Reviewed: Yes Vital Signs On Initial Exam: Initial Vitals Temp Pulse Resp BP Pulse Ox 98.6 F 95 20 113/76 99 07/01/18 15:30 07/01/18 15:30 07/01/18 15:30 07/01/18 15:30 07/01/18 15:30 Vital Signs Reviewed: Yes Diagnostics - Vital Signs Vital Signs Temp Pulse Resp BP Pulse Ox 07/01/18 15:30 98.6 F 95 20 113/76 99 - Laboratory Result Diagrams: 07/01/18 16:30 07/01/18 16:30 Lab Statement: Any lab studies that have been ordered have been reviewed, and results considered in the medical decision making process. - EKG 16:12 Cardiac Rate: NL - 88 bpm EKG Rhythm: Sinus Rhythm ST Segment: Non-Specific Summary of EKG Findings: Nl axis, long QT 18:17 Cardiac Rate: NL - 82 bpm EKG Rhythm: Sinus Rhythm ST Segment: Non-Specific Summary of EKG Findings: LAD, long QT of 501 Re-Evaluation - Re-Evaluation First Eval Re-Evaluation Time: 16:30 Change: Unchanged Comment: Pt states she does not care if she has to pay for her admission. Course/Dx - Course Course Of Treatment: Nurse's notes reviewed. Patient is a frequent visitor to the ER and this is her third visit in the last 24 hours. She has mild exacerbation of asthma but wants to be admitted to the hospital. She did have some QT prolongation likely related to the medications. This improved with hydration and a dose of IV magnesium. She'll continue on outpatient therapies including steroids which have previously been started. Hospitalist was contacted given the patient had refused discharge and had done a consultation. Patient is going to discharge home following discussion with him. - Diagnoses Differential Diagnosis/HQI/PQRI: Positive: Asthma, Bronchitis, CHF, COPD Exacerbation, Pneumonia Provider Diagnoses: Acute asthma exacerbation - Physician Notifications Discussed Care of Patient With: Valerie Flores Time Discussed With Above Provider: 16:45 Instructed by Provider To: Other - Dr. Flores accepts pt for admission. She said that she will most likely be discharging the patient soon. At 17:50 Dr. Flores said that pt will actually be discharged instead of admitted. Pt told her she wants to be admitted because she does not like living with her daughter or living at her apartment. At 18:10 Dr. Garcia requests another EKG because of the long QT. Discharge - Sign-Out/Discharge Documenting (check all that apply): Patient Departure - Discharge Patient Received Moderate/Deep Sedation with Procedure: No - Discharge Plan Condition: Improved Disposition: HOME Patient Education Materials: Asthma (ED) Referrals: Matti Romero MD [Primary Care Provider] - Additional Instructions: Call your doctor first thing in the morning to schedule prompt follow-up. Return with difficulty breathing, fever, new symptoms or other concerns. Use your inhalers or nebulizers every 4 hours until well. Continue steroid as previously ordered. - Billing Disposition and Condition Condition: IMPROVED Disposition: Home - Attestation Statements Document Initiated by Scribe: Yes Documenting Scribe: Mahi Garcia Provider For Whom Scribe is Documenting (Include Credential): Prem Hankins MD Scribe Attestation: Mahi Mcwilliams, scribed for Prem Hankins MD on 07/01/18 at 2102. Scribe Documentation Reviewed: Yes Provider Attestation: The documentation as recorded by the Mahi begum accurately reflects the service I personally performed and the decisions made by Prem pisano MD Status of Scribe Document: Viewed
[2018-07-01] MEDS ORDERED: Magnesium Sulfate 1 GM IV* 1 GM/100 ML BAG IV ONE (16:25)
[2018-07-01 16:42] LABS: ABS Basophils 0.1 10^3/ul (0-0.2); ABS Eosinophils 0 10^3/ul (0-0.6); ABS Lymphocytes 2.3 10^3/ul (1.0-4.8); ABS Monocytes 0.5 10^3/ul (0-0.8); ABS Neutrophils 4.9 10^3/ul (1.5-7.7); ABS Nucleated RBC 0 10^3/ul; Eosinophil % 0 %; Hematocrit 37 % (33-41); Hemoglobin 12.7 g/dL (12.0-16.0); Lymphocyte % 29.5 %; Mean Corpuscular HGB Conc 35 g/dL (31-36); Mean Corpuscular Hemoglobin 27 pg (27-31); Mean Corpuscular Volume 76 fL (80-97); Mean Platelet Volume 8.2 fL (7.4-10.4); Nucleated Red Blood Cells % 0; Platelet Count 303 10^3/uL (150-450); Red Blood Count 4.81 10^6 /uL (3.70-4.87); Red Cell Distribution Width 15 % (10.5-15); White Blood Count 7.8 10^3/uL (3.5-10.8)
[2018-07-01 16:59] LABS: BUN/Creatinine Ratio 20.2 (8-20); Calcium 9.8 mg/dL (8.6-10.3); EGFR African American 34.6 (>60); EGFR Non-African American 28.6 (>60); Potassium 3.7 mmol/L (3.5-5.0)
[2018-07-01 18:41] VITALS: BP 117/94
--- NOTE | 2018-07-01 19:41 | CONS ---
[facility] MEDICINE CONSULTATION REPORT: DATE OF CONSULT: 07/01/18 PROVIDER: Kamryn Tavarez NP ATTENDING PHYSICIAN: Dr. Hankins. EMERGENCY ROOM CONSULTING PHYSICIAN: Dr. Valerio Garcia (dictated by Kamryn Tavarez NP). REASON FOR CONSULT: Shortness of breath. HISTORY OF PRESENT ILLNESS: Ms. Koch is a 78-year-old female with a past medical history significant for hypertension, anxiety, TIA, asthma, who presented to the emergency room with complaints of feeling anxious and shortness of breath. The patient reports that her daughter recently moved in with her and this is making her anxious. She also reports that her son was recently approximately 1 year ago and recently found out that his new has cancer, which makes her feel anxious and sad. The patient reports that she is upset that her daughter is moved back in with her and does not pay her rent. She also reports that she does not currently like her current living apartment as [place] She reports that there are snakes on her patio in the summer and she does not like snakes. The patient reports that she has been requesting to move and has been trying to find a new apartment, which is also contributing to her anxiety. The patient reports that she has been to the emergency room a few times in the past 2 days due to her daughter living with her and feeling anxious about all of the current stress in her life. The patient states that when she gets anxious, she becomes short of breath and then she starts coughing, which causes her develop some chest pain. She reports that she does not currently have any chest pain at this time and her shortness of breath has resolved. She just feels upset about her daughter living with her and her current living situation as she wants to move and does not like her current apartment. She reports that the rug when is vacuumed or washed, a source of dust and causes her to have an exacerbation of her asthma. Due to her frequent visits to the emergency room, we were asked to see and evaluate her for admission. PAST MEDICAL HISTORY: Significant for: 1. Hypertension. 2. Anxiety. 3. TIA. 4. Asthma. PAST SURGICAL HISTORY: 1. ORIF of the right femur. 2. Cholecystectomy. 3. Hysterectomy. HOME MEDICATIONS: 1. Advair Diskus 250/50 one puff b.i.d. 2. Aspirin 81 mg p.o. daily. 3. Albuterol HFA inhaler 1 to 2 puffs q.4 hours as needed for shortness of breath. 4. Acetaminophen 650 mg p.o. q.4 hours. 5. Alprazolam 1 mg 1 tablet twice daily as needed for anxiety. ALLERGIES: 1. CODEINE. 2. PENICILLINS. 3. SULFA. 4. TRAMADOL. FAMILY HISTORY: Mother with a history of congestive heart failure. Father with a history of lung cancer. SOCIAL HISTORY: The patient never smoked except at the age of 17. Denies any alcohol. She lives currently with her daughter in the patient's own apartment. Healthcare proxy is Raymon, her [id number] and son, Aki. She desires to be a DNR/DNI. REVIEW OF SYSTEMS: The patient denies any fever or chills. She does report chest pain associated with cough and anxiety. Denies any edema. Does report cough. Denies any hemoptysis. She does report that she feels short of breath when she gets anxious, which she states exacerbates her to have coughing and then develops chest pain due to the coughing. She does report some nausea also associated with her anxiety. Denies any diarrhea or abdominal pain, gross hematuria, dysuria, focal weakness, or sensory loss. Denies any dysphagia, arthralgias, myalgias, rashes, lesions, or open sores. Denies any psychosis or anxiety. PHYSICAL EXAMINATION: General: At this time, Ms. Koch is a 78-year-old female. She is resting comfortably on the stretcher in the emergency room. She is not in any acute distress. HEENT: Head is atraumatic, normocephalic. Eyes : EOMs are intact. Sclerae anicteric and not pale. Oral mucosa appeared to be moist. Neck is supple. Lungs are clear to auscultation bilaterally. No wheezes, rales, or rhonchi. Cardiac: S1, S2. Regular rate and rhythm. No murmurs, rubs, or gallops. Abdomen is soft and nontender. Bowel sounds are present x4. Extremities: Pedal pulses are +2 bilaterally. She has no lower extremity edema. Neurologic: She is awake, alert and oriented x3. Speech is clear. Thought process is intact. There are no gross focal deficits. Skin: Intact. DIAGNOSTIC STUDIES/LAB DATA: WBCs are 7.8, RBCs 4.81, hemoglobin was 12.7, hematocrit was 37, platelet count was 303. Sodium 138, potassium 3.7, chloride 100, carbon dioxide was 24, anion gap was 14, BUN was 35, creatinine 1.73, glucose was 119. She had an electrocardiogram, which showed sinus rhythm at 88. The patient does have some T-wave inversions in V3. IMPRESSION AND PLAN: Ms. Koch is a 78-year-old female with past medical history significant for hypertension, anxiety, transient ischemic attack, asthma , who presented to the emergency room 3 times in the last day and a half with complaints of asthma exacerbation, shortness of breath, cough, most recently with complaints of chest pain that is associated with her coughing and shortness of breath, which is now resolved. We were asked to consult due to her multiple presentations to the emergency room. Our recommendations are as follows: 1. Anxiety. I suspect that her shortness of breath and chest discomfort associated with coughing is related to her anxiety as the patient reports that her daughter recently moved back in with her which is very stressful to her and her son who is newly has found out his has cancer and that she does not like her current living situation, does not like the apartment that she is living in, all of these symptoms are contributing to increase anxiety attacks for the patient. The patient reports that she feels very upset about all of these situations and that they are aggravating to her. I would recommend that she continue her Xanax as previously prescribed 1 mg twice daily. 2. Shortness of breath. The patient has complaints of shortness of breath. Her O2 saturations are 96% on room air. She has no wheezing during this evaluation. She should continue her home albuterol and Advair as previously prescribed. I suspect that her anxiety is exacerbating her shortness of breath. 3. Chest pain. The patient did report some chest pain with coughing and shortness of breath that was associated with her anxiety. She did have an EKG in the emergency room, which showed T-wave inversions in V3 and a QTc of 532. I would recommend that we repeat an EKG, this has been relayed to Dr. Hankins. At this time, the patient does not meet criteria for admission to the hospital as all of her symptoms are situational related to her anxiety. The patient reports that she feels these symptoms as well are related to her anxiety and when she becomes anxious, it exacerbates all of the current symptoms that she is having. The patient reports that her current symptoms have all resolved. I recommend at this time that the patient can be discharged home, but I would repeat an EKG prior to her discharge to confirm there are no further EKG changes. TIME SPENT: Time spent on this consultation was 45 minutes, greater than half of that time was spent at the bedside reviewing events leading thus far to her hospitalization, performing my physical exam, and reviewing my plan of care. I have discussed this with my attending, Dr. Valerio Garcia; he is in agreement with my plan. KAMRYN TAVAREZ NP [id number]/[facility] #: [id number] DIMITRI
== END 2018-07-01 18:41 | disposition home or self-care (01) ==
LOC: ED 15:19
DX: J45.901 Unspecified asthma with (acute) exacerbation (principal); G45.9 Transient cerebral ischemic attack, unspecified; J45.909 Unspecified asthma, uncomplicated; R05 Cough; Z79.82 Long term (current) use of aspirin; R07.9 Chest pain, unspecified; Z88.0 Allergy status to penicillin; Z88.2 Allergy status to sulfonamides; Z88.6 Allergy status to analgesic agent; R06.02 Shortness of breath; I10 Essential (primary) hypertension; R11.0 Nausea; F41.9 Anxiety disorder, unspecified
CPT/HCPCS: 36415; 80048; 85025; 93005; 96361; 96374; 96375; 99283; A9270-GY; J2060; J2405; J3475

== ENCOUNTER → 2018-07-08 17:07 | Emergency (ER) | payer MEDICARE ==
[~2018-07-08 17:07] MED LIST changes: +Fluorescein Sodium TOPICAL* 1 MG TEST STRIP ONE; +Fluorescein Sodium TOPICAL* 1 MG TEST STRIP OPHTHALMIC ONE; -LORazepam TAB(*) 1 MG PO ONE; -NS 0.9% 1000 ML* 1,000 ML IV ONE; +Tetracaine 0.5% OPTH.SOL 4 ML* 1 DROP BTL ONE; +Tetracaine 0.5% OPTH.SOL 4 ML* 1 DROP BTL SCH
[2018-07-08 17:33] VITALS: BP 126/88
--- NOTE | 2018-07-08 19:54 | ED ---
Throat Pain/Nasal Congestion - HPI Summary HPI Summary: Patient with history of left eye blindness and intermittent left eye pain complains of sudden onset left side pain starting this morning when she woke up , rated 10/10. Patient states she has been blind in left eye since 17 years old. Denies fever, GRANADOS, cough, sore throat, CP, SOB, N/V/D, abdomen pain, change in urine, change in BM. Medical history is HTN, GRANADOS, asthma, anxiety. - History of Current Complaint Chief Complaint: EDGeneral Time Seen by Provider: 07/08/18 17:54 Hx Obtained From: Patient Onset/Duration: Sudden Onset, Lasting Hours Severity: Severe Associated Signs And Symptoms: Positive: Negative - Allergies/Home Medications Allergies/Adverse Reactions: Allergies Allergy/AdvReac Type Severity Reaction Status Date / Time codeine Allergy Nausea And Verified 07/01/18 15:50 Vomiting Penicillins Allergy Nausea Verified 07/01/18 15:50 Sulfa (Sulfonamide Allergy Nausea Verified 07/01/18 15:50 Antibiotics) tramadol Allergy Nausea And Verified 07/01/18 15:50 Vomiting PMH/Surg Hx/FS Hx/Imm Hx Endocrine/Hematology History: Denies: Hx Anticoagulant Therapy, Hx Blood Disorders, Hx Diabetes, Hx Thyroid Disease Cardiovascular History: Reports: Hx Hypertension Denies: Hx Pacemaker/ICD, Hx Peripheral Vascular Disease Respiratory History: Reports: Hx Asthma, Hx Chronic Bronchitis Denies: Hx Chronic Obstructive Pulmonary Disease (COPD) GI History: Reports: Hx Diverticulosis, Hx Gall Bladder Disease - Cholecystectomy, Hx Hiatal Hernia - repaired, Hx Ulcer, Other GI Disorders - pancreatitis History: Reports: Hx Kidney Stones Musculoskeletal History: Reports: Hx Arthritis - knee, Hx Orthopedic Injury, Other Musculoskeletal History - "frozen shoulder" Lt side Denies: Hx Osteoporosis Sensory History: Reports: Hx Contacts or Glasses, Hx Eye Injury, Hx Vision Problem Denies: Hx Cataracts, Hx Glaucoma, Hx Deafness, Hx Hearing Aid Opthamlomology History: Reports: Hx Contacts or Glasses, Hx Eye Injury, Hx Vision Problem Denies: Hx Cataracts, Hx Glaucoma Neurological History: Reports: Hx Headaches, Hx Transient Ischemic Attacks (TIA) Denies: Hx Seizures Psychiatric History: Reports: Hx Anxiety Denies: Hx Depression, Hx Panic Disorder - Surgical History Surgery Procedure, Year, and Place: Hysterectomy, Tubal ligation, Cholecystectomy, RIGHT LEG ORIF, left knee arthroscopy, tonsillectomy and adenoidectomy Hx Anesthesia Reactions: No - Immunization History Date of Tetanus Vaccine: Unknown Date of Influenza Vaccine: Unknown Infectious Disease History: No Infectious Disease History: Reports: Hx Shingles Denies: Traveled Outside the [place] in Last 30 Days - Family History Known Family History: Positive: Cardiac Disease - IA in grandfather , Hypertension, Other - kidney stones (grandson), CA in father, stroke in mother - Social History Alcohol Use: None Hx Substance Use: No Substance Use Type: Reports: None Hx Tobacco Use: No Smoking Status (MU): Never Smoked Tobacco Review of Systems Constitutional: Negative Eyes: Other ENT: Negative Cardiovascular: Negative Respiratory: Negative Gastrointestinal: Negative Genitourinary: Negative Musculoskeletal: Negative Skin: Negative Neurological: Negative Psychological: Normal All Other Systems Reviewed And Are Negative: Yes Physical Exam Triage Information Reviewed: Yes Vital Signs On Initial Exam: Initial Vitals Temp Pulse Resp BP Pulse Ox 98.2 F 90 16 126/88 98 07/08/18 17:20 07/08/18 17:20 07/08/18 17:20 07/08/18 17:20 07/08/18 17:20 Vital Signs Reviewed: Yes Appearance: Positive: Well-Appearing Skin: Positive: Warm Head/Face: Positive: Normal Head/Face Inspection Eyes: Positive: EOMI, Conjunctiva Clear, Other: - Eye exam by a UV light reveals no corneal abrasion or trauma.. Negative: TREY - Pupil nonreactive in left eye., Discharge Neck: Positive: Supple Respiratory/Lung Sounds: Positive: Clear to Auscultation Cardiovascular: Positive: Normal Abdomen Description: Positive: Nontender Musculoskeletal: Positive: Normal Neurological: Positive: Normal Psychiatric: Positive: Normal AVPU Assessment: Alert - Shailesh Coma Scale Best Eye Response: 4 - Spontaneous Best Motor Response: 6 - Obeys Commands Best Verbal Response: 5 - Oriented Coma Scale Total: 15 Diagnostics - Vital Signs Vital Signs Temp Pulse Resp BP Pulse Ox 07/08/18 17:20 98.2 F 90 16 126/88 98 - Laboratory Lab Statement: Any lab studies that have been ordered have been reviewed, and results considered in the medical decision making process. EENT Course/Dx - Course Course Of Treatment: Patient with history of left eye blindness and intermittent left eye pain complains of sudden onset left side pain starting this morning when she woke up, rated 10/10. Patient states she has been blind in left eye since 17 years old. Denies fever, GRANADOS, cough, sore throat, CP, SOB, N/V/D, abdomen pain, change in urine, change in BM. Medical history is HTN, GRANADOS , asthma, anxiety. Physical exam unremarkable. Patient's pain resolved with Alcaine. Patient refused to allow CRP blood draw and signed out AMA. Advised to follow-up with ophthalmology Dr. Rodriguez and return for any new or worsening symptoms. Patient understands and approves of plan. - Diagnoses Provider Diagnoses: Left eye pain Discharge - Sign-Out/Discharge Documenting (check all that apply): Patient Departure Patient Received Moderate/Deep Sedation with Procedure: No - Discharge Plan Condition: Stable Disposition: HOME Patient Education Materials: Eye Pain (ED) Referrals: Matti Romero MD [Primary Care Provider] - Matti Rodriguez MD [Medical Doctor] - Additional Instructions: You will be called if your blood work indicates. Alternate ibuprofen 600 mg with Tylenol 650 mg every 3 hours for eye pain. Follow-up with ophthalmology Dr Rodriguez for further evaluation of intermittent left eye pain.. Return to the ED for any new or worsening symptoms. - Billing Disposition and Condition Condition: STABLE Disposition: Home
== END | disposition home or self-care (01) ==
LOC: ED 17:07
DX: H57.12 Ocular pain, left eye (principal); H54.62 Unqualified visual loss, left eye, normal vision right eye; I10 Essential (primary) hypertension; J45.909 Unspecified asthma, uncomplicated; R51 Headache; F41.9 Anxiety disorder, unspecified; Z88.5 Allergy status to narcotic agent; Z88.0 Allergy status to penicillin; Z88.2 Allergy status to sulfonamides
CPT/HCPCS: 99282; A9270-GY

== ENCOUNTER 2018-07-31 13:54 | Emergency (ER) | payer MEDICARE ==
--- OUTSIDE RECORDS SUMMARY | 2018-07-31 14:21 | XMS REPORT | Continuity of Care Document ---
:1940 External Reference #:[id number] Author Name Celsa Trejo Care Team Providers Name Role Phone Matti Romero MD Primary Care Physician Unavailable Payers Date Identification Numbers Payment Provider Subscriber Policy Number: [id number] Medicare Brandi Koch PayID: [id number] [address] [place] [address] Effective: 2008 Policy Number: [id number] Medicaid Brandi Koch Expires: 2009 Group Name: 1 1 [address] PayID: [id number] [place] [address] Effective: 2007 Policy Number: [id number] Medicare Brandi Koch Expires: 2014 PayID: [id number] [address] [place] [address] Advance Directives Description No Information Available Problems Description No Information Family History Description No Information Available Social History Type Date Description Comments Sex Unknown Allergies, Adverse Reactions, Alerts Description No Information Medications Description No Information Immunizations Description No Information Available Vital Signs Description No Information Available Results Description No Information Available Procedures Date Code Description Status 02/11/2018 85117 EKG, Interpretation Only Completed 03/11/2009 37588 ECHO Transthorasic Realtime 2D W Doppler & Color Flow Hosp Completed Encounters Type Date Location Provider Dx Diagnosis Office Visit 06/24/2018 [facility] ,percy Vallejo R51 Headache 10:11a Hospitalists ANISHA Martinez I16.0 Hypertensive urgency R11.0 Nausea Office Visit 04/03/2018 12:01p [facility] Valerie K57.90 Dvrtclos of percy Michael D.O. intest, part Hospitalists unsp, w/o perf or abscess w/o bleed H57.12 Ocular pain, left eye I10 Essential (primary) hypertension F41.9 Anxiety disorder, unspecified Office Visit 02/12/2018 9:14a [facility] Dean Ford, N17.9 Acute kidney Assoc,percy GOMEZ failure, Hospitalists unspecified J45.909 Unspecified asthma, uncomplicated F41.9 Anxiety disorder, unspecified Office Visit 02/11/2018 9:13a [facility] Dean Fisherd, N17.9 Acute kidney Assoc,percy GOMEZ failure, Hospitalists unspecified M54.9 Dorsalgia, unspecified R74.0 Nonspec elev of levels of transamns & lactic acid dehydrgnse R55 Syncope and collapse Office Visit 06/24/2017 [facility] Brody Newton 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 abdominal pain R11.0 Nausea J45.20 Mild intermittent asthma, uncomplicated I10 Essential (primary) hypertension Office Visit 10/06/2015 10:57a [facility] Valerio R10.84 Generalized Assoc,percy Garcia M.D. abdominal pain Hospitalists R11.0 Nausea J45.20 Mild intermittent asthma, uncomplicated Office Visit 11/25/2014 11:10a [facility] Leslee Ernst, 789.00 Pain Abdominal Assoc,percy Carpenter Unspec Site Hospitalists 599.0 UTI Urinary Tract Infection Site Not Spec 790.6 Abnormal Blood Chemistry Other 401.9 Hypertension Unspec Office Visit 11/23/2014 11:08a [facility] Roderick 599.0 UTI Urinary Assoc,percy Pabon N.PLety Tract Infection Hospitalists Site Not Spec 493.90 Asthma Unspec W/O Status Asthmaticus 789.00 Pain Abdominal Unspec Site 401.9 Hypertension Unspec Office Visit 07/12/2014 [facility] Rahat 493.92 Asthma Unspec W/ 7:54a Assoc,percy Sharif M.D. Acute Hospitalists Exacerbation 490 Bronchitis Acute Or Chronic Not Spec 276.2 Acidosis 278.00 Obesity Unspec Office Visit 07/09/2014 7:52a [facility] Lesli Onofre, 490 Bronchitis Acute Assoc,pc N.P. Or Chronic Not Hospitalists Spec 496 COPD Airway Obstruction Chronic Not Class Elsewhere 276.2 Acidosis 278.00 Obesity Unspec Office Visit 04/04/2014 11:34a [facility] Cassi Perez, 276.2 Acidosis Assoc,pc Hospitalists PHARMACY BENEFITS COORDINATOR 493.92 Asthma Unspec W/ Acute Exacerbation 401.9 Hypertension Unspec Office Visit 04/03/2014 11:33a [facility] Cassi Perez, 276.2 Acidosis Assoc,pc Hospitalists PHARMACY BENEFITS COORDINATOR 493.92 Asthma Unspec W/ Acute Exacerbation 401.9 Hypertension Unspec Office Visit 07/24/2013 [facility] Leslee Ernst, 493.92 Asthma Unspec W/ 2:30p percy Michael M.D. Acute Hospitalists Exacerbation 466.0 Bronchitis Acute 401.9 Hypertension Unspec 275.2 Metabolic Disorder Magnesium Office Visit 07/22/2013 2:17p [facility] Leslee Ortegahn, 466.0 Bronchitis Acute percy Michael M.D. Hospitalists 493.92 Asthma Unspec W/ Acute Exacerbation 401.9 Hypertension Unspec 275.2 Metabolic Disorder Magnesium Office Visit 11/07/2012 [facility] 435.9 TIA Ischemia 2:20p percy Michael II, M.D. Cerebral Hospitalists Transient Unspec 782.0 Skin Sensation Disturbance 401.9 Hypertension Unspec 300.00 Anxiety State Unspec Office Visit 11/06/2012 [facility] 435.9 TIA Ischemia 2:20p percy Michael II, M.D. Cerebral Hospitalists Transient Unspec 782.0 Skin Sensation Disturbance 401.9 Hypertension Unspec 300.00 Anxiety State Unspec [facility] Intrinsic Asthma 1:45p percy Michael M.D. With Acute Hospitalists Exacerbation 300.00 Anxiety State Unspec 401.9 Hypertension Unspec [facility]12 Intrinsic Asthma 1:45p percy Michael M.D. With Acute Hospitalists Exacerbation 300.00 Anxiety State Unspec 401.9 Hypertension Unspec Office Visit 03/12/2009 [facility] 411.1 Coronary Syndrome 3:00a percy Michael M.D. Intermediate Hospitalists Office Visit 03/11/2009 [facility] 493.92 Asthma Unspec W/ 2:45a percy Michael M.D. Acute Exacerbation Hospitalists Office Visit 02/07/2009 [facility] 411.1 Coronary Syndrome 12:30a percy Michael M.D. Intermediate Hospitalists Plan of Treatment No Information Available
[2018-07-31 15:06] LABS: ABS Basophils 0.1 10^3/ul (0-0.2); ABS Eosinophils 0.1 10^3/ul (0-0.6); ABS Lymphocytes 2.6 10^3/ul (1.0-4.8); ABS Monocytes 0.3 10^3/ul (0-0.8); ABS Neutrophils 2.2 10^3/ul (1.5-7.7); ABS Nucleated RBC 0 10^3/ul; Eosinophil % 1.8 %; Hematocrit 37 % (33-41); Hemoglobin 12.4 g/dL (12.0-16.0); Lymphocyte % 49.3 %; Mean Corpuscular HGB Conc 34 g/dL (31-36); Mean Corpuscular Hemoglobin 27 pg (27-31); Mean Corpuscular Volume 79 fL (80-97); Mean Platelet Volume 7.7 fL (7.4-10.4); Nucleated Red Blood Cells % 0.2; Platelet Count 244 10^3/uL (150-450); Red Blood Count 4.67 10^6 /uL (3.70-4.87); Red Cell Distribution Width 16 % (10.5-15); White Blood Count 5.3 10^3/uL (3.5-10.8)
[2018-07-31 15:12] LABS: INR 1.02 (0.77-1.02)
[2018-07-31] MEDS ORDERED: Ondansetron INJ* 2 MG/ML VIAL IV ONE (15:17)
[2018-07-31] MEDS ORDERED: Pantoprazole IV* 40 MG IV ONE (15:18)
[2018-07-31 15:22] LABS: Albumin 4.1 g/dL (3.2-5.2); BUN/Creatinine Ratio 16.5 (8-20); Calcium 9.6 mg/dL (8.6-10.3); EGFR African American 55.4 (>60); EGFR Non-African American 45.8 (>60); Globulin 4.2 g/dL (2-4); Magnesium 1.9 mg/dL (1.9-2.7); Potassium 4.3 mmol/L (3.5-5.0); Total Bilirubin 0.7 mg/dL (0.2-1.0); Total Protein 8.3 g/dL (6.4-8.9)
[2018-07-31 15:24] LABS: Troponin I 0.01 ng/mL (<0.04)
[2018-07-31] MEDS ORDERED: NS 0.9% 1000 ML** 1,000 ML IV ONE (17:05)
--- NOTE | 2018-07-31 17:06 | ED ---
Abdominal Pain/Female - HPI Summary HPI Summary: Patient is a 78-year-old female with a significant PMH with chest pain, anxiety , shoulder pain and abdominal pain presenting to the ED with midepigastric pain which is nonradiating as well as right shoulder pain. She denies any falls or injuries. She states the pain is been present since this morning, but she has not been able to eat well for the past 2-3 days. She denies any abdominal pain otherwise. Denies any constipation or diarrhea. She does endorse nausea, however is unable to take Zofran at home as she does not like the taste. She denies any chest pain otherwise or shortness of breath. She denies any recent illness or sick contacts. Symptoms are not worse or better with positioning or better with rest. She denies any fevers, sweats, chills. Past surgical history includes cholecystectomy. - History of Current Complaint Chief Complaint: EDAbdPain Stated Complaint: GENERAL ILLNESS PER EMS Time Seen by Provider: 07/31/18 13:58 Hx Obtained From: Patient ?: No Onset/Duration: Sudden Onset Timing: Constant Severity Initially: Moderate Severity Currently: Moderate Pain Intensity: 10 Pain Scale Used: 0-10 Numeric Location: Epigastric Radiates: No Character: Sharp Aggravating Factor(s): Nothing Alleviating Factor(s): Nothing Associated Signs and Symptoms: Positive: Negative Allergies/Adverse Reactions: Allergies Allergy/AdvReac Type Severity Reaction Status Date / Time codeine Allergy Nausea And Verified 07/11/18 09:48 Vomiting Penicillins Allergy Nausea Verified 07/11/18 09:48 Sulfa (Sulfonamide Allergy Nausea Verified 07/11/18 09:48 Antibiotics) tramadol Allergy Nausea And Verified 07/11/18 09:48 Vomiting PMH/Surg Hx/FS Hx/Imm Hx Previously Healthy: Yes Endocrine/Hematology History: Denies: Hx Anticoagulant Therapy, Hx Blood Disorders, Hx Diabetes, Hx Thyroid Disease Cardiovascular History: Reports: Hx Hypertension Denies: Hx Pacemaker/ICD, Hx Peripheral Vascular Disease Respiratory History: Reports: Hx Asthma, Hx Chronic Bronchitis Denies: Hx Chronic Obstructive Pulmonary Disease (COPD) GI History: Reports: Hx Diverticulosis, Hx Gall Bladder Disease - Cholecystectomy, Hx Hiatal Hernia - repaired, Hx Ulcer, Other GI Disorders - pancreatitis History: Reports: Hx Kidney Stones Musculoskeletal History: Reports: Hx Arthritis - knee, Hx Orthopedic Injury, Other Musculoskeletal History - "frozen shoulder" Lt side Denies: Hx Osteoporosis Sensory History: Reports: Hx Eye Injury, Hx Vision Problem Denies: Hx Cataracts, Hx Contacts or Glasses, Hx Glaucoma, Hx Deafness, Hx Hearing Aid Opthamlomology History: Reports: Hx Eye Injury, Hx Vision Problem Denies: Hx Cataracts, Hx Contacts or Glasses, Hx Glaucoma Neurological History: Reports: Hx Headaches, Hx Transient Ischemic Attacks (TIA) Denies: Hx Seizures Psychiatric History: Reports: Hx Anxiety Denies: Hx Depression, Hx Panic Disorder - Surgical History Surgery Procedure, Year, and Place: Hysterectomy, Tubal ligation, Cholecystectomy, RIGHT LEG ORIF, left knee arthroscopy, tonsillectomy and adenoidectomy Hx Anesthesia Reactions: No - Immunization History Date of Tetanus Vaccine: Unknown Date of Influenza Vaccine: Unknown Infectious Disease History: No Infectious Disease History: Reports: Hx Shingles Denies: Traveled Outside the [place] in Last 30 Days - Family History Known Family History: Positive: Cardiac Disease - [place] in grandfather , Hypertension, Other - kidney stones (grandson), [place] in father, stroke in mother - Social History Occupation: Unemployed Lives: Alone Alcohol Use: None Hx Substance Use: No Substance Use Type: Reports: None Hx Tobacco Use: No Smoking Status (MU): Never Smoked Tobacco Review of Systems Constitutional: Negative Negative: Fever, Chills, Fatigue, Skin Diaphoresis Negative: Photophobia, Blurred Vision Negative: Dental Pain Negative: Shortness Of Breath Positive: Abdominal Pain - mid epigastric pain nonradiating, Nausea. Negative: Vomiting, Diarrhea Genitourinary: Negative Positive: no symptoms reported, see HPI Negative: Arthralgia, Myalgia Skin: Negative Neurological: Negative All Other Systems Reviewed And Are Negative: Yes Physical Exam Triage Information Reviewed: Yes Vital Signs On Initial Exam: Initial Vitals Temp Pulse Resp BP Pulse Ox 98.7 F 74 17 104/76 99 07/31/18 13:59 07/31/18 13:59 07/31/18 13:59 07/31/18 13:59 07/31/18 13:59 Vital Signs Reviewed: Yes Appearance: Positive: Well-Appearing, Well-Nourished Skin: Positive: Warm, Skin Color Reflects Adequate Perfusion Head/Face: Positive: Normal Head/Face Inspection Neck: Positive: Supple, No Lymphadenopathy Respiratory/Lung Sounds: Positive: Breath Sounds Present Cardiovascular: Positive: Pulses are Symmetrical in both Upper and Lower Extremities Musculoskeletal: Positive: Other - right shoulder pain Neurological: Positive: Sensory/Motor Intact, Alert, Oriented to Person Place, Time, Speech Normal Psychiatric: Positive: Normal, Affect/Mood Appropriate AVPU Assessment: Alert Diagnostics - Vital Signs Vital Signs Temp Pulse Resp BP Pulse Ox 07/31/18 16:29 69 25 115/96 99 07/31/18 16:01 18 07/31/18 15:01 30 07/31/18 14:59 24 100/72 07/31/18 14:53 33 118/85 07/31/18 14:28 67 40 116/74 98 07/31/18 14:01 80 16 95 07/31/18 13:59 98.7 F 75 20 104/76 96 - Laboratory Lab Results: Lab Results 07/31/18 07/31/18 07/31/18 Range/Units 14:57 14:57 14:57 WBC 5.3 (3.5-10.8) 10^3/uL RBC 4.67 (3.70-4.87) 10^6 /uL Hgb 12.4 (12.0-16.0) g/dL Hct 37 (33-41) % MCV 79 L (80-97) fL MCH 27 (27-31) pg MCHC 34 (31-36) g/dL RDW 16 H (10.5-15) % Plt Count 244 (150-450) 10^3/uL MPV 7.7 (7.4-10.4) fL Neut % (Auto) 41.9 % Lymph % (Auto) 49.3 % [place] % (Auto) 5.6 % Eos % (Auto) 1.8 % Baso % (Auto) 1.4 % Absolute Neuts (auto) 2.2 (1.5-7.7) 10^3/ul Absolute Lymphs (auto) 2.6 (1.0-4.8) 10^3/ul Absolute Monos (auto) 0.3 (0-0.8) 10^3/ul Absolute Eos (auto) 0.1 (0-0.6) 10^3/ul Absolute Basos (auto) 0.1 (0-0.2) 10^3/ul Absolute Nucleated RBC 0 10^3/ul Nucleated RBC % 0.2 INR (Anticoag Therapy) 1.02 (0.77-1.02) Sodium 140 (135-145) mmol/L Potassium 4.3 (3.5-5.0) mmol/L Chloride 104 (101-111) mmol/L Carbon Dioxide 25 (22-32) mmol/L Anion Gap 11 (2-11) mmol/L BUN 19 (6-24) mg/dL Creatinine 1.15 H (0.51-0.95) mg/dL Est GFR ( Amer) 55.4 (>60) Est GFR (Non-Af Amer) 45.8 (>60) BUN/Creatinine Ratio 16.5 (8-20) Glucose 110 H (70-100) mg/dL Lactic Acid (0.5-2.0) mmol/L Calcium 9.6 (8.6-10.3) mg/dL Magnesium 1.9 (1.9-2.7) mg/dL Total Bilirubin 0.70 (0.2-1.0) mg/dL AST 17 (13-39) U/L ALT 11 (7-52) U/L Alkaline Phosphatase 82 (34-104) U/L Troponin I 0.01 (<0.04) ng/mL B-Natriuretic Peptide (<=100) pg/mL Total Protein 8.3 (6.4-8.9) g/dL Albumin 4.1 (3.2-5.2) g/dL Globulin 4.2 H (2-4) g/dL Albumin/Globulin Ratio 1.0 (1-3) 07/31/18 07/31/18 Range/Units 14:57 14:57 WBC (3.5-10.8) 10^3/uL RBC (3.70-4.87) 10^6 /uL Hgb (12.0-16.0) g/dL Hct (33-41) % MCV (80-97) fL MCH (27-31) pg MCHC (31-36) g/dL RDW (10.5-15) % Plt Count (150-450) 10^3/uL MPV (7.4-10.4) fL Neut % (Auto) % Lymph % (Auto) % [place] % (Auto) % Eos % (Auto) % Baso % (Auto) % Absolute Neuts (auto) (1.5-7.7) 10^3/ul Absolute Lymphs (auto) (1.0-4.8) 10^3/ul Absolute Monos (auto) (0-0.8) 10^3/ul Absolute Eos (auto) (0-0.6) 10^3/ul Absolute Basos (auto) (0-0.2) 10^3/ul Absolute Nucleated RBC 10^3/ul Nucleated RBC % INR (Anticoag Therapy) (0.77-1.02) Sodium (135-145) mmol/L Potassium (3.5-5.0) mmol/L Chloride (101-111) mmol/L Carbon Dioxide (22-32) mmol/L Anion Gap (2-11) mmol/L BUN (6-24) mg/dL Creatinine (0.51-0.95) mg/dL Est GFR ( Amer) (>60) Est GFR (Non-Af Amer) (>60) BUN/Creatinine Ratio (8-20) Glucose (70-100) mg/dL Lactic Acid 2.9 H* (0.5-2.0) mmol/L Calcium (8.6-10.3) mg/dL Magnesium (1.9-2.7) mg/dL Total Bilirubin (0.2-1.0) mg/dL AST (13-39) U/L ALT (7-52) U/L Alkaline Phosphatase (34-104) U/L Troponin I (<0.04) ng/mL B-Natriuretic Peptide 15 (<=100) pg/mL Total Protein (6.4-8.9) g/dL Albumin (3.2-5.2) g/dL Globulin (2-4) g/dL Albumin/Globulin Ratio (1-3) Result Diagrams: 07/31/18 14:57 07/31/18 14:57 Lab Statement: Any lab studies that have been ordered have been reviewed, and results considered in the medical decision making process. Abdominal Pain Fem Course/Dx - Course Course Of Treatment: During the course of treatment, the patient is evaluated for midepigastric pain which is nonradiating as well as right shoulder pain. She has had the symptoms times approximately 1 day with associated nausea. She has not taken anything for at home for the nausea or vomiting. She states she has no emesis yet, but feels nauseous. Denies constipation or diarrhea. Labs obtained and are unremarkable except for an elevated lactic acid which is 2.9. She is given 1 L fluids. She is also given Zofran and famotidine IV with complete resolution of her symptoms. There is no pain currently to the shoulder joint and patient is able to flex, extend, abduct and adduct without discomfort. EKG obtained which was normal sinus rhythm with no abnormalities. She is requesting a tray as she is hungry. She denies any current symptoms and states she is okay for discharge at this time. I stated we did not do a CT scan of her abdomen and she will need this possibly if symptoms return or worsen. She understands this and is okay for discharge at this time. She states she has never had this epigastric tenderness and would prefer Reglan only at this time for her nausea and will follow up with her PCP for any worsening or changing symptoms. - Diagnoses Provider Diagnoses: Epigastric pain Discharge - Sign-Out/Discharge Documenting (check all that apply): Patient Departure Patient Received Moderate/Deep Sedation with Procedure: No - Discharge Plan Condition: Stable Disposition: HOME Prescriptions: Metoclopramide TAB* [Reglan TAB*] 10 mg PO Q6H #12 tab MDD 4 Patient Education Materials: Acute Nausea and Vomiting (ED) Referrals: Matti Romero MD [Primary Care Provider] - Additional Instructions: Please follow up with PCP as needed Reglan up to 4 times daily for nausea and vomiting - Billing Disposition and Condition Condition: STABLE Disposition: Home
[2018-07-31 18:42] VITALS: BP 131/80
== END 2018-07-31 18:41 | disposition home or self-care (01) ==
LOC: ED 13:54
DX: R10.13 Epigastric pain (principal); I10 Essential (primary) hypertension; Z88.0 Allergy status to penicillin; Z88.2 Allergy status to sulfonamides; Z87.442 Personal history of urinary calculi; R07.9 Chest pain, unspecified; Z88.5 Allergy status to narcotic agent
CPT/HCPCS: 36415; 71046; 80053; 83605; 83735; 83880; 84484; 85025; 85610; 93005; 96361; 96374; 96375; 99282; J2405

== ENCOUNTER 2018-08-03 10:08 | Emergency (ER) | payer MEDICARE ==
--- NOTE | 2018-08-03 10:14 | ED ---
Abdominal Pain/Female - HPI Summary HPI Summary: Patient is a 78-year-old with a history of asthma, COPD, anxiety, TIA and hypertension presenting to the ED with a 3 day history of nausea, vomiting. She was seen in the ED 3 days ago and a chest x-ray was obtained and she was given nausea medications with good relief. She has to leave at that time and she was discharged in good condition. She states over the past 2 days she has felt well no episodes of nausea or vomiting. However today she states the nausea and vomiting returned and has been having emesis with yellow bile since this morning. She does endorse eating fish and chips and cake yesterday and feels it may be due to this. She is endorsing diffuse abdominal pain, however it is worse to the left side. She continues to have normal bowel movements and denies any constipation or diarrhea. She denies any excess burping. She has never had an SBO. She has not been on antibiotics recently. She was given Zofran as a prescription for at home, but states she was unable to obtain this medication due to cost. - History of Current Complaint Stated Complaint: ABD PAIN PER EMS Time Seen by Provider: 08/03/18 10:10 Hx Obtained From: Patient ?: No Onset/Duration: Sudden Onset Timing: Constant Severity Initially: Moderate Severity Currently: Moderate Pain Scale Used: 0-10 Numeric Radiates: No Character: Cramping Aggravating Factor(s): Nothing Alleviating Factor(s): Nothing Associated Signs and Symptoms: Positive: Negative - Risk Factors Ectopic Risk Factor: Negative Allergies/Adverse Reactions: Allergies Allergy/AdvReac Type Severity Reaction Status Date / Time codeine Allergy Nausea And Verified 08/03/18 11:57 Vomiting Penicillins Allergy Nausea Verified 08/03/18 11:57 Sulfa (Sulfonamide Allergy Nausea Verified 08/03/18 11:57 Antibiotics) tramadol Allergy Nausea And Verified 08/03/18 11:57 Vomiting PMH/Surg Hx/FS Hx/Imm Hx Previously Healthy: Yes Endocrine/Hematology History: Denies: Hx Anticoagulant Therapy, Hx Blood Disorders, Hx Diabetes, Hx Thyroid Disease Cardiovascular History: Reports: Hx Hypertension Denies: Hx Pacemaker/ICD, Hx Peripheral Vascular Disease Respiratory History: Reports: Hx Asthma, Hx Chronic Bronchitis Denies: Hx Chronic Obstructive Pulmonary Disease (COPD) GI History: Reports: Hx Diverticulosis, Hx Gall Bladder Disease - Cholecystectomy, Hx Hiatal Hernia - repaired, Hx Ulcer, Other GI Disorders - pancreatitis History: Reports: Hx Kidney Stones Musculoskeletal History: Reports: Hx Arthritis - knee, Hx Orthopedic Injury, Other Musculoskeletal History - "frozen shoulder" Lt side Denies: Hx Osteoporosis Sensory History: Reports: Hx Eye Injury, Hx Vision Problem Denies: Hx Cataracts, Hx Contacts or Glasses, Hx Glaucoma, Hx Deafness, Hx Hearing Aid Opthamlomology History: Reports: Hx Eye Injury, Hx Vision Problem Denies: Hx Cataracts, Hx Contacts or Glasses, Hx Glaucoma Neurological History: Reports: Hx Headaches, Hx Transient Ischemic Attacks (TIA) Denies: Hx Seizures Psychiatric History: Reports: Hx Anxiety Denies: Hx Depression, Hx Panic Disorder - Surgical History Surgery Procedure, Year, and Place: Hysterectomy, Tubal ligation, Cholecystectomy, RIGHT LEG ORIF, left knee arthroscopy, tonsillectomy and adenoidectomy Hx Anesthesia Reactions: No - Immunization History Date of Tetanus Vaccine: Unknown Date of Influenza Vaccine: Unknown Hx Pertussis Vaccination: No Immunizations Up to Date: Yes Infectious Disease History: Reports: Hx Shingles - Family History Known Family History: Positive: Cardiac Disease - [place] in grandfather , Hypertension, Other - kidney stones (grandson), [place] in father, stroke in mother - Social History Occupation: Unemployed Lives: With Family Alcohol Use: None Hx Substance Use: No Substance Use Type: Reports: None Hx Tobacco Use: No Smoking Status (MU): Never Smoked Tobacco Review of Systems Constitutional: Negative Negative: Fever, Chills, Fatigue, Skin Diaphoresis Negative: Palpitations, Chest Pain Negative: Shortness Of Breath, Cough Positive: Abdominal Pain, Vomiting, Nausea. Negative: Diarrhea Genitourinary: Negative Positive: no symptoms reported, see HPI Negative: Arthralgia, Myalgia Neurological: Negative All Other Systems Reviewed And Are Negative: Yes Physical Exam Triage Information Reviewed: Yes Vital Signs Reviewed: Yes Appearance: Positive: Well-Appearing, Well-Nourished Skin: Positive: Warm, Skin Color Reflects Adequate Perfusion Head/Face: Positive: Temporal Artery Tenderness Eyes: Positive: EOMI, TREY, Conjunctiva Clear Neck: Positive: Supple, No Lymphadenopathy Respiratory/Lung Sounds: Positive: Clear to Auscultation, Breath Sounds Present Cardiovascular: Positive: RRR, Pulses are Symmetrical in both Upper and Lower Extremities Abdomen Description: Positive: Other: - Diffuse tenderness to deep palpation throughout, negative McBurney's point tenderness, negative Haney's sign, no peritoneal signs identified Bowel Sounds: Positive: Present Musculoskeletal: Positive: Strength/ROM Intact Neurological: Positive: Sensory/Motor Intact, Alert, Oriented to Person Place, Time, Speech Normal Psychiatric: Positive: Normal, Affect/Mood Appropriate AVPU Assessment: Alert Diagnostics - Laboratory Result Diagrams: 08/03/18 10:32 08/03/18 10:32 Lab Statement: Any lab studies that have been ordered have been reviewed, and results considered in the medical decision making process. Abdominal Pain Fem Course/Dx - Course Course Of Treatment: During the course of treatment, the patient is evaluated for nausea, vomiting, abdominal pain. Vital signs are stable on arrival. She arrives by way of EMS. She is given Zofran and fluids on arrival as well as a CT abdomen and pelvis was obtained. Labs are obtained. She denies any CP or SOB. CT abdomen and pelvis obtained which is WNL. Patient is feeling better, however she continues to state she has some burping at this time and has 1/10 nausea. She is okay for discharge at this time. She does endorse feeling worse every time her daughter is around. I have discussed this with patient and she states she would still like to go home, but will eat her own food at this time and not share food with her daughter. She is also stating she will talk to social work on Thursday regarding having her daughter move out of her house. I diagnosed her with nausea and vomiting. Underlying etiology still undetermined. - Diagnoses Provider Diagnoses: Nausea & vomiting Discharge - Sign-Out/Discharge Documenting (check all that apply): Patient Departure Patient Received Moderate/Deep Sedation with Procedure: No - Discharge Plan Condition: Stable Disposition: HOME Patient Education Materials: Acute Nausea and Vomiting (ED) Referrals: Matti Romero MD [Primary Care Provider] - Additional Instructions: Zofran 4 times daily as needed for nausea You may use [id number] Gas-X for any abdominal gas or discomfort Please follow-up with social work as scheduled Please follow up with PCP Try discontinuing your at home nightly medication for anxiety to assess if this is the cause of your symptoms - Billing Disposition and Condition Condition: STABLE Disposition: Home
[2018-08-03] MEDS ORDERED: Ondansetron INJ* 2 MG/ML VIAL IV ONE (10:15)
[2018-08-03] MEDS ORDERED: Sucralfate SUSP 1 GM/10 ml 10 ML UDC PO ONE (10:15)
[2018-08-03] MEDS ORDERED: Famotidine IV* 10 MG/ML 2 ML (20 mg) IV SLOW PU ONE (10:15)
[2018-08-03] MEDS ORDERED: NS 0.9% 1000 ML** 1,000 ML IV ONE (10:15)
[2018-08-03 10:58] LABS: ABS Basophils 0 10^3/ul (0-0.2); ABS Eosinophils 0.1 10^3/ul (0-0.6); ABS Lymphocytes 2.2 10^3/ul (1.0-4.8); ABS Monocytes 0.3 10^3/ul (0-0.8); ABS Neutrophils 2.3 10^3/ul (1.5-7.7); ABS Nucleated RBC 0 10^3/ul; Eosinophil % 1.6 %; Hematocrit 35 % (33-41); Hemoglobin 11.8 g/dL (12.0-16.0); Lymphocyte % 44.4 %; Mean Corpuscular HGB Conc 34 g/dL (31-36); Mean Corpuscular Hemoglobin 27 pg (27-31); Mean Corpuscular Volume 78 fL (80-97); Mean Platelet Volume 7.7 fL (7.4-10.4); Nucleated Red Blood Cells % 0.2; Platelet Count 249 10^3/uL (150-450); Red Blood Count 4.43 10^6 /uL (3.70-4.87); Red Cell Distribution Width 16 % (10.5-15)
[2018-08-03 11:17] LABS: Troponin I 0.01 ng/mL (<0.04)
[2018-08-03 11:21] LABS: Albumin/Globulin Ratio 1.1 (1-3); BUN/Creatinine Ratio 17.1 (8-20); C Reactive Protein 3.85 mg/L (<8.01); Calcium 9.5 mg/dL (8.6-10.3); EGFR African American 54.3 (>60); EGFR Non-African American 44.9 (>60); Globulin 3.7 g/dL (2-4); Magnesium 1.7 mg/dL (1.9-2.7); Potassium 3.7 mmol/L (3.5-5.0); Total Bilirubin 0.9 mg/dL (0.2-1.0); Total Protein 7.7 g/dL (6.4-8.9)
[2018-08-03 12:41] LABS: Urine Appearance Clear; Urine Bacteria 1+ (Absent); Urine Bilirubin Negative (Negative); Urine Blood 1+ (Negative); Urine Color Yellow; Urine Glucose Negative (Negative); Urine Ketones Trace (Negative); Urine Nitrite Negative (Negative); Urine Protein Negative (Negative); Urine Red Blood Cell Trace(0-2/hpf) (Absent); Urine Specific Gravity 1.009 (1.010-1.030); Urine Squamous Epithelial Cell Present (Absent); Urine Urobilinogen Negative (Negative); Urine White Blood Cell 1+(6-10/hpf) (Absent)
[2018-08-03] MEDS ORDERED: Simethicone TAB* 80 MG TAB.CHEW PO ONE (13:08)
[2018-08-03] MEDS ORDERED: Metoclopramide IV* 5 MG/ML 2 ML VIAL IV SLOW PU ONE (13:08)
[2018-08-03 13:38] VITALS: BP 138/84
== END 2018-08-03 13:38 | disposition home or self-care (01) ==
LOC: ED 10:08
DX: R11.2 Nausea with vomiting, unspecified (principal); J44.9 Chronic obstructive pulmonary disease, unspecified; F41.9 Anxiety disorder, unspecified; Z86.73 Personal history of transient ischemic attack (TIA), and cerebral infarction without residual deficits; I10 Essential (primary) hypertension; Z87.442 Personal history of urinary calculi; Z88.5 Allergy status to narcotic agent; Z88.0 Allergy status to penicillin; Z88.2 Allergy status to sulfonamides; R10.9 Unspecified abdominal pain
CPT/HCPCS: 36415; 74176; 80053; 81003; 81015; 82150; 83605; 83690; 83735; 84484; 85025; 86140; 87086; 96365; 96366; 96374; 99283; A9270-GY; J2405; J2765

== ENCOUNTER 2018-08-11 05:57 | Emergency (ER) | payer MEDICARE ==
--- NOTE | 2018-08-11 06:22 | ED ---
Abdominal Pain/Female - HPI Summary HPI Summary: Pt. is a 78 y.o female who presents to ER via EMS for N/V and epigastric pain. Pt. states she woke up suddenly this am with NV. Pt. states she believes it is her acid reflux. She notes she is to be taking medication but could not get it at drug store bc it was too expensive. Pt. denies fever, chills, CP, SOB, diarrhea, urinary sxs. Sxs are moderate in severity. No current modifying factors. - History of Current Complaint Chief Complaint: EDNauseaVomitDiarrh Stated Complaint: ABD PAIN PER EMS Time Seen by Provider: 08/11/18 06:13 Hx Obtained From: Patient Pain Intensity: 0 Allergies/Adverse Reactions: Allergies Allergy/AdvReac Type Severity Reaction Status Date / Time codeine Allergy Nausea And Verified 08/03/18 11:57 Vomiting Penicillins Allergy Nausea Verified 08/03/18 11:57 Sulfa (Sulfonamide Allergy Nausea Verified 08/03/18 11:57 Antibiotics) tramadol Allergy Nausea And Verified 08/03/18 11:57 Vomiting PMH/Surg Hx/FS Hx/Imm Hx Previously Healthy: Yes Endocrine/Hematology History: Denies: Hx Anticoagulant Therapy, Hx Blood Disorders, Hx Diabetes, Hx Thyroid Disease Cardiovascular History: Reports: Hx Hypertension Denies: Hx Pacemaker/ICD, Hx Peripheral Vascular Disease Respiratory History: Reports: Hx Asthma, Hx Chronic Bronchitis Denies: Hx Chronic Obstructive Pulmonary Disease (COPD) GI History: Reports: Hx Diverticulosis, Hx Gall Bladder Disease - Cholecystectomy, Hx Hiatal Hernia - repaired, Hx Ulcer, Other GI Disorders - pancreatitis History: Reports: Hx Kidney Stones Musculoskeletal History: Reports: Hx Arthritis - knee, Hx Orthopedic Injury, Other Musculoskeletal History - "frozen shoulder" Lt side Denies: Hx Osteoporosis Sensory History: Reports: Hx Eye Injury, Hx Vision Problem Denies: Hx Cataracts, Hx Contacts or Glasses, Hx Glaucoma, Hx Deafness, Hx Hearing Aid Opthamlomology History: Reports: Hx Eye Injury, Hx Vision Problem Denies: Hx Cataracts, Hx Contacts or Glasses, Hx Glaucoma Neurological History: Reports: Hx Headaches, Hx Transient Ischemic Attacks (TIA) Denies: Hx Seizures Psychiatric History: Reports: Hx Anxiety Denies: Hx Depression, Hx Panic Disorder - Surgical History Surgery Procedure, Year, and Place: Hysterectomy, Tubal ligation, Cholecystectomy, RIGHT LEG ORIF, left knee arthroscopy, tonsillectomy and adenoidectomy Hx Anesthesia Reactions: No - Immunization History Date of Tetanus Vaccine: Unknown Date of Influenza Vaccine: Unknown Infectious Disease History: No Infectious Disease History: Reports: Hx Shingles Denies: Traveled Outside the [place] in Last 30 Days - Family History Known Family History: Positive: Cardiac Disease - [place] in grandfather , Hypertension, Other - kidney stones (grandson), [place] in father, stroke in mother - Social History Occupation: Retired Lives: With Family Alcohol Use: None Hx Substance Use: No Substance Use Type: Reports: None Hx Tobacco Use: No Smoking Status (MU): Never Smoked Tobacco Review of Systems Constitutional: Negative Negative: Fever, Chills Cardiovascular: Negative Negative: Palpitations, Chest Pain Respiratory: Negative Negative: Shortness Of Breath, Cough Positive: Abdominal Pain, Vomiting, Nausea. Negative: Diarrhea Genitourinary: Negative Neurological: Negative All Other Systems Reviewed And Are Negative: Yes Physical Exam Triage Information Reviewed: Yes Vital Signs On Initial Exam: Initial Vitals Temp Pulse Resp BP Pulse Ox 97.7 F 80 20 110/67 99 08/11/18 06:02 08/11/18 06:02 08/11/18 06:02 08/11/18 06:02 08/11/18 06:02 Vital Signs Reviewed: Yes Appearance: Positive: Pain Distress - Pt. sitting up in bed dry heaving into emesis bag. Appears uncomfortable but nontoxic. Skin: Positive: Warm, Dry Head/Face: Positive: Normal Head/Face Inspection Eyes: Positive: Normal, EOMI, TREY Neck: Positive: Supple Respiratory/Lung Sounds: Positive: Clear to Auscultation, Breath Sounds Present Cardiovascular: Positive: Normal, RRR Abdomen Description: Positive: Other: - Abd. is soft with epigastric pain on palpation. No rebound tenderness or guarding. Musculoskeletal: Positive: Normal, Strength/ROM Intact Neurological: Positive: Normal, CN Intact II-III Psychiatric: Positive: Affect/Mood Appropriate Diagnostics - Vital Signs Vital Signs Temp Pulse Resp BP Pulse Ox 08/11/18 06:02 97.7 F 80 20 110/67 99 - Laboratory Result Diagrams: 08/11/18 06:53 08/11/18 06:53 Lab Statement: Any lab studies that have been ordered have been reviewed, and results considered in the medical decision making process. Abdominal Pain Fem Course/Dx - Course Course Of Treatment: Patient presenting with acute nausea and vomiting she believes is her acid reflux. She is afebrile with stable vital signs. Patient was given a dose of Zofran and a GI cocktail. ECG done at 60bpm, normal axis, no ST elevation or depression. Blood work is unremarkable. Abdominal x-ray is negative for obstruction or acute findings, reading per radiology. Reexamination she is sleeping comfortably. Patient notes she was feeling better but still has some residual nausea. We'll discharge home at this time. 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 Return to the ER symptoms change or worsen. Patient understands and agrees with plan. - Diagnoses Differential Diagnosis: Positive: Bowel Obstruction, Gall Bladder Disease, Hepatitis, Pancreatitis Provider Diagnoses: Gastritis, Nausea & vomiting Discharge - Sign-Out/Discharge Documenting (check all that apply): Patient Departure Patient Received Moderate/Deep Sedation with Procedure: No - Discharge Plan Condition: Improved Disposition: HOME Prescriptions: Ondansetron TAB* [Zofran 4 MG Tab*] 4 mg PO Q6H PRN #12 tab PRN Reason: Nausea Patient Education Materials: Gastritis (ED), Acute Nausea and Vomiting (ED) Referrals: Matti Romero MD [Primary Care Provider] - Additional Instructions: Schedule a follow up appointment with PCP 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 This patient was seen by the PEGGY. The patient was not presented to, seen by, or examined by me. -Sukumar
[2018-08-11] MEDS: Lidocaine 2% VISCOUS* 15 ML UDC PO ONE (06:40)
[2018-08-11] MEDS: Ondansetron ODT TAB* 4 MG PO ONE (06:40)
[2018-08-11] MEDS: Al Hydrox/Mg Hydrox/Simet LIQ* 30 ML UDC PO ONE (06:40)
[2018-08-11 07:04] LABS: ABS Basophils 0 10^3/ul (0-0.2); ABS Eosinophils 0.1 10^3/ul (0-0.6); ABS Lymphocytes 2.1 10^3/ul (1.0-4.8); ABS Monocytes 0.4 10^3/ul (0-0.8); ABS Nucleated RBC 0 10^3/ul; Eosinophil % 1.7 %; Hematocrit 36 % (33-41); Hemoglobin 11.8 g/dL (12.0-16.0); Lymphocyte % 45.3 %; Mean Corpuscular HGB Conc 33 g/dL (31-36); Mean Corpuscular Hemoglobin 27 pg (27-31); Mean Corpuscular Volume 81 fL (80-97); Mean Platelet Volume 8.3 fL (7.4-10.4); Nucleated Red Blood Cells % 0.1; Platelet Count 155 10^3/uL (150-450); Red Blood Count 4.44 10^6 /uL (3.70-4.87); Red Cell Distribution Width 16 % (10.5-15); White Blood Count 4.6 10^3/uL (3.5-10.8)
[2018-08-11 08:22] LABS: Albumin 3.9 g/dL (3.2-5.2); CO2 Carbon Dioxide 19 mmol/L (22-32); Calcium 9.4 mg/dL (8.6-10.3); Chloride 106 mmol/L (101-111); Sodium 139 mmol/L (135-145)
[2018-08-11 08:25] LABS: Anion Gap 14 mmol/L (2-11)
[2018-08-11 08:29] LABS: Alkaline Phosphatase 81 U/L (34-104); BUN/Creatinine Ratio 14.4 (8-20); Blood Urea Nitrogen 17 mg/dL (6-24); EGFR African American 53.7 (>60); EGFR Non-African American 44.4 (>60); Glucose 115 mg/dL (70-100)
[2018-08-11 08:50] LABS: ALT 17 U/L (7-52); Albumin/Globulin Ratio 1.1 (1-3); C Reactive Protein 4.13 mg/L (<8.01); Globulin 3.5 g/dL (2-4); Total Protein 7.4 g/dL (6.4-8.9)
[2018-08-11 10:02] VITALS: BP 121/77
== END 2018-08-11 10:01 | disposition home or self-care (01) ==
LOC: ED 05:57
DX: K29.70 Gastritis, unspecified, without bleeding (principal); I10 Essential (primary) hypertension; Z88.5 Allergy status to narcotic agent; Z88.0 Allergy status to penicillin; Z88.2 Allergy status to sulfonamides
CPT/HCPCS: 36415; 74019; 80053; 83605; 83690; 84484; 85025; 86140; 93005; 99283; A9270-GY

== ENCOUNTER 2018-08-17 05:12 | Emergency (ER) | payer MEDICARE ==
[2018-08-17] MEDS ORDERED: ALPRAZolam TAB* 0.5 MG PO ONE (05:57)
--- NOTE | 2018-08-17 05:58 | ED ---
HPI Chest Pain - HPI Summary HPI Summary: Pt. is a 78 y.o female who presents to the ER for a brief episode of chest pressure that occurred earlier this morning. Pt. states pressure has resolved and denies associated sxs of dizzy, lightheaded, diaphoresis, abd. pain, N/V, cough, fever. Pt. states she feels sxs are secondary to stress. Pt. states she has a lot of stresses at home right now. Pt. states her daughter is living with her and she feels she cannot relax and enjoy her life with her daughter there. She also notes her rent has been increased and she is looking for a new apt. Pt. feels she wants to move into a custodial. Pt. is a frequent pt. in the ER for similar sxs. Symptoms are moderate in severity. No current modifying factors. Pt. also notes she has been out of her anxiety medication, xanax, and has been unable to get to her pharmacy to [facility]. - History of Current Complaint Chief Complaint: EDChestPainROMI Time Seen by Provider: 08/17/18 05:35 Hx Obtained From: Patient Pain Intensity: 0 - Additional Pertinent History Primary Care Physician: DIO - Allergy/Home Medications Allergies/Adverse Reactions: Allergies Allergy/AdvReac Type Severity Reaction Status Date / Time codeine Allergy Nausea And Verified 08/17/18 05:29 Vomiting Penicillins Allergy Nausea Verified 08/17/18 05:29 Sulfa (Sulfonamide Allergy Nausea Verified 08/17/18 05:29 Antibiotics) tramadol Allergy Nausea And Verified 08/17/18 05:29 Vomiting PMH/Surg Hx/FS Hx/Imm Hx Previously Healthy: Yes Endocrine/Hematology History: Denies: Hx Anticoagulant Therapy, Hx Blood Disorders, Hx Diabetes, Hx Thyroid Disease Cardiovascular History: Reports: Hx Hypertension Denies: Hx Pacemaker/ICD, Hx Peripheral Vascular Disease Respiratory History: Reports: Hx Asthma, Hx Chronic Bronchitis Denies: Hx Chronic Obstructive Pulmonary Disease (COPD) GI History: Reports: Hx Diverticulosis, Hx Gall Bladder Disease - Cholecystectomy, Hx Hiatal Hernia - repaired, Hx Ulcer, Other GI Disorders - pancreatitis History: Reports: Hx Kidney Stones Musculoskeletal History: Reports: Hx Arthritis - knee, Hx Orthopedic Injury, Other Musculoskeletal History - "frozen shoulder" Lt side Denies: Hx Osteoporosis Sensory History: Reports: Hx Eye Injury, Hx Vision Problem Denies: Hx Cataracts, Hx Contacts or Glasses, Hx Glaucoma, Hx Deafness, Hx Hearing Aid Opthamlomology History: Reports: Hx Eye Injury, Hx Vision Problem Denies: Hx Cataracts, Hx Contacts or Glasses, Hx Glaucoma Neurological History: Reports: Hx Headaches, Hx Transient Ischemic Attacks (TIA) Denies: Hx Seizures Psychiatric History: Reports: Hx Anxiety Denies: Hx Depression, Hx Panic Disorder - Surgical History Surgery Procedure, Year, and Place: Hysterectomy, Tubal ligation, Cholecystectomy, RIGHT LEG ORIF, left knee arthroscopy, tonsillectomy and adenoidectomy Hx Anesthesia Reactions: No - Immunization History Date of Tetanus Vaccine: unk Date of Influenza Vaccine: none Infectious Disease History: No Infectious Disease History: Reports: Hx Shingles Denies: Traveled Outside the [place] in Last 30 Days - Family History Known Family History: Positive: Cardiac Disease - [place] in grandfather , Hypertension, Other - kidney stones (grandson), [place] in father, stroke in mother - Social History Occupation: Retired Lives: With Family Alcohol Use: None Hx Substance Use: No Substance Use Type: Reports: None Hx Tobacco Use: No Smoking Status (MU): Never Smoked Tobacco Review of Systems Constitutional: Negative Negative: Fever, Chills Positive: Chest Pain. Negative: Palpitations Respiratory: Negative Negative: Shortness Of Breath, Cough Gastrointestinal: Negative Negative: Abdominal Pain, Vomiting, Diarrhea, Nausea Genitourinary: Negative Negative: dysuria Musculoskeletal: Negative Skin: Negative Positive: Headache. Negative: Weakness, Paresthesia, Numbness, Syncope All Other Systems Reviewed And Are Negative: Yes Physical Exam Triage Information Reviewed: Yes Vital Signs On Initial Exam: Initial Vitals Temp Pulse Resp BP Pulse Ox 98.2 F 77 19 138/82 96 08/17/18 05:26 08/17/18 05:26 08/17/18 05:26 08/17/18 05:26 08/17/18 05:26 Vital Signs Reviewed: Yes Appearance: Positive: Well-Appearing - Pt. sitting up in bed in NAD. Talkative. Skin: Positive: Warm, Dry Head/Face: Positive: Normal Head/Face Inspection Eyes: Positive: Normal, EOMI, TREY Neck: Positive: Supple Respiratory/Lung Sounds: Positive: Clear to Auscultation, Breath Sounds Present. Negative: Rales, Rhonchi, Wheezes Cardiovascular: Positive: Normal, RRR Abdomen Description: Positive: Nontender, Soft Musculoskeletal: Positive: Normal, Strength/ROM Intact Neurological: Positive: Normal, CN Intact II-III Psychiatric: Positive: Affect/Mood Appropriate Diagnostics - Vital Signs Vital Signs Temp Pulse Resp BP Pulse Ox 08/17/18 05:26 98.2 F 77 19 138/82 96 - Laboratory Result Diagrams: 08/17/18 07:02 08/17/18 06:17 Lab Statement: Any lab studies that have been ordered have been reviewed, and results considered in the medical decision making process. Chest Pain Course/Dx - Course Course Of Treatment: Pt. presenting with c/o anxiety and a brief episode of chest pressure prior to arrival. ECG done at 0532 shows a sinus rhythm of 66bpm , normal axis, no ST elevation or depression, similar to prior tracing. Pt. given a dose of xanax for anxiety. Labs show mild anemia. Negative trop. CXR negative per radiology. Pt. was evaluated by social media executive and provided outpt. info. Pt. feeling better and will be dc home. To fu with pcp and return to ER if sxs change or worsen. Pt. understands and agrees with plan. - Chest Pain Differential Diagnosis/HQI/PQRI: Acute [place], Chest Wall, GI Disease, Lower Respiratory Infection - Diagnoses Provider Diagnoses: Anxiety Discharge - Sign-Out/Discharge Documenting (check all that apply): Patient Departure Patient Received Moderate/Deep Sedation with Procedure: No - Discharge Plan Condition: Improved Disposition: HOME Patient Education Materials: Anxiety (ED) Referrals: Matti Romero MD [Primary Care Provider] - Additional Instructions: Call PCP today for a close follow up appointment Continue home medications as directed Return to ER if symptoms change or worsen - Billing Disposition and Condition Condition: IMPROVED Disposition: Home
[2018-08-17 06:47] LABS: Albumin 3.5 g/dL (3.2-5.2); Calcium 8.7 mg/dL (8.6-10.3); Total Bilirubin 0.5 mg/dL (0.2-1.0)
[2018-08-17 06:53] LABS: Albumin/Globulin Ratio 1.1 (1-3); BUN/Creatinine Ratio 12.9 (8-20); EGFR African American 50.8 (>60); EGFR Non-African American 41.9 (>60); Globulin 3.3 g/dL (2-4); Total Protein 6.8 g/dL (6.4-8.9)
[2018-08-17 07:24] LABS: ABS Basophils 0.1 10^3/ul (0-0.2); ABS Eosinophils 0.1 10^3/ul (0-0.6); ABS Lymphocytes 1.9 10^3/ul (1.0-4.8); ABS Monocytes 0.3 10^3/ul (0-0.8); ABS Neutrophils 2.1 10^3/ul (1.5-7.7); Eosinophil % 2.4 %; Hematocrit 30 % (35-47); Lymphocyte % 41.9 %; Mean Corpuscular HGB Conc 34 g/dL (31-36); Mean Corpuscular Hemoglobin 26 pg (27-31); Mean Corpuscular Volume 78 fL (80-97); Mean Platelet Volume 8.2 fL (7.4-10.4); Nucleated Red Blood Cells % 0.1; Platelet Count 173 10^3/uL (150-450); Red Blood Count 3.82 10^6 /uL (3.70-4.87); Red Cell Distribution Width 16 % (10.5-15); White Blood Count 4.5 10^3/uL (3.5-10.8)
[2018-08-17 09:40] VITALS: BP 128/84
== END 2018-08-17 09:39 | disposition home or self-care (01) ==
LOC: ED 05:12
DX: R07.9 Chest pain, unspecified (principal); F41.9 Anxiety disorder, unspecified; Z88.5 Allergy status to narcotic agent; Z88.0 Allergy status to penicillin; Z88.2 Allergy status to sulfonamides
CPT/HCPCS: 36415; 71045; 80053; 84484; 85025; 93005; 99284; A9270-GY

== ENCOUNTER 2018-08-30 22:40 | Emergency (ER) | payer MEDICARE ==
--- NOTE | 2018-08-30 22:55 | ED ---
Psychiatric Complaint - HPI Summary HPI Summary: A 78 y/o F brought in by ambulance presents to ED c/o anxiety onset this AM. She ran out of her Xanax medication last week. She says she takes two at night. She has not contacted her PCP about it. Denies PMHx: DM. PMHx include HTN, dizziness. Patient has no cough at bedside. - History Of Current Complaint Time Seen by Provider: 08/30/18 22:47 Hx Obtained From: Patient Onset/Duration: Lasting Hours, Still Present Timing: Constant Severity Initially: Moderate Severity Currently: Moderate Character: Anxious Aggravating Factor(s): Medication Non-compliance Associated Signs And Symptoms: Positive: Negative - Allergies/Home Medications Allergies/Adverse Reactions: Allergies Allergy/AdvReac Type Severity Reaction Status Date / Time codeine Allergy Nausea And Verified 08/27/18 10:39 Vomiting Penicillins Allergy Nausea Verified 08/27/18 10:39 Sulfa (Sulfonamide Allergy Nausea Verified 08/27/18 10:39 Antibiotics) tramadol Allergy Nausea And Verified 08/27/18 10:39 Vomiting PMH/Surg Hx/FS Hx/Imm Hx Previously Healthy: No Endocrine/Hematology History: Denies: Hx Anticoagulant Therapy, Hx Blood Disorders, Hx Diabetes, Hx Thyroid Disease Cardiovascular History: Reports: Hx Hypertension Denies: Hx Pacemaker/ICD, Hx Peripheral Vascular Disease Respiratory History: Reports: Hx Asthma, Hx Chronic Bronchitis Denies: Hx Chronic Obstructive Pulmonary Disease (COPD) GI History: Reports: Hx Diverticulosis, Hx Gall Bladder Disease - Cholecystectomy, Hx Hiatal Hernia - repaired, Hx Ulcer, Other GI Disorders - pancreatitis History: Reports: Hx Kidney Stones Musculoskeletal History: Reports: Hx Arthritis - knee, Hx Orthopedic Injury, Other Musculoskeletal History - "frozen shoulder" Lt side Denies: Hx Osteoporosis Sensory History: Reports: Hx Eye Injury, Hx Vision Problem Denies: Hx Cataracts, Hx Contacts or Glasses, Hx Glaucoma, Hx Deafness, Hx Hearing Aid Opthamlomology History: Reports: Hx Eye Injury, Hx Vision Problem Denies: Hx Cataracts, Hx Contacts or Glasses, Hx Glaucoma Neurological History: Reports: Hx Headaches, Hx Transient Ischemic Attacks (TIA) Denies: Hx Seizures Psychiatric History: Reports: Hx Anxiety Denies: Hx Depression, Hx Panic Disorder - Surgical History Surgery Procedure, Year, and Place: Hysterectomy, Tubal ligation, Cholecystectomy, RIGHT LEG ORIF, left knee arthroscopy, tonsillectomy and adenoidectomy Hx Anesthesia Reactions: No - Immunization History Date of Tetanus Vaccine: unk Date of Influenza Vaccine: none Infectious Disease History: Reports: Hx Shingles - Family History Known Family History: Positive: Cardiac Disease - [place] in grandfather , Hypertension, Other - kidney stones (grandson), [place] in father, stroke in mother - Social History Occupation: Disabled Lives: Alone Alcohol Use: None Hx Substance Use: No Substance Use Type: Reports: None Hx Tobacco Use: No Smoking Status (MU): Never Smoked Tobacco Review of Systems Negative: Cough Positive: Anxious All Other Systems Reviewed And Are Negative: Yes Physical Exam - Summary Physical Exam Summary: Appearance: well appearing, no pain distress, anxious Skin: warm, dry, reflects adequate perfusion Head/face: normal Eyes: EOMI, TREY ENT: mucous membranes moist Neck: supple, non-tender Respiratory: CTA, breath sounds present Cardiovascular: RRR, pulses symmetrical Abdomen: non-tender, soft Bowel Sounds: present Musculoskeletal: normal, strength/ROM intact Neuro: normal, sensory motor intact, A&Ox3 Triage Information Reviewed: Yes Vital Signs Reviewed: Yes Course/Dx - Course Course Of Treatment: Nurses' notes reviewed. Patient is well-known to me. She is out of her Xanax and is feeling quite anxious. She takes 1 mg tablets as per [place] iSTOP and has not had them filled since June. She should [facility] to get these refilled by her doctor. She was given Ativan 1 mg intramuscularly and 1 mg of oral Klonopin. She is feeling better and was able to be discharged. I gave her a short course of her Xanax while she awaits appointment with her doctor. - Differential Dx/Clinical Impression Differential Diagnosis/HQI/PQRI: Positive: Other - Anxiety disorder, benzodiazepine withdrawal Provider Diagnosis: Anxiety, Benzodiazepine withdrawal Discharge - Sign-Out/Discharge Documenting (check all that apply): Patient Departure - D/C Patient Received Moderate/Deep Sedation with Procedure: No - Discharge Plan Condition: Improved Disposition: HOME Prescriptions: ALPRAZolam [Alprazolam] 1 tab PO BID PRN #6 tablet MDD 2 PRN Reason: Anxiety Patient Education Materials: Anxiety (ED) Referrals: Matti Romero MD [Primary Care Provider] - Additional Instructions: You must call your doctor first thing in the morning to schedule prompt follow- up and refill of her medications. Going without these medications can be dangerous. I refilled only a small amount. Return if worse, new symptoms or other concerns. - Billing Disposition and Condition Condition: IMPROVED Disposition: Home - Attestation Statements Document Initiated by Dari: Yes Documenting Scribe: Liane Rothman Provider For Whom Dari is Documenting (Include Credential): Dr. Prem Hankins MD Scribe Attestation: I, Liane Rothman, scribed for Dr. Prem Hankins MD on 08/31/18 at 0153. Scribe Documentation Reviewed: Yes Provider Attestation: The documentation as recorded by the Liane begum accurately reflects the service I personally performed and the decisions made by me, Dr. Prem Hankins MD Status of Scribe Document: Viewed
[2018-08-30] MEDS ORDERED: LORazepam INJ* 2 MG/ML 1 ML VIAL IM ONE (22:57)
[2018-08-30] MEDS ORDERED: Lorazepam PYXIS KEY PRN (22:57)
[2018-08-30] MEDS ORDERED: clonazePAM TAB(*) 1 MG PO ONE (22:57)
[2018-08-30] MEDS ORDERED: Lorazepam PYXIS KEY ONE (23:15)
[2018-08-30 23:27] VITALS: BP 189/91
== END 2018-08-30 23:26 | disposition home or self-care (01) ==
LOC: ED 22:40
DX: F13.239 Sedative, hypnotic or anxiolytic dependence with withdrawal, unspecified (principal); F41.9 Anxiety disorder, unspecified; I10 Essential (primary) hypertension; J45.909 Unspecified asthma, uncomplicated
CPT/HCPCS: 96372; 99282; A9270-GY; J2060

== ENCOUNTER 2018-09-12 07:06 | Emergency (ER) | payer MEDICARE ==
[2018-09-12] MEDS ORDERED: clonazePAM TAB(*) 1 MG PO ONE (07:21)
[2018-09-12] MEDS ORDERED: Lorazepam PYXIS KEY PRN (07:21)
[2018-09-12] MEDS ORDERED: LORazepam INJ* 2 MG/ML 1 ML VIAL IM ONE (07:21)
--- NOTE | 2018-09-12 07:37 | ED ---
Psychiatric Complaint - HPI Summary HPI Summary: This patient is a 78 year old F brought in by ambulance to [facility] with a chief complaint of anxiety that woke her at 0500 this morning. She states ran out of her prescribed clonazepam. Patient has been to [facility] multiple times for a similar complaint. Her symptoms are typically resolved by an Ativan injection. - History Of Current Complaint Hx Obtained From: Patient Onset/Duration: Lasting Hours Timing: Constant Severity Initially: Mild Severity Currently: Mild Character: Anxious Aggravating Factor(s): Medication Non-compliance Alleviating Factor(s): Medication Associated Signs And Symptoms: Positive: Negative Related History: Positive For: Prior Psychiatric Issues - Allergies/Home Medications Allergies/Adverse Reactions: Allergies Allergy/AdvReac Type Severity Reaction Status Date / Time codeine Allergy Nausea And Verified 09/12/18 07:33 Vomiting Penicillins Allergy Nausea Verified 09/12/18 07:33 Sulfa (Sulfonamide Allergy Nausea Verified 09/12/18 07:33 Antibiotics) tramadol Allergy Nausea And Verified 09/12/18 07:33 Vomiting PMH/Surg Hx/FS Hx/Imm Hx Endocrine/Hematology History: Denies: Hx Anticoagulant Therapy, Hx Blood Disorders, Hx Diabetes, Hx Thyroid Disease Cardiovascular History: Reports: Hx Hypertension Denies: Hx Pacemaker/ICD, Hx Peripheral Vascular Disease Respiratory History: Reports: Hx Asthma, Hx Chronic Bronchitis Denies: Hx Chronic Obstructive Pulmonary Disease (COPD) GI History: Reports: Hx Diverticulosis, Hx Gall Bladder Disease - Cholecystectomy, Hx Hiatal Hernia - repaired, Hx Ulcer, Other GI Disorders - pancreatitis History: Reports: Hx Kidney Stones Musculoskeletal History: Reports: Hx Arthritis - knee, Hx Orthopedic Injury, Other Musculoskeletal History - "frozen shoulder" Lt side Denies: Hx Osteoporosis Sensory History: Reports: Hx Eye Injury, Hx Vision Problem Denies: Hx Cataracts, Hx Contacts or Glasses, Hx Glaucoma, Hx Deafness, Hx Hearing Aid Opthamlomology History: Reports: Hx Eye Injury, Hx Vision Problem Denies: Hx Cataracts, Hx Contacts or Glasses, Hx Glaucoma Neurological History: Reports: Hx Headaches, Hx Transient Ischemic Attacks (TIA) Denies: Hx Seizures Psychiatric History: Reports: Hx Anxiety Denies: Hx Depression, Hx Panic Disorder - Surgical History Surgery Procedure, Year, and Place: Hysterectomy, Tubal ligation, Cholecystectomy, RIGHT LEG ORIF, left knee arthroscopy, tonsillectomy and adenoidectomy Hx Anesthesia Reactions: No - Immunization History Date of Tetanus Vaccine: unk Date of Influenza Vaccine: none Infectious Disease History: No Infectious Disease History: Reports: Hx Shingles Denies: Traveled Outside the [place] in Last 30 Days - Family History Known Family History: Positive: Cardiac Disease - [place] in grandfather , Hypertension, Other - kidney stones (grandson), [place] in father, stroke in mother - Social History Alcohol Use: None Hx Substance Use: No Substance Use Type: Reports: None Hx Tobacco Use: No Smoking Status (MU): Never Smoked Tobacco Review of Systems Negative: Fever Positive: Anxious All Other Systems Reviewed And Are Negative: Yes Physical Exam - Summary Physical Exam Summary: VITAL SIGNS: Reviewed. GENERAL: Patient is a well-developed and nourished female who is lying comfortable in the stretcher. Patient is not in any acute respiratory distress. HEAD AND FACE: No signs of trauma. No ecchymosis, hematomas or skull depressions. No sinus tenderness. EYES: PERRLA, EOMI x 2, No injected conjunctiva, no nystagmus. EARS: Hearing grossly intact. Ear canals and tympanic membranes are within normal limits. MOUTH: Oropharynx within normal limits. NECK: Supple, trachea is midline, no adenopathy, no JVD, no carotid bruit, no c- spine tenderness, neck with full ROM. CHEST: Symmetric, no tenderness at palpation LUNGS: Clear to auscultation bilaterally. No wheezing or crackles. CVS: Regular rate and rhythm, S1 and S2 present, no murmurs or gallops appreciated. ABDOMEN: Soft, non-tender. No signs of distention. No rebound no guarding, and no masses palpated. Bowel sounds are normal. EXTREMITIES: FROM in all major joints, no edema, no cyanosis or clubbing. NEURO: Alert and oriented x 3. No acute neurological deficits. Speech is normal and follows commands. SKIN: Dry and warm. Triage Information Reviewed: Yes Vital Signs On Initial Exam: Initial Vitals Temp Pulse Resp BP Pulse Ox 98.5 F 66 16 160/93 96 09/12/18 07:15 09/12/18 07:15 09/12/18 07:15 09/12/18 07:15 09/12/18 07:15 Vital Signs Reviewed: Yes Diagnostics - Vital Signs Vital Signs Temp Pulse Resp BP Pulse Ox 06/02/19 07:15 98.5 F 66 16 160/93 96 - Laboratory Lab Statement: Any lab studies that have been ordered have been reviewed, and results considered in the medical decision making process. Course/Dx - Course Course Of Treatment: This patient is a 78 year old F brought in by ambulance to [facility] with a chief complaint of anxiety that woke her at 0500 this morning. She states ran out of her prescribed clonazepam. Patient has been to [facility] multiple times for a similar complaint. Her symptoms are typically resolved by an Ativan injection. In the ED course the patient was given 1 mg of Ativan IM and 1mg of Klonopin PO and the symptoms resolved. Therefore the patient will be discharged home with follow-up with PCP. Plan of care was discussed with the patient and understands and agrees. All questions were answered at patient satisfaction. There were no further complaints or concerns. Lung exam before discharge: CTA B/L. Good air exchange. No wheezing or crackles heard. CVS: S1 and S2 present. No murmurs appreciated. Patient is alert and oriented x 3. Patient is hemodynamically stable. Patient will be discharged home with follow up PCP in the next 2-3 days - Differential Dx/Clinical Impression Provider Diagnosis: Anxiety Discharge - Sign-Out/Discharge Documenting (check all that apply): Patient Departure - discharge Patient Received Moderate/Deep Sedation with Procedure: No - Discharge Plan Condition: Improved Disposition: HOME Patient Education Materials: Anxiety (ED) Referrals: Matti Romero MD [Primary Care Provider] - 3 Days Additional Instructions: RETURN TO THE EMERGENCY DEPARTMENT FOR CHANGING OR WORSENING SYMPTOMS. Otherwise follow up with your PCP. - Billing Disposition and Condition Condition: IMPROVED Disposition: Home - Attestation Statements Document Initiated by Dari: Yes Documenting Scribe: Sheri Conde Provider For Whom Dari is Documenting (Include Credential): Jeremy Rizvi MD Scribe Attestation: Sheri Mcwilliams scribed for Jeremy Rizvi MD on 09/12/18 at 0821. Scribe Documentation Reviewed: Yes Provider Attestation: The documentation as recorded by the Sheri begum accurately reflects the service I personally performed and the decisions made by me, Jeremy Rizvi MD Status of Scribe Document: Viewed
[2018-09-12] MEDS ORDERED: Lorazepam PYXIS KEY ONE (07:40)
[2018-09-12 08:03] VITALS: BP 132/69
== END 2018-09-12 08:03 | disposition home or self-care (01) ==
LOC: ED 07:06
DX: F41.9 Anxiety disorder, unspecified (principal); Z88.5 Allergy status to narcotic agent; Z88.0 Allergy status to penicillin; Z88.2 Allergy status to sulfonamides
CPT/HCPCS: 96372; 99282; A9270-GY; J2060

== ENCOUNTER 2018-09-25 08:52 | Emergency (ER) | payer MEDICARE ==
[2018-09-25 09:01] VITALS: BP 139/105
--- NOTE | 2018-09-25 09:35 | ED ---
Complex/Multi-Sys Presentation - HPI Summary HPI Summary: The patient is a 78 y/o F presenting to [facility] with a chief complaint of gradual onset of aggravation and depression starting over the last few days. She states that her daughter is currently living with her because she is unable to pay her own rent, and the patient feels like she has been a good mother but is being disrespected. She also reports that she would like to get out of the home she's living in because she wants to move closer to her PCP. She additionally c/o nausea. She denies SI and HI. She is not currently in pain, and she has no other complaints at this time. Nonsmoker, no EtOH, no substance use. - History Of Current Complaint Chief Complaint: EDPsychosocial Time Seen by Provider: 09/25/18 09:04 Hx Obtained From: Patient Onset/Duration: Gradual Onset, Lasting Days, Still Present Timing: Days Severity Currently: Moderate Severity Initially: Mild Aggravating Factor(s): stress of daughter living with her Alleviating Factor(s): nothing Associated Signs And Symptoms: Positive: Agitation, Nausea, Other - depression - Allergies/Home Medications Allergies/Adverse Reactions: Allergies Allergy/AdvReac Type Severity Reaction Status Date / Time codeine Allergy Nausea And Verified 09/25/18 09:01 Vomiting Penicillins Allergy Nausea Verified 09/25/18 09:01 Sulfa (Sulfonamide Allergy Nausea Verified 09/25/18 09:01 Antibiotics) tramadol Allergy Nausea And Verified 09/25/18 09:01 Vomiting PMH/Surg Hx/FS Hx/Imm Hx Endocrine/Hematology History: Denies: Hx Anticoagulant Therapy, Hx Blood Disorders, Hx Diabetes, Hx Thyroid Disease Cardiovascular History: Reports: Hx Hypertension Denies: Hx Pacemaker/ICD, Hx Peripheral Vascular Disease Respiratory History: Reports: Hx Asthma, Hx Chronic Bronchitis Denies: Hx Chronic Obstructive Pulmonary Disease (COPD) GI History: Reports: Hx Diverticulosis, Hx Gall Bladder Disease - Cholecystectomy, Hx Hiatal Hernia - repaired, Hx Ulcer, Other GI Disorders - pancreatitis History: Reports: Hx Kidney Stones Musculoskeletal History: Reports: Hx Arthritis - knee, Hx Orthopedic Injury, Other Musculoskeletal History - "frozen shoulder" Lt side Denies: Hx Osteoporosis Sensory History: Reports: Hx Eye Injury, Hx Vision Problem Denies: Hx Cataracts, Hx Contacts or Glasses, Hx Glaucoma, Hx Deafness, Hx Hearing Aid Opthamlomology History: Reports: Hx Eye Injury, Hx Vision Problem Denies: Hx Cataracts, Hx Contacts or Glasses, Hx Glaucoma Neurological History: Reports: Hx Headaches, Hx Transient Ischemic Attacks (TIA) Denies: Hx Seizures Psychiatric History: Reports: Hx Anxiety Denies: Hx Depression, Hx Panic Disorder - Surgical History Surgery Procedure, Year, and Place: Hysterectomy, Tubal ligation, Cholecystectomy, RIGHT LEG ORIF, left knee arthroscopy, tonsillectomy and adenoidectomy Hx Anesthesia Reactions: No - Immunization History Date of Tetanus Vaccine: unk Date of Influenza Vaccine: none Infectious Disease History: No Infectious Disease History: Reports: Hx Shingles Denies: Traveled Outside the [place] in Last 30 Days - Family History Known Family History: Positive: Cardiac Disease - [place] in grandfather , Hypertension, Other - kidney stones (grandson), [place] in father, stroke in mother - Social History Alcohol Use: None Hx Substance Use: No Substance Use Type: Reports: None Hx Tobacco Use: No Smoking Status (MU): Never Smoked Tobacco Do You Chew or Dip Tobacco: No Have You Chewed or Dipped Tobacco in the LAST YEAR: No Have You Smoked in the Last Year: No Review of Systems Positive: Nausea Psychological: Other - NEGATIVE: SI, HI Positive: Depressed, Other - aggravated All Other Systems Reviewed And Are Negative: Yes Physical Exam - Summary Physical Exam Summary: VITAL SIGNS: Reviewed. GENERAL: Patient is a well-developed and nourished female who is lying comfortable in the stretcher. Patient is not in any acute respiratory distress. HEAD AND FACE: No signs of trauma. No ecchymosis, hematomas or skull depressions. No sinus tenderness. EYES: PERRLA, EOMI x 2, No injected conjunctiva, no nystagmus. EARS: Hearing grossly intact. Ear canals and tympanic membranes are within normal limits. MOUTH: Oropharynx within normal limits. NECK: Supple, trachea is midline, no adenopathy, no JVD, no carotid bruit, no c- spine tenderness, neck with full ROM. CHEST: Symmetric, no tenderness at palpation LUNGS: Clear to auscultation bilaterally. No wheezing or crackles. CVS: Regular rate and rhythm, S1 and S2 present, no murmurs or gallops appreciated. ABDOMEN: Soft, non-tender. No signs of distention. No rebound no guarding, and no masses palpated. Bowel sounds are normal. EXTREMITIES: FROM in all major joints, no edema, no cyanosis or clubbing. NEURO: Alert and oriented x 3. No acute neurological deficits. Speech is normal and follows commands. SKIN: Dry and warm. Triage Information Reviewed: Yes Vital Signs On Initial Exam: Initial Vitals Temp Pulse Resp BP Pulse Ox 97.4 F 95 16 139/105 95 09/25/18 08:53 09/25/18 08:53 09/25/18 08:53 09/25/18 08:53 09/25/18 08:53 Vital Signs Reviewed: Yes Diagnostics - Vital Signs Vital Signs Temp Pulse Resp BP Pulse Ox 09/25/18 08:53 97.4 F 95 16 139/105 95 - Laboratory Lab Statement: Any lab studies that have been ordered have been reviewed, and results considered in the medical decision making process. Complex Multi-Symp Course/Dx Assessment/Plan: The patient is a 78 y/o F presenting to [facility] with a chief complaint of gradual onset of aggravation and depression starting over the last few days. She states that her daughter is currently living with her because she is unable to pay her own rent, and the patient feels like she has been a good mother but is being disrespected. She also reports that she would like to get out of the home she's living in because she wants to move closer to her PCP. She additionally c/o nausea. She denies SI and HI. She is not currently in pain , and she has no other complaints at this time. Nonsmoker, no EtOH, no substance use. Patient has no medical complaints. After talking to us she feels better. Therefore, the patient will be discharged home with follow-up with PCP. - Diagnoses Provider Diagnoses: Anxiety Discharge - Sign-Out/Discharge Documenting (check all that apply): Patient Departure - Patient will be discharged home. Patient Received Moderate/Deep Sedation with Procedure: No - Discharge Plan Condition: Good Disposition: HOME Patient Education Materials: Anxiety (ED) Referrals: Matti Romero MD [Primary Care Provider] - 3 Days Additional Instructions: FOLLOW UP WITH YOUR PRIMARY CARE PROVIDER IN 2-3 DAYS. RETURN TO THE EMERGENCY DEPARTMENT FOR ANY NEW OR WORSENING SYMPTOMS. - Billing Disposition and Condition Condition: GOOD Disposition: Home - Attestation Statements Document Initiated by Scribe: Yes Documenting Scribe: Glo Ortez Provider For Whom Scribe is Documenting (Include Credential): Dr. Jeremy Rizvi MD Scribe Attestation: I, Glo Ortez, scribed for Dr. Jeremy Rizvi MD on 09/25/18 at 0942. Scribe Documentation Reviewed: Yes Provider Attestation: The documentation as recorded by the Glo begum accurately reflects the service I personally performed and the decisions made by me, Dr. Jeremy Rizvi MD Status of Scribe Document: Ready
== END 2018-09-25 10:00 | disposition home or self-care (01) ==
LOC: ED 08:52
DX: F41.9 Anxiety disorder, unspecified (principal); R11.0 Nausea; Z88.5 Allergy status to narcotic agent; Z88.0 Allergy status to penicillin; Z88.2 Allergy status to sulfonamides
CPT/HCPCS: 99281

== ENCOUNTER 2018-10-04 08:07 | Observation (INO) | payer MEDICARE ==
--- NOTE | 2018-10-04 09:09 | ED ---
HPI Chest Pain - HPI Summary HPI Summary: The patient is a 78 y/o F arriving by ambulance to [facility] with a chief complaint of sudden onset diffuse CP this morning at 0200. She reports that she also awoke with right eye pain, GRANADOS, SOB, diffuse abd pain, and body aches. In the ED , she has developed nausea and vomiting. She denies fever, chills, erythema of eyes, sore throat, cough, diarrhea, dysuria, hematuria, myalgia, back pain, edema, rash, and dizziness. Her pain is currently rated 10/10 in severity, and she states that she took ASA today as usual. Hx of HTN, asthma, chronic bronchitis, diverticulosis, pancreatitis, headaches, TIA, anxiety. FHx cardiac disease. Nonsmoker, no EtOH, no substance use. - History of Current Complaint Chief Complaint: EDChestWallPain Time Seen by Provider: 10/04/18 08:15 Hx Obtained From: Patient Onset/Duration: Started Hours Ago - at 0200 this morning, Still Present Time of Onset: 02:00 Timing: Lasting Hours Initial Severity: Mild Current Severity: Moderate Pain Intensity: 10 Pain Scale Used: 0-10 Numeric Chest Pain Location: Diffuse Chest Pain Radiates: No Character: Dull/Aching Aggravating Factor(s): Nothing Alleviating Factor(s): Nothing Associated Signs and Symptoms: Positive: Other: - POSITIVE: right eye pain, GRANADOS, SOB, diffuse abd pain, body aches; NEGATIVE: fever, chills, erythema of eyes, sore throat, cough, diarrhea, dysuria, hematuria, myalgia, back pain, edema, rash, dizziness - Additional Pertinent History Primary Care Physician: DIO - Allergy/Home Medications Allergies/Adverse Reactions: Allergies Allergy/AdvReac Type Severity Reaction Status Date / Time codeine Allergy Nausea And Verified 10/04/18 08:15 Vomiting Penicillins Allergy Nausea Verified 10/04/18 08:15 Sulfa (Sulfonamide Allergy Nausea Verified 10/04/18 08:15 Antibiotics) tramadol Allergy Nausea And Verified 10/04/18 08:15 Vomiting PMH/Surg Hx/FS Hx/Imm Hx Endocrine/Hematology History: Denies: Hx Anticoagulant Therapy, Hx Blood Disorders, Hx Diabetes, Hx Thyroid Disease Cardiovascular History: Reports: Hx Hypertension Denies: Hx Pacemaker/ICD, Hx Peripheral Vascular Disease Respiratory History: Reports: Hx Asthma, Hx Chronic Bronchitis Denies: Hx Chronic Obstructive Pulmonary Disease (COPD) GI History: Reports: Hx Diverticulosis, Hx Gall Bladder Disease - Cholecystectomy, Hx Hiatal Hernia - repaired, Hx Ulcer, Other GI Disorders - pancreatitis History: Reports: Hx Kidney Stones Musculoskeletal History: Reports: Hx Arthritis - knee, Hx Orthopedic Injury, Other Musculoskeletal History - "frozen shoulder" Lt side Denies: Hx Osteoporosis Sensory History: Reports: Hx Eye Injury, Hx Vision Problem Denies: Hx Cataracts, Hx Contacts or Glasses, Hx Glaucoma, Hx Deafness, Hx Hearing Aid Opthamlomology History: Reports: Hx Eye Injury, Hx Vision Problem Denies: Hx Cataracts, Hx Contacts or Glasses, Hx Glaucoma Neurological History: Reports: Hx Headaches, Hx Transient Ischemic Attacks (TIA) Denies: Hx Seizures Psychiatric History: Reports: Hx Anxiety Denies: Hx Depression, Hx Panic Disorder - Surgical History Surgery Procedure, Year, and Place: Hysterectomy, Tubal ligation, Cholecystectomy, RIGHT LEG ORIF, left knee arthroscopy, tonsillectomy and adenoidectomy Hx Anesthesia Reactions: No - Immunization History Date of Tetanus Vaccine: unk Date of Influenza Vaccine: none Infectious Disease History: No Infectious Disease History: Reports: Hx Shingles Denies: Traveled Outside the [place] in Last 30 Days - Family History Known Family History: Positive: Cardiac Disease - [place] in grandfather , Hypertension, Other - kidney stones (grandson), [place] in father, stroke in mother - Social History Alcohol Use: None Hx Substance Use: No Substance Use Type: Reports: None Hx Tobacco Use: No Smoking Status (MU): Never Smoked Tobacco Do You Chew or Dip Tobacco: No Have You Chewed or Dipped Tobacco in the LAST YEAR: No Have You Smoked in the Last Year: No Review of Systems Positive: Other - body aches. Negative: Fever, Chills Positive: Other - left eye pain. Negative: Erythema Negative: Sore Throat Positive: Chest Pain Positive: Shortness Of Breath. Negative: Cough Positive: Abdominal Pain - diffuse, Vomiting, Nausea. Negative: Diarrhea Negative: dysuria, flank pain Negative: Myalgia - no back pain, Edema Negative: Rash Positive: Headache All Other Systems Reviewed And Are Negative: Yes Physical Exam - Summary Physical Exam Summary: Constitutional: Well-developed, Well-nourished, Alert. (-) Distressed. Appears to be very inconsistent at times stating that her eye hurts, her whole body hurts, there is no localized pain, and there is abdominal pain. Dry heaving. Skin: Warm, Dry HENT: Normocephalic; Atraumatic Eyes: Conjunctiva normal Neck: Musculoskeletal ROM normal neck. (-) JVD, (-) Stridor, (-) Tracheal deviation Cardio: Rhythm regular, rate normal, Heart sounds normal; Intact distal pulses; The pedal pulses are 2+ and symmetric. Radial pulses are 2+ and symmetric. (-) Murmur Pulmonary/Chest wall: Effort normal. (-) Respiratory distress, (-) Wheezes, (-) Rales Abd: Soft, (-) tenderness, (-) Distension, (-) Guarding, (-) Rebound Musculoskeletal: (-) Edema Lymph: (-) Cervical adenopathy Neuro: Alert, Oriented x3. GCS: 15. Psych: Mood and affect Normal Triage Information Reviewed: Yes Vital Signs On Initial Exam: Initial Vitals Temp Pulse Resp BP Pulse Ox 97.8 F 73 16 127/100 96 10/04/18 08:10 10/04/18 08:10 10/04/18 08:10 10/04/18 08:10 10/04/18 08:10 Vital Signs Reviewed: Yes - Shailesh Coma Scale Best Eye Response: 4 - Spontaneous Best Motor Response: 6 - Obeys Commands Best Verbal Response: 5 - Oriented Coma Scale Total: 15 Diagnostics - Vital Signs Vital Signs Temp Pulse Resp BP Pulse Ox 10/04/18 08:10 97.8 F 73 16 127/100 96 - Laboratory Result Diagrams: 10/04/18 08:38 Lab Statement: Any lab studies that have been ordered have been reviewed, and results considered in the medical decision making process. - Radiology CXR Radiology Interpretation Completed By: Radiologist Summary of Radiographic Findings: No radiographic evidence for acute cardiopulmonary abnormality on this portable chest x-ray. ED physician has reviewed this report. - CT Brain CT CT Interpretation Completed By: Radiologist Summary of CT Findings: Chronic ischemic white matter change. No intracranial mass or hemorrhage is noted. ED physician has reviewed this report. Abd/Pel CT CT Interpretation Completed By: Radiologist Summary of CT Findings: No evidence of obstructive uropathy is noted. Diverticulosis without evidence of diverticulitis. Wall thickening of the gastric antrum for which antral gastritis should BE considered. Diverticulosis of the entire colon including the right colon is present. ED physician has reviewed this report. - EKG 0826 Cardiac Rate: NL - 73 BPM EKG Rhythm: Sinus Rhythm Summary of EKG Findings: No STEMI. Re-Evaluation - Re-Evaluation First Eval Re-Evaluation Time: 14:20 Change: Worse Comment: Her BP is 158 systolic. The emesis bag is one-quarter full of fresh emesis. She is still reporting a headache. Chest Pain Course/Dx - Course Course Of Treatment: The patient is a 78 y/o F arriving by ambulance to [facility] with a chief complaint of sudden onset diffuse CP this morning at 0200 accompanied by right eye pain, GRANADOS, SOB, diffuse abd pain, and body aches. In the ED, she has developed nausea and vomiting. She denies fever, chills, erythema of eyes, sore throat, cough, diarrhea, dysuria, hematuria, myalgia, back pain, edema, rash, and dizziness. Took ASA today. Hx of HTN, asthma, chronic bronchitis, diverticulosis, pancreatitis, headaches, TIA, anxiety. FHx cardiac disease. Nonsmoker, no EtOH, no substance use. Upon physical exam, the patient appears to be very inconsistent at times stating that her eye hurts, her whole body hurts, there is no localized pain, and there is abdominal pain, she is dry heaving, and she is requesting pain medicine. In the ED course, the patient was administered Zofran for nausea and vomiting, Metoprolol for increased BP, Visipaque for CT, and [place] for pain. Blood work reveals hgb of 11.9, creatinine of 1.10, Bun/creatinine of 21.8, and AST of 12. First troponin is 0.00. EKG reveals NSR at 73 BPM. CXR impression: No radiographic evidence for acute cardiopulmonary abnormality on this portable chest x-ray. Brain CT impression: Chronic ischemic white matter change. No intracranial mass or hemorrhage is noted. Abd/Pel CT impression: No evidence of obstructive uropathy is noted. Diverticulosis without evidence of diverticulitis. Wall thickening of the gastric antrum for which antral gastritis should be considered. Diverticulosis of the entire colon including the right colon is present. Since the patient continues to have hypertension with treatment, I will consult for admission. I consulted with Dr. Patel, hospitalist, at 1440; she accepts the patient for admission. She is diagnosed with hypertensive urgency. She agrees with this plan and understands the need for admission at this time. CCT of 45 minutes. - Diagnoses Provider Diagnoses: Hypertensive urgency - Provider Notifications Discussed Care Of Patient With: Bettye Patel - hospitalist Time Discussed With Above Provider: 14:40 Instructed by Provider To: Other - I discussed the patient's case with Dr. Patel, and she accepts the patient for admission. - Critical Care Time Critical Care Time: 30-74 min - 45 minutes CCT. Discharge - Sign-Out/Discharge Documenting (check all that apply): Patient Departure - Patient is accepted for admission by Dr. Patel. Patient Received Moderate/Deep Sedation with Procedure: No - Discharge Plan Condition: Stable Disposition: ADMITTED TO [facility] Referrals: Matti Romero MD [Primary Care Provider] - - Billing Disposition and Condition Condition: STABLE Disposition: Admitted to [facility] - Attestation Statements Document Initiated by Scribe: Yes Documenting Scribe: Glo Ortez Provider For Whom Scribe is Documenting (Include Credential): Dr. Chapo Ernandez MD Scribe Attestation: IGlo, scribed for Dr. Chapo Ernandez MD on 10/04/18 at 1041. Status of Scribe Document: Ready
[2018-10-04 09:56] LABS: Albumin 3.8 g/dL (3.2-5.2); Albumin/Globulin Ratio 1.1 (1-3); BUN/Creatinine Ratio 21.8 (8-20); Calcium 9.4 mg/dL (8.6-10.3); EGFR African American 58.3 (>60); EGFR Non-African American 48.2 (>60); Globulin 3.6 g/dL (2-4); Potassium 3.9 mmol/L (3.5-5.0); Total Bilirubin 0.8 mg/dL (0.2-1.0); Total Protein 7.4 g/dL (6.4-8.9)
[2018-10-04] MEDS ORDERED: HYDROcodone/ACETAMIN 5-325 MG* 1 TAB PO ONE (10:55)
[2018-10-04] MEDS ORDERED: Ondansetron ODT TAB* 4 MG SL ONE (10:55)
[2018-10-04] MEDS ORDERED: Iodixanol* (CONTRAST) 320 MG/ML 100 ML SDV IV ONE (11:16)
[2018-10-04 11:58] LABS: ABS Basophils 0.1 10^3/ul (0-0.2); ABS Eosinophils 0.1 10^3/ul (0-0.6); ABS Lymphocytes 2.3 10^3/ul (1.0-4.8); ABS Monocytes 0.5 10^3/ul (0-0.8); Eosinophil % 1.1 %; Hematocrit 35 % (35-47); Hemoglobin 11.9 g/dL (12.0-16.0); Lymphocyte % 39.4 %; Mean Corpuscular HGB Conc 34 g/dL (31-36); Mean Corpuscular Hemoglobin 27 pg (27-31); Mean Corpuscular Volume 80 fL (80-97); Mean Platelet Volume 7.8 fL (7.4-10.4); Nucleated Red Blood Cells % 0.1; Platelet Count 239 10^3/uL (150-450); Red Blood Count 4.37 10^6 /uL (3.70-4.87); Red Cell Distribution Width 15 % (10-15); White Blood Count 5.8 10^3/uL (3.5-10.8)
[2018-10-04] MEDS ORDERED: Metoprolol Tartrate IV* 1 MG/ML 5 ML VIAL IV ONE (14:25)
[2018-10-04] MEDS ORDERED: Ondansetron INJ* 2 MG/ML VIAL IV ONE (14:26)
[2018-10-04] MEDS ORDERED: ALPRAZolam TAB* 0.5 MG PO PRN (15:07)
[2018-10-04] MEDS ORDERED: PROCHLORPERAZINE INJ 5 MG/ML 2 ML VIAL IV PRN (15:07)
[2018-10-04] MEDS ORDERED: hydrOXYzine HCL TAB* 50 MG PO PRN (15:07)
[2018-10-04] MEDS ORDERED: Ibuprofen TAB* 600 MG PO PRN (15:39)
[2018-10-04] MEDS: NS 0.9% 1000 ML** 1,000 ML IV SCH (16:55)
--- NOTE | 2018-10-04 17:29 | HP ---
CC: Dr. Romero.* HISTORY AND PHYSICAL: DATE OF ADMISSION: 10/04/18 PRIMARY CARE PROVIDER: Dr. Romero. ATTENDING PHYSICIAN: Dr. Bettye Patel * (dictation provided by Lesli Onofre NP ). CHIEF COMPLAINT: Chest pain, left arm weakness, left eye pain, nausea, and vomiting. HISTORY OF PRESENT ILLNESS: Ms. Brandi Koch is a 78-year-old female with the past medical history of hypertension, anxiety, TIA, asthma and questions of psychogenic hemiparesis who presents to the hospital today with multiple complaints including left eye pain, left arm weakness, chest pain, nausea, and vomiting. Ms. Koch states that she was in her normal state of health yesterday, when she woke at 2 a.m. this morning with horrible pain in her left eye. She has a history of headache with admission in June 2018 with similar complaints. At that time, she was admitted to the hospital for 4 days with a negative workup including a negative MRI. In the setting of this pain, the patient developed chest discomfort and left arm weakness and therefore called EMS, they brought her to the hospital. Since being here in the hospital, she suddenly developed nausea and vomiting. She states that she has very mild chest pain at this time. She has no further left arm weakness. She has left eye pain and again the nausea and vomiting. In the emergency room, Ms. Koch had labs, which were unremarkable. She has a normal white blood cell count. She has a slightly elevated creatinine, but is at baseline at 1.10. She had troponins x2, which were negative at 0.00. She had imaging including a chest x-ray, which showed no acute process. She had a CT of brain that showed no acute process. She had abdomen and pelvis CT, which showed the following, "no evidence of obstructive uropathy is noted, diverticulosis without evidence for diverticulitis, wall thickening of the gastric antrum for which antral gastritis should be considered, diverticulosis of the entire colon including the right colon is present." PAST MEDICAL HISTORY: 1. Anxiety. 2. History of CVA. 3. Hypertension. 4. TIA. 5. Asthma. 6. ORIF of right femur. 7. Status post, cholecystectomy with status post hysterectomy. 8. Question of psychogenic hemiparesis in June 2017. 9. History of left eye pain and headache. MEDICATIONS: 1. Albuterol inhaler 1 to 2 puffs inhaled q.4 hours. 2. Aspirin 81 mg p.o. daily. 3. Tylenol 650 mg p.o. q.4 hours p.r.n. 4. Alprazolam 1 tab p.o. b.i.d. p.r.n. 5. Hydroxyzine 50 mg p.o. t.i.d. p.r.n. ALLERGIES: CODEINE, PENICILLIN, SULFA and TRAMADOL. FAMILY HISTORY: Mother had CHF. Father had lung cancers. SOCIAL HISTORY: The patient is only ever briefly smoked at age 17. No alcohol or drug use. She uses a cane to walk. She has a healthcare proxy, which is Raymon, her [id number] and Aki, her son. She is a DNR/DNI per the record and I will view again with her tonight when she is feeling better as she is currently nauseous and vomiting. REVIEW OF SYSTEMS: A 14 point review of system and all those not mentioned above were negative. PHYSICAL EXAMINATION GENERAL: Ms. Koch is lying in the bed. She is nauseous and holding a bag into which she feels that she will vomit, but has not done so yet during my interview. VITAL SIGNS: Temperature 97.8, pulse rate 77, respiratory rate 19, O2 saturation 100% on room air, blood pressure 164/102. HEENT: Extraocular movement is intact. LUNGS: Clear to auscultation bilaterally with no accessory muscle use and good aeration. HEART: S1, S2. No murmur, rub or gallop and regular. ABDOMEN: The patient has tenderness to palpation in the mid upper abdomen, there is no rebound or guarding. Bowel sounds are positive. EXTREMITIES: No cyanosis. No edema. NEUROLOGIC: She is alert. She is oriented x3. She moves all extremities equally. There is no facial asymmetry or focal weakness. SKIN: Intact. DIAGNOSTIC STUDIES/LAB DATA: Sodium 140, potassium 3.9, chloride 108, serum bicarbonate 24, BUN 24, creatinine 1.10, glucose 92, lactic acid 1.5. Troponin 0.00 and troponin 0.00. WBC 5.8, hemoglobin 11.9, hematocrit 35, platelet count 239 Chest x-ray shows no radiographic evidence for acute cardiopulmonary abnormality. The EKG shows a sinus rhythm with no evidence of ischemia. The CT brain shows chronic ischemic white matter changes. No intracranial mass or hemorrhage is noted. The abdomen and pelvis CT shows "no evidence of obstructive uropathy is noted, diverticulosis without evidence of diverticulitis , wall thickening of the gastric antrum, for which antral gastritis should be considered, diverticulosis of the entire colon including the right colon is present." ASSESSMENT: Ms. Koch is a 78-year-old female with past medical history of anxiety and multiple presentations to the emergency department this year. This was 18th visit to the ED this year, who presents again with a concern for left eye pain, chest pain, left arm weakness, nausea, vomiting. Our plans are for observation in the hospital for the following. 1. Chest pain: The patient's EKG is normal. Her chest x-ray is clear. She has 2 negative troponins, plan to repeat a third troponin. I suspect that perhaps her chest pain is due to anxiety and stress, but we will continue the work up with a third troponin She will be monitored on a telemetry unit. 2. Left arm weakness. The patient had transient left arm weakness. She has had a history of the same. I think this is due to stress and anxiety. Her CT brain is negative. Pending any change to her neurological checks which are ordered q.4 hours. I would not order MRI of the brain at the brain at this time. I will note that the patient was complaining of weakness at the time EMS arrived but no weakness was noted on their exam. It has been a suspicion in the past that perhaps this is psychogenic in nature as had been suspected at previous admissions. 3. Headache. The patient has had an intermittent headache with left eye pain for at least a couple of months. She had a negative workup in June. I note that there was concern for temporal arteritis back in June. I do not see any tenderness on exam today. I have added on an ESR. 4. Nausea and vomiting. The patient has nausea and vomiting today in the emergency. This seems to have started only after she arrived here. I question if it is related to norco given in ED. I do note that the CT of the abdomen and pelvis shows a question of gastritis. Plan to give her clear liquids. She will have Zofran and Compazine available p.r.n. She will have Protonix available daily and will do additional workup or intervention as needed based on clinical course. 5. Anxiety. Continue alprazolam. 6. History of transient ischemic attack. Continue aspirin. 7. DVT prophylaxis. Heparin subcu. TIME SPENT: Approximately 60 minutes were spent on the admission of this patient, more than half time was spent with the patient at the bedside reviewing the events leading up to this hospitalization, performing the physical examination, and reviewing my plan of care. LESLI ONOFRE NP [id number]/CPS #: [id number] DIMITRI
[2018-10-04] MEDS: Pantoprazole IV* 40 MG IV SCH (17:43)
[2018-10-04] MEDS: Ondansetron INJ* 2 MG/ML VIAL IV SCH ×2 (17:43→19:49)
[2018-10-04 18:20] LABS: Erythrocyte Sed Rate 35 mm/Hr (0-29)
[2018-10-04] MEDS: Heparin VIAL(*) 5000 UNITS/ML VIAL (FIVE THOUSAND) SUBCUT SCH (21:17)
[2018-10-05] MEDS: Ondansetron INJ* 2 MG/ML VIAL IV SCH ×6 (00:06→22:33)
[2018-10-05] MEDS: Heparin VIAL(*) 5000 UNITS/ML VIAL (FIVE THOUSAND) SUBCUT SCH ×3 (05:13→22:32)
[2018-10-05 07:23] LABS: ABS Basophils 0.1 10^3/ul (0-0.2); ABS Eosinophils 0.1 10^3/ul (0-0.6); ABS Lymphocytes 2.5 10^3/ul (1.0-4.8); ABS Monocytes 0.5 10^3/ul (0-0.8); ABS Neutrophils 2.6 10^3/ul (1.5-7.7); Eosinophil % 1.3 %; Hematocrit 33 % (35-47); Hemoglobin 11.4 g/dL (12.0-16.0); Lymphocyte % 44.2 %; Mean Corpuscular HGB Conc 35 g/dL (31-36); Mean Corpuscular Hemoglobin 28 pg (27-31); Mean Corpuscular Volume 79 fL (80-97); Mean Platelet Volume 7.9 fL (7.4-10.4); Nucleated Red Blood Cells % 0.1; Platelet Count 226 10^3/uL (150-450); Red Blood Count 4.12 10^6 /uL (3.70-4.87); Red Cell Distribution Width 15 % (10-15); White Blood Count 5.7 10^3/uL (3.5-10.8)
[2018-10-05 07:46] LABS: BUN/Creatinine Ratio 18.3 (8-20); Calcium 8.8 mg/dL (8.6-10.3); EGFR African American 62.2 (>60); EGFR Non-African American 51.4 (>60); Potassium 3.6 mmol/L (3.5-5.0)
[2018-10-05] MEDS: NS 0.9% 1000 ML** 1,000 ML IV SCH (07:58)
[2018-10-05] MEDS: Aspirin EC TAB* 81 MG TAB.EC PO SCH (07:58)
--- NOTE | 2018-10-05 10:21 | PN ---
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 Overnight: VSS no acute events, voiding without BM Labs: Trops negative, ESR 35, otherwise unremarkable this AM This morning, still with complaint of nausea unable to tolerate much diet but reports chest pain and headache/eye pain improved. Otherwise does endorse sig stressors at home, her daughter recently moved in and she has some housing insecurity in general. We discuss watchful waiting with diet, slow advance of diet and anticipate d/c as soon as she can tolerate full diet. Objective Active Medications: Acetaminophen (Tylenol Tab*) 650 mg PO Q4H PRN PRN Reason: FEVER/PAIN Alprazolam (Xanax Tab*) 1 mg PO BID PRN PRN Reason: ANXIETY Last Admin: 10/04/18 21:21 Dose: 1 mg Aspirin (Aspirin Ec Tab*) 81 mg PO DAILY [facility] Last Admin: 10/05/18 07:58 Dose: 81 mg Heparin Sodium (Porcine) (Heparin Vial(*)) 5,000 units SUBCUT Q8HR [facility] Last Admin: 10/05/18 05:13 Dose: 5,000 units Hydroxyzine HCl (Atarax Tab*) 50 mg PO TID PRN PRN Reason: AGITATION/ANXIETY Sodium Chloride (Ns 0.9% 1000 Ml) 1,000 mls @ 75 mls/hr IV PER RATE [facility] Last Admin: 10/05/18 07:58 Dose: 75 mls/hr Ibuprofen (Motrin Tab*) 600 mg PO Q6H PRN PRN Reason: PAIN Ondansetron HCl (Zofran Inj*) 4 mg IV Q4H [facility] Last Admin: 10/05/18 07:58 Dose: 4 mg Pantoprazole Sodium (Protonix Iv*) 40 mg IV Q24H [facility] Last Admin: 10/04/18 17:43 Dose: 40 mg Prochlorperazine Edisylate (Compazine Inj*) 5 mg IV Q6H PRN PRN Reason: NAUSEA/VOMITING Last Admin: 10/04/18 21:21 Dose: 5 mg Vital Signs - 8 hr 06/25/19 06/25/19 04:00 07:32 Temperature 97.8 F Pulse Rate 71 64 Respiratory 18 20 Rate Blood Pressure 123/83 107/60 (mmHg) O2 Sat by Pulse 97 98 Oximetry Oxygen Devices in Use Now: None Appearance: Very pleasant woman in NAD Eyes: No Scleral Icterus Ears/Nose/Mouth/Throat: NL Teeth, Lips, Gums Neck: NL Appearance and Movements; NL JVP Respiratory: Symmetrical Chest Expansion and Respiratory Effort, Clear to Auscultation Cardiovascular: NL Sounds; No Murmurs; No JVD, RRR Abdominal: NL Sounds; No Tenderness; No Distention, No Hepatosplenomegaly Lymphatic: No Cervical Adenopathy Extremities: No Edema Skin: No Rash or Ulcers Neurological: Alert and Oriented x 3 Result Diagrams: 10/05/18 07:06 10/05/18 07:06 Diagnostic Imaging: CT Brain 10/04- No acute intracranial process CTAP: Wall thickening of the gastric antrum possible gastritis, diverticulosis without diverticulitis and otherwise unremarkable Assess/Plan/Problems-Billing Assessment: 78 F PMH anxiety on longterm benzodiazepine, HTN, asthma, hx of CVA and TIA 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 - Patient Problems (1) Nausea and vomiting Current Visit: Yes Status: Acute Code(s): R11.2 - NAUSEA WITH VOMITING, UNSPECIFIED SNOMED Code(s): 77148563 Comment: - Gastritis clinically - Advance to soft diet as tolerated - continue IVF and PRN antiemetics for supportive care (2) Headache Current Visit: No Status: Acute Code(s): R51 - HEADACHE SNOMED Code(s): 22245761 Comment: - Associated with left eye pain, more c/w migraine type GRANADOS - ESR flat x 2, effectively r/o GCA - Somatization remains on ddx (3) Anxiety Current Visit: No Status: Chronic Code(s): F41.9 - ANXIETY DISORDER, UNSPECIFIED SNOMED Code(s): 07985767 Comment: - Home alprazolam PRN (4) TIA (transient ischemic attack) Current Visit: No Status: Chronic Comment: - Hx of continue Asa (5) Left arm weakness Current Visit: Yes Status: Acute Code(s): R29.898 - OTH SYMPTOMS AND SIGNS INVOLVING THE MUSCULOSKELETAL SYSTEM SNOMED Code(s): 395490381 Comment: - Resolved, some component of migraine vs psychogenic - DC neuro checks (6) DVT prophylaxis Current Visit: No Status: Acute Priority: Medium Onset Date: 07/09/14 Code(s): VNE9752 - SNOMED Code(s): 981080860 Comment: - heparin sc (7) Full code status Current Visit: No Status: Acute Priority: Medium Onset Date: 07/09/14 Code(s): Z78.9 - OTHER SPECIFIED HEALTH STATUS SNOMED Code(s): 877791866 Status and Disposition: Anticipate d/c home 10/06 AM if tolerates diet
[2018-10-05] MEDS: Acetaminophen TAB* 325 MG PO PRN (15:56)
[2018-10-05] MEDS: Pantoprazole IV* 40 MG IV SCH (15:59)
[2018-10-06] MEDS: Ondansetron INJ* 2 MG/ML VIAL IV SCH ×4 (02:31→10:33)
[2018-10-06] MEDS: Acetaminophen TAB* 325 MG PO PRN (04:01)
[2018-10-06] MEDS: Heparin VIAL(*) 5000 UNITS/ML VIAL (FIVE THOUSAND) SUBCUT SCH (06:04)
[2018-10-06] MEDS: Aspirin EC TAB* 81 MG TAB.EC PO SCH (08:01)
--- NOTE | 2018-10-06 11:25 | PN ---
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 Overnight: VSS no acute events, voiding freely Labs: normal from yesterday This morning, still with complaint of indigestion, mild GRANADOS, though does feel she can tolerate diet, ambulating, no CP no SOB. Objective Active Medications: Acetaminophen (Tylenol Tab*) 650 mg PO Q4H PRN PRN Reason: FEVER/PAIN Last Admin: 10/06/18 04:01 Dose: 650 mg Alprazolam (Xanax Tab*) 1 mg PO BID PRN PRN Reason: ANXIETY Last Admin: 10/04/18 21:21 Dose: 1 mg Aspirin (Aspirin Ec Tab*) 81 mg PO DAILY [facility] Last Admin: 10/06/18 08:01 Dose: 81 mg Heparin Sodium (Porcine) (Heparin Vial(*)) 5,000 units SUBCUT Q8HR [facility] Last Admin: 10/06/18 06:04 Dose: 5,000 units Hydroxyzine HCl (Atarax Tab*) 50 mg PO TID PRN PRN Reason: AGITATION/ANXIETY Sodium Chloride (Ns 0.9% 1000 Ml) 1,000 mls @ 75 mls/hr IV PER RATE [facility] Last Admin: 10/05/18 07:58 Dose: 75 mls/hr Ibuprofen (Motrin Tab*) 600 mg PO Q6H PRN PRN Reason: PAIN Ondansetron HCl (Zofran Inj*) 4 mg IV Q4H [facility] Last Admin: 10/06/18 10:33 Dose: 4 mg Pantoprazole Sodium (Protonix Iv*) 40 mg IV Q24H [facility] Last Admin: 10/05/18 15:59 Dose: Not Given Prochlorperazine Edisylate (Compazine Inj*) 5 mg IV Q6H PRN PRN Reason: NAUSEA/VOMITING Last Admin: 10/04/18 21:21 Dose: 5 mg Vital Signs - 8 hr 10/06/18 10/06/18 10/06/18 04:00 08:00 08:03 Temperature 98.3 F 97.1 F Pulse Rate 93 50 Respiratory 18 18 18 Rate Blood Pressure 135/77 135/74 (mmHg) O2 Sat by Pulse 95 100 Oximetry Oxygen Devices in Use Now: None Appearance: Pleasant talkative woman in NAD Eyes: No Scleral Icterus Ears/Nose/Mouth/Throat: NL Teeth, Lips, Gums, Clear Oropharnyx Neck: NL Appearance and Movements; NL JVP, Trachea Midline Respiratory: Symmetrical Chest Expansion and Respiratory Effort, Clear to Auscultation Cardiovascular: NL Sounds; No Murmurs; No JVD, RRR Abdominal: - - Mild TTP to epigastric no gaurding or rebound, soft NT ND Lymphatic: No Cervical Adenopathy Extremities: No Edema Skin: No Rash or Ulcers Neurological: Alert and Oriented x 3 Result Diagrams: 10/05/18 07:06 10/05/18 07:06 Diagnostic Imaging: CT Brain 10/04- No acute intracranial process CTAP: Wall thickening of the gastric antrum possible gastritis, diverticulosis without diverticulitis and otherwise unremarkable Assess/Plan/Problems-Billing Assessment: 78 F PMH anxiety on care home benzodiazepine, HTN, asthma, hx of CVA and TIA 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 - Patient Problems (1) Nausea and vomiting Current Visit: Yes Status: Acute Code(s): R11.2 - NAUSEA WITH VOMITING, UNSPECIFIED SNOMED Code(s): 09963456 Comment: - Gastritis clinically - Advance to soft diet as tolerated - DC IVf, can send with PRN antiemetics (2) Headache Current Visit: No Status: Acute Code(s): R51 - HEADACHE SNOMED Code(s): 75440857 Comment: - Associated with left eye pain, more c/w migraine type GRANADOS - ESR flat x 2, effectively r/o GCA - Somatization remains on ddx (3) Anxiety Current Visit: No Status: Chronic Code(s): F41.9 - ANXIETY DISORDER, UNSPECIFIED SNOMED Code(s): 64171884 Comment: - Home alprazolam PRN (4) TIA (transient ischemic attack) Current Visit: No Status: Chronic Comment: - Hx of continue Asa (5) Left arm weakness Current Visit: Yes Status: Acute Code(s): R29.898 - OTH SYMPTOMS AND SIGNS INVOLVING THE MUSCULOSKELETAL SYSTEM SNOMED Code(s): 454441775 Comment: - Resolved, some component of migraine vs psychogenic - DC neuro checks (6) DVT prophylaxis Current Visit: No Status: Acute Priority: Medium Onset Date: 07/09/14 Code(s): VPH5151 - SNOMED Code(s): 602895959 Comment: - heparin sc (7) Full code status Current Visit: No Status: Acute Priority: Medium Onset Date: 07/09/14 Code(s): Z78.9 - OTHER SPECIFIED HEALTH STATUS SNOMED Code(s): 040244771 Status and Disposition: d/c home 10/06
[2018-10-06 12:43] VITALS: BP 126/70
--- NOTE | 2018-10-06 13:23 | DS ---
DISCHARGE SUMMARY: DATE OF ADMISSION: 10/04/18 DATE OF DISCHARGE: 10/06/18 PRIMARY CARE PROVIDER: Matti Romero MD. DISPOSITION AT DISCHARGE: Stable to be discharged to home. PRIMARY DIAGNOSES: 1. Gastritis. 2. Anxiety 3. Atypical chest pain, thought to be musculoskeletal in nature. SECONDARY DIAGNOSES: 1. Hypertension. 2. Asthma. 3. History of cerebrovascular accident and transient ischemic attack with ? psychogenic conversion events in June of 2017. 4. Migraines. MEDICATIONS ON DISCHARGE: 1. Famotidine 20 mg p.o. b.i.d. p.r.n. for dyspepsia. 2. Acetaminophen 650 mg p.o. q.4 hours p.r.n. for pain. 3. Alprazolam 1 tab p.o. b.i.d. p.r.n. for anxiety. 4. Aspirin 81 mg p.o. daily. 5. Hydroxyzine 50 mg p.o. t.i.d. p.r.n. for anxiety. 6. Albuterol 1 to 2 puffs inhaled q.4 hours p.r.n. 7. Ondansetron 4 mg p.o. q.6 hours p.r.n. for nausea. Changes to medications on this hospitalization are the addition of famotidine and ondansetron p.r.n. for nausea and dyspepsia. HISTORY OF PRESENT ILLNESS AND HOSPITAL COURSE: This is a 78-year-old female with above past medical history, who presented to the emergency room on with numerous vague complaints. The patient reports she had not been feeling "right" for couple of days, had complaints of left eye pain, chest pain , and nausea and vomiting. She said that the nausea and vomiting started on onset of acute headache and she also had some associated left eye pain. In the emergency room, she also complained of some right chest wall pain. In the ED, she had labs, which were unremarkable. She had troponins drawn, which were negative at 0. She had an EKG that showed no acute ischemia. She had a chest x -ray, which showed no acute process. She had a CT of the brain, which showed no acute process. She had an abdominal and pelvis CT, which showed mild evidence of antral gastritis, also showed diverticulosis without diverticulitis. She was admitted to the hospital under observation for symptom control of her nausea, vomiting, and headache and her hospital course by problem is as follows: 1. Nausea and vomiting with presumed diagnosis of gastritis versus migraine headache with associated nausea and vomiting. She was given Compazine, fluids, ondansetron, and had symptomatic relief of her nausea and vomiting. She had slow improvement, advancing in her diet, but was tolerating soft diet by the day of discharge. 2. Headache, associated with left eye pain. This is consistent with her prior migraine-type headache. She usually takes Tylenol and ibuprofen, is able to abort them. She was given Tylenol, which was helpful. Her ESR was drawn given possibility for ruling out giant cell arteritis, which was negative. Furthermore, she has had somatization with headache and some vague left-sided weakness as early as June 2017 that seemed to manifest with anxiety. 3. Anxiety. The patient reports that she has had increased anxiety in the last week. Her daughter actually had moved in with her just 2 days prior to admission and she feels that this is actually the start of all of her problems. Her home alprazolam was continued, could consider optimizing her on an SSRI as she seemed to have much psychosocial stressors. 4. The patient has history of TIA. We continued her home aspirin. 5. Chest pain. The patient had no further chest pain after one time complaint in the emergency room. Her troponins were negative. Her EKG showed no sign of ischemia. It is presumed to be musculoskeletal and we counseled supportive care. Overall, during this hospitalization, the patient was found to have increased anxiety, migraine headaches associated with nausea and vomiting, and possible gastritis. Supportive symptomatic care was counseled and the patient was tolerating diet, ambulating and felt relatively close to her baseline on the day of discharge, though labs and vital signs were normal throughout the stay. LABS AND STUDIES DONE DURING THIS HOSPITALIZATION: Labs on 10/05/18: CBC was done which is unremarkable with the exception of hemoglobin of 11.4. BMP was done, which shows a creatinine of 1.04, but otherwise unremarkable. LFTs were normal on admission. Lactic acid was 1.5 on admission. Micro none. Imaging includes brain CT, which showed no acute intracranial process. Chest x-ray, which shows no acute cardiopulmonary process. Abdomen and pelvis CT, which showed diverticulosis, mild thickening of the antral section of stomach concerning for gastritis, but no other acute findings. No evidence of obstructive uropathy. ITEMS TO FOLLOW UP ON STATUS POST DISCHARGE: 1. Persistent migraine-type headaches. The patient can possibly be started on better abortive regimen such as triptan or could be considered to be started on prophylaxis regimen. 2. Gastritis. The patient did have nausea and vomiting, which initially could have been part of her migraine headache. Alternatively, could have been developing mild infectious gastritis and headache was sequela of this. She has done well with slowly advancing her diet and supportive care with antiemetics and small frequent bland meals, continue to encourage patient to follow this diet. 3. Anxiety. She has poor baseline control of anxiety and is on alprazolam. Could consider starting control agent. Furthermore, she seems to have some housing and security which is driving some of her potential stressors and she has been working closely with [employer]. On the day of discharge, the patient is stable for disposition to be discharged to home. She is ambulating, tolerating diet, voiding freely, and understands to follow up with primary care provider within the next 1 to 2 weeks or sooner if symptoms continue to bother her. TIME SPENT: Forty minutes was spent in the planning of this discharge with over half of that spent directly at the bedside of the patient providing direct patient care. The patient understands return to emergency room if new or worsening symptoms occur and follow up with primary care provider otherwise. If there are any questions about the care provided to this patient during this hospitalization, please do not hesitate to reach out. [id number]/CPS #: [id number] MTDD
== END 2018-10-06 13:10 | disposition home or self-care (01) ==
LOC: ED 08:07 → MEDTELE 15:08
PROVIDERS: ADMIT Internal Medicine; ATTEND Internal Medicine
DX: K29.70 Gastritis, unspecified, without bleeding (principal); F41.9 Anxiety disorder, unspecified; R07.89 Other chest pain; I10 Essential (primary) hypertension; J45.909 Unspecified asthma, uncomplicated; Z86.73 Personal history of transient ischemic attack (TIA), and cerebral infarction without residual deficits; G43.909 Migraine, unspecified, not intractable, without status migrainosus; Z79.82 Long term (current) use of aspirin; Z79.899 Other long term (current) drug therapy; R11.2 Nausea with vomiting, unspecified; R29.898 Other symptoms and signs involving the musculoskeletal system
CPT/HCPCS: 36415; 70450; 71045; 74177; 80048; 80053; 83605; 84484; 85025; 85652; 93005; 96365; 96372; 96375; 96376; 99284; A9270-GY; G0378; J0780; J1644; J2405; J3490; Q9967

== ENCOUNTER 2018-10-16 13:40 | Emergency (ER) | payer MEDICARE ==
[2018-10-16] MEDS ORDERED: Acetaminophen TAB* 325 MG PO ONE (15:30)
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
[2018-10-16 15:52] VITALS: BP 148/87
[2018-10-16] MEDS ORDERED: Lidocaine PATCH 5%* 1 PATCH TRANSDERM SCH (16:00)
== END 2018-10-16 15:51 | disposition home or self-care (01) ==
LOC: ED 13:40
DX: S50.311A Abrasion of right elbow, initial encounter (principal); M53.3 Sacrococcygeal disorders, not elsewhere classified; W01.0XXA Fall on same level from slipping, tripping and stumbling without subsequent striking against object, initial encounter; Y92.480 Sidewalk as the place of occurrence of the external cause; Z88.5 Allergy status to narcotic agent; Z88.0 Allergy status to penicillin; Z88.2 Allergy status to sulfonamides; I10 Essential (primary) hypertension; F41.9 Anxiety disorder, unspecified; Z79.899 Other long term (current) drug therapy
CPT/HCPCS: 99282; A9270-GY

== ENCOUNTER → 2018-10-29 15:11 | Emergency (ER) | payer MEDICARE ==
[2018-10-29 16:47] VITALS: BP 159/101
== END | disposition left against medical advice (07) ==
LOC: ED 15:11
DX: F41.9 Anxiety disorder, unspecified (principal); Z53.21 Procedure and treatment not carried out due to patient leaving prior to being seen by health care provider
CPT/HCPCS: 99281

== ENCOUNTER 2018-11-26 06:19 | Emergency (ER) | payer MEDICARE ==
--- NOTE | 2018-11-26 06:41 | ED ---
Neck Pain - HPI Summary HPI Summary: 78 year old female presents with neck and back pain after having a fall recently. Patient says she fell on Thursday and hurt her back and may have fell on her head. Patient is alert and oriented. Patient says she was seen in the ER Thursday for her back pain following her fall; however, records show she was seen for a fall a month ago. EMS states fall was a month ago. Pain began in her hips on Thursday and moved to her neck last night. Pain is at the base of her skull and radiates to her shoulders. Patient is not able to move head side to side or sit upright. Pain is constant and spastic. Patient denies headache, nausea or vomiting. No fever. no vision changes. No hearing changes or dizziness. Patient has been able to ambulate and has had no changes in bowel movements or urinary symptoms. no saddle anaesthesia. no fever. Patient denies chest pain, SOB or heart palpitations and is able to swallow solids and liquids without difficulty. - History of Current Complaint Chief Complaint: EDNeckComplaint Stated Complaint: NECK PAIN PER EMS Time Seen by Provider: 11/26/18 06:28 Pain Intensity: 8 - Allergies/Home Medications Allergies/Adverse Reactions: Allergies Allergy/AdvReac Type Severity Reaction Status Date / Time codeine Allergy Nausea And Verified 11/26/18 06:27 Vomiting Penicillins Allergy Nausea Verified 11/26/18 06:27 Sulfa (Sulfonamide Allergy Nausea Verified 11/26/18 06:27 Antibiotics) tramadol Allergy Nausea And Verified 11/26/18 06:27 Vomiting PMH/Surg Hx/FS Hx/Imm Hx Endocrine/Hematology History: Denies: Hx Anticoagulant Therapy, Hx Blood Disorders, Hx Diabetes, Hx Thyroid Disease Cardiovascular History: Reports: Hx Hypertension Denies: Hx Pacemaker/ICD, Hx Peripheral Vascular Disease Respiratory History: Reports: Hx Asthma, Hx Chronic Bronchitis Denies: Hx Chronic Obstructive Pulmonary Disease (COPD) GI History: Reports: Hx Diverticulosis, Hx Gall Bladder Disease - Cholecystectomy, Hx Hiatal Hernia - repaired, Hx Ulcer, Other GI Disorders - pancreatitis History: Reports: Hx Kidney Stones Musculoskeletal History: Reports: Hx Arthritis - knee, Hx Orthopedic Injury, Other Musculoskeletal History - "frozen shoulder" Lt side Denies: Hx Osteoporosis Sensory History: Reports: Hx Eye Injury, Hx Vision Problem Denies: Hx Cataracts, Hx Contacts or Glasses, Hx Glaucoma, Hx Deafness, Hx Hearing Aid Opthamlomology History: Reports: Hx Eye Injury, Hx Vision Problem Denies: Hx Cataracts, Hx Contacts or Glasses, Hx Glaucoma Neurological History: Reports: Hx Headaches, Hx Transient Ischemic Attacks (TIA) Denies: Hx Seizures Psychiatric History: Reports: Hx Anxiety Denies: Hx Depression, Hx Panic Disorder - Surgical History Surgery Procedure, Year, and Place: Hysterectomy, Tubal ligation, Cholecystectomy, RIGHT LEG ORIF, left knee arthroscopy, tonsillectomy and adenoidectomy Hx Anesthesia Reactions: No - Immunization History Date of Tetanus Vaccine: unk Date of Influenza Vaccine: none Infectious Disease History: No Infectious Disease History: Reports: Hx Shingles Denies: Traveled Outside the [place] in Last 30 Days - Family History Known Family History: Positive: Cardiac Disease - [place] in grandfather , Hypertension, Other - kidney stones (grandson), [place] in father, stroke in mother - Social History Alcohol Use: None Hx Substance Use: No Substance Use Type: Reports: None Hx Tobacco Use: No Smoking Status (MU): Never Smoked Tobacco Have You Smoked in the Last Year: No Review of Systems Constitutional: Negative Positive: Blurred Vision Positive: Other - Cervical neck pain and decreased ROM of neck Cardiovascular: Negative Respiratory: Negative Gastrointestinal: Negative Genitourinary: Negative Musculoskeletal: Negative Skin: Negative Neurological: Negative Psychological: Normal All Other Systems Reviewed And Are Negative: Yes Physical Exam Triage Information Reviewed: Yes Vital Signs On Initial Exam: Initial Vitals Temp Pulse Resp BP Pulse Ox 97.7 F 78 20 153/98 100 11/26/18 06:24 11/26/18 06:24 11/26/18 06:24 11/26/18 06:24 11/26/18 06:24 Vital Signs Reviewed: Yes Appearance: Positive: Pain Distress Skin: Positive: Warm, Skin Color Reflects Adequate Perfusion, Dry Head/Face: Positive: Normal Head/Face Inspection Eyes: Positive: Normal ENT: Positive: Normal ENT inspection Neck: Positive: Supple, Tenderness @ Respiratory/Lung Sounds: Positive: Clear to Auscultation, Breath Sounds Present Cardiovascular: Positive: Normal, RRR, Pulses are Symmetrical in both Upper and Lower Extremities Abdomen Description: Positive: Nontender, Soft Bowel Sounds: Positive: Present Musculoskeletal: Positive: Limited @ - c2-c5, lumbar, Pain @ - c2-c5, lumbar Neurological: Positive: Normal, Sensory/Motor Intact, Alert, Oriented to Person Place, Time, CN Intact II-III Psychiatric: Positive: Normal Diagnostics - Vital Signs Vital Signs Temp Pulse Resp BP Pulse Ox 11/26/18 06:24 97.7 F 78 20 153/98 100 - Laboratory Lab Statement: Any lab studies that have been ordered have been reviewed, and results considered in the medical decision making process. - Radiology thoracic, lumbar Radiology Interpretation Completed By: Radiologist Summary of Radiographic Findings: IMPRESSION: OSTEOPENIA. DEGENERATIVE DISC DISEASE. - CT cervical CT Interpretation Completed By: Radiologist Summary of CT Findings: IMPRESSION: 1. No fracture or traumatic malalignment of cervical spine. 2. Osteopenia. 3. Varying degrees of multilevel spondylosis results in moderate to severe spinal canal. stenosis at C3-C4. There is multilevel neural foraminal stenosis as above. Neck Course/Dx - Course Course Of Treatment: 78 year old female presents with neck and back pain after having a fall recently. Patient says she fell on Thursday and hurt her back and may have fell on her head. Patient is alert and oriented. Patient says she was seen in the ER Thursday for her back pain following her fall; however, records show she was seen for a fall a month ago. EMS states fall was a month ago. Pain began in her hips on Thursday and moved to her neck last night. Pain is at the base of her skull and radiates to her shoulders. Patient is not able to move head side to side or sit upright. Pain is constant and spastic. Patient denies headache, nausea or vomiting. No fever. no vision changes. No hearing changes or dizziness. Patient has been able to ambulate and has had no changes in bowel movements or urinary symptoms. no saddle anaesthesia. no fever. Patient denies chest pain, SOB or heart palpitations and is able to swallow solids and liquids without difficulty. on exam tenderness entire back. neurovascular intact. Patient sent for CT head and neck and Xray of back. no fx noted. gave flexeril and tyenlol and feeling better. will discharge with such. told to follow up with primary. patient understand and agrees with plan. - Diagnoses Differential Dx/HQI/PQRI: Positive: Cervical Fracture, Sprain, Strain Provider Diagnoses: Neck pain Discharge - Sign-Out/Discharge Documenting (check all that apply): Patient Departure Patient Received Moderate/Deep Sedation with Procedure: No - Discharge Plan Condition: Good Disposition: HOME Prescriptions: Cyclobenzaprine TAB* [Flexeril 10 MG TAB*] 10 mg PO BID PRN #10 tab PRN Reason: Pain - Moderate Patient Education Materials: Neck Pain (ED) Referrals: Matti Romero MD [Primary Care Provider] - Additional Instructions: Take muscle relaxer twice a day Use Tylenol for pain every 6 hours ice/heat area, move as much as possible Follow up with primary within 5 days Return to ED if develop any new or worsening symptoms - Billing Disposition and Condition Condition: GOOD Disposition: Home - Attestation Statements Provider Attestation: the patient was seen by the midlevel provider, it was determined by them that it was not necessary for me to see the patient, I was available for consult during the patient's visit in the ED. I did not establish and patient-physician relationship. The chart however has been reviewed and I am signing in an administrative capacity.
[2018-11-26] MEDS ORDERED: Acetaminophen TAB* 325 MG PO ONE (06:56)
[2018-11-26] MEDS ORDERED: Lidocaine PATCH 5%* 1 PATCH TRANSDERM ONE (07:57)
[2018-11-26] MEDS ORDERED: Cyclobenzaprine TAB* 10 MG PO ONE (08:06)
[2018-11-26 08:39] VITALS: BP 144/89
[2018-11-26] MEDS ORDERED: Lidocaine Patch REMOVE* 1 NOTE MISC SCH (21:00)
== END 2018-11-26 08:38 | disposition home or self-care (01) ==
LOC: ED 06:19
DX: M54.2 Cervicalgia (principal); W19.XXXA Unspecified fall, initial encounter; Y92.9 Unspecified place or not applicable; I10 Essential (primary) hypertension; J45.909 Unspecified asthma, uncomplicated; F41.9 Anxiety disorder, unspecified; Z88.5 Allergy status to narcotic agent; Z88.0 Allergy status to penicillin; Z88.2 Allergy status to sulfonamides; M85.80 Other specified disorders of bone density and structure, unspecified site; M51.34 Other intervertebral disc degeneration, thoracic region; M51.36 Other intervertebral disc degeneration, lumbar region
CPT/HCPCS: 72070; 72110; 72125; 99282; A9270-GY

== ENCOUNTER 2019-01-16 16:32 | Emergency (ER) | payer MEDICARE ==
[2019-01-16] MEDS ORDERED: Ondansetron ODT TAB* 4 MG SL ONE (16:34)
[2019-01-16 16:53] VITALS: BP 144/87
[2019-01-16] MEDS ORDERED: Acetaminophen TAB* 325 MG PO ONE (17:03)
--- NOTE | 2019-01-16 17:21 | ED ---
Nausea/Vomiting/Diarrhea HPI - HPI Summary HPI Summary: This patient is a 78-year-old female with a history of nausea presenting to the ED with 1 episode of nausea for approximately 45 minutes just [employer]WE[employer]END[employer]. On arrival, she is dry heaving. States she needs zofran. Endorses abd pain, but states this is consistent with her nausea episodes. Denies CP, SOB, back pain, urinary symptoms. Sxs are aggravated alleviated with nothing. Symptoms began approx 3 hours after eating and states typically is not associated. Denies med changes. Denies GRANADOS, fevers, sweats, or chills. - History of Current Complaint Chief Complaint: EDNauseaVomitDiarrh Stated Complaint: ABDOMINAL PAIN PER EMS Time Seen by Provider: 01/16/19 16:34 Hx Obtained From: Patient ?: No Onset/Duration: Sudden Onset Timing: Constant Severity Initially: Moderate Severity Currently: Mild Pain Intensity: 4 Pain Scale Used: 0-10 Numeric Aggravating Factor(s): Nothing Alleviating Factor(s): Nothing Vomiting Frequency: Every 15-60 minutes Nausea/Vomiting Duration: 0-12 hours - 45 min Vomiting Characteristics: Retching Diarrhea Presence: No - Risk Factors Influenza Risk Factors: Negative - Allergies/Home Medications Allergies/Adverse Reactions: Allergies Allergy/AdvReac Type Severity Reaction Status Date / Time codeine Allergy Nausea And Verified 01/16/19 17:10 Vomiting Penicillins Allergy Nausea Verified 01/16/19 17:10 Sulfa (Sulfonamide Allergy Nausea Verified 01/16/19 17:10 Antibiotics) tramadol Allergy Nausea And Verified 01/16/19 17:10 Vomiting PMH/Surg Hx/FS Hx/Imm Hx Previously Healthy: Yes Endocrine/Hematology History: Denies: Hx Anticoagulant Therapy, Hx Blood Disorders, Hx Diabetes, Hx Thyroid Disease Cardiovascular History: Reports: Hx Hypertension Denies: Hx Pacemaker/ICD, Hx Peripheral Vascular Disease Respiratory History: Reports: Hx Asthma, Hx Chronic Bronchitis Denies: Hx Chronic Obstructive Pulmonary Disease (COPD) GI History: Reports: Hx Diverticulosis, Hx Gall Bladder Disease - Cholecystectomy, Hx Hiatal Hernia - repaired, Hx Ulcer, Other GI Disorders - pancreatitis History: Reports: Hx Kidney Stones Musculoskeletal History: Reports: Hx Arthritis - knee, Hx Orthopedic Injury, Other Musculoskeletal History - "frozen shoulder" Lt side Denies: Hx Osteoporosis Sensory History: Reports: Hx Eye Injury, Hx Vision Problem Denies: Hx Cataracts, Hx Contacts or Glasses, Hx Glaucoma, Hx Deafness, Hx Hearing Aid Opthamlomology History: Reports: Hx Eye Injury, Hx Vision Problem Denies: Hx Cataracts, Hx Contacts or Glasses, Hx Glaucoma Neurological History: Reports: Hx Headaches, Hx Transient Ischemic Attacks (TIA) Denies: Hx Seizures Psychiatric History: Reports: Hx Anxiety Denies: Hx Depression, Hx Panic Disorder - Surgical History Surgery Procedure, Year, and Place: Hysterectomy, Tubal ligation, Cholecystectomy, RIGHT LEG ORIF, left knee arthroscopy, tonsillectomy and adenoidectomy Hx Anesthesia Reactions: No - Immunization History Date of Tetanus Vaccine: unk Date of Influenza Vaccine: none Infectious Disease History: No Infectious Disease History: Reports: Hx Shingles Denies: Traveled Outside the [place] in Last 30 Days - Family History Known Family History: Positive: Cardiac Disease - [place] in grandfather , Hypertension, Other - kidney stones (grandson), [place] in father, stroke in mother - Social History Occupation: Unemployed Lives: Alone Alcohol Use: None Hx Substance Use: No Substance Use Type: Reports: None Hx Tobacco Use: No Smoking Status (MU): Never Smoked Tobacco Have You Smoked in the Last Year: No Review of Systems Negative: Fever, Chills, Fatigue, Skin Diaphoresis Negative: Palpitations, Chest Pain Negative: Shortness Of Breath, Cough Positive: Vomiting, Nausea Genitourinary: Negative Positive: no symptoms reported, see HPI Negative: Arthralgia, Myalgia Skin: Negative Neurological: Negative All Other Systems Reviewed And Are Negative: Yes Physical Exam Triage Information Reviewed: Yes Vital Signs On Initial Exam: Initial Vitals Temp Pulse Resp BP Pulse Ox 97.3 F 68 18 144/87 100 01/16/19 16:38 01/16/19 16:38 01/16/19 16:38 01/16/19 16:38 01/16/19 16:38 Vital Signs Reviewed: Yes Appearance: Positive: Well-Appearing, Well-Nourished Skin: Positive: Warm, Skin Color Reflects Adequate Perfusion Head/Face: Positive: Normal Head/Face Inspection Eyes: Positive: EOMI, TREY, Conjunctiva Clear Neck: Positive: Supple, No Lymphadenopathy Respiratory/Lung Sounds: Positive: Clear to Auscultation, Breath Sounds Present Cardiovascular: Positive: RRR, Pulses are Symmetrical in both Upper and Lower Extremities Musculoskeletal: Positive: Normal, Strength/ROM Intact Neurological: Positive: Speech Normal Psychiatric: Positive: Affect/Mood Appropriate AVPU Assessment: Alert Procedures - Sedation Patient Received Moderate/Deep Sedation with Procedure: No Diagnostics - Vital Signs Vital Signs Temp Pulse Resp BP Pulse Ox 01/16/19 17:00 76 91 01/16/19 16:45 71 144/87 100 01/16/19 16:43 70 98 01/16/19 16:38 97.3 F 68 18 144/87 100 - Laboratory Lab Statement: Any lab studies that have been ordered have been reviewed, and results considered in the medical decision making process. Naus/Vom/Diarrhea Course/Dx - Course Course Of Treatment: On arrival into the ED, the patient appears well and able to speak, however has intermittent episodes of dry heaving. She is given a Zofran in the ED and a Tylenol upon request. After approximately 15 minutes, patient states she is feeling improved and would like to be discharged home. She states she does not have any of her Zofran left at home and will need a new prescription. Patient is asymptomatic at this time. Physical examination shows no abnormalities. She is discharged with nausea and vomiting. - Differential Dx/Diagnosis Provider Diagnosis: Nausea & vomiting Condition At Discharge: Stable Discharge ED - Sign-Out/Discharge Documenting (check all that apply): Patient Departure - Discharge Plan Condition: Stable Disposition: HOME Prescriptions: Ondansetron ODT TAB* [Zofran 4 MG Odt TAB*] 4 mg PO Q6H PRN #12 tab.odt MDD 4 PRN Reason: Nausea Patient Education Materials: Acute Nausea and Vomiting (ED) Referrals: Matti Romero MD [Primary Care Provider] - Additional Instructions: Zofran up to every 4 hours for nausea and vomiting - Billing Disposition and Condition Condition: STABLE Disposition: Home
== END 2019-01-16 17:22 | disposition home or self-care (01) ==
LOC: ED 16:32
DX: R11.2 Nausea with vomiting, unspecified (principal); I10 Essential (primary) hypertension; Z88.5 Allergy status to narcotic agent; Z88.0 Allergy status to penicillin; Z88.2 Allergy status to sulfonamides
CPT/HCPCS: 99282; A9270-GY

== ENCOUNTER 2019-01-23 14:29 | Emergency (ER) | payer MEDICARE ==
[2019-01-23] MEDS ORDERED: Acetaminophen TAB* 325 MG PO ONE (16:20)
--- NOTE | 2019-01-23 16:25 | ED ---
Lower Extremity - HPI Summary HPI Summary: Patient is a 78-year-old female who presents emergency department for right knee pain after mechanical fall. Patient [place] the [place] from the hospital and states she was coming over to the hospital cafeteria for lunch when she tripped on the sidewalk, fell and struck her right knee. She denies head injury or loss of consciousness. Denies prior chest pain, shortness of breath, lightheadedness or dizziness. Symptoms are mild in severity. Moving right knee makes symptoms worse. Rest makes symptoms better. - History of Current Complaint Chief Complaint: EDExtremityLower Stated Complaint: RT KNEE INJ FROM FALL Time Seen by Provider: 01/23/19 15:25 Hx Obtained From: Patient Pain Intensity: 10 - Allergies/Home Medications Allergies/Adverse Reactions: Allergies Allergy/AdvReac Type Severity Reaction Status Date / Time codeine Allergy Nausea And Verified 01/23/19 14:35 Vomiting Penicillins Allergy Nausea Verified 01/23/19 14:35 Sulfa (Sulfonamide Allergy Nausea Verified 01/23/19 14:35 Antibiotics) tramadol Allergy Nausea And Verified 01/23/19 14:35 Vomiting PMH/Surg Hx/FS Hx/Imm Hx Previously Healthy: Yes Endocrine/Hematology History: Denies: Hx Anticoagulant Therapy, Hx Blood Disorders, Hx Diabetes, Hx Thyroid Disease Cardiovascular History: Reports: Hx Hypertension Denies: Hx Pacemaker/ICD, Hx Peripheral Vascular Disease Respiratory History: Reports: Hx Asthma, Hx Chronic Bronchitis Denies: Hx Chronic Obstructive Pulmonary Disease (COPD) GI History: Reports: Hx Diverticulosis, Hx Gall Bladder Disease - Cholecystectomy, Hx Hiatal Hernia - repaired, Hx Ulcer, Other GI Disorders - pancreatitis History: Reports: Hx Kidney Stones Musculoskeletal History: Reports: Hx Arthritis - knee, Hx Orthopedic Injury, Other Musculoskeletal History - "frozen shoulder" Lt side Denies: Hx Osteoporosis Sensory History: Reports: Hx Eye Injury, Hx Vision Problem Denies: Hx Cataracts, Hx Contacts or Glasses, Hx Glaucoma, Hx Deafness, Hx Hearing Aid Opthamlomology History: Reports: Hx Eye Injury, Hx Vision Problem Denies: Hx Cataracts, Hx Contacts or Glasses, Hx Glaucoma Neurological History: Reports: Hx Headaches, Hx Transient Ischemic Attacks (TIA) Denies: Hx Seizures Psychiatric History: Reports: Hx Anxiety Denies: Hx Depression, Hx Panic Disorder - Surgical History Surgery Procedure, Year, and Place: Hysterectomy, Tubal ligation, Cholecystectomy, RIGHT LEG ORIF, left knee arthroscopy, tonsillectomy and adenoidectomy Hx Anesthesia Reactions: No - Immunization History Date of Tetanus Vaccine: unk Date of Influenza Vaccine: none Infectious Disease History: No Infectious Disease History: Reports: Hx Shingles Denies: Traveled Outside the [place] in Last 30 Days - Family History Known Family History: Positive: Cardiac Disease - [place] in grandfather , Hypertension, Other - kidney stones (grandson), [place] in father, stroke in mother , Non-Contributory - Social History Occupation: Retired Lives: Alone Alcohol Use: None Hx Substance Use: No Substance Use Type: Reports: None Hx Tobacco Use: No Smoking Status (MU): Former Smoker Have You Smoked in the Last Year: No Review of Systems Positive: Other - left knee pain Positive: Bruising Neurological: Negative Negative: Headache, Weakness, Paresthesia, Numbness, Syncope All Other Systems Reviewed And Are Negative: Yes Physical Exam Triage Information Reviewed: Yes Vital Signs On Initial Exam: Initial Vitals Temp Pulse Resp BP Pulse Ox 98 F 84 16 147/90 100 01/23/19 14:32 01/23/19 14:32 01/23/19 14:32 01/23/19 14:32 01/23/19 14:32 Vital Signs Reviewed: Yes Appearance: Positive: Well-Appearing - Pt. sitting in chair in hallway with her daughter. Skin: Positive: Warm, Dry Head/Face: Positive: Normal Head/Face Inspection Eyes: Positive: Normal, EOMI Neck: Positive: Supple Musculoskeletal: Positive: Other - Superficial abrasion to right knee with diffuse tenderness. No proximal or distal pain. Neurological: Positive: Normal, CN Intact II-III Psychiatric: Positive: Affect/Mood Appropriate Procedures - Sedation Patient Received Moderate/Deep Sedation with Procedure: No Diagnostics - Vital Signs Vital Signs Temp Pulse Resp BP Pulse Ox 01/23/19 14:32 98 F 84 16 147/90 100 - Laboratory Lab Statement: Any lab studies that have been ordered have been reviewed, and results considered in the medical decision making process. Lower Extremity Course/Dx - Course Course Of Treatment: Patient with right knee injury after a mechanical fall. X- ray negative for acute findings, reading per radiology. Wound was cleaned and dressed. Nael wrap placed for comfort. Advised to elevate and ice intermittently. Tylenol for pain as directed. To follow-up with PCP for recheck within 1 week if pain persists. Patient understands and agrees with plan. - Diagnoses Differential Diagnosis/HQI/PQRI: Positive: Contusion, Fracture (Closed), Sprain , Strain Provider Diagnoses: Knee contusion, Abrasion Discharge ED - Sign-Out/Discharge Documenting (check all that apply): Patient Departure - Discharge Plan Condition: Good Disposition: HOME Patient Education Materials: Abrasion (ED), Knee Pain (ED) Referrals: Matti Romero MD [Primary Care Provider] - Additional Instructions: Follow up with PCP for recheck within one week Keep wound clean and dry Ice and elevate Tylenol for pain as directed Return to ER if symptoms change or worsen - Billing Disposition and Condition Condition: GOOD Disposition: Home
[2019-01-23 16:41] VITALS: BP 146/98
== END 2019-01-23 16:40 | disposition home or self-care (01) ==
LOC: ED 14:29
DX: S80.01XA Contusion of right knee, initial encounter (principal); S80.211A Abrasion, right knee, initial encounter; W01.0XXA Fall on same level from slipping, tripping and stumbling without subsequent striking against object, initial encounter; Y93.01 Activity, walking, marching and hiking; Y92.480 Sidewalk as the place of occurrence of the external cause; M17.11 Unilateral primary osteoarthritis, right knee; I10 Essential (primary) hypertension; Z88.5 Allergy status to narcotic agent; Z88.0 Allergy status to penicillin; Z88.2 Allergy status to sulfonamides; Z87.891 Personal history of nicotine dependence
CPT/HCPCS: 99282; A9270-GY

== ENCOUNTER 2019-04-16 12:11 | Emergency (ER) | payer MEDICARE ==
[2019-04-16] MEDS ORDERED: Hemorrhoidal OINT PR ONE (12:34)
[2019-04-16 12:57] VITALS: BP 115/89
--- NOTE | 2019-04-16 13:44 | ED ---
GI/ HPI - HPI Summary HPI Summary: Pt. is a 78 y.o female who presents to the ER for rectal bleeding after a bowel movement today. Pt. states she has been mildly constipated lately and strained today to have a BM. Pt. states when she wiped she noticed bright red blood on toilet paper. Pt. notes she has had hemorrhoids in the past and sxs are similar. Pt. otherwise denies dizziness, cp, sob, abd. pain, vomiting. Sxs are mild in severity. No current modifying factors. - History of Current Complaint Chief Complaint: EDGeneral Time Seen by Provider: 04/16/19 12:14 Stated Complaint: HEMORRHAGE PER EMS Hx Obtained From: Patient Pain Intensity: 0 - Additional Pertinent History Primary Care Physician: DIO - Allergy/Home Medications Allergies/Adverse Reactions: Allergies Allergy/AdvReac Type Severity Reaction Status Date / Time codeine Allergy Nausea And Verified 01/23/19 14:35 Vomiting Penicillins Allergy Nausea Verified 01/23/19 14:35 Sulfa (Sulfonamide Allergy Nausea Verified 01/23/19 14:35 Antibiotics) tramadol Allergy Nausea And Verified 01/23/19 14:35 Vomiting PMH/Surg Hx/FS Hx/Imm Hx Previously Healthy: Yes Endocrine/Hematology History: Denies: Hx Anticoagulant Therapy, Hx Blood Disorders, Hx Diabetes, Hx Thyroid Disease Cardiovascular History: Reports: Hx Hypertension Denies: Hx Pacemaker/ICD, Hx Peripheral Vascular Disease Respiratory History: Reports: Hx Asthma, Hx Chronic Bronchitis Denies: Hx Chronic Obstructive Pulmonary Disease (COPD) GI History: Reports: Hx Diverticulosis, Hx Gall Bladder Disease - Cholecystectomy, Hx Hiatal Hernia - repaired, Hx Ulcer, Other GI Disorders - pancreatitis History: Reports: Hx Kidney Stones Musculoskeletal History: Reports: Hx Arthritis - knee, Hx Orthopedic Injury, Other Musculoskeletal History - "frozen shoulder" Lt side Denies: Hx Osteoporosis Sensory History: Reports: Hx Eye Injury, Hx Vision Problem Denies: Hx Cataracts, Hx Contacts or Glasses, Hx Glaucoma, Hx Deafness, Hx Hearing Aid Opthamlomology History: Reports: Hx Eye Injury, Hx Vision Problem Denies: Hx Cataracts, Hx Contacts or Glasses, Hx Glaucoma Neurological History: Reports: Hx Headaches, Hx Transient Ischemic Attacks (TIA) Denies: Hx Seizures Psychiatric History: Reports: Hx Anxiety Denies: Hx Depression, Hx Panic Disorder - Surgical History Surgery Procedure, Year, and Place: Hysterectomy, Tubal ligation, Cholecystectomy, RIGHT LEG ORIF, left knee arthroscopy, tonsillectomy and adenoidectomy Hx Anesthesia Reactions: No - Immunization History Date of Tetanus Vaccine: unk Date of Influenza Vaccine: none Infectious Disease History: No Infectious Disease History: Reports: Hx Shingles Denies: Traveled Outside the [place] in Last 30 Days - Family History Known Family History: Positive: Cardiac Disease - [place] in grandfather , Hypertension, Other - kidney stones (grandson), [place] in father, stroke in mother , Non-Contributory - Social History Occupation: Retired Lives: Alone Alcohol Use: None Hx Substance Use: No Substance Use Type: Reports: None Hx Tobacco Use: No Smoking Status (MU): Former Smoker Have You Smoked in the Last Year: No Review of Systems Constitutional: Negative Negative: Fever Gastrointestinal: Other - mild constipation Negative: Abdominal Pain Genitourinary: Negative Negative: dysuria All Other Systems Reviewed And Are Negative: Yes Physical Exam Triage Information Reviewed: Yes Vital Signs On Initial Exam: Initial Vitals Temp Pulse Resp BP Pulse Ox 97.4 F 87 16 115/89 98 04/16/19 12:40 04/16/19 12:40 04/16/19 12:40 04/16/19 12:40 04/16/19 12:40 Vital Signs Reviewed: Yes Appearance: Positive: Well-Appearing - Pt. sitting up in bed in NAD. Talkative. Skin: Positive: Warm, Dry Head/Face: Positive: Normal Head/Face Inspection Eyes: Positive: Normal, EOMI, TREY Neck: Positive: Supple Abdomen Description: Positive: Nontender, Soft, Other: - Exam performed with pt. 's nurseMahi. Small nonthrombosed external hemorrhoid noted. No active bleeding. Neurological: Positive: Normal, CN Intact II-III Psychiatric: Positive: Affect/Mood Appropriate Procedures - Sedation Patient Received Moderate/Deep Sedation with Procedure: No Diagnostics - Vital Signs Vital Signs Temp Pulse Resp BP Pulse Ox 04/16/19 13:14 97.4 F 87 16 115/89 98 04/16/19 12:40 97.4 F 87 16 115/89 98 - Laboratory Lab Statement: Any lab studies that have been ordered have been reviewed, and results considered in the medical decision making process. GIGU Course/Dx - Course Course Of Treatment: Pt. with small complaints of small amount of bright red blood per rectum after BM. No bleeding on exam. Suspect seondary to hemorrhoid. Hemorrhoid cream dispensed from ED. To increase fluids and fiber. Can use OTC stool softener if needed. Will f.u with pcp and return to er if sxs change or worsen. pt. understands and agrees with plan. - Diagnoses Differential Diagnoses - Female: Constipation, Hemorrhoids Provider Diagnoses: Hemorrhoids Discharge ED - Sign-Out/Discharge Documenting (check all that apply): Patient Departure - Discharge Plan Condition: Good Disposition: HOME Patient Education Materials: Hemorrhoids (ED) Referrals: Matti Romero MD [Primary Care Provider] - Additional Instructions: Follow up with PCP within one week Use cream 3-4 times a day Increase fluids and fiber in diet Can use over the counter stool softener such as Colace Return to ER if symptoms change or worsen - Billing Disposition and Condition Condition: GOOD Disposition: Home - Attestation Statements Provider Attestation: I was available for consult. This patient was seen by the PEGGY. The patient was not presented to, seen by, or examined by me. Edin Mcguire MD
== END 2019-04-16 12:57 | disposition home or self-care (01) ==
LOC: ED 12:11
DX: K64.9 Unspecified hemorrhoids (principal); I10 Essential (primary) hypertension; J45.909 Unspecified asthma, uncomplicated; F41.9 Anxiety disorder, unspecified; Z87.891 Personal history of nicotine dependence; Z90.710 Acquired absence of both cervix and uterus; Z98.51 Tubal ligation status; Z90.49 Acquired absence of other specified parts of digestive tract; Z88.0 Allergy status to penicillin; Z88.2 Allergy status to sulfonamides; Z88.5 Allergy status to narcotic agent
CPT/HCPCS: 99282; A9270-GY

== ENCOUNTER 2019-08-06 09:53 | Emergency (ER) | payer MEDICARE ==
[2019-08-06] MEDS ORDERED: Albuterol HFA INHALER* 8 gm MDI INH ONE (10:36)
[2019-08-06] MEDS ORDERED: A lbuterol Hfa (PREPAK) 1 MDI - ED TAKE HOME DISPENSING ONLY INHH ONE (10:50)
[2019-08-06 11:07] VITALS: BP 124/76
--- NOTE | 2019-08-06 11:18 | ED ---
Shortness of Breath - HPI Summary HPI Summary: Pt is a 79yo F with a hx of asthma presenting to the ED with request for an albuterol inhaler. States she has been without as it has cost too much. She states she awoke at 2am with shortness of breath and cough, subsequently having chest pain non-radiating only associated with cough. Denies CP currently. States she has been without her albuterol and and advair for over a month d/t cost and will have episodes of cough and SOB. Denies any nausea, vomiting, diarrhea, fevers, sweats, chills. She states she has not been outside of her house except for once and has not had any sick contacts. - History of Current Complaint Chief Complaint: EDAsthma Time Seen by Provider: 08/06/19 10:13 Hx Obtained From: Patient Onset/Duration: Gradual Onset Timing: Constant Current Severity: None Alleviating Factors: Bronchodilators Associated Signs & Symptoms: Cough (Nonproductive), Chest Pain w/Cough - Risk Factors Pulmonary Embolism: Negative Cardiac: Negative Pseudomonas: Negative Tuberculosis: Negative - Allergy/Home Medications Allergies/Adverse Reactions: Allergies Allergy/AdvReac Type Severity Reaction Status Date / Time codeine Allergy Nausea And Verified 08/06/19 10:07 Vomiting Penicillins Allergy Nausea Verified 08/06/19 10:07 Sulfa (Sulfonamide Allergy Nausea Verified 08/06/19 10:07 Antibiotics) tramadol Allergy Nausea And Verified 08/06/19 10:07 Vomiting Home Medications: Home Medications Aspirin EC TAB* [Ecotrin EC Low Dose 81 MG*] 81 mg PO DAILY 04/03/14 [History Confirmed 01/23/19] ALPRAZolam [Alprazolam] 1 tab PO BID PRN #6 tablet MDD 2 08/30/18 [Rx Confirmed 01/23/19] Famotidine [Heartburn Prevention] 20 mg PO BID PRN #20 tablet 10/06/18 [Rx Confirmed 01/23/19] Ibuprofen TAB* [Advil TAB*] 200 mg PO Q6H PRN 12/03/18 [History Confirmed ] Ondansetron ODT TAB* [Zofran 4 MG Odt TAB*] 4 mg PO Q6H PRN #12 tab.odt MDD 4 [Rx Confirmed 01/23/19] PMH/Surg Hx/FS Hx/Imm Hx Previously Healthy: Yes Endocrine/Hematology History: Denies: Hx Anticoagulant Therapy, Hx Blood Disorders, Hx Diabetes, Hx Thyroid Disease Cardiovascular History: Reports: Hx Hypertension Denies: Hx Pacemaker/ICD, Hx Peripheral Vascular Disease Respiratory History: Reports: Hx Asthma, Hx Chronic Bronchitis Denies: Hx Chronic Obstructive Pulmonary Disease (COPD) GI History: Reports: Hx Diverticulosis, Hx Gall Bladder Disease - Cholecystectomy, Hx Hiatal Hernia - repaired, Hx Ulcer, Other GI Disorders - pancreatitis History: Reports: Hx Kidney Stones Musculoskeletal History: Reports: Hx Arthritis - knee, Hx Orthopedic Injury, Other Musculoskeletal History - "frozen shoulder" Lt side Denies: Hx Osteoporosis Sensory History: Reports: Hx Eye Injury, Hx Vision Problem Denies: Hx Cataracts, Hx Contacts or Glasses, Hx Glaucoma, Hx Deafness, Hx Hearing Aid Opthamlomology History: Reports: Hx Eye Injury, Hx Vision Problem Denies: Hx Cataracts, Hx Contacts or Glasses, Hx Glaucoma Neurological History: Reports: Hx Headaches, Hx Transient Ischemic Attacks (TIA) Denies: Hx Seizures Psychiatric History: Reports: Hx Anxiety Denies: Hx Depression, Hx Panic Disorder - Surgical History Surgery Procedure, Year, and Place: Hysterectomy, Tubal ligation, Cholecystectomy, RIGHT LEG ORIF, left knee arthroscopy, tonsillectomy and adenoidectomy Hx Anesthesia Reactions: No - Immunization History Date of Tetanus Vaccine: unk Date of Influenza Vaccine: none Hx Pertussis Vaccination: No Immunizations Up to Date: Yes Infectious Disease History: No Infectious Disease History: Reports: Hx Shingles Denies: Traveled Outside the [place] in Last 30 Days - Family History Known Family History: Positive: Cardiac Disease - [place] in grandfather , Hypertension, Other - kidney stones (grandson), [place] in father, stroke in mother , Non-Contributory - Social History Occupation: Unemployed Lives: Alone Alcohol Use: None Hx Substance Use: No Substance Use Type: Reports: None Hx Tobacco Use: No Smoking Status (MU): Former Smoker Have You Smoked in the Last Year: No Review of Systems Negative: Fever, Chills, Fatigue, Skin Diaphoresis Positive: Chest Pain. Negative: Palpitations Positive: Shortness Of Breath, Cough Genitourinary: Negative Positive: no symptoms reported, see HPI Negative: Arthralgia, Myalgia Skin: Negative All Other Systems Reviewed And Are Negative: Yes Physical Exam Triage Information Reviewed: Yes Vital Signs On Initial Exam: Initial Vitals Temp Pulse Resp BP Pulse Ox 99.3 F 91 18 123/84 98 08/06/19 09:54 08/06/19 09:54 08/06/19 09:54 08/06/19 09:54 08/06/19 09:54 Vital Signs Reviewed: Yes Appearance: Positive: Well-Appearing, Well-Nourished Skin: Positive: Warm, Skin Color Reflects Adequate Perfusion Head/Face: Positive: Normal Head/Face Inspection Eyes: Positive: EOMI, TREY, Conjunctiva Clear Neck: Positive: Supple, No Lymphadenopathy Respiratory/Lung Sounds: Positive: Clear to Auscultation, Breath Sounds Present Musculoskeletal: Positive: Normal, Strength/ROM Intact Neurological: Positive: Speech Normal Psychiatric: Positive: Normal, Affect/Mood Appropriate AVPU Assessment: Alert Procedures - Sedation Patient Received Moderate/Deep Sedation with Procedure: No Diagnostics - Vital Signs Vital Signs Temp Pulse Resp BP Pulse Ox 08/06/19 11:00 97.6 F 68 18 124/76 96 08/06/19 10:19 91 98 08/06/19 09:54 99.3 F 91 18 123/84 98 - Laboratory Lab Statement: Any lab studies that have been ordered have been reviewed, and results considered in the medical decision making process. Course/Dx - Course Course Of Treatment: Patient appears well, nondiaphoretic and nontoxic appearing. Vital signs are stable. EKG was obtained arrival is patient was complaining of chest pain associated with cough. This shows a normal sinus rhythm. Patient states she is not having chest pain, but only is having chest discomfort with cough. She is not currently having a cough, however due to her recent cough associated with her asthma, she has had some associated chest pain with cough. She states she does not want to have a chest x-ray and does not want blood work to be completed. She said she is only here for her albuterol inhaler. She states she feels otherwise well. Patient appears well. Lungs CTA. RRR. VS stable. She is given albuterol inhaler and encouraged f/u with PCP for further scripts as needed. - Diagnoses Provider Diagnoses: Cough, Asthma - Critical Care Time Critical Care Statement: Critical care time is provided exclusive of any time spent performing procedures. Discharge ED - Sign-Out/Discharge Documenting (check all that apply): Patient Departure - Discharge Plan Condition: Stable Disposition: HOME Referrals: Matti Romero MD [Primary Care Provider] - Additional Instructions: Please follow up with your PCP Albuteral inhaler as needed - Billing Disposition and Condition Condition: STABLE Disposition: Home
== END 2019-08-06 11:00 | disposition home or self-care (01) ==
LOC: ED 09:53
DX: J45.909 Unspecified asthma, uncomplicated (principal); R05 Cough; Z87.891 Personal history of nicotine dependence; Z79.82 Long term (current) use of aspirin; Z88.5 Allergy status to narcotic agent; Z88.0 Allergy status to penicillin
CPT/HCPCS: 93005; 99282; A9270-GY

== ENCOUNTER 2021-12-22 08:15 | Observation (INO) ==
[2021-12-22] MEDS ORDERED: Iodixanol (CONTRAST) 320 MG/ML 100 ML SDV IV ONE (08:36)
[2021-12-22 09:05] LABS: Hematocrit 39 % (35-47); Mean Corpuscular HGB Conc 33 g/dL (31-36); Mean Corpuscular Hemoglobin 26 pg (27-31); Mean Corpuscular Volume 79 fL (80-97); Red Blood Count 4.98 10^6 /uL (3.70-4.87); Red Cell Distribution Width 16 % (10-15); White Blood Count 5.3 10^3/uL (3.5-10.8)
[2021-12-22 09:22] LABS: Activated Partial Thrombo Time 23.2 seconds (26.0-38.0)
[2021-12-22 09:48] LABS: ALT 9 U/L (7-52); Albumin 3.9 g/dL (3.2-5.2); Albumin/Globulin Ratio 0.8 (1-3); Alkaline Phosphatase 69 U/L (35-149); Blood Urea Nitrogen 15 mg/dL (6-24); CO2 Carbon Dioxide 23 mmol/L (22-32); Calcium 9.4 mg/dL (8.6-10.3); Chloride 102 mmol/L (101-111); Cholesterol 189 mg/dL; Globulin 4.6 g/dL (2-4); Glucose 91 mg/dL (70-100); HDL Cholesterol 47.9 mg/dL; LDL Cholesterol 118 mg/dL; Sodium 138 mmol/L (135-145); Total Protein 8.5 g/dL (6.4-8.9); Triglycerides 114 mg/dL; eGFR CKD-EPI 36.2 (>60)
[2021-12-22 09:54] LABS: Anion Gap 13 mmol/L (2-11)
[2021-12-22 10:02] LABS: ABS Basophils 0.1 10^3/ul (0-0.2); ABS Eosinophils 0.1 10^3/ul (0-0.6); ABS Lymphocytes 2.8 10^3/ul (1.0-4.8); ABS Monocytes 0.3 10^3/ul (0-0.8); ABS Neutrophils 2.2 10^3/ul (1.5-7.7); Eosinophil % 1.1 %; Lymphocyte % 52.1 %; Mean Platelet Volume 8.4 fL (7.4-10.4); Nucleated Red Blood Cells % 0.2; Platelet Count 245 10^3/uL (150-450)
[2021-12-22] MEDS ORDERED: Al Hydrox/Mg Hydrox/Simet LIQ 30 ML UDC PO PRN (10:28)
[2021-12-22] MEDS ORDERED: NS 0.9% 1000 ml BAG 1,000 ML IV SCH (10:30)
[2021-12-22] MEDS ORDERED: Albuterol HFA INHALER 8 gm MDI INH PRN (10:42)
[2021-12-22 11:50] LABS: Urine Appearance Clear; Urine Bilirubin Negative (Negative); Urine Blood Negative (Negative); Urine Color Yellow; Urine Glucose Negative (Negative); Urine Ketones Negative (Negative); Urine Nitrite Negative (Negative); Urine Protein Negative (Negative); Urine Urobilinogen 0.2 (Negative) (Negative)
[2021-12-22 12:10] LABS: Urine Bacteria Absent (Absent); Urine Red Blood Cell Trace(0-2/hpf) (Absent); Urine Squamous Epithelial Cell Present (Absent); Urine White Blood Cell Trace(0-5/hpf) (Absent)
[2021-12-22] MEDS: Enoxaparin 30 MG/0.3 ML SYR SUBCUT SCH (12:20)
[2021-12-22 13:44] LABS: Potassium Redraw 4.3 mmol/L (3.5-5.0)
[2021-12-23 10:22] LABS: Calcium 8.7 mg/dL (8.6-10.3); eGFR CKD-EPI 45.3 (>60)
[2021-12-23] MEDS ORDERED: NS 0.9% 1000 ml BAG 1,000 ML IV SCH (10:30)
[2021-12-23] MEDS: Enoxaparin 30 MG/0.3 ML SYR SUBCUT SCH (12:01)
[2021-12-24 09:11] LABS: ABS Basophils 0.1 10^3/ul (0-0.2); ABS Eosinophils 0.1 10^3/ul (0-0.6); ABS Lymphocytes 2.1 10^3/ul (1.0-4.8); ABS Monocytes 0.2 10^3/ul (0-0.8); ABS Neutrophils 1.7 10^3/ul (1.5-7.7); Eosinophil % 1.9 %; Hematocrit 35 % (35-47); Hemoglobin 11.4 g/dL (12.0-16.0); Lymphocyte % 50.4 %; Mean Corpuscular HGB Conc 33 g/dL (31-36); Mean Corpuscular Hemoglobin 26 pg (27-31); Mean Corpuscular Volume 79 fL (80-97); Mean Platelet Volume 8.3 fL (7.4-10.4); Nucleated Red Blood Cells % 0.2; Platelet Count 197 10^3/uL (150-450); Red Blood Count 4.43 10^6 /uL (3.70-4.87); Red Cell Distribution Width 17 % (10-15); White Blood Count 4.2 10^3/uL (3.5-10.8)
[2021-12-24 09:49] LABS: Calcium 8.7 mg/dL (8.6-10.3); Potassium 4.3 mmol/L (3.5-5.0)
[2021-12-24] MEDS: Enoxaparin 30 MG/0.3 ML SYR SUBCUT SCH (10:35)
[2021-12-25] MEDS: Enoxaparin 30 MG/0.3 ML SYR SUBCUT SCH (11:19)
[2021-12-26] MEDS: Enoxaparin 30 MG/0.3 ML SYR SUBCUT SCH (10:35)
[2021-12-26 11:54] VITALS: BP 116/76
== END 2021-12-26 13:25 ==
LOC: ED 08:15 → EDHOLD 08:15 → SUATTDRO 09:58 → MEDTELE 12:46
PROVIDERS: ADMIT Internal Medicine; ATTEND Internal Medicine

== ENCOUNTER 2022-12-04 17:13 | Inpatient (IN) ==
[2022-12-04] MEDS ORDERED: Ondansetron 4 mg VIAL 2 MG/ML 2 ml VIAL IV ONE (19:15)
[2022-12-04] MEDS ORDERED: Morphine 4 MG/ML VIAL (1 ml) IV ONE (19:15)
[2022-12-04] MEDS ORDERED: NS 0.9% 1000 ml BAG 1,000 ML IV ONE (19:16)
[2022-12-04 20:13] LABS: ABS Basophils 0.1 10^3/uL (0.0-0.1); ABS Eosinophils 0.1 10^3/uL (0.0-0.5); ABS Lymphocytes 1.9 10^3/uL (1.0-4.8); ABS Monocytes 0.5 10^3/uL (0.0-0.9); ABS Neutrophils 2.5 10^3/uL (1.5-7.6); Eosinophil % 2.7 %; Hematocrit 30.8 % (35-45); Hemoglobin 10.5 g/dL (11.5-14.3); Lymphocyte % 37.4 %; Mean Corpuscular Hgb Conc 33.9 g/dL (31-36); Mean Corpuscular Volume 76.7 fL (80-97); Mean Platelet Volume 8.4 fL (7.5-11.2); Platelet Count 411 10^3/uL (150-450); Red Blood Count 4.02 10^6/uL (3.63-4.92); Red Cell Distribution Width 15.3 % (12-17); White Blood Count 5.1 10^3/uL (3.8-11.8)
[2022-12-04 20:22] LABS: ALT 6 U/L (7-52); Albumin 3.2 g/dL (3.2-5.2); Albumin/Globulin Ratio 0.6 (1-3); Alkaline Phosphatase 55 U/L (35-149); Blood Urea Nitrogen 51 mg/dL (6-24); C Reactive Protein 57.38 mg/L (<8.01); CO2 Carbon Dioxide 22 mmol/L (22-32); Calcium 9.3 mg/dL (8.6-10.3); Chloride 94 mmol/L (101-111); Creatinine, Serum 2.26 mg/dL (0.51-0.95); Globulin 5.7 g/dL (2-4); Glucose 82 mg/dL (70-100); Lipase 72 U/L (11.0-82.0); Sodium 130 mmol/L (135-145); Total Protein 8.9 g/dL (6.4-8.9); eGFR CKD-EPI 21.3 (>60)
[2022-12-04 21:00] LABS: Anion Gap 14 mmol/L (2-16)
[2022-12-04 22:08] LABS: Potassium Redraw 4.7 mmol/L (3.5-5.0)
[2022-12-04] MEDS ORDERED: Magnesium Hydroxide LIQ 30 ML UDC PO PRN (23:07)
[2022-12-04] MEDS ORDERED: Lactated Ringers 1000 ml BAG 1,000 ML IV ONE (23:08)
[2022-12-05] MEDS: Ondansetron 4 mg VIAL 2 MG/ML 2 ml VIAL IV PRN ×2 (03:04→12:26)
[2022-12-05] MEDS ORDERED: Heparin 5000 UNITS/ML 1 mL VIAL SUBCUT SCH (09:00)
[2022-12-05] MEDS: Polyethylene Glycol 3350 17 GM PACKET PO SCH (11:50)
[2022-12-05 11:55] LABS: Creatinine, Serum 1.96 mg/dL (0.51-0.95); Potassium 4.6 mmol/L (3.5-5.0); eGFR CKD-EPI 25.2 (>60)
[2022-12-05] MEDS ORDERED: NS 0.9% 1000 ml BAG 1,000 ML IV SCH (12:00)
[2022-12-05] MEDS: Lidocaine PATCH 5% PATCH TRANSDERM SCH (12:32)
[2022-12-05 18:03] LABS: Venous Bicarbonate HCO3 22.8 mmol/L (24-28)
[2022-12-05] MEDS: Senna TAB 8.6 mg TAB PO SCH (22:12)
[2022-12-06] MEDS ORDERED: CMCS:Oral Rinse (Biotene)(NF) 237 ML or 473 ML ORAL RINSE BTL MT SCH (09:00)
[2022-12-06] MEDS ORDERED: NS 0.9% 1000 ml BAG 1,000 ML IV SCH (09:00)
[2022-12-06] MEDS: Lidocaine PATCH 5% PATCH TRANSDERM SCH (10:15)
[2022-12-06] MEDS: Polyethylene Glycol 3350 17 GM PACKET PO SCH (10:19)
[2022-12-06 15:39] LABS: Hematocrit 24.5 % (35-45); Hemoglobin 8.5 g/dL (11.5-14.3); Mean Corpuscular Hemoglobin 26.6 pg (27-33); Mean Corpuscular Hgb Conc 34.5 g/dL (31-36); Mean Platelet Volume 8.1 fL (7.5-11.2); Platelet Count 256 10^3/uL (150-450); Red Blood Count 3.18 10^6/uL (3.63-4.92); Red Cell Distribution Width 15.3 % (12-17); White Blood Count 4.8 10^3/uL (3.8-11.8)
[2022-12-06 15:55] LABS: Calcium 8.7 mg/dL (8.6-10.3); Creatinine, Serum 1.49 mg/dL (0.51-0.95); Potassium 4.8 mmol/L (3.5-5.0); eGFR CKD-EPI 35.1 (>60)
[2022-12-06] MEDS: Senna TAB 8.6 mg TAB PO SCH (20:40)
[2022-12-07] MEDS: Ondansetron 4 mg VIAL 2 MG/ML 2 ml VIAL IV PRN (01:55)
[2022-12-07] MEDS ORDERED: NS 0.9% 1000 ml BAG 1,000 ML IV SCH (02:30)
[2022-12-07] MEDS: Lidocaine PATCH 5% PATCH TRANSDERM SCH (10:03)
[2022-12-07] MEDS: Polyethylene Glycol 3350 17 GM PACKET PO SCH (10:03)
[2022-12-07 13:09] LABS: Urine Appearance Cloudy; Urine Bilirubin Negative (Negative); Urine Blood Negative (Negative); Urine Color Straw; Urine Glucose Negative (Negative); Urine Ketones 1+ (Negative); Urine Nitrite Negative (Negative); Urine Protein Negative (Negative); Urine Urobilinogen Negative (Negative)
[2022-12-07] MEDS: Senna TAB 8.6 mg TAB PO SCH (20:14)
[2022-12-07 21:09] LABS: ABS Eosinophils 0.2 10^3/uL (0.0-0.5); ABS Lymphocytes 1.4 10^3/uL (1.0-4.8); ABS Monocytes 0.5 10^3/uL (0.0-0.9); ABS Neutrophils 2.2 10^3/uL (1.5-7.6); ABS Nucleated RBC 0.01 10^3/ul; Eosinophil % 3.6 %; Hemoglobin 8.2 g/dL (11.5-14.3); Lymphocyte % 32.9 %; Mean Corpuscular Hemoglobin 26.3 pg (27-33); Mean Corpuscular Hgb Conc 34.3 g/dL (31-36); Mean Corpuscular Volume 76.6 fL (80-97); Mean Platelet Volume 7.7 fL (7.5-11.2); Nucleated Red Blood Cells % 0.2 /100 WBC (0.0-0.4); Platelet Count 225 10^3/uL (150-450); Red Blood Count 3.13 10^6/uL (3.63-4.92); Red Cell Distribution Width 15.1 % (12-17); White Blood Count 4.3 10^3/uL (3.8-11.8)
[2022-12-07 21:25] LABS: C Reactive Protein 32.35 mg/L (<8.01); Calcium 8.6 mg/dL (8.6-10.3); Creatinine, Serum 1.36 mg/dL (0.51-0.95); Potassium 4.7 mmol/L (3.5-5.0); eGFR CKD-EPI 39.1 (>60)
[2022-12-08] MEDS: Lidocaine PATCH 5% PATCH TRANSDERM SCH (08:16)
[2022-12-08] MEDS: Polyethylene Glycol 3350 17 GM PACKET PO SCH (08:18)
[2022-12-08] MEDS ORDERED: fentaNYL 100 mcg/2 ml 50 MCG/ML VIAL ONE (14:40)
[2022-12-08] MEDS: Senna TAB 8.6 mg TAB PO SCH (21:05)
[2022-12-09] MEDS: Ondansetron 4 mg VIAL 2 MG/ML 2 ml VIAL IV PRN (02:52)
[2022-12-09] MEDS: Polyethylene Glycol 3350 17 GM PACKET PO SCH (09:22)
[2022-12-09 09:25] LABS: ABS Eosinophils 0.2 10^3/uL (0.0-0.5); ABS Monocytes 0.4 10^3/uL (0.0-0.9); ABS Nucleated RBC 0.01 10^3/ul; Eosinophil % 3.4 %; Hematocrit 28.5 % (35-45); Hemoglobin 9.8 g/dL (11.5-14.3); Lymphocyte % 42.8 %; Mean Corpuscular Hemoglobin 26.2 pg (27-33); Mean Corpuscular Hgb Conc 34.4 g/dL (31-36); Mean Corpuscular Volume 76.1 fL (80-97); Mean Platelet Volume 7.7 fL (7.5-11.2); Nucleated Red Blood Cells % 0.2 /100 WBC (0.0-0.4); Platelet Count 245 10^3/uL (150-450); Red Blood Count 3.74 10^6/uL (3.63-4.92); Red Cell Distribution Width 15.3 % (12-17); White Blood Count 4.6 10^3/uL (3.8-11.8)
[2022-12-09 09:46] LABS: Creatinine, Serum 1.48 mg/dL (0.51-0.95); Magnesium 1.6 mg/dL (1.9-2.7); Potassium 4.4 mmol/L (3.5-5.0); eGFR CKD-EPI 35.4 (>60)
[2022-12-09] MEDS ORDERED: Magnesium Sulf 4 GM/100 ML IV 4,000 MG/100 ML BAG IVPB ONE (11:00)
[2022-12-09] MEDS: Lidocaine PATCH 5% PATCH TRANSDERM SCH (12:47)
[2022-12-09] MEDS: Ondansetron ODT 4 mg TAB 4 MG TAB PO PRN (16:07)
[2022-12-09] MEDS: Senna TAB 8.6 mg TAB PO SCH (20:41)
[2022-12-09] MEDS: ceFAZolin 2 GM in NS PREMIX 2 GM/100 ML BAG IVPB SCH (20:49)
[2022-12-09] MEDS: Prochlorperazine 5 mg/ml 2 ml VIAL (10 mg) IV PRN (23:25)
[2022-12-10] MEDS: Polyethylene Glycol 3350 17 GM PACKET PO SCH (09:00)
[2022-12-10] MEDS: ceFAZolin 2 GM in NS PREMIX 2 GM/100 ML BAG IVPB SCH ×3 (09:01→23:41)
[2022-12-10] MEDS: Lidocaine PATCH 5% PATCH TRANSDERM SCH (09:01)
[2022-12-10 09:34] LABS: ABS Eosinophils 0.2 10^3/uL (0.0-0.5); ABS Lymphocytes 1.7 10^3/uL (1.0-4.8); ABS Monocytes 0.5 10^3/uL (0.0-0.9); ABS Neutrophils 2.2 10^3/uL (1.5-7.6); Eosinophil % 3.9 %; Hemoglobin 8.8 g/dL (11.5-14.3); Lymphocyte % 36.5 %; Mean Corpuscular Hemoglobin 26.3 pg (27-33); Mean Corpuscular Volume 77.4 fL (80-97); Mean Platelet Volume 7.7 fL (7.5-11.2); Nucleated Red Blood Cells % 0.1 /100 WBC (0.0-0.4); Platelet Count 210 10^3/uL (150-450); Red Blood Count 3.35 10^6/uL (3.63-4.92); Red Cell Distribution Width 15.4 % (12-17); White Blood Count 4.6 10^3/uL (3.8-11.8)
[2022-12-10 09:50] LABS: Calcium 8.5 mg/dL (8.6-10.3); Creatinine, Serum 1.72 mg/dL (0.51-0.95); eGFR CKD-EPI 29.5 (>60)
[2022-12-10] MEDS: Ondansetron ODT 4 mg TAB 4 MG TAB PO PRN ×2 (10:28→19:50)
[2022-12-10] MEDS ORDERED: NS 0.9% 1000 ml BAG 1,000 ML IV SCH (11:30)
[2022-12-10] MEDS: Prochlorperazine 5 mg/ml 2 ml VIAL (10 mg) IV PRN (13:20)
[2022-12-10] MEDS: Senna TAB 8.6 mg TAB PO SCH (21:39)
[2022-12-10] MEDS: Heparin 5000 UNITS/ML 1 mL VIAL SUBCUT SCH (21:39)
[2022-12-10] MEDS ORDERED: ceFAZolin 1 GM in Dextrose 1 GM/50 ML BAG IVPB SCH (22:30)
[2022-12-11] MEDS: Heparin 5000 UNITS/ML 1 mL VIAL SUBCUT SCH (05:51)
[2022-12-11 06:47] LABS: ABS Basophils 0.1 10^3/uL (0.0-0.1); ABS Eosinophils 0.2 10^3/uL (0.0-0.5); ABS Monocytes 0.6 10^3/uL (0.0-0.9); ABS Neutrophils 1.9 10^3/uL (1.5-7.6); Eosinophil % 3.8 %; Hematocrit 25.1 % (35-45); Hemoglobin 8.6 g/dL (11.5-14.3); Lymphocyte % 41.5 %; Mean Corpuscular Hemoglobin 26.3 pg (27-33); Mean Corpuscular Hgb Conc 34.2 g/dL (31-36); Mean Corpuscular Volume 76.8 fL (80-97); Mean Platelet Volume 7.9 fL (7.5-11.2); Nucleated Red Blood Cells % 0.1 /100 WBC (0.0-0.4); Platelet Count 192 10^3/uL (150-450); Red Blood Count 3.27 10^6/uL (3.63-4.92); Red Cell Distribution Width 15.3 % (12-17); White Blood Count 4.7 10^3/uL (3.8-11.8)
[2022-12-11 06:59] LABS: Calcium 8.3 mg/dL (8.6-10.3); Creatinine, Serum 1.28 mg/dL (0.51-0.95); Magnesium 1.9 mg/dL (1.9-2.7); eGFR CKD-EPI 42.1 (>60)
[2022-12-11] MEDS: Ondansetron ODT 4 mg TAB 4 MG TAB PO PRN (08:11)
[2022-12-11] MEDS: Polyethylene Glycol 3350 17 GM PACKET PO SCH (08:11)
[2022-12-11] MEDS: Lidocaine PATCH 5% PATCH TRANSDERM SCH (08:20)
[2022-12-11 11:32] VITALS: BP 113/65
== END 2022-12-11 12:30 | disposition home or self-care (01) | DRG 177 ==
LOC: ED 17:13 → EDHOLD 17:13 → SUATTDRO 23:05 → MEDTELE 12-05 02:05 → SUATTDRO 12-06 09:00 → SSU 12-06 20:28 → MEDTELE 12-07 12:05
PROVIDERS: ADMIT Student in an Organized Health Care Education/Training Program; ATTEND Hospitalist
PROC: O.GIEGD (2022-12-05 14:35)